=== PATIENT | male | born 1960 | race Caucasian/White ===

== ENCOUNTER 2018-03-29 17:52 | Inpatient (IN) | payer MEDICAID, SELFPAY ==
[2018-03-29 17:53] VITALS: BP 150/100; PULSE 108; RESP 16; TEMP 36.6; O2SAT 95; BMI 28.0
[2018-03-29 19:08] VITALS: BP 125/83; PULSE 73; RESP 14; O2SAT 96
[2018-03-29 19:14] LABS: Absolute Lymphocyte Count 2.02 X10^3/ul (0.83-4.51); Absolute Neutrophil Count 1.6 X10^3/uL (2.0-7.7); Basophil# 0.04 X10^3/uL; Basophil% 0.9 % (0-1); Eosinophil# 0.16 X10^3/uL; Eosinophils% 3.6 % (0-5); Hematocrit 43.7 % (40-54); Hemoglobin 15.1 g/dl (13.0-16.5); Lymphocyte # 2.02 X10^3/ul (4.0); Lymphocyte % 45.9 % (19-41); Mean Corp Hgb Conc 34.6 g/gl (32-36); Mean Corpuscular Hgb 32.8 pg (27.0-32.0); Mean Corpuscular Volume 94.8 fL (80-94); Mean Platelet Vol. 9.1 fl (6.2-12.0); Monocyte# 0.62 X10^3/uL; Monocyte% 14.1 % (0-10); Neutrophil # 1.56 X10^3/uL (2.7-7.7); Neutrophil % 35.5 % (47-70); Platelet Count 154 K/mm3 (150-450); RBC Distribution Width CV 11.8 % (11.6-14.6); RBC Distribution Width SD 40.9 fl (35.1-43.9); Red Blood Count 4.61 M/mm3 (4.6-6.2); White Blood Count 4.4 K/mm3 (4.4-11.0)
[2018-03-29 19:16] LABS: POSITIVE COUNT NO; POSITIVE DIFFERENTIAL NO; POSITIVE MORPHOLOGY NO
[2018-03-29 19:20] LABS: Anion Gap 7 (5-15); BUN 5 mg/dL (7-18); BUN/Creat Ratio 6.5 RATIO (10-20); Calcium,Total 8.5 mg/dL (8.5-10.1); Chloride 99 mmol/L (98-107); Creatinine, Serum 0.77 mg/dL (0.70-1.30); EST Glomerular Filtration Rate 111 mL/min (>60); Est Glom Filt Rate - Afr Amer 134 mL/min (>60); Estimated Creatinine Clearance 126.03 ml/min; Glucose 96 mg/dL (74-106); Potassium 3.9 mmol/L (3.5-5.1); Sodium Level 138 mmol/L (136-145)
--- NOTE | 2018-03-29 19:40 | ED.RN ---
lab called with critical results. etoh level 384. dr. mathias made aware no new orders at this time
[2018-03-29] MEDS: Ziprasidone IM 20 MG/ML VIAL 10 MG IM (21:21)
--- NOTE | 2018-03-29 23:12 | ED.DCSUM_ITS ---
- ER Visit Summary Date of Service: 03/29/18 Chief Complaint: Alcohol overdose History of Present Illness: The patient is a 57 M with no primary care physician. He reports that he drinks daily. He states he has had 3 tall boys today. He is worried that he has overdosed on alcohol. On the triage reports that the patient presented asking for detox. When I asked the patient about this she reports I probably should. Review of systems: General: No fever, chills, cold sweats. Cardiovascular: No chest pain, palpitations. Respiratory: No cough, shortness of breath, dyspnea on exertion. Gastrointestinal: No abdominal pain, nausea, vomiting, diarrhea, melena, or hematochezia. Genitourinary: No dysuria, frequency, hematuria. Skin: No rash. Neuro: No headache, numbness, weakness. Physical Examination: Vitals: Stable. Afebrile. General: Well-nourished and well-developed. Head: Normocephalic atraumatic. Neck: Supple, no lymphadenopathy. No JVD. Nontender. Cardiovascular: Regular rate and rhythm. No murmurs. Respiratory: No respiratory distress. Clear to auscultation bilaterally. Abdominal: Soft, nontender, nondistended, normal bowel sounds. No guarding, rebound, or peritoneal signs. Back: Nontender. Extremities: Nontender, no edema. Skin: Normal color, no rash. Neurologic: Alert and oriented ?3. Cranial nerves II through XII are intact. Normal strength and sensation. Psych: Normal affect. Test Results: CBC is remarkable for segment neutrophils of 36, lymphocytes of 46 , and monocytes of 14. Chem-7 is more for BUN of 5. Alcohol level is 384. Emergency Department Course and Treatment: Patient is resting comfortably. I spoke with him about him being intoxicated and not in a eligible for [facility] because of that. He asked that he could walk home. Discussed that that is not a possibility as he is intoxicated. The nurse called and spoke with his . She reports patient has been talking about going to detox and has withdrawal symptoms in the morning before his initial drink. She would like the patient to stay overnight and be assessed by [facility]. Treatment Plan: I discussed this plan with the patient. He also would like to stay in the emergency department. He was given a dose of Geodon IM to help him sleep. He will be reassessed in the morning. Disposition: Pending Impression: 1. Alcohol intoxication. This note was generated with [employer] dictation software. It may contain incorrect words, spelling, and punctuation that were not noted in review of the chart prior to signing ED Disposition - Plan for ED Patient: Chief Complaint: ETOH Intox Referrals: Care Physician,No Primary [Primary Care Provider] -
[2018-03-30] VITALS (12 sets, daily range): BP systolic 112–166; BP diastolic 75–105; PULSE 68–122; RESP 16–20; TEMP 36.2–37.2; O2SAT 94–98; BMI 27.8
--- NOTE | 2018-03-30 06:55 | ED.RN ---
CONSULT PLACED FOR SOCIAL WORK AND [facility] FOR REHAB PLACEMENT
--- NOTE | 2018-03-30 06:56 | ED.RN ---
CALLED PATIENTS TO UPDATE ON PATIENTS ADMISSION STATUS. DUE TO PATIENTS INSURANCE HE [facility] HE WILL HAVE TO FOLLOW UP WITH ANOTHER REHAB PROGRAM CONSULTS LEFT IN AN ATTEMPT TO FIND ANOTHER REHAB CENTER
--- NOTE | 2018-03-30 08:51 | NURSING ---
DR LAYO MALHOTRA
--- NOTE | 2018-03-30 08:54 | NURSING ---
DR VASQUES IN ER
--- NOTE | 2018-03-30 09:26 | NURSING ---
215 ALCOHOL WITHDRAWAL TERELETSKY
[2018-03-30] MEDS: Lisinopril 20 MG Tablet PO (10:08)
[2018-03-30] MEDS: cloNIDine HCl 0.1 MG Tablet PO ×4 (10:08→21:37)
[2018-03-30] MEDS: chlordiazePOXIDE 25 MG Capsule PO ×3 (10:08→21:37)
[2018-03-30] MEDS: Ondansetron ODT 4 MG Tablet PO (13:53)
[2018-03-30] MEDS: Methocarbamol 750 MG Tablet PO (13:55)
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
[2018-03-30] MEDS: Ibuprofen 600 MG Tablet PO (20:03)
[2018-03-31] VITALS (13 sets, daily range): BP systolic 106–132; BP diastolic 68–100; PULSE 62–90; RESP 16–18; TEMP 36.6–36.8; O2SAT 96–100
[2018-03-31] MEDS: cloNIDine HCl 0.1 MG Tablet PO ×5 (02:05→22:33)
[2018-03-31] MEDS: chlordiazePOXIDE 25 MG Capsule PO ×3 (04:16→19:53)
[2018-03-31] MEDS: Ibuprofen 600 MG Tablet PO ×2 (06:25→17:42)
[2018-03-31] MEDS: Methocarbamol 750 MG Tablet PO ×2 (06:26→16:32)
--- NOTE | 2018-03-31 09:05 | PCM.PROGNOTE ---
Patient Problems: Active and Suspected Problems Alcohol withdrawal (Acute) Subjective: Patient was seen and examined today, he states he feels less nervous and jittery. - Physical Exam General: Alert, Oriented x3, Cooperative, No apparent distress, Well developed, Well nourished HEENT: Atraumatic, PERRLA, EOMI, Normocephalic Oral: Moist Mucosa Neck: Supple, No JVD, No Nuchal Rigidity, Trachea Midline, Thyroid Normal Size and Texture Lungs: Clear to auscultation, Normal air movement, No rhonchi, No wheeze, No rales Cardiovascular: Regular rate, Regular Rhythm, Normal S1, Normal S2, No murmurs, No Ectopic Activity Abdomen: Bowel Sounds Present, Soft, Non Tender, Non-Distended, No hernias noted Extremities: No clubbing, No cyanosis, No edema, Capillary Refill Less than 3 Seconds Skin: No rashes, No breakdown Musculoskeletal: No Tenderness to Palpation of Joints or Extremities Neurological: Cranial nerves II-XII grossly intact, Neuro grossly intact, Sensory exam intact to light touch and pain, Coordination normal Psych/Mental Status: Normal Affect, Appropriate, Alert and oriented to time, place, person, mood and affect Vital Signs Temp Pulse Resp BP Pulse Ox 97.8 F 80 16 124/89 H 100 03/31/18 04:14 03/31/18 08:22 03/31/18 04:14 03/31/18 05:59 03/31/18 04:08 Oxygen Delivery Method Room Air Weight: 95.6 kg Body Mass Index (BMI) 27.8 Intake and Output for Last 24 Hours 03/29/18 03/30/18 03/31/18 23:59 23:59 23:59 Intake Total 1050 / 1050 1080 / 1080 Balance 1050 / 1050 1080 / 1080 Medical Necessity - Tobacco Use Smoking Status: Never smoker Tobacco Use: Non-smoker Assessment/Plan Active and Suspected Problems Alcohol withdrawal (Acute) #1 acute alcohol withdrawal-continue present medications #2 alcoholism Code Visit Inpatient E&M: 11493 Subs Hosp L2
[2018-03-31] MEDS: Lisinopril 20 MG Tablet PO (09:47)
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
[2018-03-31] MEDS: Thiamine Hydrochloride 100 MG Tablet PO ×2 (17:56)
[2018-04-01] VITALS (8 sets, daily range): BP systolic 121–157; BP diastolic 82–97; PULSE 66–89; RESP 18; TEMP 36.3–37.1; O2SAT 94–100
[2018-04-01] MEDS: Ibuprofen 600 MG Tablet PO ×3 (02:10→22:35)
[2018-04-01] MEDS: cloNIDine HCl 0.1 MG Tablet PO ×6 (02:11→22:30)
[2018-04-01] MEDS: Methocarbamol 750 MG Tablet PO ×2 (02:11→10:15)
[2018-04-01] MEDS: chlordiazePOXIDE 25 MG Capsule PO ×2 (04:44→11:35)
[2018-04-01] MEDS: Lisinopril 20 MG Tablet PO (10:12)
--- NOTE | 2018-04-01 16:48 | PCM.PROGNOTE ---
Patient Problems: Active and Suspected Problems Alcohol withdrawal (Acute) Subjective: Patient seen and examined today, he is doing well overall and has no specific complaints. - Physical Exam General: Alert, Oriented x3, Cooperative, No apparent distress, Well developed, Well nourished HEENT: Atraumatic, PERRLA, EOMI, Normocephalic Oral: Moist Mucosa Neck: Supple, No JVD, No Nuchal Rigidity, Trachea Midline, Thyroid Normal Size and Texture Lungs: Clear to auscultation, Normal air movement, No rhonchi, No wheeze, No rales Cardiovascular: Regular rate, Regular Rhythm, Normal S1, Normal S2, No murmurs, No Ectopic Activity, PMI Normal, No rub noted, No Gallop Abdomen: Bowel Sounds Present, Soft, Non Tender, Non-Distended, No hernias noted Extremities: No clubbing, No cyanosis, No edema, Capillary Refill Less than 3 Seconds Skin: No rashes, No breakdown Neurological: Cranial nerves II-XII grossly intact, Neuro grossly intact, Sensory exam intact to light touch and pain, Coordination normal Psych/Mental Status: Normal Affect, Appropriate, Alert and oriented to time, place, person, mood and affect Vital Signs Temp Pulse Resp BP Pulse Ox 98.7 F 89 18 157/92 H 95 04/01/18 13:50 04/01/18 13:50 04/01/18 13:50 04/01/18 13:50 04/01/18 13:50 Oxygen Delivery Method Room Air Weight: 95.6 kg Body Mass Index (BMI) 27.8 Intake and Output for Last 24 Hours 03/30/18 03/31/18 04/01/18 23:59 23:59 23:59 Intake Total 1050 / 1050 1080 / 1080 1300 / 1300 Balance 1050 / 1050 1080 / 1080 1300 / 1300 Medical Necessity - Tobacco Use Smoking Status: Never smoker Tobacco Use: Non-smoker Assessment/Plan Active and Suspected Problems Alcohol withdrawal (Acute) #1 acute alcohol withdrawal-continue present medications, no changes in medical care at this time #2 alcoholism Code Visit Inpatient E&M: 16636 Subs Hosp L2
[2018-04-02] VITALS (8 sets, daily range): BP systolic 119–136; BP diastolic 79–101; PULSE 62–65; RESP 14–18; TEMP 36.3–36.5; O2SAT 96–100
[2018-04-02] MEDS: chlordiazePOXIDE 25 MG Capsule PO (00:16)
[2018-04-02] MEDS: Methocarbamol 750 MG Tablet PO ×2 (00:16→08:37)
[2018-04-02] MEDS: cloNIDine HCl 0.1 MG Tablet PO ×3 (02:18→08:21)
--- NOTE | 2018-04-02 08:06 | PCM.DC ---
- Discharge Diagnoses Current Active Problems: Current Active and Chronic Problems Alcohol abuse (Chronic) Alcohol withdrawal (Acute) Hypertension (Chronic) You will use the following diet at home:: No restrictions Your food should be the consistency of: Regular Your liquids should be the consistency of: Regular/Thin Discharge Activity: Return to Normal Activity Weight Bearing Status: Full weight bearing Allergies/Adverse Reactions: Allergies No Known Allergies Allergy (Verified 02/23/17 09:26) Medications to take at Discharge Lisinopril 20 mg PO DAILY #30 tab 04/02/18 The following prescriptions were given: Lisinopril 20 mg PO DAILY #30 tab Primary Care Physician: Care Physician,No Primary [Primary Care Provider] - Please follow up with your Primary Care Physician in: in 2 weeks
[2018-04-02] MEDS: Thiamine Hydrochloride 100 MG Tablet PO (08:18)
[2018-04-02] MEDS: Lisinopril 20 MG Tablet PO (08:22)
--- NOTE | 2018-04-02 16:57 | PCM.DC.SUM ---
Discharge Date and Diagnosis Date of Admission: 03/30/18 Date of Discharge: 04/02/18 - Primary Discharge Diagnosis #1 acute alcohol withdrawal #2 alcoholism #3 hypertension - Secondary Discharge Diagnosis Chronic Problems Alcohol abuse (Chronic) Hypertension (Chronic) Hospital Course and Treatment Operations: None Procedures: None Summary of Care Provided: The patient is a 57 year old M who was admitted into the medical stabilization program at [facility] for alcohol withdrawal. Patient initially presented to the emergency room the day before but was intoxicated and was kept in the emergency room until he had evidence of alcohol withdrawal. Patient was admitted into the medical stabilization program at [facility] on , orders were entered using the medical stabilization order set. Patient was started on his former blood pressure medication which she had not been taking and quite a while, he had no major problems while he was hospitalized. On 04/02/18, patient was seen and examined felt in stable condition for discharge home Discharge Activity: Return to Normal Activity Weight Bearing Status: Full weight bearing Home Medications: Medications to take at Discharge Lisinopril 20 mg PO DAILY #30 tab 04/02/18 Following Prescrptions Were Given to Patient: Lisinopril 20 mg PO DAILY #30 tab Primary Care Physician: Care Physician,No Primary [Primary Care Provider] - Please follow up with your Primary Care Physician in: in 2 weeks Disposition: Home Minutes spent on discharge:: 32 Patient Condition:: Stable Medical Necessity - Tobacco Use Smoking Status: Never smoker Tobacco Use: Non-smoker Meaningful Use Info Meaningful Use Diagnoses (Choose all that apply): None applicable Code Visit Inpatient E&M: 52569 Disch Hosp
--- NOTE | 2018-04-02 17:00 | DS.PCM_ITS ---
Discharge Date and Diagnosis Date of Admission: 03/30/18 Date of Discharge: 04/02/18 - Primary Discharge Diagnosis #1 acute alcohol withdrawal #2 alcoholism #3 hypertension - Secondary Discharge Diagnosis Chronic Problems Alcohol abuse (Chronic) Hypertension (Chronic) Hospital Course and Treatment Operations: None Procedures: None Summary of Care Provided: The patient is a 57 year old M who was admitted into the medical stabilization program at [facility] for alcohol withdrawal. Patient initially presented to the emergency room the day before but was intoxicated and was kept in the emergency room until he had evidence of alcohol withdrawal. Patient was admitted into the medical stabilization program at [facility] on , orders were entered using the medical stabilization order set. Patient was started on his former blood pressure medication which she had not been taking and quite a while, he had no major problems while he was hospitalized. On 04/02/18, patient was seen and examined felt in stable condition for discharge home Discharge Activity: Return to Normal Activity Weight Bearing Status: Full weight bearing Home Medications: Medications to take at Discharge Lisinopril 20 mg PO DAILY #30 tab 04/02/18 Following Prescrptions Were Given to Patient: Lisinopril 20 mg PO DAILY #30 tab Primary Care Physician: Care Physician,No Primary [Primary Care Provider] - Please follow up with your Primary Care Physician in: in 2 weeks Disposition: Home Minutes spent on discharge:: 32 Patient Condition:: Stable Medical Necessity - Tobacco Use Smoking Status: Never smoker Tobacco Use: Non-smoker Meaningful Use Info Meaningful Use Diagnoses (Choose all that apply): None applicable Code Visit Inpatient E&M: 90940 Disch Hosp
== END 2018-04-02 09:05 | disposition home or self-care (01) | DRG 435 ==
LOC: ED 22:28 → MS2 03-30 09:28 → MS3 04-01 14:11
PROVIDERS: Admitting Provider Internal Medicine; Emergency Provider Emergency Medicine; Visit Provider Internal Medicine
DX: F10.239 Alcohol dependence with withdrawal, unspecified (principal); F10.229 Alcohol dependence with intoxication, unspecified; Y90.8 Blood alcohol level of 240 mg/100 ml or more; I10 Essential (primary) hypertension
CPT/HCPCS: 80048; 80320; 85025; 97802; 99285; J7040; A4216; G0480; J3486; J3490

== ENCOUNTER 2018-04-23 16:31 | Emergency (ER) | payer MEDICAID, SELFPAY ==
--- NOTE | 2018-04-23 16:31 | DT_ITS ---
This patient was seen during an EMR downtime April 18, 2018 - April 25, 2018. This patient may have a combination of paper and electronic documentation or all paper documentation. All documentation is viewable within the e-chart portion of [employer] for each patient visit.
[2018-04-26 06:39] LABS: Bacteria 0 SEEN /hpf (None Seen); Mucous, Urine 0 SEEN /hpf (<or=2+); Red Blood Cells-Urine 0 SEEN /hpf (0-5); White Blood Cells 0 SEEN /hpf (0-5)
[2018-04-26 07:01] LABS: Color, Urine Yellow (Yellow); Glucose, Dipstick NEGATIVE (Normal); Ketone-Dipstick Negative (Negative); Leukocyte Esterase-Dipstick Negative /ul (Negative); Nitrite-Dipstick Negative (Negative); Occult Blood-Urine Negative /ul (Negative); Protein-Dipstick Negative (Negative); Squamous Epithelial Cells - UA 0-5 SEEN /hpf (0-5); Urine Bilirubin Dipstick Negative (Negative); Urine Clarity Sl Cldy (Clear); Urine Urobilinogen Normal (Normal)
[2018-04-26 18:25] LABS: Amphetamine Urine VISTA NEGATIVE (<1000 ng/mL); Barbiturate Urine VISTA NEGATIVE (< 200 ng/mL)
[2018-04-26 18:26] LABS: Benzodiazepine Urine VISTA POSITIVE (< 200 ng/mL); Cocaine Urine VISTA NEGATIVE (< 300 ng/mL); Ecstacy Urine VISTA NEGATIVE (< 500 ng/mL); Methadone Urine VISTA NEGATIVE (< 300 ng/mL); PCP Urine VISTA NEGATIVE (< 25 ng/mL); THC Urine VISTA NEGATIVE (< 50 ng/mL)
[2018-04-26 20:37] LABS: BUN 8 mg/dL (7-18); Glucose 90 mg/dL (74-106)
[2018-04-26 20:38] LABS: BUN/Creat Ratio 10.5 RATIO (10-20); Calcium,Total 8.6 mg/dL (8.5-10.1); Creatinine, Serum 0.76 mg/dL (0.70-1.30); EST Glomerular Filtration Rate 113 mL/min (>60); Est Glom Filt Rate - Afr Amer 137 mL/min (>60); Sodium Level 142 mmol/L (136-145)
[2018-04-26 20:39] LABS: Anion Gap 9 (5-15); Chloride 102 mmol/L (98-107); Potassium 4.1 mmol/L (3.5-5.1)
[2018-04-26 20:48] LABS: White Blood Count 3.9 K/mm3 (4.4-11.0)
[2018-04-26 20:49] LABS: Absolute Neutrophil Count 1.5 X10^3/uL (2.0-7.7); Basophil% 1.6 % (0-1); Eosinophils% 3.9 % (0-5); Hematocrit 43.2 % (40-54); Hemoglobin 14.4 g/dl (13.0-16.5); Lymphocyte % 45.2 % (19-41); Mean Corp Hgb Conc 33.3 g/gl (32-36); Mean Corpuscular Hgb 32.4 pg (27.0-32.0); Mean Corpuscular Volume 97.1 fL (80-94); Mean Platelet Vol. 8.7 fl (6.2-12.0); Monocyte% 11.9 % (0-10); Neutrophil # 1.45 X10^3/uL (2.7-7.7); Neutrophil % 37.4 % (47-70); POSITIVE COUNT NO; POSITIVE DIFFERENTIAL NO; POSITIVE MORPHOLOGY NO; Platelet Count 147 K/mm3 (150-450); RBC Distribution Width CV 12.3 % (11.6-14.6); RBC Distribution Width SD 43.6 fl (35.1-43.9); Red Blood Count 4.45 M/mm3 (4.6-6.2)
[2018-04-26 20:50] LABS: Absolute Lymphocyte Count 1.75 X10^3/ul (0.83-4.51); Basophil# 0.06 X10^3/uL; Eosinophil# 0.15 X10^3/uL; Lymphocyte # 1.75 X10^3/ul (4.0); Monocyte# 0.46 X10^3/uL
== END 2018-04-24 14:05 | disposition home or self-care (01) ==
LOC: ED 04-24 14:45
PROVIDERS: Emergency Provider Emergency Medicine
DX: F10.129 Alcohol abuse with intoxication, unspecified (principal); Y90.8 Blood alcohol level of 240 mg/100 ml or more
CPT/HCPCS: 36415; 80048; 80307; 80320; 81001; 85025; 99282; G0480; J3486

== ENCOUNTER 2018-11-07 17:31 | Emergency (ER) | payer MEDICAID, SELFPAY ==
[2018-11-07 17:32] VITALS: BP 168/101; PULSE 112; RESP 16; TEMP 36.7; O2SAT 96; BMI 29.7
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
[2018-11-07] MEDS: guaiFENesin Dm 10 ML UDC PO (18:21)
[2018-11-07 18:28] LABS: Anion Gap 11 (5-15); BUN 5 mg/dL (7-18); BUN/Creat Ratio 6.4 RATIO (10-20); Calcium,Total 8.7 mg/dL (8.5-10.1); Chloride 98 mmol/L (98-107); Creatinine, Serum 0.78 mg/dL (0.70-1.30); EST Glomerular Filtration Rate 108 mL/min (>60); Est Glom Filt Rate - Afr Amer 131 mL/min (>60); Estimated Creatinine Clearance 119.51 ml/min; Glucose 94 mg/dL (74-106); Potassium 3.7 mmol/L (3.5-5.1); Sodium Level 140 mmol/L (136-145)
[2018-11-07 18:30] LABS: Absolute Lymphocyte Count 2.37 X10^3/ul (0.83-4.51); Absolute Neutrophil Count 2.5 X10^3/uL (2.0-7.7); Basophil# 0.04 X10^3/uL; Basophil% 0.8 % (0-1); Eosinophil# 0.09 X10^3/uL; Eosinophils% 1.7 % (0-5); Hematocrit 41.2 % (40-54); Hemoglobin 14.2 g/dl (13.0-16.5); Lymphocyte # 2.37 X10^3/ul (4.0); Lymphocyte % 45.2 % (19-41); Mean Corp Hgb Conc 34.5 g/gl (32-36); Mean Corpuscular Hgb 32.6 pg (27.0-32.0); Mean Corpuscular Volume 94.5 fL (80-94); Mean Platelet Vol. 8.9 fl (6.2-12.0); Monocyte# 0.28 X10^3/uL; Monocyte% 5.3 % (0-10); Neutrophil # 2.46 X10^3/uL (2.7-7.7); Platelet Count 156 K/mm3 (150-450); RBC Distribution Width CV 12.1 % (11.6-14.6); RBC Distribution Width SD 41.2 fl (35.1-43.9); Red Blood Count 4.36 M/mm3 (4.6-6.2); White Blood Count 5.2 K/mm3 (4.4-11.0)
[2018-11-07 18:33] LABS: POSITIVE COUNT NO; POSITIVE DIFFERENTIAL NO; POSITIVE MORPHOLOGY NO
[2018-11-07 21:22] VITALS: BP 109/76; PULSE 94; RESP 16; O2SAT 96
[2018-11-07 21:30] LABS: Bacteria 0 SEEN /hpf (None Seen); Mucous, Urine 0 SEEN /hpf (<or=2+); Red Blood Cells-Urine 0 SEEN /hpf (0-5)
[2018-11-07 21:37] LABS: Color, Urine Yellow (Yellow); Glucose, Dipstick Normal (Normal); Ketone-Dipstick Negative (Negative); Leukocyte Esterase-Dipstick Negative /ul (Negative); Nitrite-Dipstick Negative (Negative); Occult Blood-Urine Negative /ul (Negative); Protein-Dipstick Negative (Negative); Urine Bilirubin Dipstick Negative (Negative); Urine Clarity Clear (Clear); Urine Urobilinogen Normal (Normal)
[2018-11-07 21:48] LABS: Squamous Epithelial Cells - UA 0-5 SEEN /hpf (0-5); White Blood Cells 0-5 SEEN /hpf (0-5)
[2018-11-07 22:39] VITALS: RESP 16
[2018-11-08] VITALS (8 sets, daily range): BP systolic 104–148; BP diastolic 82–105; PULSE 88–104; RESP 16–20; O2SAT 94–98
--- NOTE | 2018-11-08 05:48 | ED.RN ---
BREAKFAST TRAY ORDERED
== END 2018-11-08 08:06 | disposition home or self-care (01) ==
PROVIDERS: Emergency Provider Emergency Medicine
DX: F10.129 Alcohol abuse with intoxication, unspecified (principal); S09.90XA Unspecified injury of head, initial encounter; Y04.2XXA Assault by strike against or bumped into by another person, initial encounter; Y93.9 Activity, unspecified; Y92.9 Unspecified place or not applicable; Y99.9 Unspecified external cause status; J06.9 Acute upper respiratory infection, unspecified; I10 Essential (primary) hypertension; Z79.899 Other long term (current) drug therapy
CPT/HCPCS: 70450; 71046; 80048; 80320; 81001; 85025; 99284; G0480

== ENCOUNTER 2018-12-27 14:56 | Emergency (ER) | payer MEDICAID, SELFPAY ==
[2018-12-27 14:57] VITALS: BP 152/119; PULSE 121; RESP 16; TEMP 36.7; O2SAT 98; BMI 29.0
[2018-12-27 15:19] VITALS: PULSE 120; RESP 17; O2SAT 97
--- NOTE | 2018-12-27 15:24 | ED.VISSUMM ---
- ER Visit Summary Date of Service: 12/27/18 Chief Complaint: Fall History of Present Illness: The patient is a 58 M who states he fell on ice 3 days ago when he went out to get his mail. He had difficulty getting up because of the ice. He complains of pain to his back just beneath his shoulder blades when trying to push himself up. He states he was outside for approximately an hour before he was able to get back inside He states his family has been wanting him to come to get checked out. He denies headache or loss of consciousness. Patient does admit to drinking alcohol. He states he had 2 tall boys at 8 AM this morning. Physical Examination: Blood pressure is 152/119, temperature 98.1, heart rate 121, respiratory rate 16, pulse ox 98% on room air. She is sitting upright in bed no acute distress. He is alert and talkative. Head neck examination reveals an old appearing ecchymosis across his nasal bridge. There is no focal tenderness to palpation. He has no C-spine tenderness. Heart is regular rate and rhythm. Lungs sounds are clear. There is no anterior rib tenderness. He does have reproducible tenderness to the posterior ribs just inferior to the scapula. Tenderness is mild to palpation. There is no crepitus. Abdomen is soft nontender. Neuro exam reveals good strength and sensation. Test Results: [] Emergency Department Course and Treatment: She was offered to order chest x-ray to evaluate his ribs, but patient is declining x-rays or any imaging at this time. He is requesting just Tylenol or ibuprofen and let him go home. Patient does remain tachycardic here. He denies that he is going into alcohol withdrawal. He does not wish for anything further to be done at this time. He will be given a dose of Tylenol and discharged home with a ride. Treatment Plan: [] Disposition: Discharge Impression: Reported fall with back strain Addendum: Prior to the patient being discharged nursing staff advised me that he was planning on walking home and in fact did not have a ride. I confronted him with this. I advised him that clinically he is intoxicated and cannot sign out without a ride here to drive him home. He agreed to let me draw his alcohol level which returned at 408. Patient was advised to find a ride home. He was in agreement. When nurse went to start an IV line and another patient's room, patient eloped from the emergency department. This note was generated with [employer] dictation software. It may contain incorrect words, spelling, and punctuation that were not noted in review of the chart prior to signing ED Disposition - Plan for ED Patient: Disposition: Against Medical Advice Instructions: ED Mechanical Fall, ED Neck Back Pain General Referrals: Moriah Fernandez MD [STAFF PHYSICIAN] - As Needed
--- NOTE | 2018-12-27 15:27 | ED.DEP ---
ED Disposition - Plan for ED Patient: Disposition: Home or Assisted Living Instructions: ED Mechanical Fall, ED Neck Back Pain General Referrals: Moriah Fernandez MD [STAFF PHYSICIAN] - As Needed
[2018-12-27] MEDS: Acetaminophen 500 MG Tablet 1000 MG PO (15:33)
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
--- NOTE | 2018-12-27 17:01 | CHAPLAIN ---
Type of Pastoral Visit ___ Initial Visit ___ Follow-up Visit ___ On-call Visit ___ General Patient Visit ___ Spiritual Assessment ___ Family Conference ___ Bereavement ___ Rapid Response ___ Code Blue _x__ Other (describe below) Pastoral Care Referral From _x__ Patient ___ Family _x__ Nurse ___ Physician ___ Heel Lift Gouger ___ Design Lead ___ Other (describe below) Sacrament/Intervention _x__ Active listening ___ Anointing ___ Confucianism ___ Bereavement ___ Communion ___ Freida exploration ___ _x__ Life review _x__ Prayer ___ Reconciliation ___ Sacrament of Sick _x__ Supportive presence ___ Wedding ___ Other (describe below) Pastoral Comments patient wanted to leave AMA; sat with pt in room and listened to his story; offered a prayer; gave time and attention; pt remained in room
--- NOTE | 2018-12-27 17:30 | ED.RN ---
AND THIS NURSE WENT IN TO TALK WITH PT ABOUT ALCOHOL LEVEL AND NEED FOR RIDE AND RESPONSIBLE LIBERTARIAN. PT AWARE NOT TO LEAVE AND NEED TO GET A RIDE. VERBALIZES UNDERSTANDING.
--- NOTE | 2018-12-27 17:47 | ED.RN ---
ROOM EMPTY, NO WITTNESS TO PT DEPARTURE. LEFT AGAINST MEDICAL ADVICE. CHECKED UNIT AND OUTSIDE SURROUNDING AREA. PT DIDNT HAVE VEHICLE HAD VERBALIZED PRIOR HIS INTENT WAS TO WALK.
== END 2018-12-27 17:49 | disposition left against medical advice (07) ==
PROVIDERS: Emergency Provider Emergency Medicine
DX: S29.012A Strain of muscle and tendon of back wall of thorax, initial encounter (principal); W00.0XXA Fall on same level due to ice and snow, initial encounter; Y93.9 Activity, unspecified; Y92.9 Unspecified place or not applicable; Y99.9 Unspecified external cause status; R00.0 Tachycardia, unspecified; F10.229 Alcohol dependence with intoxication, unspecified; Y90.8 Blood alcohol level of 240 mg/100 ml or more
CPT/HCPCS: 80320; 99284; G0480

== ENCOUNTER 2019-01-17 19:59 | Emergency (ER) | payer MEDICAID, SELFPAY ==
[2019-01-17 20:00] VITALS: BP 155/120; PULSE 98; RESP 16; TEMP 36.8; O2SAT 96; BMI 29.8
--- NOTE | 2019-01-17 20:16 | ED.VISSUMM ---
- ER Visit Summary Date of Service: 01/17/19 Chief Complaint: [] Found publicly intoxicated in by paramedics patient with no complaints History of Present Illness: The patient is a 58 M [] she has no complaints indicates he was drinking he apparently somehow was picked up by the paramedics and brought to the hospital, indicates he has no complaints of any kind he has no head neck chest or abdominal pain he knows his name the fact he is [facility] and the month of January,, he has a home Physical Examination: []vs are within normal range General, no distress resting comfortably HEENT is generally unremarkable The neck is supple no adenopathy Cardiovascular, regular rate and rhythm Lungs, clear bilateral Abdomen, soft nontender Extremities, no clubbing cyanosis or edema Neurologic, awake alert answering questions appropriately moving all 4 extremities She has no complaints indicates he has he does not know why he was brought to the hospital from the information the primary escape to the staff he was found publicly intoxicated at this time we provide him coffee we have observed in the emergency department he will be discharged home to follow-up with his outpatient providers I recommended he consider going to alcohol detox he did not seem interested Test Results: [] Emergency Department Course and Treatment: [] Treatment Plan: [] Disposition: [] Home stable Impression: [] Alcohol abuse by history This note was generated with [employer] dictation software. It may contain incorrect words, spelling, and punctuation that were not noted in review of the chart prior to signing ED Disposition - Plan for ED Patient: Referrals: Care Physician,No Primary [Primary Care Provider] -
--- NOTE | 2019-01-17 20:18 | ED.DEP ---
ED Disposition - Plan for ED Patient: Instructions: ED Overdose Alcohol, ED Alcohol Abuse Referrals: Care Physician,No Primary [Primary Care Provider] -
--- NOTE | 2019-01-17 20:30 | ED.RN ---
PT A+OX3. DENIES ALCOHOL USE. PT HAS BEEN CLEARED FOR D/C FROM DR. NIELSEN.
[2019-01-17 20:52] VITALS: PULSE 91; RESP 18; O2SAT 100
--- NOTE | 2019-01-17 20:53 | ED.RN ---
PT DISCHARGED, VERBALIZES UNDERSTANDING OF DISCHARGE INSTRUCTIONS. PT AMBULATES TO [facility] [employer] [facility]. OFFICE DOZIER IS TAKING PATIENT HOME.
--- NOTE | 2019-01-17 20:55 | ED.RN ---
PD ESCORT PT HOME. PT NEPHEW TO TAKE OF PT AT HOME. PT AMBULATORY OUT OF DEPT WITH PD.
== END 2019-01-17 20:55 | disposition home or self-care (01) ==
LOC: ED 20:31
PROVIDERS: Emergency Provider Emergency Medicine
DX: F10.10 Alcohol abuse, uncomplicated (principal)
CPT/HCPCS: 99284

== ENCOUNTER 2019-02-27 12:47 | Inpatient (IN) | payer MEDICAID, SELFPAY ==
[2019-02-27] VITALS (11 sets, daily range): BP systolic 94–136; BP diastolic 68–96; PULSE 89–140; RESP 9–18; TEMP 36.7–37.1; O2SAT 95–98; BMI 29.5; BMI 29.6; BMI 29.3
--- NOTE | 2019-02-27 13:22 | EKG12_ITS ---
Test Reason : Blood Pressure : / mmHG Vent. Rate : 148 BPM Atrial Rate : 148 BPM P-R Int : 118 ms QRS Dur : 108 ms QT Int : 258 ms P-R-T Axes : 088 025 034 degrees QTc Int : 405 ms Atrial flutter Abnormal ECG Confirmed by ELLIOT IBRAHIM, ALONZO ([id number]), scientific publications editor EMANUEL DOZIER ([id number]) on 03/01/2019 9:27:40 AM Referred By: Kristyn Schmidt Confirmed By:ALONZO ZARATE MD
[2019-02-27] MEDS: dilTIAZem 25 MG/5 ML Vial 20 MG IV BOLUS (13:36)
[2019-02-27] MEDS: 0.9% Normal Saline 1,000 ML 1000 ML IV (13:36)
--- NOTE | 2019-02-27 13:45 | RAD_ITS ---
STUDY: X-RAY CHEST REASON FOR EXAM: Male, 58 years old. Shortness of breath/dyspnea. TECHNIQUE: Single AP portable view of the chest. COMPARISON: Comparison is made with prior study dated November 07, 2018. FINDINGS: EKG electrodes are seen. The lungs are clear and expanded. There is no demonstrated pleural abnormality. Normal size heart. Normal mediastinum and kimberly. Normal visualized pulmonary arteries. Normal visualized aortic arch and descending thoracic aorta. Normal visualized thoracic spine. Normal visualized ribs, clavicles, and shoulders. There is no demonstrated abnormality of the visualized soft tissue structures of the upper abdomen. RAD/Chest 1 View (Portable) IMPRESSION: Normal x-ray examination of the chest. Electronically Signed: Néstor Elizabeth, at 14:40 EDT , Service support ,
[2019-02-27 14:01] LABS: Absolute Neutrophil Count 3.1 X10^3/uL (2.0-7.7); Basophil# 0.03 X10^3/uL; Basophil% 0.6 % (0-1); Eosinophil# 0.06 X10^3/uL; Eosinophils% 1.2 % (0-5); Hematocrit 41.9 % (40-54); Hemoglobin 14.2 g/dl (13.0-16.5); Lymphocyte % 27.5 % (19-41); Mean Corp Hgb Conc 33.9 g/gl (32-36); Mean Corpuscular Hgb 32.8 pg (27.0-32.0); Mean Corpuscular Volume 96.8 fL (80-94); Mean Platelet Vol. 9.3 fl (6.2-12.0); Monocyte# 0.45 X10^3/uL; Monocyte% 8.8 % (0-10); Neutrophil # 3.14 X10^3/uL (2.7-7.7); Neutrophil % 61.7 % (47-70); Platelet Count 124 K/mm3 (150-450); RBC Distribution Width CV 12.9 % (11.6-14.6); RBC Distribution Width SD 45.7 fl (35.1-43.9); Red Blood Count 4.33 M/mm3 (4.6-6.2); White Blood Count 5.1 K/mm3 (4.4-11.0)
[2019-02-27 14:03] LABS: POSITIVE COUNT NO; POSITIVE DIFFERENTIAL NO; POSITIVE MORPHOLOGY NO
[2019-02-27 14:21] LABS: ALB/GLOB Ratio 0.9 RATIO (0.9-2.4); AST(SGOT) 51 U/L (15-37); Alanine Aminotransfer ALT/SGPT 35 U/L (16-61); Albumin, Serum 3.5 g/dL (3.2-5.0); Alkaline Phosphatase 53 U/L (45-117); Anion Gap 7 (5-15); BUN 6 mg/dL (7-18); BUN/Creat Ratio 8.4 RATIO (10-20); Bilirubin, Direct 0.09 mg/dL (0.00-0.30); Calcium,Total 8.5 mg/dL (8.5-10.1); Chloride 103 mmol/L (98-107); Creatinine, Serum 0.72 mg/dL (0.70-1.30); EST Glomerular Filtration Rate 120 mL/min (>60); Est Glom Filt Rate - Afr Amer 145 mL/min (>60); Estimated Creatinine Clearance 129.47 ml/min; Globulin 3.9 g/dL (2.2-4.2); Glucose 98 mg/dL (74-106); Potassium 3.7 mmol/L (3.5-5.1); Protein, Total 7.4 g/dL (6.4-8.2); Sodium Level 139 mmol/L (136-145); Thyroid Stim Hormone (TSH) 0.32 uIU/mL (0.358-3.74)
--- NOTE | 2019-02-27 14:32 | EKG12_ITS ---
Test Reason : Blood Pressure : / mmHG Vent. Rate : 106 BPM Atrial Rate : 357 BPM P-R Int : 000 ms QRS Dur : 092 ms QT Int : 348 ms P-R-T Axes : 000 027 039 degrees QTc Int : 462 ms Atrial fibrillation with rapid ventricular response Abnormal ECG Confirmed by ELLIOT IBRAHIM, ALONZO ([id number]), medical transcription editor EMANUEL DOZIER ([id number]) on 03/01/2019 9:28:54 AM Referred By: Kristyn Schmidt Confirmed By:ALONZO ZARATE MD
[2019-02-27 14:36] LABS: Amphetamine Urine VISTA NEGATIVE (<1000 ng/mL); Barbiturate Urine VISTA NEGATIVE (< 200 ng/mL); Benzodiazepine Urine VISTA NEGATIVE (< 200 ng/mL); Cocaine Urine VISTA NEGATIVE (< 300 ng/mL); Ecstacy Urine VISTA NEGATIVE (< 500 ng/mL); Methadone Urine VISTA NEGATIVE (< 300 ng/mL); PCP Urine VISTA NEGATIVE (< 25 ng/mL); THC Urine VISTA NEGATIVE (< 50 ng/mL); Vista UDS pH Range 6
[2019-02-27] MEDS: dilTIAZem 25 MG/5 ML Vial IV BOLUS (15:08)
--- NOTE | 2019-02-27 15:24 | ED.VISSUMM ---
- ER Visit Summary Date of Service: 02/27/19 Chief Complaint: Needs detox History of Present Illness: The patient is a 58 M with no primary care physician. He reports that he goes to [facility] and is seeing 1 of their facilities. They have been wanting him to go to detox as he has been drinking again. He states that he has been putting it off for the past couple of days, but decided come in today. He reports his last drink was approximate 90 minutes ago and has had one half tall boys today. Patient denies any fever, chills, chest pain, shortness of breath. He denies any other complaints. Physical Examination: Vitals: 90.1, 125/90, 137, 18, 97% room air which is not hypoxic. General: Well-nourished and well-developed. Head: Normocephalic atraumatic. Neck: Supple, no lymphadenopathy. No JVD. Nontender. Cardiovascular: Tachycardic irregular rhythm. No murmur. Respiratory: No respiratory distress. Clear to auscultation bilaterally. Abdominal: Soft, nontender, nondistended, normal bowel sounds. No guarding, rebound, or peritoneal signs. Back: Nontender. Extremities: Nontender, no edema. Skin: Normal color, no rash. Neurologic: Alert and oriented ?3. Cranial nerves II through XII are intact. Normal strength and sensation. Psych: Normal affect. Intoxicated. Test Results: Initial EKG is atrial flutter at [address] changes. He was given a dose of Cardizem IV. Repeat EKG is A. fib at 106. Troponin is negative. TSH is 0.32. Alcohol is 368. LFTs show AST of 51. Chem-7 shows a BUN is 6. CBC shows platelet 124. Tox screen is negative. Emergency Department Course and Treatment: Patient does not recognize any palpitations. Is unclear how long he has been in atrial fibrillation. He was given a dose of Cardizem IV and his heart rate has decreased into the 90s. He is resting comfortably. Treatment Plan: The patient was discussed with rissa hartman and with Dr. Schmidt. He will be admitted to the hospital for further evaluation and treatment. Disposition: Admitted in improved condition. Impression: 1. Atrial fibrillation with RVR. 2. Alcohol intoxication. 3. Critical care time 30 minutes. This note was generated with Dragon dictation software. It may contain incorrect words, spelling, and punctuation that were not noted in review of the chart prior to signing ED Disposition - Plan for ED Patient: Referrals: Care Physician,No Primary [Primary Care Provider] -
--- NOTE | 2019-02-27 15:43 | PCM.HP.STD ---
Problem List (1) Atrial fibrillation with RVR Status: Acute (2) Alcohol withdrawal Status: Acute Qualifiers: Complication of substance-induced condition: uncomplicated Qualified Code(s): F10.230 - Alcohol dependence with withdrawal, uncomplicated (3) Hypertension Status: Chronic Qualifiers: Hypertension type: essential hypertension Qualified Code(s): I10 - Essential (primary) hypertension History of Present Illness Date of Admission: 02/27/19 Chief Complaint: Alcohol withdrawal The patient is a 58 year old M with past medical history of chronic alcohol use disorder, hypertension, resident with in [facility] [address] program who comes in at the request of the housing program for detoxification from alcohol. Patient admits to drinking about 6 packs of beer every day. He comes in because he is told to get detox and requests medical stabilization from the [facility] program. He admits to history of alcohol related seizure with intubation 6 years ago in [facility]. Patient was found to be in A. fib with RVR with heart rate in the 140s while in the emergency department. Patient was asymptomatic. Vitals in the ED showed blood pressure 125/90, temperature 98.1 F, heart rate was 137, respiratory rate of 18, SPO2 was 97% on room air. His admitting CBCD showed WBC count of 5.1, hemoglobin was 14.2, platelet count was 124, previous platelet count in October 2018 was 156. His CMP was unremarkable for elevated AST of 51. ALT was 35, ALP was 53. Troponins was negative. TSH was 0.32. Urine drug screen was negative. Alcohol level was 368. Admitting chest x-ray was unremarkable EKGs shows atrial flutter/atrial fibrillation with RVR Past Medical History Past Medical History (Chronic Problems): Chronic Problems Alcohol abuse (Chronic) Hypertension (Chronic) Allergies No Known Allergies Allergy (Verified 02/27/19 13:37) Home Medications: Ambulatory Orders Medication Instructions Recorded Lisinopril 20 mg PO DAILY 01/17/19 Gabapentin [Neurontin] 300 mg PO TID PRN PRN 02/27/19 Surgical History: - - Right elbow surgery Psychiatric History: No pertinent psych hx Lives: Homeless - lives in [address] Smoking Status: Never smoker Tobacco Use: Non-smoker Alcohol: Heavy Drugs: None - *Family History Maternal History Items: Cancer, Hypertension Paternal History Items: Hypertension, Unknown Sibling History Items: Cancer Review of Systems Constitutional: Denies: Anorexia, Chills, Fever, Weakness, Weight Change Eyes: Denies: Blurred vision, Cataracts, Conjunctivae Inflammation, Double vision, Pain, Redness, Vision Change HEENT: Denies: Difficulty Hearing, Difficulty Swallowing, Head Aches, Hearing Changes, Sinus Congestion, Sinus Drainage, Visual Changes Cardiovascular: Denies: Chest Pain, Claudication, Chest Tightness, Heaviness, Light Headedness, Orthopnea, Palpitations, Paroxysmal Noc. Dyspnea Respiratory: Denies: Cough, Hemoptysis, Shortness of breath at rest, Shortness of breath upon exertion, Sputum production Gastrointestinal: Denies: Abdominal Pain, Hematemesis, Hematochezia, Nausea, Vomiting Genitourinary: Denies: Dysuria, Frequency, Incontinence Musculoskeletal: Denies: Joint Pain, Joint Tenderness Skin: Denies: Dryness, Jaundice, Pruritis, Rash, Wounds Neurological: Reports: Tremor. Denies: Focal weakness, Numbness, Tingling Psychiatric: Denies: Anxiety, Depression, Homicidal Ideations, Suicidal Ideations Hematologic/ Lymphatic: Denies: Easy Bruising, Easy Bleeding VTE Information - Inpt Only VTE Present on Admission: No VTE Pharm Prophylaxis ordered?: Yes Patient Problems: Active and Suspected Problems Atrial fibrillation with RVR (Acute) - Physical Exam General: Alert, Oriented x3, Cooperative, No apparent distress HEENT: Atraumatic, PERRLA, EOMI, Normocephalic Oral: Moist Mucosa Neck: Supple, No JVD, Negative Carotid Bruits Lungs: Clear to auscultation, Normal air movement Cardiovascular: Regular rate, Regular Rhythm, Normal S1, Normal S2, No murmurs Abdomen: Bowel Sounds Present, Soft, Non Tender Extremities: No edema, Capillary Refill Less than 3 Seconds Skin: No rashes, No breakdown Musculoskeletal: No Tenderness to Palpation of Joints or Extremities Neurological: Cranial nerves II-XII grossly intact Psych/Mental Status: Normal Affect, Appropriate Vital Signs Temp Pulse Resp BP Pulse Ox 98.1 F 89 14 94/68 97 02/27/19 12:49 02/27/19 15:03 02/27/19 15:03 02/27/19 15:03 02/27/19 15:03 Oxygen Delivery Method Room Air Weight: 101.605 kg Body Mass Index (BMI) 29.5 Laboratory Tests Past 24 Hrs 04/02/27/19 02/27/19 13:40 13:40 13:40 WBC 5.1 RBC 4.33 L Hgb 14.2 Hct 41.9 MCV 96.8 H MCH 32.8 H MCHC 33.9 RDW 12.9 RDW Differential 45.7 H Plt Count 124 L MPV 9.3 Immature Gran % (Auto) 0.200 Neut % (Auto) 61.7 Lymph % (Auto) 27.5 Sutton % (Auto) 8.8 Eos % (Auto) 1.2 Baso % (Auto) 0.6 Absolute Neuts (auto) 3.1 Absolute Lymphs (auto) 1.40 Total Counted Not Reportable Sodium 139 Potassium 3.7 Chloride 103 Carbon Dioxide 29.0 Anion Gap 7 BUN 6 L Creatinine 0.72 Estim Creat Clear Calc 129.47 Est GFR (MDRD) Af Amer 145 Est GFR (MDRD) Non-Af 120 BUN/Creatinine Ratio 8.4 L Glucose 98 Calcium 8.5 Total Bilirubin 0.30 Direct Bilirubin 0.09 AST 51 H ALT 35 Alkaline Phosphatase 53 Troponin I < 0.015 Total Protein 7.4 Albumin 3.5 Globulin 3.9 Albumin/Globulin Ratio 0.9 TSH 0.32 L Urine Opiates Screen Urine Methadone Screen Ur Barbiturates Screen Ur Phencyclidine Scrn Ur Amphetamines Screen U Methamphetamin-MDMA U Benzodiazepines Scrn Urine Cocaine Screen U Cannabinoids Screen Ur Drug Screen Comment Ethyl Alcohol 368.0 H* 02/27/19 14:19 WBC RBC Hgb Hct MCV MCH MCHC RDW RDW Differential Plt Count MPV Immature Gran % (Auto) Neut % (Auto) Lymph % (Auto) Sutton % (Auto) Eos % (Auto) Baso % (Auto) Absolute Neuts (auto) Absolute Lymphs (auto) Total Counted Sodium Potassium Chloride Carbon Dioxide Anion Gap BUN Creatinine Estim Creat Clear Calc Est GFR (MDRD) Af Amer Est GFR (MDRD) Non-Af BUN/Creatinine Ratio Glucose Calcium Total Bilirubin Direct Bilirubin AST ALT Alkaline Phosphatase Troponin I Total Protein Albumin Globulin Albumin/Globulin Ratio TSH Urine Opiates Screen NEGATIVE Urine Methadone Screen NEGATIVE Ur Barbiturates Screen NEGATIVE Ur Phencyclidine Scrn NEGATIVE Ur Amphetamines Screen NEGATIVE U Methamphetamin-MDMA NEGATIVE U Benzodiazepines Scrn NEGATIVE Urine Cocaine Screen NEGATIVE U Cannabinoids Screen NEGATIVE Ur Drug Screen Comment Ethyl Alcohol Assessment/Plan All Active Problems Alcohol withdrawal (Acute) Atrial fibrillation with RVR (Acute) 58 year old male with past medical history of chronic alcohol use disorder, hypertension, resident in [facility] housing program who comes in at the request of the housing program for detoxification from alcohol. Patient admits to drinking about 6 packs of beer every day. He comes in because he is told to get detox and requests medical stabilization from the [facility] program. He admits to history of alcohol related seizure with intubation 6 years ago in [facility]. 1. A. fib with RVR, CHADS-VASC score of 1, asymptomatic, unclear of how long patient has had A. fib, stable vitals Status post Cardizem bolus in the ED x1 Plan: Admit to PCU, aspirin 81 mg p.o. daily, continue metoprolol 12.5 mg p.o. twice daily, 2D echo, monitor on telemetry Consider cardiology consult if patient continues to be in A. fib 2. Alcohol withdrawal, history of alcohol withdrawal seizure and intubation, admitting alcohol level is 368 Continue on alcohol withdrawal protocol 3. Probable hyperthyroidism, admitting TSH is 0.32, will check FT4, FT3 4. Hypertension, on lisinopril, continue same, continue to monitor vitals 5. DVT prophylaxis with early ambulation Code Visit Inpatient E&M: 51967 Init Hosp L3
--- NOTE | 2019-02-27 16:12 | ECHOCS_ITS ---
Reason For Study: Afib/Flutter Procedure This was a 2D Doppler, Color Flow transthoracic echocardiogram. The study was technically difficult. Contrast injection was performed. Exam performed portable in patient room. Left Ventricle Based upon the 2D echocardiographic and contrast enhanced images obtained there appears to be grossly normal left ventricular size, wall motion, and systolic function. The estimated ejection fraction is 60 %. Transmitral doppler flow suggestive of impaired relaxation of left ventricle. Right Ventricle Normal RV size. Normal systolic function. Atria The left atrium is mildly enlarged. Normal right atrium. No doppler evidence for ASD. Mitral Valve There is mild mitral annular calcification. Extension of the mitral annular calcification onto the base of the posterior mitral valve leaflet. Trivial mitral valve insufficiency. Tricuspid Valve Normal tricuspid valve. Trivial tricuspid valve insufficiency. Unable to estimate RV systolic pressure/pulmonary artery pressure due to technically difficult study. Aortic Valve Trisinus/trileaflet aortic valve. Mild diffuse aortic valve thickening. Mild focal aortic valve calcification. Aortic sclerosis, no stenosis. Pulmonic Valve The pulmonic valve is not well visualized. Great Vessels The aortic root is not well visualized. Pericardium/Pleural No pericardial effusion. Medication Diluted definity 3ml given slow IV push to enhance endocardial definition. MMode/2D Measurements & Calculations LVIDd: 4.1 cm IVSd: 1.3 cm LVOT diam: 2.1 cm LVIDs: 3.2 cm LVPWd: 1.2 cm FS: 23.8 % LVOT area: 3.5 cm2 LA dimension: 4.2 cm LAV(MOD-sp4): 73.4 ml LA A4 area: 23.2 cm2 Time Measurements MV dec time: 0.22 sec Doppler Measurements & Calculations MV E max carlito: 50.0 cm/sec Lat Peak E' Carlito: 10.5 cm/sec Med Peak E' Carlito: 6.3 cm/sec MV A max carlito: 80.2 cm/sec E/E' lat: 4.8 E/E' med: 7.9 MV E/A: 0.62 MV V2 max: 86.0 cm/sec MV P1/2t max carlito: 55.2 cm/sec Ao V2 max: 105.9 cm/sec MV max P.0 mmHg MV P1/2t: 87.5 msec Ao max P.5 mmHg MV V2 mean: 44.6 cm/sec MV dec slope: 184.9 cm/sec2 CAMILLE(V,D): 3.2 cm2 MV mean P.96 mmHg MV V2 VTI: 16.9 cm MVA(P1/2t): 2.5 cm2 LV V1 max: 95.6 cm/sec PA V2 max: 82.8 cm/sec LV V1 max P.7 mmHg Interpretation Summary The study was technically difficult. Contrast injection was performed. Based upon the 2D echocardiographic and contrast enhanced images obtained there appears to be grossly normal left ventricular size, wall motion, and systolic function. The estimated ejection fraction is 60 %. The left atrium is mildly enlarged. There is mild mitral annular calcification. Extension of the mitral annular calcification onto the base of the posterior mitral valve leaflet. Trivial mitral valve insufficiency. Trivial tricuspid valve insufficiency. Aortic sclerosis, no stenosis. Unable to estimate RV systolic pressure/pulmonary artery pressure due to technically difficult study. Transmitral doppler flow suggestive of impaired relaxation of left ventricle Ordering Physician: Kristyn Schmidt Referring Physician: Kristyn Schmidt Performed By: Fidencio Sanchez RCS
[2019-02-27] MEDS: 0.9% Normal Saline 1,000 ML 100 ML IV (17:12)
[2019-02-27] MEDS: LORazepam 1 MG Tablet PO ×2 (17:16→21:57)
[2019-02-27 17:31] LABS: Free T3 3.1 pg/mL (2.18-3.98); T4 Free Direct 0.75 ng/dL (0.76-1.46)
[2019-02-27] MEDS: Methocarbamol 750 MG Tablet PO (18:05)
[2019-02-27] MEDS: traZODone 50 MG Tablet PO (21:57)
[2019-02-27] MEDS: Metoprolol Tartrate 25 MG Tablet 12.5 MG PO (21:57)
[2019-02-28] VITALS (18 sets, daily range): BP systolic 136–157; BP diastolic 87–112; PULSE 86–110; RESP 10–18; TEMP 36.6–36.9; O2SAT 92–97
[2019-02-28] MEDS: Acetaminophen 325 MG Tablet 650 MG PO ×2 (00:29→21:28)
[2019-02-28] MEDS: LORazepam 1 MG Tablet PO ×4 (02:39→13:52)
[2019-02-28] MEDS: oxyCODONE 5 MG Tablet PO (03:46)
[2019-02-28 06:59] LABS: International Normalized Ratio 1.1; Prothrombin Time (Protime)PT. 13.5 SECONDS (11.7-14.9)
[2019-02-28 07:10] LABS: Anion Gap 5 (5-15); BUN 9 mg/dL (7-18); BUN/Creat Ratio 11.7 RATIO (10-20); Calcium,Total 9.1 mg/dL (8.5-10.1); Chloride 103 mmol/L (98-107); Creatinine, Serum 0.77 mg/dL (0.70-1.30); EST Glomerular Filtration Rate 111 mL/min (>60); Est Glom Filt Rate - Afr Amer 134 mL/min (>60); Estimated Creatinine Clearance 121.06 ml/min; Glucose 106 mg/dL (74-106); Potassium 3.4 mmol/L (3.5-5.1); Sodium Level 139 mmol/L (136-145)
[2019-02-28] MEDS: Ondansetron 4 MG/2 ML Vial IV (08:01)
[2019-02-28] MEDS: Multivitamins,Therapeutic Tablet 1 TABLET PO (08:06)
[2019-02-28] MEDS: Folic Acid 1 MG Tablet PO (08:07)
[2019-02-28] MEDS: 0.9% NaCl Peripheral Flush Adult/Peds IV (08:07)
[2019-02-28] MEDS: Thiamine Hydrochloride 100 MG Tablet PO (08:07)
[2019-02-28] MEDS: Metoprolol Tartrate 25 MG Tablet 12.5 MG PO ×2 (10:02→21:07)
[2019-02-28] MEDS: Lisinopril 20 MG Tablet PO (10:02)
--- NOTE | 2019-02-28 12:06 | CASEMGMT ---
JESSE ATWOOD assessment: Face to Face with patient for initial transition planning/care coordination assessment. JESSE ATWOOD introduced self and role at [facility], pt voices understanding and consents to assessment at this time. Pt is lying in bed in no distress at this time but pt is very shakey at this time. Pt is A/Ox4 at this time and answers all questions appropriately at this time. Care providers, pharmacy, and demographics verified at this time. PCP: Nazario Bragg, [facility] but pt states does not want to f/u with [facility] any longer. Pt provided with local PCP list at this time. Specialists: Pt states currently has no specialists. Preferred Pharmacy: [facility] Insurance: [facility] Prescription Benefit: [facility] Living Will/HPOA: Pt states does not have LW/HPOA and declines info at this time. LNOK: Lulu Landin, sister; Velma Castaneda, friend Living Arrangements: Pt states lives with friend in apartment with a flight of stairs into apt and states no concerns at home at this time. Pt states is independent with ADL's. 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 Pt aware that if he picks a [facility] PCP then the [facility] van would be able to transport pt to appt's, voices understanding. DME/HHC: Pt states does not currently have DME and declines the need for any at this time. Pt states that he has been in [facility] for 7 days in the past and states that was also in [facility] for 6 weeks in the past. Pt denies hx HHC or SNF. Pt states that he drinks at least 3 tall boys daily and came to [facility] for ETOH detox and would like to be part of the [facility] at this time. Call to Sharon at [facility] and she states that she will come speak with pt regarding possible inpt detox when discharged from [facility]. Pt states that he is currently unemployed. Pt states that he does not smoke. Pt states no further concerns/needs at this time. CM to follow for any further discharge planning/needs. Advised pt to ask for CM if any further questions/concerns/needs arise, voices understanding. Plan: Inpt detox facility
--- NOTE | 2019-02-28 14:31 | PCM.PN.HOSP ---
Patient Problems: Active and Suspected Problems Alcohol withdrawal (Acute) Atrial fibrillation with RVR (Acute) Subjective: complains of neuropathy in hands and feet. Vitals/I&O's: Vital Signs Temp Pulse Resp BP Pulse Ox 36.8 C 100 16 136/87 H 92 02/28/19 13:38 02/28/19 13:38 02/28/19 13:38 02/28/19 13:38 02/28/19 13:38 Oxygen Delivery Method Room Air Weight: 101 kg Body Mass Index (BMI) 29.3 Intake and Output for Last 24 Hours 02/26/19 02/27/19 02/28/19 23:59 23:59 23:59 Intake Total 855 / 855 1601 / 1601 Output Total 875 / 875 Balance 855 / 855 726 / 726 General: Alert, Cooperative, - - tremulous. afebrile. HEENT: Atraumatic, Normocephalic Oral: Moist Mucosa, No Gingival or Mucosal Lesions/ Ulcerations Neck: No Nodes, Thyroid Normal Size and Texture Lungs: Clear to auscultation, Normal air movement, No rhonchi, No wheeze Cardiovascular: Regular rate, Regular Rhythm, Normal S1, Normal S2, No murmurs Abdomen: Bowel Sounds Present, Soft, Non Tender, Non-Distended, No Hepato-splenomegaly Extremities: No edema, No Calf Tenderness Skin: No rashes, No breakdown Psych/Mental Status: Normal Affect, Appropriate Laboratory Results 02/27/19 13:40: Ethyl Alcohol 368.0 H* 02/27/19 14:19: Urine Opiates Screen NEGATIVE, Urine Methadone Screen NEGATIVE, Ur Barbiturates Screen NEGATIVE, Ur Phencyclidine Scrn NEGATIVE, Ur Amphetamines Screen NEGATIVE, U Methamphetamin-MDMA NEGATIVE, U Benzodiazepines Scrn NEGATIVE, Urine Cocaine Screen NEGATIVE, U Cannabinoids Screen NEGATIVE 02/27/19 16:40: Troponin I < 0.015 02/27/19 16:40: Free T4 0.75 L, Free T3 pg/dL 3.1 02/27/19 20:15: Troponin I < 0.015 02/28/19 06:42: PT 13.5, INR 1.1 02/28/19 06:42: Sodium 139, Potassium 3.4 L, Chloride 103, Carbon Dioxide 31.0, Anion Gap 5, BUN 9, Creatinine 0.77, Estim Creat Clear Calc 121.06, Est GFR (MDRD) Af Amer 134, Est GFR (MDRD) Non-Af 111, BUN/Creatinine Ratio 11.7, Glucose 106, Calcium 9.1 Current Medications Acetaminophen (Tylenol) 650 mg PO Q6H PRN PRN PRN Reason: Mild Pain (scale 0-3)/T>100.7 Last Admin: 02/28/19 00:29 Dose: 650 mg Dicyclomine HCl (Bentyl) 20 mg PO Q6H PRN PRN PRN Reason: abdominal discomfort F[facility] (F[facility]) [facility] Stop: 03/02/19 08:01 Last Admin: 02/28/19 08:07 Dose: 1 mg Lisinopril (Zestril) 20 mg PO DAILY [facility] Last Admin: 02/28/19 10:02 Dose: 20 mg Lorazepam (Ativan) 1 mg PO Q6H [facility]; Taper Stop: 03/02/19 21:59 Last Admin: 02/28/19 13:52 Dose: 1 mg Magnesium Hydroxide (Milk Of Magnesia) 30 ml PO DAILY PRN PRN Reason: Constipation Methocarbamol (Methocarbamol) 750 mg PO Q6H PRN PRN PRN Reason: Muscle Aches Last Admin: 02/27/19 18:05 Dose: 750 mg Metoprolol Tartrate (Lopressor (Beta Fred)) 12.5 mg PO BID [facility] Last Admin: 02/28/19 10:02 Dose: 12.5 mg Multivitamins (Multivitamin) [facility] Last Admin: 02/28/19 08:06 Dose: 1 tablet Ondansetron HCl (Zofran) 4 mg IV Q8H PRN PRN PRN Reason: NAUSEA Last Admin: 02/28/19 08:01 Dose: 4 mg Psyllium Hydrophilic Mucilloid (Metamucil) 1 packet PO DAILY PRN PRN PRN Reason: CONSTIPATION Sodium Chloride () 5 - 15 ml IV UD PRN PRN Reason: SALINE FLUSH Last Admin: 02/28/19 08:07 Dose: 10 ml Thiamine HCl (Vitamin B1) [facility] Stop: 03/02/19 08:01 Last Admin: 02/28/19 08:07 Dose: 100 mg Trazodone HCl (Desyrel) 50 mg PO QHS [facility] Last Admin: 02/27/19 21:57 Dose: 50 mg Medical Necessity - Tobacco Use Smoking Status: Never smoker Tobacco Use: Non-smoker Assessment/Plan All Active Problems Alcohol withdrawal (Acute) Atrial fibrillation with RVR (Acute) 1. afib with RVR improved, appears MAT/WP at this time continue metoprolol start ASA, CHADS-VASc 1 EF 60% 2. Acute alcohol withdrawal ongoing, but stable continue ativan taper, thiamine and folate [facility] to assist with treatment upon discharge 3. VTE proph: early ambulation Code Visit Inpatient E&M: 01086 Subs Hosp L2
--- NOTE | 2019-02-28 14:38 | PN_ITS ---
Patient Problems: Active and Suspected Problems Alcohol withdrawal (Acute) Atrial fibrillation with RVR (Acute) Subjective: complains of neuropathy in hands and feet. Vitals/I&O's: Vital Signs Temp Pulse Resp BP Pulse Ox 36.8 C 100 16 136/87 H 92 02/28/19 13:38 02/28/19 13:38 02/28/19 13:38 02/28/19 13:38 02/28/19 13:38 Oxygen Delivery Method Room Air Weight: 101 kg Body Mass Index (BMI) 29.3 Intake and Output for Last 24 Hours 02/26/19 02/27/19 02/28/19 23:59 23:59 23:59 Intake Total 855 / 855 1601 / 1601 Output Total 875 / 875 Balance 855 / 855 726 / 726 General: Alert, Cooperative, - - tremulous. afebrile. HEENT: Atraumatic, Normocephalic Oral: Moist Mucosa, No Gingival or Mucosal Lesions/ Ulcerations Neck: No Nodes, Thyroid Normal Size and Texture Lungs: Clear to auscultation, Normal air movement, No rhonchi, No wheeze Cardiovascular: Regular rate, Regular Rhythm, Normal S1, Normal S2, No murmurs Abdomen: Bowel Sounds Present, Soft, Non Tender, Non-Distended, No Hepato- splenomegaly Extremities: No edema, No Calf Tenderness Skin: No rashes, No breakdown Psych/Mental Status: Normal Affect, Appropriate Laboratory Results 02/27/19 13:40: Ethyl Alcohol 368.0 H* 02/27/19 14:19: Urine Opiates Screen NEGATIVE, Urine Methadone Screen NEGATIVE, Ur Barbiturates Screen NEGATIVE, Ur Phencyclidine Scrn NEGATIVE, Ur Amphetamines Screen NEGATIVE, U Methamphetamin-MDMA NEGATIVE, U Benzodiazepines Scrn NEGATIVE, Urine Cocaine Screen NEGATIVE, U Cannabinoids Screen NEGATIVE 02/27/19 16:40: Troponin I < 0.015 02/27/19 16:40: Free T4 0.75 L, Free T3 pg/dL 3.1 02/27/19 20:15: Troponin I < 0.015 02/28/19 06:42: PT 13.5, INR 1.1 02/28/19 06:42: Sodium 139, Potassium 3.4 L, Chloride 103, Carbon Dioxide 31.0, Anion Gap 5, BUN 9, Creatinine 0.77, Estim Creat Clear Calc 121.06, Est GFR (MDRD) Af Amer 134, Est GFR (MDRD) Non-Af 111, BUN/Creatinine Ratio 11.7, Glucose 106, Calcium 9.1 Current Medications Acetaminophen (Tylenol) 650 mg PO Q6H PRN PRN PRN Reason: Mild Pain (scale 0-3)/T>100.7 Last Admin: 02/28/19 00:29 Dose: 650 mg Dicyclomine HCl (Bentyl) 20 mg PO Q6H PRN PRN PRN Reason: abdominal discomfort F[facility] ([facility]) [facility] Stop: 03/02/19 08:01 Last Admin: 02/28/19 08:07 Dose: 1 mg Lisinopril (Zestril) 20 mg PO DAILY [facility] Last Admin: 02/28/19 10:02 Dose: 20 mg Lorazepam (Ativan) 1 mg PO Q6H [facility]; Taper Stop: 03/02/19 21:59 Last Admin: 02/28/19 13:52 Dose: 1 mg Magnesium Hydroxide (Milk Of Magnesia) 30 ml PO DAILY PRN PRN Reason: Constipation Methocarbamol (Methocarbamol) 750 mg PO Q6H PRN PRN PRN Reason: Muscle Aches Last Admin: 02/27/19 18:05 Dose: 750 mg Metoprolol Tartrate (Lopressor (Beta Fred)) 12.5 mg PO BID [facility] Last Admin: 02/28/19 10:02 Dose: 12.5 mg Multivitamins (Multivitamin) [facility] Last Admin: 02/28/19 08:06 Dose: 1 tablet Ondansetron HCl (Zofran) 4 mg IV Q8H PRN PRN PRN Reason: NAUSEA Last Admin: 02/28/19 08:01 Dose: 4 mg Psyllium Hydrophilic Mucilloid (Metamucil) 1 packet PO DAILY PRN PRN PRN Reason: CONSTIPATION Sodium Chloride () 5 - 15 ml IV UD PRN PRN Reason: SALINE FLUSH Last Admin: 02/28/19 08:07 Dose: 10 ml Thiamine HCl (Vitamin B1) [facility] Stop: 03/02/19 08:01 Last Admin: 02/28/19 08:07 Dose: 100 mg Trazodone HCl (Desyrel) 50 mg PO QHS [facility] Last Admin: 02/27/19 21:57 Dose: 50 mg Medical Necessity - Tobacco Use Smoking Status: Never smoker Tobacco Use: Non-smoker Assessment/Plan All Active Problems Alcohol withdrawal (Acute) Atrial fibrillation with RVR (Acute) 1. afib with RVR * improved, appears MAT/WP at this time * continue metoprolol * start ASA, CHADS-VASc 1 * EF 60% 2. Acute alcohol withdrawal * ongoing, but stable * continue ativan taper, thiamine and folate * [facility] to assist with treatment upon discharge 3. VTE proph: early ambulation Code Visit Inpatient E&M: 69714 Subs Hosp L2
--- NOTE | 2019-02-28 15:41 | CASEMGMT ---
Social Work Note Assisted pt in completing a release of information for [facility] to communicate with [facility]. Pt also reports that he was talking with his mental health case manager, Helena Eastman, approximately 30 minutes ago. Pt has been established with [facility] since 2016. Myrna Snow, TRISTAN, ANDREZ
[2019-02-28] MEDS: Aspirin 81 MG TAB.CHEW PO (15:43)
[2019-02-28] MEDS: traZODone 50 MG Tablet PO (21:05)
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
[2019-03-01] VITALS (21 sets, daily range): BP systolic 121–165; BP diastolic 53–108; PULSE 53–120; RESP 10–18; TEMP 36.2–36.8; O2SAT 94–100
--- NOTE | 2019-03-01 00:02 | NURSING ---
Pt Ativan was administered at 21:05. Upon entry to room at 0000, the pill was remaining in the cup. Pharmacy contacted. Said to have pt take the pill now and skip the 02:00 dose. Resume at 08:00.
[2019-03-01] MEDS: LORazepam 1 MG Tablet PO ×4 (00:06→22:04)
--- NOTE | 2019-03-01 08:19 | NEWVISION ---
Hakeem Mendoza left voicemail for Helena Eastman at [facility] to determine if patient is eligible for services with agency. Hakeem Mendoza was told that she does not come into the office until 11am.
[2019-03-01] MEDS: Methocarbamol 750 MG Tablet PO (09:37)
[2019-03-01] MEDS: Folic Acid 1 MG Tablet PO (09:38)
[2019-03-01] MEDS: Lisinopril 20 MG Tablet PO (09:39)
[2019-03-01] MEDS: Metoprolol Tartrate 25 MG Tablet 12.5 MG PO ×2 (09:39→22:04)
[2019-03-01] MEDS: Aspirin 81 MG TAB.CHEW PO (09:39)
[2019-03-01] MEDS: Multivitamins,Therapeutic Tablet 1 TABLET PO (09:39)
[2019-03-01] MEDS: Thiamine Hydrochloride 100 MG Tablet PO (09:40)
--- NOTE | 2019-03-01 10:00 | CASEMGMT ---
SW spoke with patient regarding the release of information. He signed it the previous day, it was not witnessed. SW spoke with patient today and he remembers signing it and is still in agreement. SW then signed as witness. ZORAN spoke with Sharon from [facility] and she was already aware patient signed a release. She left a voice mail for his Country Manager at [facility] to inquire if they had anything lined up for patient for treatment. She was waiting on a return call. She will let ZORAN know and talk with patient. Livier MAGUIRE MSW
--- NOTE | 2019-03-01 12:31 | PCM.PN.HOSP ---
Patient Problems: Active and Suspected Problems Alcohol withdrawal (Acute) Atrial fibrillation with RVR (Acute) Subjective: feeling better, though, still tremulous. Vitals/I&O's: Vital Signs Temp Pulse Resp BP Pulse Ox 36.2 C L 114 H 16 133/92 H 95 03/01/19 10:00 03/01/19 10:00 03/01/19 10:00 03/01/19 10:00 03/01/19 10:00 Oxygen Delivery Method Room Air Weight: 101 kg Body Mass Index (BMI) 29.3 Intake and Output for Last 24 Hours 02/27/19 02/28/19 03/01/19 23:59 23:59 23:59 Intake Total 855 / 855 2488 / 2488 250 / 250 Output Total 875 / 875 Balance 855 / 855 1613 / 1613 250 / 250 General: Alert, No apparent distress HEENT: Atraumatic, Normocephalic Oral: Moist Mucosa, No Gingival or Mucosal Lesions/ Ulcerations Neck: No Nodes, Thyroid Normal Size and Texture Lungs: Clear to auscultation, Normal air movement, No rhonchi, No wheeze Cardiovascular: Regular rate, Regular Rhythm, Normal S1, Normal S2, - - NSR on telemetry Abdomen: Bowel Sounds Present, Soft, Non Tender, Non-Distended Extremities: No edema, No Calf Tenderness Skin: No rashes, No breakdown Psych/Mental Status: Normal Affect, Appropriate, - - less tremulous today. Current Medications Acetaminophen (Tylenol) 650 mg PO Q6H PRN PRN PRN Reason: Mild Pain (scale 0-3)/T>100.7 Last Admin: 02/28/19 21:28 Dose: 650 mg Aspirin (Aspirin, Baby) 81 mg PO DAILY@0800 [facility] Last Admin: 03/01/19 09:39 Dose: 81 mg Dicyclomine HCl (Bentyl) 20 mg PO Q6H PRN PRN PRN Reason: abdominal discomfort Folic [facility] (Folic Acid) [facility] Stop: 03/02/19 08:01 Last Admin: 03/01/19 09:38 Dose: 1 mg Lisinopril (Zestril) 20 mg PO DAILY [facility] Last Admin: 03/01/19 09:39 Dose: 20 mg Lorazepam (Ativan) 1 mg PO Q6H [facility]; Taper Stop: 03/02/19 21:59 Last Admin: 03/01/19 09:39 Dose: 1 mg Magnesium Hydroxide (Milk Of Magnesia) 30 ml PO DAILY PRN PRN Reason: Constipation Methocarbamol (Methocarbamol) 750 mg PO Q6H PRN PRN PRN Reason: Muscle Aches Last Admin: 03/01/19 09:37 Dose: 750 mg Metoprolol Tartrate (Lopressor (Beta Fred)) 12.5 mg PO BID [facility] Last Admin: 03/01/19 09:39 Dose: 12.5 mg Multivitamins (Multivitamin) [facility] tablet [facility] Last Admin: 03/01/19 09:39 Dose: 1 tablet Ondansetron HCl (Zofran) 4 mg IV Q8H PRN PRN PRN Reason: NAUSEA Last Admin: 02/28/19 08:01 Dose: 4 mg Psyllium Hydrophilic Mucilloid (Metamucil) 1 packet PO DAILY PRN PRN PRN Reason: CONSTIPATION Sodium Chloride () 5 - 15 ml IV UD PRN PRN Reason: SALINE FLUSH Last Admin: 02/28/19 08:07 Dose: 10 ml Thiamine HCl (Vitamin B1) [facility] Stop: 03/02/19 08:01 Last Admin: 03/01/19 09:40 Dose: 100 mg Trazodone HCl (Desyrel) 50 mg PO QHS [facility] Last Admin: 02/28/19 21:05 Dose: 50 mg Medical Necessity - Tobacco Use Smoking Status: Never smoker Tobacco Use: Non-smoker Assessment/Plan All Active Problems Alcohol withdrawal (Acute) Atrial fibrillation with RVR (Acute) 1. afib with RVR improved, now NSR continue metoprolol start ASA, CHADS-VASc 1 EF 60% likely precipitated by withdrawal and/or alcohol 2. Acute alcohol withdrawal ongoing, but stable continue ativan taper, thiamine and folate [facility] to assist with treatment upon discharge 3. VTE proph: early ambulation Code Visit Inpatient E&M: 68519 Subs Hosp L2
[2019-03-01] MEDS: Acetaminophen 325 MG Tablet 650 MG PO ×2 (14:17→22:04)
--- NOTE | 2019-03-01 16:14 | NEWVISION ---
[facility] Also left a message for another staff member Christina to try and assist to determine what services that they are or will provide for Cy. Hakeem Thuuz will call again in the morning to attempt to coordinate care.
--- NOTE | 2019-03-01 21:00 | NURSING ---
This RN called report to med surg 3 and gave report on patient.
[2019-03-01] MEDS: traZODone 50 MG Tablet PO (22:04)
[2019-03-02] VITALS (38 sets, daily range): BP systolic 94–170; BP diastolic 59–122; PULSE 57–117; RESP 14–23; TEMP 36.3–37.1; O2SAT 90–100
[2019-03-02] MEDS: 0.9% NaCl Peripheral Flush Adult/Peds IV ×6 (00:23→11:14)
[2019-03-02] MEDS: LORazepam 2 MG/ML Syringe 1 MG IV ×4 (00:23→03:38)
--- NOTE | 2019-03-02 01:13 | NURSING ---
Patient moved to room 325 for nearness to nurses desk for safety. Frequent setting off bed exit. Now hallucinating, marked tremors and unsteady on feet.
[2019-03-02] MEDS: cloNIDine HCl 0.1 MG Tablet PO ×2 (01:23→10:06)
--- NOTE | 2019-03-02 03:55 | PCM.PN.BLA ---
Progress Note Patient admitted with A. fib RVR and undergoing alcohol withdrawal. Because patient continued to be agitated PRN Ativan was initially ordered 1 mg every 4 hours but changed to 1 mg every 1 hour. Clonidine 0.1 mg every 2 hours was ordered. However patient continued to be agitated to the point that the nurses were finding it difficult to take care of patient at the Medical Surgical Floor. Patient will be transferred to the intensive care unit and started on Precedex drip. We will discontinue as scheduled and as needed Ativan at this time. We will add clonidine patch. Will apply oxygen at this time.
--- NOTE | 2019-03-02 04:00 | NURSING ---
Following IV Ativan admin the patient remained extremely agitated, staff had to remain at bedside to prevent patient from jumping out of bed, at one point patient attempted to crawl on the floor. Frequently setting off bed exit. Yelling at his dad in the room. The patient was alert that he was in hospital but referred to the room as the nurse's house and kept asking where my (male CHILD CARE SPECIALIST) was. He also kept asking to get lunch, when asked the current time the patient stated 11am lunch time. 3 staff members remained at bedside attempting to keep patient in bed. At this time MD was contacted that IV Ativan was not effective. Decision by MD to tx patient to ICU and begin Precedex. The patient on the way to the ICU was yelling to girls and kids in the hallway to get out of his way. C/o of severe burning sensations to legs. The patient had a difficult time remaining in bed and was very agitated, 3 staff members transferred the patient for safety. Reaching out of bed, trying to grab lopes/doorways during transfer. The patient was tx to ICU safely, verbal report to JESSE Herrera.
--- NOTE | 2019-03-02 04:24 | NURSING ---
Attempted to notify both family contacts. All 3 cellphone numbers were either disconnected or had been changed to a different person-Roselyn who is not listed as relation patient.
[2019-03-02 06:43] LABS: Anion Gap 7 (5-15); BUN 18 mg/dL (7-18); BUN/Creat Ratio 25.1 RATIO (10-20); Calcium,Total 9.6 mg/dL (8.5-10.1); Chloride 103 mmol/L (98-107); Creatinine, Serum 0.72 mg/dL (0.70-1.30); EST Glomerular Filtration Rate 120 mL/min (>60); Est Glom Filt Rate - Afr Amer 145 mL/min (>60); Estimated Creatinine Clearance 129.47 ml/min; Glucose 122 mg/dL (74-106); Magnesium 1.8 mg/dL (1.6-2.6); Phosphorus 5.1 mg/dL (2.5-4.9); Potassium 3.6 mmol/L (3.5-5.1); Sodium Level 138 mmol/L (136-145)
[2019-03-02] MEDS: chlordiazePOXIDE 25 MG Capsule 50 MG PO ×3 (08:04→21:22)
--- NOTE | 2019-03-02 08:13 | NURSING ---
0735 pt sitting upright in bed, able to swallow pills in applesauce. became suddenly very agitated, turning around in the bed w/cords wrapped around his neck, speech very slurred. when this RN tried to encourage pt to lie back in the bed and attempted to untangle cords, pt became violent, striking out at staff. 0745 Staff assist called. Multiple staff to room, pt repositioned in bed, restraints applied, meds increased. pt calmer but still yelling obscenities. Dr. Mg present in pt room. 0800 pt now more cooperative, still mumbling obscenities and saying please please. voided in urinal w/assist by this RN. 0815 occ attempts to pull at restraints, mumbling softly to himself. more restful.
[2019-03-02] MEDS: Dexmedetomidine 1,000 mcg in 0.9% NS 240 mL 32.24 MCG CONT INF ×2 (08:23→17:39)
--- NOTE | 2019-03-02 08:24 | NURSING ---
pt w/significant snoring/desat while sleeping. Attempted to place nc, pt immediately awake, shaking head, attempting to grab this RNs arm. SpO2 to 100%. pt remains on RA
--- NOTE | 2019-03-02 09:14 | CASEMGMT ---
ZORAN spoke with Sharon from [employer]. SW let her know patient was moved to ICU last night. She has not yet heard back from patient's Improvement Intern at [employer]. She will continue to try and talk with her. She will also talk with patient. ZORAN let ICU SW know via voice mail. Livier HUDSON
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
[2019-03-02] MEDS: Lisinopril 20 MG Tablet PO (10:05)
--- NOTE | 2019-03-02 10:33 | NURSING ---
1015 pt rouses briefly, able to drink w/out concern. took po meds w/no diff. urinal offered. pt refused. bed linen and pt gown soaked. when [facility] staff x3 attempted to change linen pt became increasingly agitated. sitting up in bed, trying to put feet over the rails. efforts to calm pt unsuccessful and he began to yell and push back against staff. DR. Rudy hua. 1016 Dr Grant present in pt room. Code Jerrica called. 1020 Ativan 2mg IV push given. 1030 pt safely restrained on clean bed w/attends in place. Orders recd
--- NOTE | 2019-03-02 10:58 | PCM.CON.CC ---
Problem List (1) Alcohol abuse Status: Chronic (2) Alcohol withdrawal Status: Acute Qualifiers: Complication of substance-induced condition: uncomplicated Qualified Code(s): F10.230 - Alcohol dependence with withdrawal, uncomplicated (3) Hypertension Status: Chronic Qualifiers: Hypertension type: essential hypertension Qualified Code(s): I10 - Essential (primary) hypertension (4) Atrial fibrillation with RVR Status: Acute Reason for Consult Date of Consultation: 03/02/19 Reason for Consultation: Alcohol withdrawal optimization History of Present Illness: The patient is a 58 year old M, with no past medical history reported, who presented to [facility] on 02/27/2019 secondary to concerns for detoxification from alcohol. Patient states that he was drinking just before arrival. Patient had no subjective complaints otherwise. Patient was noted to be 97% on room air. Patient had not reported any palpitations at that time, but was noted to be in a flutter with RVR at a heart rate of 148 bpm. Patient had been given some Cardizem. Patient's laboratory workup did show an alcohol level of 368. The patient was admitted to the floor for evaluation and treatment. Overnight, patient became very combative and thus far has had to code bart called on him. Patient was admitted to the intensive care unit and initiated on Precedex therapy. Patient has been given Librium and is currently on Precedex at 1.2, but still became aggressive requiring extra doses of as needed Ativan. Patient is not able to provide any further information. Patient's medical history is reportedly unremarkable. Patient does deny any pain, but is unable to provide a review of systems. It is unclear if patient is ever had formal DTs in the past. Past Medical History Past Medical History (Chronic Problems): Chronic Problems Alcohol abuse (Chronic) Hypertension (Chronic) Allergies No Known Allergies Allergy (Verified 02/27/19 13:37) Home Medications: Ambulatory Orders Medication Instructions Recorded Lisinopril 20 mg PO DAILY 01/17/19 Gabapentin [Neurontin] 300 mg PO TID PRN PRN 02/27/19 Surgical History: - - Right elbow surgery Psychiatric History: No pertinent psych hx Lives: Homeless - lives in [address] Smoking Status: Never smoker Tobacco Use: Non-smoker Alcohol: Heavy Drugs: None - *Family History Maternal History Items: Cancer, Hypertension Paternal History Items: Hypertension, Unknown Sibling History Items: Cancer Review of Systems Unable to obtain accurate/complete ROS d/t: Mental status Patient Problems: Active and Suspected Problems Alcohol withdrawal (Acute) Atrial fibrillation with RVR (Acute) Objective: Echocardiogram shows an EF of 60% with diastolic dysfunction and no significant valvular abnormalities. Patient does have a mildly elevated left atrium. - Physical Exam General: Confused, Disoriented HEENT: Atraumatic, PERRLA, EOMI, Normocephalic, - - Scleral injection without icterus Oral: Moist Mucosa, No Gingival or Mucosal Lesions/ Ulcerations, - - Fair dentition Neck: Supple, No JVD, Negative Hepatojugular Reflux, No Nodes, Trachea Midline Lungs: Clear to auscultation, Normal air movement, No rhonchi, No wheeze, No rales, Diminished Cardiovascular: Regular rate, Regular Rhythm, Normal S1, Normal S2, No murmurs, No rub noted, No Gallop Abdomen: Bowel Sounds Present, Soft, Non Tender, Non-Distended Extremities: No clubbing, No cyanosis, No edema Skin: No rashes, No breakdown Musculoskeletal: No Tenderness to Palpation of Joints or Extremities Lymphatic: No Cervical, Supraclavicular, or Inguinal Adenopathy Neurological: Cranial nerves II-XII grossly intact, Neuro grossly intact, Motor Exam 5/5 strength throughout, - - Very uncooperative with exam, but no focal neurologic deficits noted. No asterixis is appreciated. Psych/Mental Status: Agitated, Anxious, Impulsive, Restless Vital Signs Temp Pulse Resp BP Pulse Ox 36.3 C L 63 19 H 147/110 H 94 03/02/19 08:00 03/02/19 09:15 03/02/19 09:15 03/02/19 09:15 03/02/19 09:44 Oxygen Flow Rate (L/min) 3 Oxygen Delivery Method Nasal Cannula Weight: 99.2 kg Body Mass Index (BMI) 29.3 Intake and Output for Last 24 Hours 02/28/19 03/01/19 03/02/19 23:59 23:59 23:59 Intake Total 2488 / 2488 2089 / 2090 350.4 / 350.4 Output Total 875 / 875 200 / 200 200 / 200 Balance 1613 / 1613 1890 / 1890 150.4 / 150.4 Laboratory Tests Past 24 Hrs 03/02/19 06:15 Sodium 138 Potassium 3.6 Chloride 103 Carbon Dioxide 28.0 Anion Gap 7 BUN 18 Creatinine 0.72 Estim Creat Clear Calc 129.47 Est GFR (MDRD) Af Amer 145 Est GFR (MDRD) Non-Af 120 BUN/Creatinine Ratio 25.1 H Glucose 122 H Calcium 9.6 Phosphorus 5.1 H Magnesium 1.8 Clinical Impression(s) from Imaging Studies Chest X-Ray 02/27/19 13:45 IMPRESSION: Normal x-ray examination of the chest. Electronically Signed: Néstor Elizabeth, at 14:40 EDT , Service support , Assessment/Plan Active and Suspected Problems Alcohol withdrawal (Acute) Atrial fibrillation with RVR (Acute) RECOMMENDATIONS: 1. Continue Precedex for baseline agitation 2. Add CIWA protocol for breakthrough 3. Continue Librium at current dosing 4. Potential need for addition of phenobarbital possible intubation IMPRESSIONS: 1. Acute alcohol withdrawal Patient presented with a significantly elevated alcohol level, but reportedly was still able to converse with staff despite an alcohol level of 368. This indicates significant tolerance. Patient has had to code bart called on him so far despite aggressive therapy for withdrawal. Patient is currently on Precedex. Librium was added this morning, but patient is requiring additional doses of Ativan. Cannot exclude the need for phenobarbital. Patient may require intubation with propofol if condition does not stabilize. We will continue to monitor for refeeding syndrome with electrolyte investigation. Patient is currently protecting his airway, but this will need to be followed closely. 2. Lack of background information/history of alcohol abuse Complicates care, management, recovery and prognosis. TIME: 33 minutes of critical care time spent addressing patient's alcohol withdrawal, agitation, review of all data and collaboration with care team. (9 AM to 11 AM) Code Visit 9xxxx: [id number] Critical care first hour
--- NOTE | 2019-03-02 11:02 | CON.PCM_ITS ---
Problem List (1) Alcohol abuse Status: Chronic (2) Alcohol withdrawal Status: Acute Qualifiers: Complication of substance-induced condition: uncomplicated Qualified Code(s): F10.230 - Alcohol dependence with withdrawal, uncomplicated (3) Hypertension Status: Chronic Qualifiers: Hypertension type: essential hypertension Qualified Code(s): I10 - Essential (primary) hypertension (4) Atrial fibrillation with RVR Status: Acute Reason for Consult Date of Consultation: 03/02/19 Reason for Consultation: Alcohol withdrawal optimization History of Present Illness: The patient is a 58 year old M, with no past medical history reported, who presented to [facility] on 02/27/2019 secondary to concerns for detoxification from alcohol. Patient states that he was drinking just before arrival. Patient had no subjective complaints otherwise. Patient was noted to be 97% on room air. Patient had not reported any palpitations at that time, but was noted to be in a flutter with RVR at a heart rate of 148 bpm. Patient had been given some Cardizem. Patient's laboratory workup did show an alcohol level of 368. The patient was admitted to the floor for evaluation and treatment. Overnight, patient became very combative and thus far has had to code bart called on him. Patient was admitted to the intensive care unit and initiated on Precedex therapy. Patient has been given Librium and is currently on Precedex at 1.2, but still became aggressive requiring extra doses of as needed Ativan. Patient is not able to provide any further information. Patient's medical h istory is reportedly unremarkable. Patient does deny any pain, but is unable to provide a review of systems. It is unclear if patient is ever had formal DTs in the past. Past Medical History Past Medical History (Chronic Problems): Chronic Problems Alcohol abuse (Chronic) Hypertension (Chronic) Allergies No Known Allergies Allergy (Verified 02/27/19 13:37) Home Medications: Ambulatory Orders Medication Instructions Recorded Lisinopril 20 mg PO DAILY 01/17/19 Gabapentin [Neurontin] 300 mg PO TID PRN PRN 02/27/19 Surgical History: - - Right elbow surgery Psychiatric History: No pertinent psych hx Lives: Homeless - lives in [address] Smoking Status: Never smoker Tobacco Use: Non-smoker Alcohol: Heavy Drugs: None - *Family History Maternal History Items: Cancer, Hypertension Paternal History Items: Hypertension, Unknown Sibling History Items: Cancer Review of Systems Unable to obtain accurate/complete ROS d/t: Mental status Patient Problems: Active and Suspected Problems Alcohol withdrawal (Acute) Atrial fibrillation with RVR (Acute) Objective: Echocardiogram shows an EF of 60% with diastolic dysfunction and no significant valvular abnormalities. Patient does have a mildly elevated left atrium. - Physical Exam General: Confused, Disoriented HEENT: Atraumatic, PERRLA, EOMI, Normocephalic, - - Scleral injection without icterus Oral: Moist Mucosa, No Gingival or Mucosal Lesions/ Ulcerations, - - Fair dentition Neck: Supple, No JVD, Negative Hepatojugular Reflux, No Nodes, Trachea Midline Lungs: Clear to auscultation, Normal air movement, No rhonchi, No wheeze, No rales, Diminished Cardiovascular: Regular rate, Regular Rhythm, Normal S1, Normal S2, No murmurs, No rub noted, No Gallop Abdomen: Bowel Sounds Present, Soft, Non Tender, Non-Distended Extremities: No clubbing, No cyanosis, No edema Skin: No rashes, No breakdown Musculoskeletal: No Tenderness to Palpation of Joints or Extremities Lymphatic: No Cervical, Supraclavicular, or Inguinal Adenopathy Neurological: Cranial nerves II-XII grossly intact, Neuro grossly intact, Motor Exam 5/5 strength throughout, - - Very uncooperative with exam, but no focal neurologic deficits noted. No asterixis is appreciated. Psych/Mental Status: Agitated, Anxious, Impulsive, Restless Vital Signs Temp Pulse Resp BP Pulse Ox 36.3 C L 63 19 H 147/110 H 94 03/02/19 08:00 03/02/19 09:15 03/02/19 09:15 03/02/19 09:15 03/02/19 09:44 Oxygen Flow Rate (L/min) 3 Oxygen Delivery Method Nasal Cannula Weight: 99.2 kg Body Mass Index (BMI) 29.3 Intake and Output for Last 24 Hours 02/28/19 03/01/19 03/02/19 23:59 23:59 23:59 Intake Total 2488 / 2488 2089 / 2090 350.4 / 350.4 Output Total 875 / 875 200 / 200 200 / 200 Balance 1613 / 1613 1890 / 1890 150.4 / 150.4 Laboratory Tests Past 24 Hrs 03/02/19 06:15 Sodium 138 Potassium 3.6 Chloride 103 Carbon Dioxide 28.0 Anion Gap 7 BUN 18 Creatinine 0.72 Estim Creat Clear Calc 129.47 Est GFR (MDRD) Af Amer 145 Est GFR (MDRD) Non-Af 120 BUN/Creatinine Ratio 25.1 H Glucose 122 H Calcium 9.6 Phosphorus 5.1 H Magnesium 1.8 Clinical Impression(s) from Imaging Studies Chest X-Ray 02/27/19 13:45 IMPRESSION: Normal x-ray examination of the chest. Electronically Signed: Néstor Barriosmaria m, at 14:40 EDT , Service support , Assessment/Plan Active and Suspected Problems Alcohol withdrawal (Acute) Atrial fibrillation with RVR (Acute) RECOMMENDATIONS: 1. Continue Precedex for baseline agitation 2. Add CIWA protocol for breakthrough 3. Continue Librium at current dosing 4. Potential need for addition of phenobarbital possible intubation IMPRESSIONS: 1. Acute alcohol withdrawal Patient presented with a significantly elevated alcohol level, but reportedly was still able to converse with staff despite an alcohol level of 3 68. This indicates significant tolerance. Patient has had to code bart called on him so far despite aggressive therapy for withdrawal. Patient is currently on Precedex. Librium was added this morning, but patient is requiring additional doses of Ativan. Cannot exclude the need for phenobarbital. Patient may require intubation with propofol if condition does not stabilize. We will continue to monitor for refeeding syndrome with electrolyte investigation. Patient is currently protecting his airway, but this will need to be followed closely. 2. Lack of background information/history of alcohol abuse Complicates care, management, recovery and prognosis. TIME: 33 minutes of critical care time spent addressing patient's alcohol withdrawal, agitation, review of all data and collaboration with care team. (9 AM to 11 AM) Code Visit 9xxxx: [id number] Critical care first hour
--- NOTE | 2019-03-02 11:10 | NEWVISION ---
Patient was unavailable to see [facility]. Hakeem Mendoza contacted [facility] and obtained phone number for family as alteration worker Sherlyn did not have working number for his sister. [facility] gave number to Sherlyn MEEHAN. Lulu, sister [phone]. I spoke with Helena at [facility] and she transferred me to Radha Fisher in order to see if patient needs assessment for pathway. Message relayed to Sherlyn MEEHAN.
[2019-03-02] MEDS: hydrALAZINE 20 MG/ML Vial IV (11:14)
--- NOTE | 2019-03-02 11:38 | NURSING ---
able to contact pts sister Lulu Landin. Condition report given, questions answered.
--- NOTE | 2019-03-02 13:01 | PCM.PN.HOSP ---
Patient Problems: Active and Suspected Problems Alcohol withdrawal (Acute) Atrial fibrillation with RVR (Acute) Subjective: M acutely confused and agitated last night. Is not required restraints as well as Precedex and Librium. Patient had code bart call earlier today for agitation as well. Vitals/I&O's: Vital Signs Temp Pulse Resp BP Pulse Ox 36.4 C L 64 17 94/59 L 94 03/02/19 12:00 03/02/19 12:00 03/02/19 12:00 03/02/19 12:00 03/02/19 12:00 Oxygen Flow Rate (L/min) 3 Oxygen Delivery Method Room Air Weight: 99.2 kg Body Mass Index (BMI) 29.3 Intake and Output for Last 24 Hours 02/28/19 03/01/19 03/02/19 23:59 23:59 23:59 Intake Total 2488 / 2488 2089 / 0 617.4 / 617.4 Output Total 875 / 875 200 / 200 1300 / 1300 Balance 1613 / 1613 1890 / 1890 -682.6 / -682.6 General: Confused, Disoriented, Non-Cooperative HEENT: Atraumatic, Normocephalic Oral: Moist Mucosa, No Gingival or Mucosal Lesions/ Ulcerations Neck: No Nodes, Thyroid Normal Size and Texture Lungs: Clear to auscultation, Normal air movement, No rhonchi, No wheeze Cardiovascular: Regular rate, Regular Rhythm, Normal S1, Normal S2, No murmurs Abdomen: Bowel Sounds Present, Soft, Non Tender, Non-Distended, No Hepato-splenomegaly Extremities: No edema, No Calf Tenderness Skin: No rashes, No breakdown Psych/Mental Status: Agitated, Delusions Laboratory Results 03/02/19 06:15: Sodium 138, Potassium 3.6, Chloride 103, Carbon Dioxide 28.0, Anion Gap 7, BUN 18, Creatinine 0.72, Estim Creat Clear Calc 129.47, Est GFR (MDRD) Af Amer 145, Est GFR (MDRD) Non-Af 120, BUN/Creatinine Ratio 25.1 H, Glucose 122 H, Calcium 9.6, Phosphorus 5.1 H, Magnesium 1.8 Current Medications Acetaminophen (Tylenol) 650 mg PO Q6H PRN PRN PRN Reason: Mild Pain (scale 0-3)/T>100.7 Last Admin: 03/01/19 22:04 Dose: 650 mg Aspirin (Aspirin, Baby) 81 mg PO DAILY@0800 [facility] Last Admin: 03/01/19 09:39 Dose: 81 mg Chlordiazepoxide (Librium) 50 mg PO Q8 [facility] Last Admin: 03/02/19 08:04 Dose: 50 mg Clonidine (Catapres) 0.1 mg PO Q2H PRN PRN PRN Reason: ANXIETY Last Admin: 03/02/19 10:06 Dose: 0.1 mg Dicyclomine HCl (Bentyl) 20 mg PO Q6H PRN PRN PRN Reason: abdominal discomfort Hydralazine HCl (Apresoline Iv) 20 mg IV Q4H PRN PRN PRN Reason: BLOOD PRESSURE ELEVATION Last Admin: 03/02/19 11:14 Dose: 20 mg Sodium Chloride () 250 mls @ 15 mls/hr IV .[id number] PRN PRN Reason: SALINE FLUSH Dexmedetomidine HCl 1,000 mcg/ (Sodium Chloride) 250 mls @ 32.24 mls/hr CONT INF .Q7H46M [facility] Last Admin: 03/02/19 08:23 Dose: 32.24 mls/hr Lisinopril (Zestril) 20 mg PO DAILY [facility] Last Admin: 03/02/19 10:05 Dose: 20 mg Lorazepam (Ativan) 2 mg IV Q2H PRN PRN PRN Reason: CIWA >8 but <15 Lorazepam (Ativan) 2 mg IV Q1H PRN PRN PRN Reason: CIWA Score >/= to 15, DBP >110 Magnesium Hydroxide (Milk Of Magnesia) 30 ml PO DAILY PRN PRN Reason: Constipation Methocarbamol (Methocarbamol) 750 mg PO Q6H PRN PRN PRN Reason: Muscle Aches Last Admin: 03/01/19 09:37 Dose: 750 mg Metoprolol Tartrate (Lopressor (Beta Fred)) 12.5 mg PO BID [facility] Last Admin: 03/01/19 22:04 Dose: 12.5 mg [facility] Last Admin: 03/01/19 09:39 Dose: 1 tablet Ondansetron HCl (Zofran) 4 mg IV Q8H PRN PRN PRN Reason: NAUSEA Last Admin: 02/28/19 08:01 Dose: 4 mg Psyllium Hydrophilic Mucilloid (Metamucil) 1 packet PO DAILY PRN PRN PRN Reason: CONSTIPATION Sodium Chloride () 5 - 15 ml IV UD PRN PRN Reason: SALINE FLUSH Last Admin: 03/02/19 11:14 Dose: 10 ml Trazodone HCl (Desyrel) 50 mg PO QHS [facility] Last Admin: 03/01/19 22:04 Dose: 50 mg Medical Necessity - Tobacco Use Smoking Status: Never smoker Tobacco Use: Non-smoker Assessment/Plan All Active Problems Alcohol withdrawal (Acute) Atrial fibrillation with RVR (Acute) 1. Delirium tremens Despite looking fairly well on the , patient has decompensated overnight requiring increased sedation and change of his therapy from Lorazepam to Librium. Unclear when the patient's last drink was but his level was 368 when he was admitted on the . Patient to go to outpatient program upon discharge to be facilitated by [facility] 2.Afib with RVR improved, now NSR continue metoprolol start ASA, CHADS-VASc 1 EF 60% likely precipitated by withdrawal and/or alcohol 3. VTE proph: early ambulation Code Visit Inpatient E&M: 13447 Subs Hosp L2
--- NOTE | 2019-03-02 13:04 | PN_ITS ---
Patient Problems: Active and Suspected Problems Alcohol withdrawal (Acute) Atrial fibrillation with RVR (Acute) Subjective: M acutely confused and agitated last night. Is not required restraints as well as Precedex and Librium. Patient had code bart call earlier today for agitation as well. Vitals/I&O's: Vital Signs Temp Pulse Resp BP Pulse Ox 36.4 C L 64 17 94/59 L 94 03/02/19 12:00 03/02/19 12:00 03/02/19 12:00 03/02/19 12:00 03/02/19 12:00 Oxygen Flow Rate (L/min) 3 Oxygen Delivery Method Room Air Weight: 99.2 kg Body Mass Index (BMI) 29.3 Intake and Output for Last 24 Hours 02/28/19 03/01/19 03/02/19 23:59 23:59 23:59 Intake Total 2488 / 2488 2089 / 0 617.4 / 617.4 Output Total 875 / 875 200 / 200 1300 / 1300 Balance 1613 / 1613 1890 / 1890 -682.6 / -682.6 General: Confused, Disoriented, Non-Cooperative HEENT: Atraumatic, Normocephalic Oral: Moist Mucosa, No Gingival or Mucosal Lesions/ Ulcerations Neck: No Nodes, Thyroid Normal Size and Texture Lungs: Clear to auscultation, Normal air movement, No rhonchi, No wheeze Cardiovascular: Regular rate, Regular Rhythm, Normal S1, Normal S2, No murmurs Abdomen: Bowel Sounds Present, Soft, Non Tender, Non-Distended, No Hepato- splenomegaly Extremities: No edema, No Calf Tenderness Skin: No rashes, No breakdown Psych/Mental Status: Agitated, Delusions Laboratory Results 03/02/19 06:15: Sodium 138, Potassium 3.6, Chloride 103, Carbon Dioxide 28.0, Anion Gap 7, BUN 18, Creatinine 0.72, Estim Creat Clear Calc 129.47, Est GFR (MDRD) Af Amer 145, Est GFR (MDRD) Non-Af 120, BUN/Creatinine Ratio 25.1 H, Glucose 122 H, Calcium 9.6, Phosphorus 5.1 H, Magnesium 1.8 Current Medications Acetaminophen (Tylenol) 650 mg PO Q6H PRN PRN PRN Reason: Mild Pain (scale 0-3)/T>100.7 Last Admin: 03/01/19 22:04 Dose: 650 mg Aspirin (Aspirin, Baby) 81 mg PO DAILY@0800 [facility] Last Admin: 03/01/19 09:39 Dose: 81 mg Chlordiazepoxide (Librium) 50 mg PO Q8 [facility] Last Admin: 03/02/19 08:04 Dose: 50 mg Clonidine (Catapres) 0.1 mg PO Q2H PRN PRN PRN Reason: ANXIETY Last Admin: 03/02/19 10:06 Dose: 0.1 mg Dicyclomine HCl (Bentyl) 20 mg PO Q6H PRN PRN PRN Reason: abdominal discomfort Hydralazine HCl (Apresoline Iv) 20 mg IV Q4H PRN PRN PRN Reason: BLOOD PRESSURE ELEVATION Last Admin: 03/02/19 11:14 Dose: 20 mg Sodium Chloride () 250 mls @ 15 mls/hr IV .[id number] PRN PRN Reason: SALINE FLUSH Dexmedetomidine HCl 1,000 mcg/ (Sodium Chloride) 250 mls @ 32.24 mls/hr CONT INF .Q7H46M [facility] Last Admin: 03/02/19 08:23 Dose: 32.24 mls/hr Lisinopril (Zestril) 20 mg PO DAILY [facility] Last Admin: 03/02/19 10:05 Dose: 20 mg Lorazepam (Ativan) 2 mg IV Q2H PRN PRN PRN Reason: CIWA >8 but <15 Lorazepam (Ativan) 2 mg IV Q1H PRN PRN PRN Reason: CIWA Score >/= to 15, DBP >110 Magnesium Hydroxide (Milk Of Magnesia) 30 ml PO DAILY PRN PRN Reason: Constipation Methocarbamol (Methocarbamol) 750 mg PO Q6H PRN PRN PRN Reason: Muscle Aches Last Admin: 03/01/19 09:37 Dose: 750 mg Metoprolol Tartrate (Lopressor (Beta Fred)) 12.5 mg PO BID [facility] Last Admin: 03/01/19 22:04 Dose: 12.5 mg [facility]) [facility] Last Admin: 03/01/19 09:39 Dose: 1 tablet Ondansetron HCl (Zofran) 4 mg IV Q8H PRN PRN PRN Reason: NAUSEA Last Admin: 02/28/19 08:01 Dose: 4 mg Psyllium Hydrophilic Mucilloid (Metamucil) 1 packet PO DAILY PRN PRN PRN Reason: CONSTIPATION Sodium Chloride () 5 - 15 ml IV UD PRN PRN Reason: SALINE FLUSH Last Admin: 03/02/19 11:14 Dose: 10 ml Trazodone HCl (Desyrel) 50 mg PO QHS [facility] Last Admin: 03/01/19 22:04 Dose: 50 mg Medical Necessity - Tobacco Use Smoking Status: Never smoker Tobacco Use: Non-smoker Assessment/Plan All Active Problems Alcohol withdrawal (Acute) Atrial fibrillation with RVR (Acute) 1. Delirium tremens * Despite looking fairly well on the , patient has decompensated overnight requiring increased sedation and change of his therapy from Lorazepam to Librium. * Unclear when the patient's last drink was but his level was 368 when he was admitted on the . * Patient to go to outpatient program upon discharge to be facilitated by [facility] 2.Afib with RVR * improved, now NSR * continue metoprolol * start ASA, CHADS-VASc 1 * EF 60% * likely precipitated by withdrawal and/or alcohol 3. VTE proph: early ambulation Code Visit Inpatient E&M: 50497 Subs Hosp L2
--- NOTE | 2019-03-02 14:52 | CHAPLAIN ---
Type of Pastoral Visit ___ Initial Visit ___ Follow-up Visit ___ On-call Visit ___ General Patient Visit ___ Spiritual Assessment ___ Family Conference ___ Bereavement ___ Rapid Response ___ Code Blue _x__ Other (describe below) Pastoral Care Referral From ___ Patient ___ Family ___ Nurse ___ Physician ___ Psychiatric Aide Instructor ___ Lunchroom Worker _x__ Other (describe below) Sacrament/Intervention ___ Active listening ___ Anointing ___ Congregation ___ Bereavement ___ Communion ___ Freida exploration ___ ___ Life review ___ Prayer ___ Reconciliation ___ Sacrament of Sick ___ Supportive presence ___ Wedding _x__ Other (describe below) Pastoral Comments received referral for patient and went to make visit; pt was asleep and RN advised this bottom loader to let pt sleep as he had previously been unruly which led to a Code Jerrica
[2019-03-02] MEDS: LORazepam 2 MG/ML Syringe IV (19:51)
[2019-03-02] MEDS: traZODone 50 MG Tablet PO (21:21)
[2019-03-02] MEDS: Metoprolol Tartrate 25 MG Tablet 12.5 MG PO (21:21)
[2019-03-03] VITALS (15 sets, daily range): BP systolic 77–151; BP diastolic 48–112; PULSE 55–110; RESP 13–30; TEMP 36.6–37.7; O2SAT 95–99
[2019-03-03] MEDS: hydrALAZINE 20 MG/ML Vial IV (00:14)
[2019-03-03] MEDS: 0.9% NaCl IVPB Med Flush (250 mL) 15 ML IV (00:14)
[2019-03-03] MEDS: Dexmedetomidine 1,000 mcg in 0.9% NS 240 mL 32.24 MCG CONT INF (00:57)
[2019-03-03] MEDS: 0.9% Normal Saline 1,000 ML 999 ML IV ×2 (04:13→05:30)
[2019-03-03] MEDS: 0.9% NaCl Peripheral Flush Adult/Peds IV ×2 (04:26→14:08)
[2019-03-03] MEDS: chlordiazePOXIDE 25 MG Capsule 50 MG PO ×3 (05:58→21:12)
[2019-03-03] MEDS: LORazepam 2 MG/ML Syringe IV ×5 (06:49→19:36)
--- NOTE | 2019-03-03 07:20 | PCM.PN.INT ---
Subjective: Patient did okay overnight. Patient has been able to be weaned off of the Precedex drip. Patient is reporting significant nervousness, but overall is much more directable compared to previous. Patient has received 2 doses of Ativan overnight secondary to the CIWA protocol. Blood pressures were marginal overnight, so antihypertensives have been discontinued. General: Alert, Cooperative, - - Tremor noted. Appropriately directable. HEENT: Atraumatic, PERRLA, EOMI, Normocephalic, - - Some scleral injection without icterus Oral: Moist Mucosa, No Gingival or Mucosal Lesions/ Ulcerations Neck: Supple, No JVD, No Nodes, Trachea Midline Lungs: No rhonchi, No wheeze, No rales, Diminished, - - Her Cardiovascular: Regular rate, Regular Rhythm, Normal S1, Normal S2, No murmurs, No rub noted, No Gallop Abdomen: Bowel Sounds Present, Soft, Non Tender, Non-Distended Extremities: No clubbing, No cyanosis, No edema, Capillary Refill Less than 3 Seconds Skin: No breakdown, Excoriated - At wrists Musculoskeletal: No Tenderness to Palpation of Joints or Extremities Lymphatic: No Cervical, Supraclavicular, or Inguinal Adenopathy Neurological: Cranial nerves II-XII grossly intact, Neuro grossly intact, Motor Exam 5/5 strength throughout Psych/Mental Status: Anxious, Impulsive, Restless Vital Signs Temp Pulse Resp BP Pulse Ox 36.6 C 74 13 108/79 97 03/03/19 04:00 03/03/19 07:00 03/03/19 07:00 03/03/19 07:00 03/03/19 07:00 Oxygen Flow Rate (L/min) 3 Oxygen Delivery Method Room Air Weight: 98.2 kg Body Mass Index (BMI) 29.3 Intake and Output for Last 24 Hours 03/01/19 03/02/19 03/03/19 23:59 23:59 23:59 Intake Total 2090 / 2090 960.4 / 960.4 3468 / 3468 Output Total 200 / 200 1300 / 1300 800 / 800 Balance 1890 / 1890 -339.6 / -339.6 2668 / 2668 Labs (Last 48 Hours) 03/02/19 06:15 Sodium 138 Potassium 3.6 Chloride 103 Carbon Dioxide 28.0 Anion Gap 7 BUN 18 Creatinine 0.72 Estim Creat Clear Calc 129.47 Est GFR (MDRD) Af Amer 145 Est GFR (MDRD) Non-Af 120 BUN/Creatinine Ratio 25.1 H Glucose 122 H Calcium 9.6 Phosphorus 5.1 H Magnesium 1.8 Medical Necessity - Tobacco Use Smoking Status: Never smoker Tobacco Use: Non-smoker Assessment/Plan All Active Problems Alcohol withdrawal (Acute) Atrial fibrillation with RVR (Acute) RECOMMENDATIONS: 1. Possibly taper Librium in the next 24-48 hours 2. Continue CIWA protocol for breakthrough 3. Hold all blood pressure medications 4. Possible transfer out of the intensive care unit later today IMPRESSIONS: 1. Acute alcohol withdrawal Patient appears to be responding to Librium dosing well. Patient has required some CIWA coverage, but this would be expected given patient's history. This is not been excessive. Patient's lower blood pressure is likely secondary to medication response as patient was agitated initially leading to elevated blood pressures. Blood pressure medications have been discontinued. Likely okay to leave the intensive care unit from my perspective. 2. Lack of background information/history of alcohol abuse Complicates care, management, recovery and prognosis. Code Visit Inpatient E&M: 87356 Subs Hosp L3
[2019-03-03] MEDS: Multivitamins,Therapeutic Tablet 1 TABLET PO (08:18)
[2019-03-03] MEDS: Aspirin 81 MG TAB.CHEW PO (08:18)
[2019-03-03] MEDS: Methocarbamol 750 MG Tablet PO ×2 (08:19→17:35)
--- NOTE | 2019-03-03 09:15 | PCM.PN.HOSP ---
Patient Problems: Active and Suspected Problems Delirium tremens (Acute) Alcohol withdrawal (Acute) Atrial fibrillation with RVR (Acute) Subjective: Better overnight. Patient only recalls people laughing at him. Think someone may have sat on his chest. Does not recall cursing at people, nor thrashing around nor being confrontational. Vitals/I&O's: Vital Signs Temp Pulse Resp BP Pulse Ox 36.6 C 74 13 108/79 97 03/03/19 04:00 03/03/19 07:00 03/03/19 07:00 03/03/19 07:00 03/03/19 07:18 Oxygen Flow Rate (L/min) 3 Oxygen Delivery Method Room Air Weight: 98.2 kg Body Mass Index (BMI) 29.3 Intake and Output for Last 24 Hours 03/01/19 03/02/19 03/03/19 23:59 23:59 23:59 Intake Total 2090 / 2090 960.4 / 960.4 3468 / 3468 Output Total 200 / 200 1300 / 1300 800 / 800 Balance 1890 / 1890 -339.6 / -339.6 2668 / 2668 General: Alert, No apparent distress, - - more alert, but still slightly confused. HEENT: Atraumatic, Normocephalic Oral: Moist Mucosa, No Gingival or Mucosal Lesions/ Ulcerations Neck: No Nodes, Thyroid Normal Size and Texture Lungs: Clear to auscultation, Normal air movement, No rhonchi, No wheeze Cardiovascular: Regular rate, Regular Rhythm, Normal S1, Normal S2, No murmurs Abdomen: Bowel Sounds Present, Soft, Non Tender, Non-Distended, No Hepato-splenomegaly, Passing Flatus Extremities: No edema, No Calf Tenderness Skin: No rashes, No breakdown Musculoskeletal: No Muscle Wasting, - - TTP in hands Psych/Mental Status: Normal Affect, Anxious Current Medications Acetaminophen (Tylenol) 650 mg PO Q6H PRN PRN PRN Reason: Mild Pain (scale 0-3)/T>100.7 Last Admin: 03/01/19 22:04 Dose: 650 mg Aspirin (Aspirin, Baby) 81 mg PO DAILY@0800 [facility] Last Admin: 03/03/19 08:18 Dose: 81 mg Chlordiazepoxide (Librium) 50 mg PO Q8 [facility] Stop: 03/03/19 22:01 Last Admin: 03/03/19 05:58 Dose: 50 mg Chlordiazepoxide (Librium) 0 mg PO UD [facility]; Taper Stop: 03/07/19 07:59 Dicyclomine HCl (Bentyl) 20 mg PO Q6H PRN PRN PRN Reason: abdominal discomfort Sodium Chloride () 250 mls @ 15 mls/hr IV .[id number] PRN PRN Reason: SALINE FLUSH Last Admin: 03/03/19 00:14 Dose: 15 mls/hr Lisinopril (Zestril) 20 mg PO DAILY [facility] Last Admin: 03/02/19 10:05 Dose: 20 mg Lorazepam (Ativan) 2 mg IV Q2H PRN PRN PRN Reason: CIWA >8 but <15 Last Admin: 03/03/19 06:49 Dose: 2 mg Lorazepam (Ativan) 2 mg IV Q1H PRN PRN PRN Reason: CIWA Score >/= to 15, DBP >110 Last Admin: 03/02/19 19:51 Dose: 2 mg Lorazepam (Ativan) 2 mg PO Q2H PRN PRN PRN Reason: CIWA score >8 but <15 Lorazepam (Ativan) 2 mg PO Q1H PRN PRN PRN Reason: CIWA>15 or diastolic BP>110 Magnesium Hydroxide (Milk Of Magnesia) 30 ml PO DAILY PRN PRN Reason: Constipation Methocarbamol (Methocarbamol) 750 mg PO Q6H PRN PRN PRN Reason: Muscle Aches Last Admin: 03/03/19 08:19 Dose: 750 mg [facility] Last Admin: 03/03/19 08:18 Dose: 1 tablet Ondansetron HCl (Zofran) 4 mg IV Q8H PRN PRN PRN Reason: NAUSEA Last Admin: 02/28/19 08:01 Dose: 4 mg Psyllium Hydrophilic Mucilloid (Metamucil) 1 packet PO DAILY PRN PRN PRN Reason: CONSTIPATION Sodium Chloride () 5 - 15 ml IV UD PRN PRN Reason: SALINE FLUSH Last Admin: 03/03/19 04:26 Dose: 10 ml Trazodone HCl (Desyrel) 50 mg PO QHS [facility] Last Admin: 03/02/19 21:21 Dose: 50 mg Medical Necessity - Tobacco Use Smoking Status: Never smoker Tobacco Use: Non-smoker Assessment/Plan All Active Problems Delirium tremens (Acute) Alcohol withdrawal (Acute) Atrial fibrillation with RVR (Acute) 1. Delirium tremens Resolved today Despite looking fairly well on the , patient has decompensated overnight requiring increased sedation and change of his therapy from Lorazepam to Librium. Unclear when the patient's last drink was but his level was 368 when he was admitted on the . Patient to go to outpatient program upon discharge to be facilitated by [facility] continue Librium taper 2.Afib with RVR improved, now NSR continue metoprolol start ASA, CHADS-VASc 1 EF 60% likely precipitated by withdrawal and/or alcohol 3. VTE proph: will add LMWH 4. Dispostion: transfer out of ICU to PCU (may have prolonged QTc). No discharge for likely another 48h. Greater than 35 minutes of which greater than 50% of the time was discussing with patient about his condition when he was experiencing delirium tremens and for the reason why he does not recall much is because he was going through delirium tremens. Reassurance was provided that he was not controlled the situation and that he is overall better. Continue to encourage to maintain sobriety so the never expresses anything like this in the future and expressed explicitly to never have a drink of alcohol ever again. Code Visit Inpatient E&M: 76014 Subs Hosp L3
--- NOTE | 2019-03-03 09:21 | PN_ITS ---
Patient Problems: Active and Suspected Problems Delirium tremens (Acute) Alcohol withdrawal (Acute) Atrial fibrillation with RVR (Acute) Subjective: Better overnight. Patient only recalls people laughing at him. Think someone may have sat on his chest. Does not recall cursing at people, nor thrashing around nor being confrontational. Vitals/I&O's: Vital Signs Temp Pulse Resp BP Pulse Ox 36.6 C 74 13 108/79 97 03/03/19 04:00 03/03/19 07:00 03/03/19 07:00 03/03/19 07:00 03/03/19 07:18 Oxygen Flow Rate (L/min) 3 Oxygen Delivery Method Room Air Weight: 98.2 kg Body Mass Index (BMI) 29.3 Intake and Output for Last 24 Hours 03/01/19 03/02/19 03/03/19 23:59 23:59 23:59 Intake Total 2090 / 2090 960.4 / 960.4 3468 / 3468 Output Total 200 / 200 1300 / 1300 800 / 800 Balance 1890 / 1890 -339.6 / -339.6 2668 / 2668 General: Alert, No apparent distress, - - more alert, but still slightly confused. HEENT: Atraumatic, Normocephalic Oral: Moist Mucosa, No Gingival or Mucosal Lesions/ Ulcerations Neck: No Nodes, Thyroid Normal Size and Texture Lungs: Clear to auscultation, Normal air movement, No rhonchi, No wheeze Cardiovascular: Regular rate, Regular Rhythm, Normal S1, Normal S2, No murmurs Abdomen: Bowel Sounds Present, Soft, Non Tender, Non-Distended, No Hepato-sp lenomegaly, Passing Flatus Extremities: No edema, No Calf Tenderness Skin: No rashes, No breakdown Musculoskeletal: No Muscle Wasting, - - TTP in hands Psych/Mental Status: Normal Affect, Anxious Current Medications Acetaminophen (Tylenol) 650 mg PO Q6H PRN PRN PRN Reason: Mild Pain (scale 0-3)/T>100.7 Last Admin: 03/01/19 22:04 Dose: 650 mg Aspirin (Aspirin, Baby) 81 mg PO DAILY@0800 [facility] Last Admin: 03/03/19 08:18 Dose: 81 mg Chlordiazepoxide (Librium) 50 mg PO Q8 [facility] Stop: 03/03/19 22:01 Last Admin: 03/03/19 05:58 Dose: 50 mg Chlordiazepoxide (Librium) 0 mg PO UD [facility]; Taper Stop: 03/07/19 07:59 Dicyclomine HCl (Bentyl) 20 mg PO Q6H PRN PRN PRN Reason: abdominal discomfort Sodium Chloride () 250 mls @ 15 mls/hr IV .[id number] PRN PRN Reason: SALINE FLUSH Last Admin: 03/03/19 00:14 Dose: 15 mls/hr Lisinopril (Zestril) 20 mg PO DAILY [facility] Last Admin: 03/02/19 10:05 Dose: 20 mg Lorazepam (Ativan) 2 mg IV Q2H PRN PRN PRN Reason: CIWA >8 but <15 Last Admin: 03/03/19 06:49 Dose: 2 mg Lorazepam (Ativan) 2 mg IV Q1H PRN PRN PRN Reason: CIWA Score >/= to 15, DBP >110 Last Admin: 03/02/19 19:51 Dose: 2 mg Lorazepam (Ativan) 2 mg PO Q2H PRN PRN PRN Reason: CIWA score >8 but <15 Lorazepam (Ativan) 2 mg PO Q1H PRN PRN PRN Reason: CIWA>15 or diastolic BP>110 Magnesium Hydroxide (Milk Of Magnesia) 30 ml PO DAILY PRN PRN Reason: Constipation Methocarbamol (Methocarbamol) 750 mg PO Q6H PRN PRN PRN Reason: Muscle Aches Last Admin: 03/03/19 08:19 Dose: 750 mg [facility] Last Admin: 03/03/19 08:18 Dose: 1 tablet Ondansetron HCl (Zofran) 4 mg IV Q8H PRN PRN PRN Reason: NAUSEA Last Admin: 02/28/19 08:01 Dose: 4 mg Psyllium Hydrophilic Mucilloid (Metamucil) 1 packet PO DAILY PRN PRN PRN Reason: CONSTIPATION Sodium Chloride () 5 - 15 ml IV UD PRN PRN Reason: SALINE FLUSH Last Admin: 03/03/19 04:26 Dose: 10 ml Trazodone HCl (Desyrel) 50 mg PO QHS [facility] Last Admin: 03/02/19 21:21 Dose: 50 mg Medical Necessity - Tobacco Use Smoking Status: Never smoker Tobacco Use: Non-smoker Assessment/Plan All Active Problems Delirium tremens (Acute) Alcohol withdrawal (Acute) Atrial fibrillation with RVR (Acute) 1. Delirium tremens * Resolved today * Despite looking fairly well on the , patient has decompensated overnight requiring increased sedation and change of his therapy from Lorazepam to Librium. * Unclear when the patient's last drink was but his level was 368 when he was admitted on the . * Patient to go to outpatient program upon discharge to be facilitated by [facility] * continue Librium taper 2.Afib with RVR * improved, now NSR * continue metoprolol * start ASA, CHADS-VASc 1 * EF 60% * likely precipitated by withdrawal and/or alcohol 3. VTE proph: will add LMWH 4. Dispostion: transfer out of ICU to PCU (may have prolonged QTc). No discharge for likely another 48h. Greater than 35 minutes of which greater than 50% of the time was discussing with patient about his condition when he was experiencing delirium tremens and for the reason why he does not recall much is because he was going through delirium tremens. Reassurance was provided that he was not controlled the situation and that he is overall better. Continue to encourage to maintain sobriety so the never expresses anything like this in the future and expressed explicitly to never have a drink of alcohol ever again. Code Visit Inpatient E&M: 59184 Subs Hosp L3
[2019-03-03] MEDS: Lisinopril 20 MG Tablet PO (09:40)
[2019-03-03] MEDS: 0.9% Normal Saline 1,000 ML 150 ML IV (09:53)
--- NOTE | 2019-03-03 14:19 | CHAPLAIN ---
Type of Pastoral Visit _x__ Initial Visit ___ Follow-up Visit ___ On-call Visit ___ General Patient Visit ___ Spiritual Assessment ___ Family Conference ___ Bereavement ___ Rapid Response ___ Code Blue ___ Other (describe below) Pastoral Care Referral From _x__ Patient ___ Family ___ Nurse ___ Physician ___ Political Research Scientist ___ Railway Head Tender ___ Other (describe below) Sacrament/Intervention _x__ Active listening ___ Anointing ___ Rastafari ___ Bereavement ___ Communion ___ Freida exploration ___ _x__ Life review _x__ Prayer ___ Reconciliation ___ Sacrament of Sick _x__ Supportive presence ___ Wedding ___ Other (describe below) Pastoral Comments patient is visibly shaking and starts to describe to this online content editor about his experience, loss of memory, not aware of his whereabouts, fear, anxiety over living arrangements, court order, separation from , and early life story; pt is talkative and appears to be calmer with someone who will sit with him; pt receives his lunch and this online content editor assists pt in opening items and moving them so he can eat them more easily; pt appears hungry and eats first sandwich quickly and then quits eating; pt is open to prayer and welcomes future visits; mental health social worker follow up would be desirable for this patient although he states that he has a caseworker protective services assigned to him; pt speaks of not having a home to go to when he is discharged; spouse is possibly in custodial at this time
[2019-03-03] MEDS: LORazepam 2 MG/ML Syringe 1 MG IV (14:40)
[2019-03-03] MEDS: Haloperidol Lactate 5 MG/ML Vial IV ×2 (15:30→19:36)
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
[2019-03-03] MEDS: LORazepam 1 MG Tablet 2 MG PO (17:35)
[2019-03-03] MEDS: traZODone 50 MG Tablet PO (21:12)
[2019-03-04] VITALS (7 sets, daily range): BP systolic 117–133; BP diastolic 82–99; PULSE 93–112; RESP 17–20; TEMP 36.4–37.4; O2SAT 95–98
[2019-03-04 05:20] LABS: Anion Gap 5 (5-15); BUN 16 mg/dL (7-18); BUN/Creat Ratio 22.9 RATIO (10-20); Calcium,Total 8.9 mg/dL (8.5-10.1); Chloride 108 mmol/L (98-107); EST Glomerular Filtration Rate 124 mL/min (>60); Est Glom Filt Rate - Afr Amer 150 mL/min (>60); Estimated Creatinine Clearance 133.17 ml/min; Glucose 100 mg/dL (74-106); Magnesium 1.8 mg/dL (1.6-2.6); Potassium 3.8 mmol/L (3.5-5.1); Sodium Level 141 mmol/L (136-145)
[2019-03-04] MEDS: chlordiazePOXIDE 25 MG Capsule 50 MG PO ×2 (05:35→11:01)
--- NOTE | 2019-03-04 07:33 | PCM.PN.INT ---
Subjective: Patient much more appropriate this morning. Patient continues to be paranoid at times, but tremor is much improved compared to previous. Nursing reports 1 dose of Haldol and 1 dose of Ativan as needed overnight. Patient was initiated on Librium taper this morning. Patient feels subjectively improved compared to previous. General: Alert, Oriented x3, Cooperative, No apparent distress, - - No conversational dyspnea. HEENT: Atraumatic, PERRLA, EOMI, Normocephalic, - - Symmetric expansion. No dullness to percussion. Oral: Moist Mucosa, No Gingival or Mucosal Lesions/ Ulcerations Neck: Supple, No JVD, No Nodes, Trachea Midline Lungs: Clear to auscultation, Normal air movement, No rhonchi, No wheeze, No rales Cardiovascular: Regular rate, Regular Rhythm, Normal S1, Normal S2, No murmurs, No rub noted, No Gallop Abdomen: Bowel Sounds Present, Soft, Non Tender, Non-Distended Extremities: No clubbing, No cyanosis, No edema Skin: - - No significant change compared to previous Musculoskeletal: No Tenderness to Palpation of Joints or Extremities Lymphatic: No Cervical, Supraclavicular, or Inguinal Adenopathy Neurological: Cranial nerves II-XII grossly intact, Neuro grossly intact, Motor Exam 5/5 strength throughout, - - Tremor much improved compared to previous. Psych/Mental Status: Normal Affect, Appropriate Vital Signs Temp Pulse Resp BP Pulse Ox 37.4 C H 98 17 117/82 H 95 03/04/19 02:00 03/04/19 04:00 03/04/19 02:00 03/04/19 02:00 03/04/19 02:00 Oxygen Flow Rate (L/min) 3 Oxygen Delivery Method Room Air Weight: 99 kg Body Mass Index (BMI) 29.3 Intake and Output for Last 24 Hours 03/02/19 03/03/19 03/04/19 23:59 23:59 23:59 Intake Total 960.4 / 960.4 9326 / 9326 1800 / 1800 Output Total 1300 / 1300 4900 / 4900 1400 / 1400 Balance -339.6 / -339.6 4426 / 4426 400 / 400 Labs (Last 48 Hours) 03/04/19 04:55 Sodium 141 Potassium 3.8 Chloride 108 H Carbon Dioxide 28.0 Anion Gap 5 BUN 16 Creatinine 0.70 Estim Creat Clear Calc 133.17 Est GFR (MDRD) Af Amer 150 Est GFR (MDRD) Non-Af 124 BUN/Creatinine Ratio 22.9 H Glucose 100 Calcium 8.9 Magnesium 1.8 Medical Necessity - Tobacco Use Smoking Status: Never smoker Tobacco Use: Non-smoker Assessment/Plan All Active Problems Delirium tremens (Acute) Alcohol withdrawal (Acute) Atrial fibrillation with RVR (Acute) RECOMMENDATIONS: 1. Taper Librium 2. Continue CIWA protocol for breakthrough 3. Hold all blood pressure medications 4. Possible transfer out of the intensive care unit later today 5. Continue Haldol as needed IMPRESSIONS: 1. Acute alcohol withdrawal Patient became very paranoid yesterday leading to need for significant increased doses of medications. Patient appears to have stabilized after addition of Haldol indicating possible underlying mental health etiology. Ativan requirements improved overnight. Remains off Precedex therapy. Possibly able to go to the floor today to continue with withdrawal protocol. 2. Lack of background information/history of alcohol abuse Complicates care, management, recovery and prognosis. Code Visit Inpatient E&M: 40616 Subs Hosp L2
[2019-03-04] MEDS: Aspirin 81 MG TAB.CHEW PO (07:47)
[2019-03-04] MEDS: Multivitamins,Therapeutic Tablet 1 TABLET PO (07:47)
[2019-03-04] MEDS: Lisinopril 20 MG Tablet PO (07:48)
[2019-03-04] MEDS: LORazepam 2 MG/ML Syringe IV ×3 (08:09→15:13)
[2019-03-04] MEDS: Haloperidol Lactate 5 MG/ML Vial IV ×2 (08:26→12:35)
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
[2019-03-04] MEDS: Enoxaparin 40 MG/0.4 ML Syringe SC (15:37)
--- NOTE | 2019-03-04 16:07 | NURSING ---
pt A&ox3, insisitng on leaving. made multiple threats throughout day to leave AMA. Education given to patient on why he has not been medically cleared to leave. Tried to redirect pt by walking in room, walking in hallway, sitting up in recliner, snacks, emotionally support, ect. Dr. Mg notified. Pt still insisting on leaving. IV discontinued. GALE Medina walked patient to front enterance. automatic machines supervisor and security notified.
== END 2019-03-04 16:00 | disposition left against medical advice (07) | DRG 770 ==
LOC: ED 13:37 → PCU 15:46 → MS3 03-01 21:44 → ICU 03-02 11:14
PROVIDERS: Internal Medicine Critical Care Medicine; Admitting Provider Internal Medicine; Emergency Provider Emergency Medicine; Referring Provider Internal Medicine
DX: F10.231 Alcohol dependence with withdrawal delirium (principal); F10.229 Alcohol dependence with intoxication, unspecified; Y90.8 Blood alcohol level of 240 mg/100 ml or more; I48.91 Unspecified atrial fibrillation; I10 Essential (primary) hypertension; Z78.1 Physical restraint status
CPT/HCPCS: 36415; 71045; 80048; 80053; 80076; 80307; 80320; 83735; 84100; 84439; 84443; 84481; 84484; 85025; 85610; 93005; 93306; 97162; 97165; 99284; J7030; J7050; Q9957; A4216; C8929; G0480; J2405

== ENCOUNTER 2019-03-04 22:36 | Inpatient (IN) | payer MEDICAID, SELFPAY ==
[2019-02-27 16:04] VITALS: BMI 29.3
[2019-03-04 22:37] VITALS: BP 90/49; PULSE 117; RESP 20; TEMP 36.6; O2SAT 97; BMI 29.0
--- NOTE | 2019-03-04 22:59 | EKG12_ITS ---
Test Reason : SUBSTANCE ABUSE Blood Pressure : / mmHG Vent. Rate : 112 BPM Atrial Rate : 112 BPM P-R Int : 182 ms QRS Dur : 088 ms QT Int : 326 ms P-R-T Axes : 031 028 033 degrees QTc Int : 444 ms Sinus tachycardia Possible Left atrial enlargement Borderline ECG Confirmed by ELLIOT IBRAHIM, ALONZO ([id number]), editorial specialist BRITTNEY GUZMÁN ([id number]) on 03/08/2019 1:16:50 PM Referred By: LOWELL Confirmed By:ALONZO ZARATE MD
[2019-03-04] MEDS: LORazepam 2 MG/ML Syringe IV (23:17)
[2019-03-04 23:21] LABS: Absolute Lymphocyte Count 1.04 X10^3/ul (0.83-4.51); Absolute Neutrophil Count 3.4 X10^3/uL (2.0-7.7); Basophil# 0.04 X10^3/uL; Basophil% 0.7 % (0-1); Eosinophil# 0.13 X10^3/uL; Eosinophils% 2.1 % (0-5); Hematocrit 38.7 % (40-54); Hemoglobin 13.2 g/dl (13.0-16.5); Lymphocyte # 1.04 X10^3/ul (4.0); Mean Corp Hgb Conc 34.1 g/gl (32-36); Mean Corpuscular Hgb 33.5 pg (27.0-32.0); Mean Corpuscular Volume 98.2 fL (80-94); Mean Platelet Vol. 9.5 fl (6.2-12.0); Monocyte# 1.48 X10^3/uL; Monocyte% 24.1 % (0-10); Neutrophil # 3.43 X10^3/uL (2.7-7.7); Neutrophil % 55.9 % (47-70); POSITIVE COUNT NO; POSITIVE DIFFERENTIAL NO; POSITIVE MORPHOLOGY NO; Platelet Count 167 K/mm3 (150-450); RBC Distribution Width CV 12.8 % (11.6-14.6); RBC Distribution Width SD 46.4 fl (35.1-43.9); Red Blood Count 3.94 M/mm3 (4.6-6.2); White Blood Count 6.1 K/mm3 (4.4-11.0)
[2019-03-04 23:37] LABS: ALB/GLOB Ratio 0.9 RATIO (0.9-2.4); AST(SGOT) 33 U/L (15-37); Alanine Aminotransfer ALT/SGPT 40 U/L (16-61); Albumin, Serum 3.7 g/dL (3.2-5.0); Alkaline Phosphatase 46 U/L (45-117); Anion Gap 9 (5-15); BUN 15 mg/dL (7-18); BUN/Creat Ratio 16.5 RATIO (10-20); Chloride 105 mmol/L (98-107); Creatinine, Serum 0.91 mg/dL (0.70-1.30); EST Glomerular Filtration Rate 92 mL/min (>60); Est Glom Filt Rate - Afr Amer 111 mL/min (>60); Estimated Creatinine Clearance 102.44 ml/min; Globulin 4.1 g/dL (2.2-4.2); Glucose 98 mg/dL (74-106); Potassium 3.7 mmol/L (3.5-5.1); Protein, Total 7.8 g/dL (6.4-8.2); Sodium Level 138 mmol/L (136-145)
[2019-03-04 23:39] LABS: Amphetamine Urine VISTA NEGATIVE (<1000 ng/mL); Barbiturate Urine VISTA NEGATIVE (< 200 ng/mL); Benzodiazepine Urine VISTA POSITIVE (< 200 ng/mL); Cocaine Urine VISTA NEGATIVE (< 300 ng/mL); Ecstacy Urine VISTA NEGATIVE (< 500 ng/mL); Methadone Urine VISTA NEGATIVE (< 300 ng/mL); PCP Urine VISTA NEGATIVE (< 25 ng/mL); THC Urine VISTA NEGATIVE (< 50 ng/mL); Vista UDS pH Range 6
[2019-03-05] VITALS (12 sets, daily range): BP systolic 113–162; BP diastolic 72–98; PULSE 65–101; RESP 12–20; TEMP 36.5–37; O2SAT 95–99; BMI 28.8; BMI 28.9
--- NOTE | 2019-03-05 00:07 | ED.VISSUMM ---
- ER Visit Summary Date of Service: 03/05/19 Chief Complaint: Alcohol withdrawal History of Present Illness: The patient is a 58 M who presents with alcohol withdrawal. He was admitted for alcohol withdrawal and atrial fibrillation with rapid ventricular response 5 days ago. He was transferred to the ICU. He was on Precedex. He was able to be taken off of Precedex and was on Librium and also receiving as needed Haldol and Ativan. He left AGAINST MEDICAL ADVICE this morning. He states he had to check on his apartment. He returns for rehospitalization. He complains of some myalgias in his legs. He did have half of a beer before coming in today. Physical Examination: Heart rate 117 initial blood pressure 90/49 Patient is anxious and tremulous Moist mucous membranes Heart regular tachycardia Lungs are clear Abdomen soft Alert Test Results: EKG shows sinus rhythm at a rate of 112. CBC CMP unremarkable. Alcohol 62. Drug screen positive for benzodiazepines. Emergency Department Course and Treatment: He was given IV Ativan. CIWA is 17. Patient to be discussed with the hospitalist and admitted for alcohol withdrawal. Treatment Plan: [] Disposition: Admit Impression: Alcohol withdrawal This note was generated with [employer] dictation software. It may contain incorrect words, spelling, and punctuation that were not noted in review of the chart prior to signing ED Disposition - Plan for ED Patient: Referrals: Care Physician,No Primary [Primary Care Provider] -
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
[2019-03-05] MEDS: 0.9% Normal Saline 1,000 ML 500 ML IV (01:47)
[2019-03-05] MEDS: chlordiazePOXIDE 25 MG Capsule PO ×4 (01:56→18:50)
[2019-03-05] MEDS: Folic Acid 1 MG Tablet PO (08:22)
[2019-03-05] MEDS: Aspirin 81 MG TAB.CHEW PO (08:22)
[2019-03-05] MEDS: Multivitamins,Therapeutic Tablet 1 TABLET PO (08:22)
[2019-03-05] MEDS: Thiamine Hydrochloride 100 MG Tablet PO (08:22)
[2019-03-05] MEDS: Enoxaparin 40 MG/0.4 ML Syringe SC (08:23)
--- NOTE | 2019-03-05 17:28 | NURSING ---
report called to Yuli MOLINA on MS3
[2019-03-05] MEDS: LORazepam 1 MG Tablet PO (18:26)
--- NOTE | 2019-03-05 18:30 | CCHN_ITS ---
Hospitalist Note Patient was seen and examined briefly today, had originally wanted to leave AMA but then changed his mind. I moved the patient up to [facility] will continue protocol for alcohol withdrawal.
[2019-03-06] VITALS (7 sets, daily range): BP systolic 128–140; BP diastolic 84–99; PULSE 92–107; RESP 16–18; TEMP 36.4–37.2; O2SAT 95–97
[2019-03-06] MEDS: chlordiazePOXIDE 25 MG Capsule PO ×3 (02:12→18:00)
[2019-03-06] MEDS: LORazepam 1 MG Tablet PO ×5 (02:12→22:13)
[2019-03-06] MEDS: Multivitamins,Therapeutic Tablet 1 TABLET PO (07:50)
[2019-03-06] MEDS: Thiamine Hydrochloride 100 MG Tablet PO (07:50)
[2019-03-06] MEDS: Folic Acid 1 MG Tablet PO (07:50)
[2019-03-06] MEDS: Aspirin 81 MG TAB.CHEW PO (07:50)
[2019-03-06] MEDS: Enoxaparin 40 MG/0.4 ML Syringe SC (08:02)
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
--- NOTE | 2019-03-06 11:47 | PN_ITS ---
Subjective: Patient is a 58-year-old gentleman with history of alcohol dependence presented with withdrawal symptoms admitted to regular nursing floor for further management Objective: GENERAL: cooperative; tremulous at rest HEENT: Atraumatic; moist oral mucosa EYES; Anicteric, Normal Conjunctiva NECK; supple, normal thyroid, no distended JVD. RESPIRATORY: Diminished to auscultation bilaterally, CARDIOVASCULAR: Regular S1 S2, no audible murmurs GI: soft, non-tender, normoactive bowel sounds, : No Renal angle tenderness; EXTREMITIES: No edema, no clubbing, no cyanosis. NEURO: Awake; no lateralizing signs. SKIN: No Rash PSYCH; Normal affect Vitals/I&O's: Vital Signs Temp Pulse Resp BP Pulse Ox 98.9 F 103 H 18 138/99 H 97 03/06/19 02:10 03/06/19 07:46 03/06/19 02:10 03/06/19 02:10 03/06/19 02:10 Oxygen Delivery Method Room Air Weight: 99.2 kg Body Mass Index (BMI) 28.8 Intake and Output for Last 24 Hours 03/04/19 03/05/19 03/06/19 23:59 23:59 23:59 Intake Total 2480 / 2480 480 / 480 Output Total 700 / 700 Balance 1780 / 1780 480 / 480 Current Medications Aspirin (Aspirin, Baby) 81 mg PO DAILY@0800 [facility] Last Admin: 03/06/19 07:50 Dose: 81 mg Bisacodyl (Dulcolax) 5 mg PO DAILY PRN PRN PRN Reason: Constipation Chlordiazepoxide (Librium) 50 mg PO Q8H [facility]; Taper Stop: 03/08/19 02:59 Last Admin: 03/06/19 02:12 Dose: 50 mg Enoxaparin Sodium (Lovenox) 40 mg SC DAILY@1000 [facility] Last Admin: 03/06/19 08:02 Dose: 40 mg Folic Acid (Folic Acid) 1 mg PO DAILYCM [facility] Stop: 03/07/19 08:01 Last Admin: 03/06/19 07:50 Dose: 1 mg Thiamine HCl 200 mg/ Sodium (Chloride) 52 mls @ 200 mls/hr IV DAILY [facility] Last Admin: 03/05/19 01:50 Dose: 200 mls/hr Lorazepam (Ativan) 1 mg PO Q4H PRN PRN PRN Reason: ANXIETY Last Admin: 03/06/19 07:59 Dose: 1 mg Magnesium Hydroxide (Milk Of Magnesia) 30 ml PO DAILY PRN PRN Reason: Constipation [facility] Last Admin: 03/06/19 07:50 Dose: 1 tablet Ondansetron HCl (Zofran) 4 mg IV Q8H PRN PRN PRN Reason: NAUSEA Sodium Chloride () 5 - 15 ml IV UD PRN PRN Reason: SALINE FLUSH Thiamine HCl (Vitamin B1) [facility] Stop: 03/07/19 08:01 Last Admin: 03/06/19 07:50 Dose: 100 mg Medical Necessity - Tobacco Use Smoking Status: Never smoker Assessment/Plan All Active Problems Delirium tremens (Acute) Alcohol withdrawal (Acute) Atrial fibrillation with RVR (Resolved) Patient is a 58-year-old gentleman with history of alcohol dependence presented with withdrawal symptoms admitted to regular nursing floor for further manage ment 1. Acute alcohol withdrawal patient has been admitted to regular nursing floor currently being managed with a medical stabilization protocol using Librium taper and Ativan as needed 2. Paroxysmal A. fib patient placed on aspirin avoided the use of systemic anticoagulation due to significant risk for falls in view of patient's ongoing alcohol use 3. Hypertension-blood pressure controlled, home medications continued with dose adjustment as needed 4. Peripheral neuropathy patient is on Neurontin did continue 5. DVT prophylaxis SC lower Active Medications Aspirin (Aspirin, Baby) 81 mg PO DAILY@0800 [facility] Last Admin: 03/06/19 07:50 Dose: 81 mg Bisacodyl (Dulcolax) 5 mg PO DAILY PRN PRN PRN Reason: Constipation Chlordiazepoxide (Librium) 50 mg PO Q8H [facility]; Taper Stop: 03/08/19 02:59 Last Admin: 03/06/19 02:12 Dose: 50 mg Enoxaparin Sodium (Lovenox) 40 mg SC DAILY@1000 [facility] Last Admin: 03/06/19 08:02 Dose: 40 mg Folic Acid [facility]Folic Acid) [facility] Stop: 03/07/19 08:01 Last Admin: 03/06/19 07:50 Dose: 1 mg Thiamine HCl 200 mg/ Sodium (Chloride) 52 mls @ 200 mls/hr IV DAILY [facility] Last Admin: 03/05/19 01:50 Dose: 200 mls/hr Lorazepam (Ativan) 1 mg PO Q4H PRN PRN PRN Reason: ANXIETY Last Admin: 03/06/19 07:59 Dose: 1 mg Magnesium Hydroxide (Milk Of Magnesia) 30 ml PO DAILY PRN PRN Reason: Constipation Mult[facility]it[facility] ([facility]ivitamin) [facility] Last Admin: 03/06/19 07:50 Dose: 1 tablet Ondansetron HCl (Zofran) 4 mg IV Q8H PRN PRN PRN Reason: NAUSEA Sodium Chloride () 5 - 15 ml IV UD PRN PRN Reason: SALINE FLUSH Thiamine HCl (Vitamin B1) [facility] Stop: 03/07/19 08:01 Last Admin: 03/06/19 07:50 Dose: 100 mg Code Visit Inpatient E&M: 07344 Subs Hosp L3
--- NOTE | 2019-03-06 14:50 | NEWVISION ---
I went to see the patient as requested per consult. Patient was sleeping. I will check on patient later today to complete consult.
[2019-03-07] VITALS (7 sets, daily range): BP systolic 127–147; BP diastolic 67–84; PULSE 86–102; RESP 16; TEMP 35.9–36.8; O2SAT 93–96
[2019-03-07] MEDS: chlordiazePOXIDE 25 MG Capsule PO (02:27)
[2019-03-07] MEDS: LORazepam 1 MG Tablet PO (02:28)
[2019-03-07] MEDS: Aspirin 81 MG TAB.CHEW PO (08:14)
[2019-03-07] MEDS: Folic Acid 1 MG Tablet PO (08:14)
[2019-03-07] MEDS: Multivitamins,Therapeutic Tablet 1 TABLET PO (08:14)
[2019-03-07] MEDS: Enoxaparin 40 MG/0.4 ML Syringe SC (08:15)
[2019-03-07] MEDS: Thiamine Hydrochloride 100 MG Tablet PO (08:15)
--- NOTE | 2019-03-07 09:15 | CASEMGMT ---
Addendum entered by Loulou Chino 03/07/19 11:48: SW met with pt, informed him that this worker has been unsuccessful in reaching [facility] at [facility] and informed pt that he needs to decide where he would like to go at discharge, either [facility] and [facility] to get assistance. Pt states that he would like to go to [facility]. SW explained that taxi can be arranged and voucher can be used for him to go to [facility]. Pt states understanding. Original Note: Social Work Note SW received message from [facility] requesting call back [phone]. SW attempted to call [place] but number states is unable to be dialed. Physician is discharging pt today. Per pt, he doesn't have anywhere to go. SW explained that physician had told him yesterday (this worker was present in the room) that he was going to be discharged today. SW again talked about [facility] and that this worker was trying to get in contact with his Helena at [facility] in regards to housing but that this worker hasn't been able to talk to her. SW explained that unfortunately pt can't stay at [facility] just because he doesn't have housing. SW encouraged pt to follow up with [facility] once he gets discharged from [facility] and continue to work with Helena in regards to housing. Again pt denied wanting any counseling/alcohol use treatment or resources. [facility] direct number and requested to be transferred to [facility]. SW left message for [facility] to call this worker today as pt is being discharged today. SW waiting for call back from [facility]. Plan: Pt is able to discharge today. Pt can continue to work with Housing Helena at [facility]. Loulou Chino INTEGRATED PROGRAM TEACHER, TIME BROKER
--- NOTE | 2019-03-07 10:20 | DCINST_ITS ---
You will use the following diet at home:: No restrictions Discharge Activity: May not drive while taking narcotic pain medications. Allergies/Adverse Reactions: Allergies No Known Allergies Allergy (Verified 03/04/19 22:41) Medications to take at Discharge Lisinopril 20 mg PO DAILY 01/17/19 Gabapentin [Neurontin] 300 mg PO TID PRN PRN 02/27/19 Primary Care Physician: Care Physician,No Primary [Primary Care Provider] - Please follow up with your Primary Care Physician in: in 1-2 weeks Test Results: Test results from this visit will be discussed in further detail at your follow- up appointment, if applicable. Proposed Discharge Date: 03/07/19
--- NOTE | 2019-03-07 10:23 | PCM.DC.SUM ---
Discharge Date and Diagnosis Date of Admission: 03/05/19 Date of Discharge: 03/07/19 - Primary Discharge Diagnosis Acute alcohol intoxication - Secondary Discharge Diagnosis Chronic Problems Alcohol abuse (Chronic) Hypertension (Chronic) Hospital Course and Treatment Consultations 03/05/19 00:53 Consult: Hakeem Mendoza Routine Consulting Provider: Consulted Physician Type:: Other * Specify below * Reason for consult:: alcohol withdrawal Summary of Care Provided: Patient is a 58-year-old gentleman with history of alcohol dependence presented with withdrawal symptoms admitted to regular nursing floor for further management 1. Acute alcohol withdrawal patient has been admitted to regular nursing floor currently being managed with a medical stabilization protocol using Librium taper and Ativan as needed 2. Paroxysmal A. fib patient placed on aspirin avoided the use of systemic anticoagulation due to significant risk for falls in view of patient's ongoing alcohol use 3. Hypertension-blood pressure controlled, home medications continued with dose adjustment as needed 4. Peripheral neuropathy patient is on Neurontin did continue Objective: GENERAL: cooperative HEENT: Atraumatic; moist oral mucosa EYES; Anicteric, Normal Conjunctiva SKIN: No Rash PSYCH; Normal affect - Physical Exam Vital Signs Temp Pulse Resp BP Pulse Ox 97.5 F L 86 16 147/84 H 95 03/07/19 06:39 03/07/19 06:39 03/07/19 06:39 03/07/19 06:39 03/07/19 06:39 Oxygen Delivery Method Room Air Weight: 99.2 kg Body Mass Index (BMI) 28.8 Intake and Output for Last 24 Hours 03/05/19 03/06/19 03/07/19 23:59 23:59 23:59 Intake Total 2480 / 2480 480 / 480 780 / 780 Output Total 700 / 700 Balance 1780 / 1780 480 / 480 780 / 780 Discharge Diet: No Restrictions Discharge Activity: May not drive while taking narcotic pain medications. Home Medications: Medications to take at Discharge Lisinopril 20 mg PO DAILY 01/17/19 Gabapentin [Neurontin] 300 mg PO TID PRN PRN 02/27/19 Primary Care Physician: Care Physician,No Primary [Primary Care Provider] - Please follow up with your Primary Care Physician in: in 1-2 weeks Disposition: Home Minutes spent on discharge:: 35 Patient Condition:: Stable Medical Necessity - Tobacco Use Smoking Status: Never smoker Meaningful Use Info Meaningful Use Diagnoses (Choose all that apply): None applicable Code Visit Inpatient E&M: 13116 Disch Hosp
--- NOTE | 2019-03-07 11:45 | NEWVISION ---
Patient will not be considered under [facility] due to patient's unwillingness to participate in continued treatment in an inpatient or outpatient setting. I made several phone call's to Christina Malik, and Chanell at [facility] in order to help facilitate in his housing support through their agency. Housing support to call SW directly to facilitate instructions. At this point, we have not been able to reach assistance successfully.
--- NOTE | 2019-03-07 13:33 | CASEMGMT ---
Social Work: TC from Chanell at [facility]. Chanell states that patient can come there at D/C and she and Helena with assist with temporary housing until a permanent solution for housing can be arranged. Spoke with Enrrique Spence, MS3 manager medical writing who states that [facility] transportation can transport patient to [facility] now. TC to Chanell at [facility]. Chanell aware that patient should be arriving there shortly. PLAN: Patient to be discharged today to meet with Helena rn case manager at [facility] for housing options. JOSE C Mariee
== END 2019-03-07 12:57 | disposition home or self-care (01) | DRG 775 ==
LOC: ED 23:02 → PCU 03-05 00:39 → MS3 03-05 17:44
PROVIDERS: Admitting Provider Hospitalist; Emergency Provider Emergency Medicine; Visit Provider Internal Medicine
DX: F10.239 Alcohol dependence with withdrawal, unspecified (principal); I48.91 Unspecified atrial fibrillation; I10 Essential (primary) hypertension; G62.9 Polyneuropathy, unspecified; Y90.3 Blood alcohol level of 60-79 mg/100 ml; F10.129 Alcohol abuse with intoxication, unspecified
CPT/HCPCS: 80053; 80307; 80320; 85025; 93005; 97161; 97165; 99282; 99284; J7030; A4216; G0480; J3490

== ENCOUNTER 2019-03-08 21:35 | Emergency (ER) | payer MEDICAID, SELFPAY ==
[2019-03-05 01:00] VITALS: BMI 28.8
[2019-03-08 21:40] VITALS: BP 120/89; PULSE 104; RESP 20; TEMP 36.4; O2SAT 96; BMI 29.0
--- NOTE | 2019-03-08 22:19 | CT_ITS ---
STUDY: CT BRAIN WITHOUT CONTRAST REASON FOR EXAM: Male, 58 years old. Multiple falls. Alcohol abuse. RADIATION DOSAGE (If Supplied By Facility): CTDIvol = ( 44.99 ) mGy, DLP = ( 829.85 ) mGycm TECHNIQUE: Transaxial CT imaging of the brain was performed without administration of intravenous contrast material. Individualized dose optimization techniques were used for this CT. COMPARISON: 11/07/2018 FINDINGS: Normal soft tissue structures. Normal calvarium. There is mild cerebral atrophy with widening of the extra-axial spaces and ventricular dilatation. Normal white matter tracts of the cerebral hemispheres. Normal basal ganglia and thalami. Normal brainstem. There is mild cerebellar atrophy. There is no intracranial hemorrhage. There are no findings of an acute ischemic infarction. Normal visualized paranasal sinuses. CT/Brain/Head without Contrast IMPRESSION: No change or acute abnormality. Mild atrophy. Electronically Signed: Yong Rose MD at 23:07 EDT , Service support ,
[2019-03-08 22:29] VITALS: BP 113/86; PULSE 99; RESP 14; O2SAT 93
[2019-03-08] MEDS: 0.9% Normal Saline 1,000 ML 1000 ML IV (22:35)
[2019-03-08] MEDS: Ketorolac 30 MG/ML Syringe IV (22:35)
[2019-03-08 22:40] LABS: Absolute Lymphocyte Count 1.35 X10^3/ul (0.83-4.51); Absolute Neutrophil Count 3.9 X10^3/uL (2.0-7.7); Basophil# 0.06 X10^3/uL; Basophil% 0.8 % (0-1); Eosinophil# 0.22 X10^3/uL; Eosinophils% 3.1 % (0-5); Hematocrit 37.8 % (40-54); Lymphocyte # 1.35 X10^3/ul (4.0); Mean Corp Hgb Conc 34.4 g/gl (32-36); Mean Corpuscular Hgb 33.1 pg (27.0-32.0); Mean Corpuscular Volume 96.2 fL (80-94); Mean Platelet Vol. 8.6 fl (6.2-12.0); Monocyte# 1.53 X10^3/uL; Monocyte% 21.5 % (0-10); Neutrophil # 3.94 X10^3/uL (2.7-7.7); Neutrophil % 55.5 % (47-70); Platelet Count 294 K/mm3 (150-450); RBC Distribution Width CV 12.3 % (11.6-14.6); RBC Distribution Width SD 43.7 fl (35.1-43.9); Red Blood Count 3.93 M/mm3 (4.6-6.2); White Blood Count 7.1 K/mm3 (4.4-11.0)
[2019-03-08 22:43] LABS: Differential Indicated SCAN CRITERIA MET; POSITIVE COUNT NO; POSITIVE DIFFERENTIAL YES; POSITIVE MORPHOLOGY NO
[2019-03-08 22:58] LABS: Differential Comment SCANNED
[2019-03-08 22:59] LABS: AST(SGOT) 35 U/L (15-37); Alanine Aminotransfer ALT/SGPT 54 U/L (16-61); Albumin, Serum 3.7 g/dL (3.2-5.0); Alkaline Phosphatase 48 U/L (45-117); Anion Gap 8 (5-15); BUN 13 mg/dL (7-18); Calcium,Total 8.9 mg/dL (8.5-10.1); Chloride 98 mmol/L (98-107); Creatinine, Serum 0.77 mg/dL (0.70-1.30); EST Glomerular Filtration Rate 111 mL/min (>60); Est Glom Filt Rate - Afr Amer 135 mL/min (>60); Estimated Creatinine Clearance 121.06 ml/min; Globulin 3.8 g/dL (2.2-4.2); Glucose 81 mg/dL (74-106); Potassium 3.8 mmol/L (3.5-5.1); Protein, Total 7.5 g/dL (6.4-8.2); Sodium Level 133 mmol/L (136-145)
[2019-03-08 23:08] LABS: CPK Total, Creatine Kinase 178 U/L (39-308)
--- NOTE | 2019-03-08 23:16 | ED.DCSUM_ITS ---
- ER Visit Summary Date of Service: 03/08/19 Chief Complaint: Bilateral thigh pain History of Present Illness: The patient is a [address] Fernandez. He reports he has bilateral thigh pain that began 3 days ago. States that he is having a difficult time standing from a seated position due to the pain. Reports that he had to crawl around last night. Patient does report that he fell last night and had a blood to his left maxilla. He denies any loss of consciousness. No neck, back, shoulder, or wrist pain. He denies any hip pain. Review of systems: General: No fever, chills, cold sweats. Cardiovascular: No chest pain, palpitations. Respiratory: No cough, shortness of breath, dyspnea on exertion. Gastrointestinal: No abdominal pain, nausea, vomiting, diarrhea, melena, or hematochezia. Genitourinary: No dysuria, frequency, hematuria. Skin: No rash. Neuro: No headache, numbness, weakness. Physical Examination: Vitals: Stable. Afebrile. General: Well-nourished and well-developed. Head: Normocephalic atraumatic. Neck: Supple, no lymphadenopathy. No JVD. Nontender. Cardiovascular: Regular rate and rhythm. No murmurs. Respiratory: No respiratory distress. Clear to auscultation bilaterally. Abdominal: Soft, nontender, nondistended, normal bowel sounds. No guarding, rebound, or peritoneal signs. Back: Nontender. Extremities: Mild tenderness palpation to the anterior thighs bilaterally. He has full range of motion without any difficulty. He has normal strength. He has 2+ dorsalis pedis pulses. no edema. Skin: Normal color, no rash. Neurologic: Alert and oriented ?3. Cranial nerves II through XII are intact. Normal strength and sensation. Psych: Normal affect. Test Results: CBC shows a hematocrit of 37.8 monocytes 22. Chem-7 shows a sodium 133. LFTs are normal. CPKs normal. Blood alcohol level is 47. CT brain shows no acute disease. Emergency Department Course and Treatment: The process of reviewing patient's labs I found that he had actually been admitted from February 27 - March 07 (yesterday) for A. fib RVR and alcohol withdrawal. Patient reports that he did not receive his gabapentin while he was here. He was given a dose of this p.o. He is also given a dose of Toradol IV. Treatment Plan: Patient reports that his gabapentin was thrown away while he was in the hospital. He is given a prescription for 10 days and the gabapentin instructed follow-up Dr. Fernandez as soon as possible. Disposition: To home in improved and stable condition. Impression: 1. Bilateral thigh pain, uncertain cause. This note was generated with AppLovin dictation software. It may contain incorrect words, spelling, and punctuation that were not noted in review of the chart prior to signing ED Disposition - Plan for ED Patient: Disposition: Home or Assisted Living Instructions: ED Muscle Aching Prescriptions: Gabapentin [Neurontin] 300 mg PO TID #30 capsule Referrals: Moriah Fernandez MD [STAFF PHYSICIAN] - 1-2 Days if not improving
--- NOTE | 2019-03-08 23:27 | ED.RN ---
PATIENT'S O2 HAS BEEN DECREASING WHEN HE WAS DROWSY AND SLEEPY. HE HAS A HX OF SLEEP APNEA PER PATIENT.
[2019-03-08] MEDS: Gabapentin 300 MG Capsule PO (23:34)
[2019-03-08 23:35] VITALS: BP 119/85; PULSE 87; RESP 13; O2SAT 94
== END 2019-03-08 23:35 | disposition home or self-care (01) ==
PROVIDERS: Emergency Provider Emergency Medicine
DX: M79.651 Pain in right thigh (principal); M79.652 Pain in left thigh; I10 Essential (primary) hypertension; I48.91 Unspecified atrial fibrillation
CPT/HCPCS: 70450; 80053; 80320; 82550; 85025; 96361; 96374; 99285; A4216; G0480

== ENCOUNTER 2019-03-10 17:06 | Emergency (ER) | payer MEDICAID, SELFPAY ==
[2019-03-10 17:08] VITALS: BP 127/88; PULSE 100; RESP 18; TEMP 36.8; O2SAT 97; BMI 29.7
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
--- NOTE | 2019-03-10 19:49 | ED.RN ---
informed pt that [facility] does intake until 1999 but he needs to be sober. will also do intake at 9 am in the morning.
== END 2019-03-10 19:51 | disposition home or self-care (01) ==
PROVIDERS: Emergency Provider Emergency Medicine
DX: S30.0XXA Contusion of lower back and pelvis, initial encounter (principal); W18.30XA Fall on same level, unspecified, initial encounter; Y93.01 Activity, walking, marching and hiking; Y92.410 Unspecified street and highway as the place of occurrence of the external cause; Y99.9 Unspecified external cause status; F10.10 Alcohol abuse, uncomplicated; Y90.9 Presence of alcohol in blood, level not specified; I10 Essential (primary) hypertension; I48.91 Unspecified atrial fibrillation
CPT/HCPCS: 99284

== ENCOUNTER 2019-03-16 23:04 | Emergency (ER) | payer MEDICAID, SELFPAY ==
[2019-03-16 23:06] VITALS: BP 118/77; PULSE 113; RESP 16; TEMP 36.1; O2SAT 95; BMI 30.7
[2019-03-17 00:20] LABS: Absolute Lymphocyte Count 2.06 X10^3/ul (0.83-4.51); Absolute Neutrophil Count 2.9 X10^3/uL (2.0-7.7); Basophil# 0.07 X10^3/uL; Basophil% 1.2 % (0-1); Eosinophil# 0.45 X10^3/uL; Eosinophils% 7.5 % (0-5); Hemoglobin 12.4 g/dl (13.0-16.5); Lymphocyte # 2.06 X10^3/ul (4.0); Lymphocyte % 34.2 % (19-41); Mean Corp Hgb Conc 33.5 g/gl (32-36); Mean Corpuscular Hgb 32.2 pg (27.0-32.0); Mean Corpuscular Volume 96.1 fL (80-94); Mean Platelet Vol. 8.8 fl (6.2-12.0); Monocyte# 0.56 X10^3/uL; Monocyte% 9.3 % (0-10); Neutrophil # 2.86 X10^3/uL (2.7-7.7); Neutrophil % 47.5 % (47-70); Platelet Count 349 K/mm3 (150-450); RBC Distribution Width CV 11.8 % (11.6-14.6); RBC Distribution Width SD 40.4 fl (35.1-43.9); Red Blood Count 3.85 M/mm3 (4.6-6.2)
[2019-03-17 00:26] LABS: POSITIVE COUNT NO; POSITIVE DIFFERENTIAL NO; POSITIVE MORPHOLOGY NO
[2019-03-17 00:31] LABS: Amphetamine Urine VISTA NEGATIVE (<1000 ng/mL); Barbiturate Urine VISTA NEGATIVE (< 200 ng/mL); Benzodiazepine Urine VISTA POSITIVE (< 200 ng/mL); Cocaine Urine VISTA NEGATIVE (< 300 ng/mL); Ecstacy Urine VISTA NEGATIVE (< 500 ng/mL); Methadone Urine VISTA NEGATIVE (< 300 ng/mL); PCP Urine VISTA NEGATIVE (< 25 ng/mL); THC Urine VISTA NEGATIVE (< 50 ng/mL); Vista UDS pH Range 6
[2019-03-17 00:34] LABS: AST(SGOT) 23 U/L (15-37); Alanine Aminotransfer ALT/SGPT 25 U/L (16-61); Albumin, Serum 3.5 g/dL (3.2-5.0); Alkaline Phosphatase 46 U/L (45-117); Anion Gap 7 (5-15); BUN 8 mg/dL (7-18); BUN/Creat Ratio 10.6 RATIO (10-20); Bilirubin, Direct 0.05 mg/dL (0.00-0.30); Calcium,Total 8.3 mg/dL (8.5-10.1); Chloride 101 mmol/L (98-107); Creatinine, Serum 0.75 mg/dL (0.70-1.30); EST Glomerular Filtration Rate 114 mL/min (>60); Est Glom Filt Rate - Afr Amer 138 mL/min (>60); Estimated Creatinine Clearance 124.29 ml/min; Globulin 3.6 g/dL (2.2-4.2); Glucose 101 mg/dL (74-106); Lipase 168 U/L (73-393); Potassium 3.9 mmol/L (3.5-5.1); Protein, Total 7.1 g/dL (6.4-8.2); Sodium Level 136 mmol/L (136-145)
[2019-03-17 01:20] VITALS: BP 120/83; PULSE 80; RESP 15; O2SAT 95
[2019-03-17 01:54] VITALS: BP 104/78; PULSE 99; RESP 19; O2SAT 95
[2019-03-17 04:08] VITALS: BP 93/66; PULSE 98; RESP 16; O2SAT 92
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
== END 2019-03-17 07:31 | disposition home or self-care (01) ==
PROVIDERS: Emergency Provider Emergency Medicine
DX: F10.20 Alcohol dependence, uncomplicated (principal); Y90.8 Blood alcohol level of 240 mg/100 ml or more; I48.91 Unspecified atrial fibrillation; F32.9 Major depressive disorder, single episode, unspecified; Z79.899 Other long term (current) drug therapy
CPT/HCPCS: 80048; 80076; 80307; 80320; 83690; 85025; 99283; A4216; G0480

== ENCOUNTER 2019-03-21 18:48 | Emergency (ER) | payer MEDICAID, SELFPAY ==
[2019-03-21 18:48] VITALS: BP 140/109; PULSE 61; RESP 18; TEMP 37.1; O2SAT 94; BMI 30.4
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
--- NOTE | 2019-03-21 19:12 | ED.DEP ---
ED Disposition - Plan for ED Patient: Disposition: Home or Assisted Living Instructions: ED Alcohol Intoxication Referrals: Care Physician,No Primary [Primary Care Provider] - As Needed Additional Instructions: Strongly consider following up for alcohol detox at least counseling.
--- NOTE | 2019-03-21 19:22 | ED.RN ---
Discharge instructions given, all questions answered no further concerns. PT ambulated to [facility] with a steady and independent gait. Estevan and pop given. PT escorted to [facility] and shown where phone is to call .
== END 2019-03-21 19:24 | disposition home or self-care (01) ==
LOC: ED 19:15
PROVIDERS: Emergency Provider Emergency Medicine
DX: F10.20 Alcohol dependence, uncomplicated (principal)
CPT/HCPCS: 99284

== ENCOUNTER 2019-04-07 06:02 | Inpatient (IN) | payer MEDICAID, SELFPAY ==
[2019-04-07] VITALS (21 sets, daily range): BP systolic 97–123; BP diastolic 60–86; PULSE 77–145; RESP 16–20; TEMP 36.3–37.1; O2SAT 94–99; BMI 33.5; BMI 31.0
--- NOTE | 2019-04-07 06:07 | ED.RN ---
CALLED FOR EKG PER RN REQUEST, PULLED OLD EKGS FOR
--- NOTE | 2019-04-07 06:21 | CT_ITS ---
STUDY: CTA CHEST REASON FOR EXAM: Male, 58 years old. Chest pain RADIATION DOSAGE (If Supplied By Facility): CTDIvol = ( 16.13 ) mGy, DLP = ( 564.42 ) mGycm TECHNIQUE: The examination was performed with the intravenous administration of 100 IV Isovue 370. Post-processing of the angiographic images was performed, with multiplanar reformation and 3D reconstruction. Individualized dose optimization techniques were used for this CT. COMPARISON: None. FINDINGS: Normal enhancement of the main pulmonary artery and right and left pulmonary arteries. Normal enhancement of the bilateral peripheral pulmonary arteries. There is no demonstrated pulmonary embolism. Normal thoracic aorta and visualized great vessels. There is no demonstrated aortic dissection. Normal heart and pericardium. Normal mediastinum. Normal hilar regions. Normal visualized trachea and bronchi. The lungs are well expanded. Normal pulmonary parenchyma. Normal pleura. Normal chest wall structures. Normal osseous structures. Normal visualized upper abdomen. CT/CTA Chest W/WO Contrast IMPRESSION: Normal CTA chest examination, without a demonstrated pulmonary embolism or arterial dissection. Electronically Signed: Jordan Ospina MD at 7:30 EDT , Service support ,
--- NOTE | 2019-04-07 06:22 | RAD_ITS ---
STUDY: X-RAY CHEST REASON FOR EXAM: Male, 58 years old. Dyspnea TECHNIQUE: Frontal view COMPARISON: 02/27/2019 FINDINGS: The lungs are clear and expanded. There is no demonstrated pleural abnormality. Normal size heart. Normal mediastinum and kimberly. Normal visualized pulmonary arteries. Normal visualized aortic arch and descending thoracic aorta. Normal visualized thoracic spine. Normal visualized ribs, clavicles, and shoulders. There is no demonstrated abnormality of the visualized soft tissue structures of the upper abdomen. RAD/Chest 1 View (Portable) IMPRESSION: Normal x-ray examination of the chest. Electronically Signed: Jordan Ospina MD at 7:06 EDT , Service support ,
--- NOTE | 2019-04-07 06:22 | EKG12_ITS ---
Test Reason : CHEST PAIN Blood Pressure : / mmHG Vent. Rate : 144 BPM Atrial Rate : 288 BPM P-R Int : 000 ms QRS Dur : 084 ms QT Int : 310 ms P-R-T Axes : 269 053 010 degrees QTc Int : 479 ms Atrial flutter with 2:1 A-V conduction Marked ST abnormality, possible inferior subendocardial injury Abnormal ECG Confirmed by YARELY GREEN ([id number]), editor farm journal BRITTNEY GUZMÁN ([id number]) on 04/13/2019 8:45:08 AM Referred By: BONNIE Confirmed By:YARELY GREEN
--- NOTE | 2019-04-07 06:25 | ED.DCSUM_ITS ---
- ER Visit Summary Date of Service: 04/07/19 Chief Complaint: Lightheaded and chest pain History of Present Illness: The patient is a 58 M who presents with chest pain and lightheadedness. This was sudden onset when he woke this morning. He describes his pain is burning and in the center of the chest. His pain is worse with inspiration. He also complains of feeling short of breath and lightheaded/dizzy. He complains of some pain in the back of his neck. No history of prior similar symptoms. He was recently admitted for alcohol withdrawal and atrial fibrillation with RVR. He had signed out AGAINST MEDICAL ADVICE and was then readmitted. No prior history of DVT or pulmonary embolism. He did relapse to begin drinking again. He drinks every night. His last drink was about 7 or 7:30 PM last night which is normal for him. Normally he would not have any withdrawal symptoms in the morning if this was the time of his last drink. He is not anticoagulated. Physical Examination: Initial heart rate recorded is 115 however on monitor patient's heart rate is about 145. Respiratory rate 20 afebrile normal blood pressure initial pulse ox 95% on room air Moist mucous membranes Heart is regular tachycardia Lungs are clear but he is tachypneic Abdomen soft nontender Extremities nontender no edema Patient diaphoretic Symmetric palpable radial pulses Calves are nontender without edema Test Results: EKG shows a regular narrow complex tachycardia at a rate of 144, likely atrial flutter with 2-1 conduction. Portable chest x-ray on my review shows no acute abnormality. CBC unremarkable. Troponin negative. INR 1.0. Creatinine is 1.49 which is about doubled from recent labs. CTA of the chest is pending at the time of this dictation. Emergency Department Course and Treatment: Patient was given aspirin. He was also given IV Ativan for alcohol withdrawal. He was given 20 mg of IV Cardizem IV push. His heart rate did slow to about 120 and was irregular consistent with atrial fibrillation but he did not convert. He then returned again to atrial flutter with 2-1 conduction. I have ordered an IV Cardizem infusion. Patient will be given subcutaneous Lovenox. At the time of this dictation CTA of the chest is pending due to concern for pulmonary embolism given his pleuritic chest pain and recent hospitalizations. Patient signed out to the oncoming physician to follow-up on CTA of the chest and have also discussed the patient with the hospitalist for admission. Treatment Plan: [] Disposition: Admit Impression: Chest pain Atrial flutter with 2-1 conduction Alcohol withdrawal Acute kidney injury This note was generated with [employer] dictation software. It may contain incorrect words, spelling, and punctuation that were not noted in review of the chart prior to signing ED Disposition - Plan for ED Patient: Referrals: Care Physician,No Primary [Primary Care Provider] -
[2019-04-07] MEDS: dilTIAZem 25 MG/5 ML Vial 20 MG IV BOLUS ×2 (06:28→07:43)
[2019-04-07] MEDS: Aspirin 81 MG TAB.CHEW 324 MG PO (06:29)
[2019-04-07 06:30] LABS: Absolute Lymphocyte Count 1.86 X10^3/ul (0.83-4.51); Absolute Neutrophil Count 4.9 X10^3/uL (2.0-7.7); Basophil# 0.04 X10^3/uL; Basophil% 0.5 % (0-1); Eosinophil# 0.17 X10^3/uL; Eosinophils% 2.1 % (0-5); Hematocrit 43.2 % (40-54); Hemoglobin 15.2 g/dl (13.0-16.5); Lymphocyte # 1.86 X10^3/ul (4.0); Lymphocyte % 23.1 % (19-41); Mean Corp Hgb Conc 35.2 g/gl (32-36); Mean Corpuscular Hgb 32.5 pg (27.0-32.0); Mean Corpuscular Volume 92.3 fL (80-94); Mean Platelet Vol. 9.1 fl (6.2-12.0); Monocyte# 1.03 X10^3/uL; Monocyte% 12.8 % (0-10); Neutrophil # 4.93 X10^3/uL (2.7-7.7); Neutrophil % 61.3 % (47-70); POSITIVE COUNT NO; POSITIVE DIFFERENTIAL NO; POSITIVE MORPHOLOGY NO; Platelet Count 271 K/mm3 (150-450); RBC Distribution Width CV 11.5 % (11.6-14.6); RBC Distribution Width SD 38.6 fl (35.1-43.9); Red Blood Count 4.68 M/mm3 (4.6-6.2); White Blood Count 8.1 K/mm3 (4.4-11.0)
[2019-04-07 06:34] LABS: Prothrombin Time (Protime)PT. 12.8 SECONDS (11.7-14.9)
[2019-04-07] MEDS: 0.9% Normal Saline 1,000 ML 999 ML IV ×2 (06:38→07:44)
[2019-04-07] MEDS: LORazepam 2 MG/ML Syringe IV ×2 (06:42→08:41)
[2019-04-07 06:45] LABS: Anion Gap 9 (5-15); BUN 11 mg/dL (7-18); BUN/Creat Ratio 7.4 RATIO (10-20); Calcium,Total 8.7 mg/dL (8.5-10.1); Chloride 101 mmol/L (98-107); Creatinine, Serum 1.49 mg/dL (0.70-1.30); EST Glomerular Filtration Rate 52 mL/min (>60); Est Glom Filt Rate - Afr Amer 63 mL/min (>60); Estimated Creatinine Clearance 58.96 ml/min; Glucose 106 mg/dL (74-106); Potassium 3.7 mmol/L (3.5-5.1); Sodium Level 134 mmol/L (136-145)
[2019-04-07] MEDS: Enoxaparin 100 MG/ML Syringe SC (07:08)
--- NOTE | 2019-04-07 08:00 | HP.PCM_ITS ---
Problem List (1) Alcohol withdrawal Status: Acute Qualifiers: (2) Back contusion Status: Chronic (3) Fall Status: Chronic (4) Alcohol abuse Status: Chronic (5) Atrial fibrillation with RVR Status: Acute (6) Hypertension Status: Chronic Qualifiers: History of Present Illness Date of Admission: 04/07/19 Chief Complaint: Chest pain and lightheadedness The patient is a 58 year old M past medical history significant for paroxysmal atrial fibrillation, chronic alcohol dependence who presented with chest pain and lightheadedness. Patient in addition also did complain of palpitations. Patient had previously been admitted for acute alcohol withdrawal just over a month ago. He however relapsed and admitted to continuous use of alcohol following his discharge. His last alcohol was a day prior to coming in. In the emergency department patient was found to be tachycardic EKG did confirm A. fib with RVR patient was started on Cardizem and admitted to stepdown unit for subsequent management. Past Medical History Past Medical History (Chronic Problems): Chronic Problems Fall (Chronic) Back contusion (Chronic) Alcohol abuse (Chronic) Hypertension (Chronic) Allergies No Known Allergies Allergy (Verified 04/07/19 06:08) Home Medications: Ambulatory Orders Medication Instructions Recorded Gabapentin 300 mg PO TID 03/16/19 Lisinopril 20 mg PO DAILY 03/16/19 Ropinirole HCl 4 mg PO QHS 03/16/19 Surgical History: - - Right elbow surgery Smoking Status: Never smoker - *Family History Maternal History Items: Cancer, Hypertension, Stroke Paternal History Items: Hypertension, Stroke Sibling History Items: Cancer Review of Systems Constitutional: Reports: Anorexia, Fatigue HEENT: Denies: Head Aches, Sinus Congestion, Sinus Drainage Cardiovascular: Reports: Chest Pain, Light Headedness, Palpitations Respiratory: Denies: Cough, Shortness of breath at rest, Shortness of breath upon exertion, Sputum production Gastrointestinal: Denies: Abdominal Pain, Hematemesis, Hematochezia, Nausea, Melena, Vomiting Genitourinary: Denies: Dysuria, Frequency, Hematuria, Urgency Musculoskeletal: Denies: Joint Pain, Joint Tenderness Skin: Denies: Rash Neurological: Denies: Focal weakness, Numbness, Tingling Psychiatric: Denies: Homicidal Ideations, Suicidal Ideations Hematologic/ Lymphatic: Denies: Easy Bruising, Easy Bleeding VTE Information - Inpt Only VTE Present on Admission: No VTE Mechan Device Prophylaxis: Knee High PANKAJ Hose VTE Pharm Prophylaxis ordered?: Yes Objective: GENERAL: Patient appears tremulous at rest HEENT: Atraumatic; moist oral mucosa EYES; Anicteric, Normal Conjunctiva NECK; supple, normal thyroid, no distended JVD. RESPIRATORY: Diminished to auscultation bilaterally, CARDIOVASCULAR: Regularly irregular, tachycardic GI: soft, non-tender, normoactive bowel sounds, : No Renal angle tenderness; EXTREMITIES: No edema, no clubbing, NEURO: Awake; no lateralizing signs. SKIN: No Rash PSYCH; appears anxious - Physical Exam Vital Signs Temp Pulse Resp BP Pulse Ox 97.4 F L 143 H 19 H 105/77 95 04/07/19 06:03 04/07/19 07:49 04/07/19 07:49 04/07/19 07:49 04/07/19 07:49 Oxygen Flow Rate (L/min) 2 Oxygen Delivery Method Room Air Weight: 108.9 kg Body Mass Index (BMI) 33.5 Laboratory Tests Past 24 Hrs 04/07/19 04/07/19 04/07/19 06:20 06:20 06:20 WBC 8.1 RBC 4.68 Hgb 15.2 Hct 43.2 MCV 92.3 MCH 32.5 H MCHC 35.2 RDW 11.5 L RDW Differential 38.6 Plt Count 271 MPV 9.1 Immature Gran % (Auto) 0.200 Neut % (Auto) 61.3 Lymph % (Auto) 23.1 [place] % (Auto) 12.8 H Eos % (Auto) 2.1 Baso % (Auto) 0.5 Absolute Neuts (auto) 4.9 Absolute Lymphs (auto) 1.86 Total Counted Not Reportable PT 12.8 INR 1.0 Sodium 134 L Potassium 3.7 Chloride 101 Carbon Dioxide 24.0 Anion Gap 9 BUN 11 Creatinine 1.49 H Estim Creat Clear Calc 58.96 Est GFR (MDRD) Af Amer 63 Est GFR (MDRD) Non-Af 52 L BUN/Creatinine Ratio 7.4 L Glucose 106 Calcium 8.7 Troponin I < 0.015 Assessment/Plan All Active Problems Delirium tremens (Resolved) Alcohol withdrawal (Acute) Atrial fibrillation with RVR (Acute) Patient is a 58-year-old gentleman with history of alcohol dependence, and paroxysmal atrial fibrillation presented with chest discomfort lightheadedness. Patient was found to have A. fib with RVR on admission admitted to stepdown unit for subsequent management 1. Paroxysmal atrial fibrillation presented with A. fib with RVR. Admitted to monitored bed. Patient was started on Cardizem drip titrated to keep heart rate less than 100. Patient was also covered with therapeutic Lovenox. Of note patient has not been placed on long-term systemic anticoagulation due to his significant risk for falls as well as his continuos use of alcohol 3. Acute alcohol withdrawal patient medical stabilization initiated using the Librium taper and Ativan as needed 3. Hypertension-blood pressure controlled, home medications continued with dose adjustment as needed 4. Peripheral neuropathy patient is on Neurontin did continue 5. Obesity with BMI of 31 weight loss advised 6. DVT prophylaxis SC lovenox Code Visit Inpatient E&M: 53760 Init Hosp L3
[2019-04-07] MEDS: chlordiazePOXIDE 25 MG Capsule 50 MG PO ×3 (10:13→21:36)
[2019-04-07] MEDS: Multivitamins,Therapeutic Tablet 1 TABLET PO (10:13)
[2019-04-07] MEDS: Folic Acid 1 MG Tablet PO (10:13)
[2019-04-07] MEDS: Enoxaparin 120 MG/0.8 ML Syringe 110 MG SC ×2 (10:13→21:36)
[2019-04-07] MEDS: Thiamine Hydrochloride 100 MG Tablet PO (10:13)
[2019-04-07] MEDS: Gabapentin 300 MG Capsule PO ×2 (10:14→16:03)
[2019-04-07 11:10] LABS: Thyroid Stim Hormone (TSH) 0.72 uIU/mL (0.358-3.74)
--- NOTE | 2019-04-07 11:40 | CASEMGMT ---
ZORAN met with patient due to his alcohol abuse. He said he has cut back on his drinking. He said he used to buy a 30 pack and now he just drinks a couple of tall boys. However, patient said he would like some resources. ZORAN gave him a list of local resources in the area for mental health and substance abuse. ZORAN also gave him a list of local AA meetings. He said he is still working with Hel[facility] at [facility] to obtain housing. He thanked ZORAN for the resources. Livier MAGUIRE MSW
[2019-04-07] MEDS: dilTIAZem 30 MG Tablet 60 MG PO ×2 (16:41→21:36)
[2019-04-08] VITALS (12 sets, daily range): BP systolic 118–150; BP diastolic 73–99; PULSE 71–104; RESP 16–18; TEMP 36.6–37.1; O2SAT 95–99
[2019-04-08] MEDS: chlordiazePOXIDE 25 MG Capsule 50 MG PO (03:32)
[2019-04-08 05:57] LABS: International Normalized Ratio 1.1; Prothrombin Time (Protime)PT. 13.6 SECONDS (11.7-14.9)
[2019-04-08 06:35] LABS: Anion Gap 5 (5-15); BUN 8 mg/dL (7-18); BUN/Creat Ratio 9.9 RATIO (10-20); Calcium,Total 8.9 mg/dL (8.5-10.1); Chloride 106 mmol/L (98-107); Creatinine, Serum 0.81 mg/dL (0.70-1.30); EST Glomerular Filtration Rate 104 mL/min (>60); Est Glom Filt Rate - Afr Amer 126 mL/min (>60); Estimated Creatinine Clearance 115.08 ml/min; Glucose 106 mg/dL (74-106); Magnesium 1.4 mg/dL (1.6-2.6); Potassium 4.4 mmol/L (3.5-5.1); Sodium Level 140 mmol/L (136-145)
[2019-04-08 06:40] LABS: Phosphorus 3.5 mg/dL (2.5-4.9)
[2019-04-08] MEDS: dilTIAZem 30 MG Tablet 60 MG PO (06:44)
[2019-04-08] MEDS: Multivitamins,Therapeutic Tablet 1 TABLET PO (08:57)
[2019-04-08] MEDS: Enoxaparin 120 MG/0.8 ML Syringe 110 MG SC (08:57)
[2019-04-08] MEDS: Thiamine Hydrochloride 100 MG Tablet PO (08:57)
[2019-04-08] MEDS: Folic Acid 1 MG Tablet PO (08:57)
[2019-04-08] MEDS: Gabapentin 300 MG Capsule PO ×3 (08:57→19:03)
[2019-04-08] MEDS: Lisinopril 20 MG Tablet PO (08:58)
--- NOTE | 2019-04-08 11:27 | PCM.PN.HOSP ---
Subjective: He is much better today compared to yesterday when he came in. He still has a little bit of a hand twitch as he calls it probably from nervousness. Denies any chest pain or shortness of breath. Vitals/I&O's: Vital Signs Temp Pulse Resp BP Pulse Ox 97.8 F 90 16 132/73 H 97 04/08/19 08:45 04/08/19 08:45 04/08/19 08:45 04/08/19 08:45 04/08/19 08:45 Oxygen Flow Rate (L/min) 2 Oxygen Delivery Method Room Air Weight: 235 lb 3.732 oz Body Mass Index (BMI) 31.0 Intake and Output for Last 24 Hours 04/06/19 04/07/19 04/08/19 23:59 23:59 23:59 Intake Total 1315 / 1315 2195 / 2195 Output Total 1600 / 1600 575 / 575 Balance -285 / -285 1620 / 1620 General: Alert, Oriented x3, Cooperative, No apparent distress HEENT: Atraumatic, EOMI, Normocephalic Oral: Moist Mucosa Neck: Supple, No JVD Lungs: Clear to auscultation, Normal air movement, No rhonchi, No wheeze, No rales Cardiovascular: Regular rate, Regular Rhythm, Normal S1, Normal S2, No murmurs Abdomen: Soft, Non Tender, Non-Distended, No Hepato-splenomegaly Extremities: No edema, Capillary Refill Less than 3 Seconds Skin: No rashes, No breakdown Neurological: Neuro grossly intact, Sensory exam intact to light touch and pain Psych/Mental Status: Normal Affect, Appropriate Laboratory Results 04/07/19 12:35: Troponin I < 0.015 04/08/19 05:45: Sodium 140, Potassium 4.4, Chloride 106, Carbon Dioxide 29.0, Anion Gap 5, BUN 8, Creatinine 0.81, Estim Creat Clear Calc 115.08, Est GFR (MDRD) Af Amer 126, Est GFR (MDRD) Non-Af 104, BUN/Creatinine Ratio 9.9 L, Glucose 106, Calcium 8.9, Magnesium 1.4 L 04/08/19 05:45: PT 13.6, INR 1.1 04/08/19 05:45: Phosphorus 3.5 Current Medications Acetaminophen (Tylenol) 650 mg PO Q6H PRN PRN PRN Reason: Mild Pain (scale 0-3)/T>100.7 Al Hydroxide/Mg Hydroxide (Mylanta Ii) 30 ml PO Q6H PRN PRN PRN Reason: Gastric Burning Aspirin (Aspirin, Baby) 81 mg PO DAILY@0800 [facility] Dicyclomine HCl (Bentyl) 20 mg PO Q6H PRN PRN PRN Reason: abdominal discomfort Diltiazem HCl (Cardizem Cd) 180 mg PO DAILY [facility]) [facility] Stop: 04/09/19 08:01 Last Admin: 04/08/19 08:57 Dose: 1 mg Gabapentin (Neurontin) 300 mg PO TIDCM [facility] Last Admin: 04/08/19 08:57 Dose: 300 mg Hydroxyzine Pamoate (Vistaril Pamoate Capsule) 50 mg PO Q6H PRN PRN PRN Reason: Mild Anxiety (score 1/3) Potassium Chloride/Dextrose/Sod Cl (Kcl 20meq In D5.45ns 1000ml) 1,000 mls @ 100 mls/hr IV .Q10H [facility] Last Admin: 04/08/19 03:35 Dose: 100 mls/hr Lisinopril (Zestril) 20 mg PO DAILY [facility] Last Admin: 04/08/19 08:58 Dose: 20 mg Lorazepam (Ativan) 1 mg IV Q4H PRN PRN PRN Reason: Severe Anxiety Lorazepam (Ativan) 2 mg IV X1 PRN PRN Reason: Seizure Magnesium Hydroxide (Milk Of Magnesia) 30 ml PO DAILY PRN PRN PRN Reason: Constipation Melatonin (Melatonin) 3 mg PO QHS PRN PRN PRN Reason: INSOMNIA Methocarbamol (Methocarbamol) 750 mg PO Q6H PRN PRN PRN Reason: Muscle Aches Multivitamins ([facility]itamin) [facility] Last Admin: 04/08/19 08:57 Dose: 1 tablet Nicotine (Nicoderm Cq (Pbkc)) 21 mg TRANSDERM. DAILY [facility] Last Admin: 04/08/19 08:58 Dose: Not Given Nitroglycerin (Nitrostat) 0.4 mg SUBLINGUAL Q5M PRN PRN Reason: CARDIAC/CHEST PAIN Ondansetron HCl (Zofran) 4 mg IV Q8H PRN PRN PRN Reason: Nausea Oxycodone HCl (Oxyir) 5 mg PO Q4H PRN PRN PRN Reason: Moderate Pain (pain scale 4-5) Ropinirole HCl (Requip) 4 mg PO [facility] Last Admin: 04/07/19 21:35 Dose: 4 mg Sodium Chloride () 5 - 15 ml IV UD PRN PRN Reason: SALINE FLUSH Thiamine HCl (Vitamin B1) [facility] Stop: 04/09/19 08:01 Last Admin: 04/08/19 08:57 Dose: 100 mg Medical Necessity - Tobacco Use Smoking Status: Never smoker Assessment/Plan All Active Problems Delirium tremens (Resolved) Alcohol withdrawal (Acute) Atrial fibrillation with RVR (Acute) 1. Paroxysmal A. fib with RVR/HTN -He was started on Cardizem drip and converted to sinus very quickly, and was transitioned to 60 mg p.o. 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 Acute alcohol withdrawal -I discussed with the patient whether or not he plans on quitting alcohol but he says that he does not plan on quitting at all -DC the Librium and Ativan and provide him with 3 beers for lunch and dinner, he says he drinks 6 beers a day 3. Peripheral neuropathy -Stable -Continue with Neurontin 4. Obesity -BMI of 31 -Discussed lifestyle changes DVT: SCDs Code Visit Inpatient E&M: 30750 Subs Hosp L2
--- NOTE | 2019-04-08 11:34 | PN_ITS ---
Subjective: He is much better today compared to yesterday when he came in. He still has a little bit of a hand twitch as he calls it probably from nervousness. Denies any chest pain or shortness of breath. Vitals/I&O's: Vital Signs Temp Pulse Resp BP Pulse Ox 97.8 F 90 16 132/73 H 97 04/08/19 08:45 04/08/19 08:45 04/08/19 08:45 04/08/19 08:45 04/08/19 08:45 Oxygen Flow Rate (L/min) 2 Oxygen Delivery Method Room Air Weight: 235 lb 3.732 oz Body Mass Index (BMI) 31.0 Intake and Output for Last 24 Hours 04/06/19 04/07/19 04/08/19 23:59 23:59 23:59 Intake Total 1315 / 1315 2195 / 2195 Output Total 1600 / 1600 575 / 575 Balance -285 / -285 1620 / 1620 General: Alert, Oriented x3, Cooperative, No apparent distress HEENT: Atraumatic, EOMI, Normocephalic Oral: Moist Mucosa Neck: Supple, No JVD Lungs: Clear to auscultation, Normal air movement, No rhonchi, No wheeze, No rales Cardiovascular: Regular rate, Regular Rhythm, Normal S1, Normal S2, No murmurs Abdomen: Soft, Non Tender, Non-Distended, No Hepato-splenomegaly Extremities: No edema, Capillary Refill Less than 3 Seconds Skin: No rashes, No breakdown Neurological: Neuro grossly intact, Sensory exam intact to light touch and pain Psych/Mental Status: Normal Affect, Appropriate Laboratory Results 04/07/19 12:35: Troponin I < 0.015 04/08/19 05:45: Sodium 140, Potassium 4.4, Chloride 106, Carbon Dioxide 29.0, Anion Gap 5, BUN 8, Creatinine 0.81, Estim Creat Clear Calc 115.08, Est GFR (MDRD) Af Amer 126, Est GFR (MDRD) Non-Af 104, BUN/Creatinine Ratio 9.9 L, Glucose 106, Calcium 8.9, Magnesium 1.4 L 04/08/19 05:45: PT 13.6, INR 1.1 04/08/19 05:45: Phosphorus 3.5 Current Medications Acetaminophen (Tylenol) 650 mg PO Q6H PRN PRN PRN Reason: Mild Pain (scale 0-3)/T>100.7 Al Hydroxide/Mg Hydroxide (Mylanta Ii) 30 ml PO Q6H PRN PRN PRN Reason: Gastric Burning Aspirin (Aspirin, Baby) 81 mg PO DAILY@0800 [facility] Dicyclomine HCl (Bentyl) 20 mg PO Q6H PRN PRN PRN Reason: abdominal discomfort Diltiazem HCl (Cardizem Cd) 180 mg PO DAILY [facility]) [facility] Stop: 04/09/19 08:01 Last Admin: 04/08/19 08:57 Dose: 1 mg Gabapentin (Neurontin) 300 mg PO TIDCM [facility] Last Admin: 04/08/19 08:57 Dose: 300 mg Hydroxyzine Pamoate (Vistaril Pamoate Capsule) 50 mg PO Q6H PRN PRN PRN Reason: Mild Anxiety (score 1/3) Potassium Chloride/Dextrose/Sod Cl (Kcl 20meq In D5.45ns 1000ml) 1,000 mls @ 100 mls/hr IV .Q10H [facility] Last Admin: 04/08/19 03:35 Dose: 100 mls/hr Lisinopril (Zestril) 20 mg PO DAILY [facility] Last Admin: 04/08/19 08:58 Dose: 20 mg Lorazepam (Ativan) 1 mg IV Q4H PRN PRN PRN Reason: Severe Anxiety Lorazepam (Ativan) 2 mg IV X1 PRN PRN Reason: Seizure Magnesium Hydroxide (Milk Of Magnesia) 30 ml PO DAILY PRN PRN PRN Reason: Constipation Melatonin (Melatonin) 3 mg PO QHS PRN PRN PRN Reason: INSOMNIA Methocarbamol (Methocarbamol) 750 mg PO Q6H PRN PRN PRN Reason: Muscle Aches Multivit[facility] ([facility]amin) [facility] Last Admin: 04/08/19 08:57 Dose: 1 tablet Nicotine (Nicoderm Cq (Pbkc)) 21 mg TRANSDERM. DAILY [facility] Last Admin: 04/08/19 08:58 Dose: Not Given Nitroglycerin (Nitrostat) 0.4 mg SUBLINGUAL Q5M PRN PRN Reason: CARDIAC/CHEST PAIN Ondansetron HCl (Zofran) 4 mg IV Q8H PRN PRN PRN Reason: Nausea Oxycodone HCl (Oxyir) 5 mg PO Q4H PRN PRN PRN Reason: Moderate Pain (pain scale 4-5) Ropinirole HCl (Requip) 4 mg PO [facility] Last Admin: 04/07/19 21:35 Dose: 4 mg Sodium Chloride () 5 - 15 ml IV UD PRN PRN Reason: SALINE FLUSH Thiamine HCl ([facility]itamin B1) [facility] Stop: 04/09/19 08:01 Last Admin: 04/08/19 08:57 Dose: 100 mg Medical Necessity - Tobacco Use Smoking Status: Never smoker Assessment/Plan All Active Problems Delirium tremens (Resolved) Alcohol withdrawal (Acute) Atrial fibrillation with RVR (Acute) 1. Paroxysmal A. fib with RVR/HTN -He was started on Cardizem drip and converted to sinus very quickly, and was transitioned to 60 mg p.o. 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 Acute alcohol withdrawal -I discussed with the patient whether or not he plans on quitting alcohol but he says that he does not plan on quitting at all -DC the Librium and Ativan and provide him with 3 beers for lunch and dinner, he says he drinks 6 beers a day 3. Peripheral neuropathy -Stable -Continue with Neurontin 4. Obesity -BMI of 31 -Discussed lifestyle changes DVT: SCDs Code Visit Inpatient E&M: 40984 Subs Hosp L2
[2019-04-08] MEDS: dilTIAZem CD 180 MG Capsule PO (14:04)
--- NOTE | 2019-04-08 16:37 | CM.UR ---
RN CM Assessment Met face to face with patient for initial transition planning/care coordination assessment. Introduced myself and my role. Verb understanding and agreement for assessment. Presentation: lightheaded and chest pain PCP: Dr. Fernandez. Specialists: none Preferred Pharmacy: [facility] Insurance: [facility] Prescription Benefit: yes. no problems paying for meds. LNOK: Lulu Landin, sister Home: Homeless. Currently working with [employer] to secure an apartment. He anticipates having one before end of week. ADLs: Independent. Transportation: Mostly walks everywhere--why he wants an apartment in town. DME: None. Denies any needs. SNF/HHC: None Passport/waiver statistical clerk: None. as chinyere at [facility]. Advance Directives: none; declines. DC PLAN: to [facility] or to new apartment. 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 States he ended up in a coma for 6 weeks and his family was told he was not going to survive. States they took over the house that he inherited from his grandparents. States they moved in. His mom picked him up from hospital and dropped him off in [place]--did not take him back to his house. He's never gotten it back. Then states when he was here back a month or so ago for 5 days--that is when he lost his last apartment. States he was in for like 5 days and when he went home upon discharge--there was a pad lock on his apartment door. States they thought he abandoned his apartment. States they cleared out all of his stuff and he ended up with nothing. He is currently working on and has been trying to get disability for several years now. Said that he ran out of gabapentin because he was only given a 10 day supply but then later said he got a 21 day supply a couple days ago. Talked about how back the neuropathy gets when not taking the gabapentin. Instructed him on importance of not missing any doses of the gabapentin. Verb understanding. David Benton RN, [facility].
--- NOTE | 2019-04-08 17:53 | NURSING ---
Patient given 3 cans of beer with dinner.
[2019-04-08] MEDS: Magnesium Sulfate 4gm/100mL 4 GM/100 ML IV.SOLN. IV (19:33)
--- NOTE | 2019-04-08 20:58 | NURSING ---
PATIENT VERY ANXIOUS GIVEN THREE BEERS DIDN'T GET BEERS WITH LUNCH TODAY. DID HELP WITH ANXIETY
[2019-04-08] MEDS: MELATONIN 3 MG TABLET PO (21:01)
[2019-04-09 02:46] VITALS: PULSE 90
[2019-04-09 03:00] VITALS: BP 117/84; PULSE 99; RESP 16; TEMP 36.6; O2SAT 96
[2019-04-09 06:43] LABS: Anion Gap 5 (5-15); BUN 10 mg/dL (7-18); BUN/Creat Ratio 12.5 RATIO (10-20); Calcium,Total 9.4 mg/dL (8.5-10.1); Chloride 103 mmol/L (98-107); EST Glomerular Filtration Rate 106 mL/min (>60); Est Glom Filt Rate - Afr Amer 129 mL/min (>60); Estimated Creatinine Clearance 116.52 ml/min; Glucose 106 mg/dL (74-106); Magnesium 1.6 mg/dL (1.6-2.6); Potassium 4.4 mmol/L (3.5-5.1); Sodium Level 139 mmol/L (136-145)
[2019-04-09 07:07] VITALS: PULSE 77
[2019-04-09 07:55] VITALS: BP 125/83; PULSE 87; RESP 16; TEMP 36.4; O2SAT 95
[2019-04-09] MEDS: Folic Acid 1 MG Tablet PO (08:07)
[2019-04-09] MEDS: Aspirin 81 MG TAB.CHEW PO (08:07)
[2019-04-09] MEDS: Multivitamins,Therapeutic Tablet 1 TABLET PO (08:08)
[2019-04-09] MEDS: Thiamine Hydrochloride 100 MG Tablet PO (08:08)
[2019-04-09] MEDS: Gabapentin 300 MG Capsule PO ×2 (08:08→12:15)
[2019-04-09] MEDS: Lisinopril 20 MG Tablet PO (08:09)
[2019-04-09] MEDS: dilTIAZem CD 180 MG Capsule PO (08:09)
[2019-04-09 11:00] VITALS: PULSE 88
[2019-04-09 11:07] VITALS: BP 125/83; PULSE 87; RESP 16; TEMP 36.4; O2SAT 95
--- NOTE | 2019-04-09 11:07 | DCINST_ITS ---
You will use the following diet at home:: Cardiac Your food should be the consistency of: Regular Your liquids should be the consistency of: Regular/Thin Discharge Activity: Return to Normal Activity, No Restrictions Call your doctor if you observe: Fever of 101 or Higher, Shortness of breath, Dizziness, Fainting spells, Swelling in the ankles, Chest pain, Increased palpitations (irregular heartbeat) Allergies/Adverse Reactions: Allergies No Known Allergies Allergy (Verified 04/07/19 06:08) Medications to take at Discharge Gabapentin 300 mg PO TID 03/16/19 Lisinopril 20 mg PO DAILY 03/16/19 Ropinirole HCl 4 mg PO QHS 03/16/19 Aspirin [Aspirin, Baby] 81 mg PO DAILY@0800 #30 tab.chew 04/09/19 Diltiazem CD [Cardizem CD] 180 mg PO DAILY #30 capsule 04/09/19 The following prescriptions were given: Aspirin [Aspirin, Baby] 81 mg PO DAILY@0800 #30 tab.chew Diltiazem CD [Cardizem CD] 180 mg PO DAILY #30 capsule Primary Care Physician: Care Physician,No Primary [Primary Care Provider] - Please follow up with your Primary Care Physician in: 3-5 days Test Results: Test results from this visit will be discussed in further detail at your follow- up appointment, if applicable. Please Follow Up With: Romulo Burt MD When: 2 weeks
--- NOTE | 2019-04-09 11:08 | PCM.DC.SUM ---
Discharge Date and Diagnosis Date of Admission: 04/07/19 Date of Discharge: 04/09/19 - Secondary Discharge Diagnosis Chronic Problems Fall (Chronic) Back contusion (Chronic) Alcohol abuse (Chronic) Hypertension (Chronic) Hospital Course and Treatment Imaging Results: CTA Chest: IMPRESSION: Normal CTA chest examination, without a demonstrated pulmonary embolism or arterial dissection. Consults: None Operations: None Procedures: None Summary of Care Provided: Per HPI: The patient is a 58 year old M past medical history significant for paroxysmal atrial fibrillation, chronic alcohol dependence who presented with chest pain and lightheadedness. Patient in addition also did complain of palpitations. Patient had previously been admitted for acute alcohol withdrawal just over a month ago. He however relapsed and admitted to continuous use of alcohol following his discharge. His last alcohol was a day prior to coming in. In the emergency department patient was found to be tachycardic EKG did confirm A. fib with RVR patient was started on Cardizem and admitted to stepdown unit for subsequent management. Hospital Course: 1. Paroxysmal A. fib with RVR/[id number]-gnst-old male with a past medical history significant for excisional A. fib and alcohol dependence presented with chest pain and lightheadedness. He was also complaining of palpitations at the time and was found to be in A. fib with RVR. He was not on any medications for rate control at that time and was started on a Cardizem drip. He converted very quickly and was started on short acting Cardizem. He did tolerate 60 mg p.o. 3 times daily and was therefore transition to 180 mg daily. Of note it had been discussed with him about anticoagulation and there is some discussion about him not being a good candidate secondary to fall risks and his alcohol use. He had an echo in February that did not show any heart failure and had a mildly enlarged left atrium and combined with his HTN he was only a chads vascular score of 1 and was therefore started on aspirin. I do asked that he follow-up with cardiology as an outpatient. This was discussed with the patient and he understood and agreed to the plan. 2. Acute alcohol withdrawal-he was initially started on a Librium taper as well as Ativan, however he stated to me that he had no intentions of quitting drinking, and that drinking is what allows him to get through his day and therefore I discussed with him that since he was not coming to continue with abstinence, I would provide him with beer during his stay here. 3. His other medical diagnoses were evaluated and his home medications were continued where appropriate Objective: General: Alert, Oriented x3, Cooperative, No apparent distress HEENT: Atraumatic, EOMI, Normocephalic Oral: Moist Mucosa Neck: Supple, No JVD Lungs: Clear to auscultation, Normal air movement, No rhonchi, No wheeze, No rales Cardiovascular: Regular rate, Regular Rhythm, Normal S1, Normal S2, No murmurs Abdomen: Soft, Non Tender, Non-Distended, No Hepato-splenomegaly Extremities: No edema, Capillary Refill Less than 3 Seconds Skin: No rashes, No breakdown Neurological: Neuro grossly intact, Sensory exam intact to light touch and pain Psych/Mental Status: Normal Affect, Appropriate - Physical Exam Vital Signs Temp Pulse Resp BP Pulse Ox 97.5 F L 87 16 125/83 H 95 04/09/19 07:55 04/09/19 07:55 04/09/19 07:55 04/09/19 07:55 04/09/19 07:55 Oxygen Flow Rate (L/min) 2 Oxygen Delivery Method Room Air Weight: 235 lb 3.732 oz Body Mass Index (BMI) 31.0 Intake and Output for Last 24 Hours 04/07/19 04/08/19 04/09/19 23:59 23:59 23:59 Intake Total 1315 / 1315 6828 / 6828 Output Total 1600 / 1600 3375 / 3375 Balance -285 / -285 3453 / 3453 Laboratory Tests Past 24 Hrs 04/09/19 05:35 Sodium 139 Potassium 4.4 Chloride 103 Carbon Dioxide 31.0 Anion Gap 5 BUN 10 Creatinine 0.80 Estim Creat Clear Calc 116.52 Est GFR (MDRD) Af Amer 129 Est GFR (MDRD) Non-Af 106 BUN/Creatinine Ratio 12.5 Glucose 106 Calcium 9.4 Magnesium 1.6 Discharge Activity: Return to Normal Activity, No Restrictions Call your doctor if you observe: Fever of 101 or Higher, Shortness of breath, Dizziness, Fainting spells, Swelling in the ankles, Chest pain, Increased palpitations (irregular heartbeat) Home Medications: Medications to take at Discharge Gabapentin 300 mg PO TID 03/16/19 Lisinopril 20 mg PO DAILY 03/16/19 Ropinirole HCl 4 mg PO QHS 03/16/19 Aspirin [Aspirin, Baby] 81 mg PO DAILY@0800 #30 tab.chew 04/09/19 Diltiazem CD [Cardizem CD] 180 mg PO DAILY #30 capsule 04/09/19 Following Prescrptions Were Given to Patient: Aspirin [Aspirin, Baby] 81 mg PO DAILY@0800 #30 tab.chew Diltiazem CD [Cardizem CD] 180 mg PO DAILY #30 capsule Primary Care Physician: Care Physician,No Primary [Primary Care Provider] - Please follow up with your Primary Care Physician in: 3-5 days Please Follow Up With: Romulo Burt MD When: 2 weeks Disposition: Home Minutes spent on discharge:: 35 Patient Condition:: Stable Medical Necessity - Tobacco Use Smoking Status: Never smoker Meaningful Use Info Meaningful Use Diagnoses (Choose all that apply): None applicable Code Visit Inpatient E&M: 30675 Disch Hosp
--- NOTE | 2019-04-09 11:45 | NURSING ---
Patient given 3 beers with lunch.
--- NOTE | 2019-04-09 12:30 | NURSING ---
Patient upset. States that called and stated that there was a medical emergency in the family and he would need to be ready to leave at 1230 with his ride. Patient refused IV Magnesium. Dr. Moeller aware. Patient informed that RN was waiting for hospitalist to call back with further orders. Patient states that he was sorry, but needed to leave due to the emergency. Patient did not want to wait to hear back from hospitalist. Discharge teaching completed and patient given information about finding a PCP. Patient voiced understanding of same.
--- NOTE | 2019-04-12 13:33 | CASEMGMT ---
RN CM DC PHONE CALL DC DATE: 04/09/19 DC Disposition: Home LACE/STRATA: 07/18 Attempted call to #given in chart. Has been changed or disconnected. Oc RODRIGUEZN RN ACM
== END 2019-04-09 12:34 | disposition home or self-care (01) | DRG 201 ==
LOC: ED 06:44 → PCU 08:40
PROVIDERS: Admitting Provider Internal Medicine; Emergency Provider Emergency Medicine; Visit Provider Family Medicine
DX: I48.0 Paroxysmal atrial fibrillation (principal); I48.92 Unspecified atrial flutter; F10.239 Alcohol dependence with withdrawal, unspecified; N17.9 Acute kidney failure, unspecified; I11.9 Hypertensive heart disease without heart failure; G62.9 Polyneuropathy, unspecified; E66.9 Obesity, unspecified; Z68.33 Body mass index [BMI] 33.0-33.9, adult; Z79.82 Long term (current) use of aspirin; Z79.899 Other long term (current) drug therapy; Z91.81 History of falling
CPT/HCPCS: 36415; 71045; 71275; 80048; 83735; 84100; 84443; 84484; 85025; 85610; 93005; 99285; J7030; Q9967

== ENCOUNTER 2019-04-09 19:20 | Emergency (ER) | payer MEDICAID, SELFPAY ==
[2019-04-07 09:15] VITALS: BMI 31.0
[2019-04-09 19:21] VITALS: BP 127/91; PULSE 68; RESP 18; TEMP 36.3; O2SAT 94; BMI 31.7
--- NOTE | 2019-04-09 19:40 | EKG12_ITS ---
Test Reason : GEN ILL Blood Pressure : / mmHG Vent. Rate : 099 BPM Atrial Rate : 099 BPM P-R Int : 212 ms QRS Dur : 096 ms QT Int : 362 ms P-R-T Axes : 035 028 028 degrees QTc Int : 464 ms Sinus rhythm with 1st degree A-V block with Premature atrial complexes Otherwise normal ECG Confirmed by ELLIOT IBRAHIM, ALONZO ([id number]), staff editor BRITTNEY GUZMÁN ([id number]) on 04/12/2019 9:15:12 AM Referred By: PRINCE Confirmed By:ALONZO ZARATE MD
[2019-04-09 19:43] VITALS: BP 147/80; PULSE 101; RESP 17; O2SAT 93
--- NOTE | 2019-04-09 19:49 | RAD_ITS ---
STUDY: X-RAY CHEST REASON FOR EXAM: Male, 58 years old. Chest pain. TECHNIQUE: Single AP portable view of the chest. COMPARISON: April 07, 2019. FINDINGS: Mild cardiomegaly. Pulmonary vascularity unremarkable. Aorta unremarkable. No focal patchy airspace opacities. No pleural effusions. Minimal atelectasis. Upper abdomen unremarkable. Osseous structures intact. No pneumothorax. RAD/Chest 1 View (Portable) IMPRESSION: No acute cardiopulmonary findings Electronically Signed: Damion Flannery DO at 20:02 EDT Tel , Service support ,
[2019-04-09 20:03] LABS: Absolute Lymphocyte Count 2.35 X10^3/ul (0.83-4.51); Absolute Neutrophil Count 3.9 X10^3/uL (2.0-7.7); Basophil# 0.04 X10^3/uL; Basophil% 0.5 % (0-1); Eosinophil# 0.52 X10^3/uL; Eosinophils% 6.8 % (0-5); Hematocrit 39.5 % (40-54); Hemoglobin 13.4 g/dl (13.0-16.5); Lymphocyte # 2.35 X10^3/ul (4.0); Lymphocyte % 30.6 % (19-41); Mean Corp Hgb Conc 33.9 g/gl (32-36); Mean Corpuscular Hgb 32.7 pg (27.0-32.0); Mean Corpuscular Volume 96.3 fL (80-94); Monocyte# 0.84 X10^3/uL; Neutrophil # 3.89 X10^3/uL (2.7-7.7); Neutrophil % 50.7 % (47-70); Platelet Count 276 K/mm3 (150-450); RBC Distribution Width SD 42.3 fl (35.1-43.9); White Blood Count 7.7 K/mm3 (4.4-11.0)
[2019-04-09 20:04] LABS: POSITIVE COUNT NO; POSITIVE DIFFERENTIAL NO; POSITIVE MORPHOLOGY NO
[2019-04-09 20:25] LABS: Anion Gap 7 (5-15); BUN 13 mg/dL (7-18); Calcium,Total 9.4 mg/dL (8.5-10.1); Chloride 98 mmol/L (98-107); Creatinine, Serum 0.76 mg/dL (0.70-1.30); EST Glomerular Filtration Rate 112 mL/min (>60); Est Glom Filt Rate - Afr Amer 135 mL/min (>60); Estimated Creatinine Clearance 122.65 ml/min; Glucose 104 mg/dL (74-106); Potassium 4.5 mmol/L (3.5-5.1); Sodium Level 133 mmol/L (136-145)
[2019-04-09 20:31] VITALS: BP 104/74; PULSE 93; RESP 21
--- NOTE | 2019-04-09 21:14 | ED.VISSUMM ---
- ER Visit Summary Date of Service: 04/09/19 Chief Complaint: Trouble inhaling History of Present Illness: The patient is a 58 M with trouble inhaling. He says the symptoms have been going on for 2 days. He was recently admitted to the hospital for this. He left earlier today because he had to help his daughter. He says he left prior to discharge. I spoke with the hospitalist who was taking care of him. He says that the patient was going to be discharged, but that he had to leave prior to the official discharge. Patient has a history of alcohol abuse but does not have any interest in detox or rehab. He denies any other respiratory symptoms like cough. Denies any chest pain. Denies any fevers. Denies hallucinations or DTs. Denies GI or symptoms. Denies any suicidal or homicidal thoughts. Physical Examination: Afebrile and vital signs are unremarkable. Well-nourished and well-developed. No acute distress. Sitting comfortably. Heart regular rate and rhythm. Lungs clear in all [place]. Abdomen soft. Extremities nontender with no edema. Skin normal in color. He is completely alert and oriented. Cranial nerves grossly intact. Normal strength sensation. Test Results: EKG showed sinus rhythm at a rate of 99 with PACs. Chest x-ray showed nothing acute. CBC, BMP, troponin unremarkable. Emergency Department Course and Treatment: I reviewed the patient's admission. He had a CTA. He had blood work. He had been prescribed Cardizem for his history of A. fib with RVR. He does take aspirin as well but no other blood thinners as he is a fall risk. He does have a history of alcohol abuse, but again he is not interested in rehab or detox. He does not seem to be in DTs. I suspect this is anxiety, but I did consider cardiac and respiratory causes. I rechecked his EKG, chest x-ray, labs as above. Findings were all reassuring. Patient will be discharged as previously planned by the hospitalist. Continue his prescribed medications and follow-up with primary care. Treatment Plan: As above Disposition: Discharge Impression: 1. Dyspnea 2. Alcohol abuse This note was generated with [employer] software. It may contain incorrect words, spelling, and punctuation that were not noted in review of the chart prior to signing ED Disposition - Plan for ED Patient: Referrals: Care Physician,No Primary [Primary Care Provider] -
--- NOTE | 2019-04-09 21:18 | ED.DCSUM_ITS ---
- ER Visit Summary Date of Service: 04/09/19 Chief Complaint: Trouble inhaling History of Present Illness: The patient is a 58 M with trouble inhaling. He says the symptoms have been going on for 2 days. He was recently admitted to the hospital for this. He left earlier today because he had to help his d antwon. He says he left prior to discharge. I spoke with the hospitalist who was taking care of him. He says that the patient was going to be discharged, but that he had to leave prior to the official discharge. Patient has a history of alcohol abuse but does not have any interest in detox or rehab. He denies any other respiratory symptoms like cough. Denies any chest pain. Denies any fevers. Denies hallucinations or DTs. Denies GI or symptoms. Denies any suicidal or homicidal thoughts. Physical Examination: Afebrile and vital signs are unremarkable. Well-nourished and well-developed. No acute distress. Sitting comfortably. Heart regular rate and rhythm. Lungs clear in all [place]. Abdomen soft. Extremities nontender with no edema. Skin normal in color. He is completely alert and oriented. Cranial nerves grossly intact. Normal strength sensation. Test Results: EKG showed sinus rhythm at a rate of 99 with PACs. Chest x-ray showed nothing acute. CBC, BMP, troponin unremarkable. Emergency Department Course and Treatment: I reviewed the patient's admission. He had a CTA. He had blood work. He had been prescribed Cardizem for his history of A. fib with RVR. He does take aspirin as well but no other blood thinners as he is a fall risk. He does have a history of alcohol abuse, but again he is not interested in rehab or detox. He does not seem to be in DTs. I suspect this is anxiety, but I did consider cardiac and respiratory causes. I rechecked his EKG, chest x-ray, labs as above. Findings were all reassuring. Patient will be discharged as previously planned by the hospitalist. Continue his prescribed medications and follow-up with primary care. Treatment Plan: As above Disposition: Discharge Impression: 1. Dyspnea 2. Alcohol abuse This note was generated with [employer] software. It may contain incorrect words, spelling, and punctuation that were not noted in review of the chart prior to signing ED Disposition - Plan for ED Patient: Referrals: Care Physician,No Primary [Primary Care Provider] -
--- NOTE | 2019-04-09 21:18 | ED.DEP ---
ED Disposition - Plan for ED Patient: Instructions: ED Alcohol Abuse Additional Instructions: Follow-up as instructed previously
[2019-04-09 21:42] VITALS: BP 91/64; PULSE 94; RESP 20
== END 2019-04-09 21:44 | disposition home or self-care (01) ==
PROVIDERS: Emergency Provider Emergency Medicine
DX: R06.00 Dyspnea, unspecified (principal); F10.10 Alcohol abuse, uncomplicated; I48.91 Unspecified atrial fibrillation; I10 Essential (primary) hypertension; Z79.82 Long term (current) use of aspirin; Z79.899 Other long term (current) drug therapy
CPT/HCPCS: 36415; 71045; 80048; 84484; 85025; 93005; 99285; A4216

== ENCOUNTER → 2019-05-15 13:17 | Outpatient (REF) | payer MEDICAID, SELFPAY ==
[2019-05-11 11:29] VITALS: BMI 30.9
== END ==
LOC: CVS 13:17
PROVIDERS: Family Provider Internal Medicine; PCP Internal Medicine; Referring Provider Internal Medicine Cardiovascular Disease; Visit Provider Internal Medicine Cardiovascular Disease
DX: I48.0 Paroxysmal atrial fibrillation (principal); R55 Syncope and collapse
CPT/HCPCS: 93270

== ENCOUNTER → 2019-06-07 06:37 | Outpatient (CLI) | payer MEDICAID, SELFPAY ==
[2019-05-11 11:29] VITALS: BMI 30.9
--- NOTE | 2019-06-07 17:08 | STRESSREP ---
Stress Test Report Pharmacologic myocardial perfusion stress test. 59-year-old man with a history of atrial flutter. Resting EKG demonstrates atrial flutter with a rate of 146 bpm resting blood pressures 130/72 mmHg. 0.4 mg of regadenoson was infused per usual protocol followed by rapid intravenous saline flush injection continuous EKG monitoring was performed. The patient maintained atrial flutter throughout the recording. At rest there were no ST or T wave changes noted suggest ischemia. Resting blood pressure 130/72 final blood pressure was 124/74. Myocardial perfusion protocol per 14.3 mCi of technetium 99m sestamibi was injected at rest. 0.4 mg of regadenoson was infused per usual protocol peak infusion 44.0 mCi of technetium 99m sestamibi was injected stress images were obtained stress and rest images were reconstructed and compared in the short axis vertical long horizontal long axis. Gated images were also obtained for next Perfusion SPECT analysis: Review of the stress images demonstrate normal uptake of tracer noted in all rest myocardium the resting images similar demonstrate normal uptake of tracer noted in all areas of myocardium. No obvious reversibility is no suggest ischemia Pennex Gated SPECT analysis: The gated ejection fraction is noted to be 61%. Conclusion: Persistent atrial flutter. No obvious ischemia noted. Preserved ejection fraction.
== END ==
PROVIDERS: Family Provider Internal Medicine; PCP Internal Medicine; Referring Provider Internal Medicine Cardiovascular Disease; Visit Provider Internal Medicine Cardiovascular Disease
DX: R07.9 Chest pain, unspecified (principal)
CPT/HCPCS: 78452; 93017; A9500; A4216; J2785

== ENCOUNTER 2019-06-23 15:34 | Emergency (ER) | payer MEDICAID, SELFPAY ==
[2019-06-13 09:44] VITALS: BMI 30.4
[2019-06-23 15:35] VITALS: BP 109/61; PULSE 93; RESP 16; TEMP 36.6; O2SAT 97; BMI 32.0
--- NOTE | 2019-06-23 16:11 | ED.DCSUM_ITS ---
- ER Visit Summary Date of Service: 06/23/19 Chief Complaint: Cough History of Present Illness: The patient is a 59 M who presents with a cough for the past 2 months. Patient states it feels like there are feathers in the back of his throat. Patient recently had blood pressure medicine increased for his atrial fibrillation. Patient states that he has been feeling more fatigued recently. Patient denies any sputum production. Patient does admit to some shortness of breath that has been getting progressively worse. Patient denies any chest pain. Patient admits to some mild nausea and vomiting episodes when he wakes up some mornings. Patient denies any fevers or chills. Physical Examination: Vital signs are stable. Patient is afebrile. Patient is in no acute distress. Oral mucosa is pink and moist. Neck is supple. Trachea is midline. There is no JVD noted. Heart was irregularly irregular. Lungs are clear and equal bilaterally. Abdomen is soft and nontender. Cranial nerves II through XII are intact. There are no focal motor or sensory deficits noted. Test Results: CBC and basic metabolic profile were normal. Rapid strep was obtained and was negative. PA and lateral chest x-ray was obtained and was negative. Emergency Department Course and Treatment: Patient was advised of his results. Patient feels better on reevaluation. Patient was given a prescription for Prilosec for the possibility of this being caused by GERD since he does wake up and have some nausea and vomiting. Patient is also on lisinopril and this could be causing his cough as well. Patient was instructed to follow-up with his primary care physician in 5 to 7 days. Patient understood and was agreeable with the plan. All questions were answered. Disposition: Discharge home Impression: Cough This note was generated with [employer] dictation software. It may contain incorrect words, spelling, and punctuation that were not noted in review of the chart prior to signing ED Disposition - Plan for ED Patient: Disposition: Home or Assisted Living Diagnosis: Cough Instructions: COUGH, Chronic, Uncertain Cause, (Adult), GERD (Adult) Prescriptions: Omeprazole [Prilosec] 20 mg PO DAILY #30 cap Prescription Printed Referrals: Moriah Fernandez MD [Primary Care Provider] - 5-7 Days
--- NOTE | 2019-06-23 16:55 | RAD_ITS ---
STUDY: X-RAY CHEST REASON FOR EXAM: Male, 59 years old. Cough TECHNIQUE: PA and lateral views of the chest. COMPARISON: 04/09/2019 FINDINGS: The lungs are clear and expanded. There is no demonstrated pleural abnormality. Normal size heart. Normal mediastinum and kimberly. Normal visualized pulmonary arteries. Normal visualized aortic arch and descending thoracic aorta. Normal visualized thoracic spine. Normal visualized ribs, clavicles, and shoulders. There is no demonstrated abnormality of the visualized soft tissue structures of the upper abdomen. RAD/Chest PA and Lateral IMPRESSION: Normal x-ray examination of the chest. Electronically Signed: Du Hall DO at 17:25 EDT Tel , Service support ,
[2019-06-23 17:07] LABS: Absolute Lymphocyte Count 1.85 X10^3/uL (0.83-4.51); Absolute Neutrophil Count 2.5 X10^3/uL (2.0-7.7); Basophil# 0.04 X10^3/uL; Basophil% 0.8 % (0-1); Eosinophil# 0.15 X10^3/uL; Hematocrit 34.8 % (40-54); Lymphocyte # 1.85 X10^3/ul (4.0); Lymphocyte % 36.5 % (19-41); Mean Corp Hgb Conc 34.5 g/dL (32-36); Mean Corpuscular Hgb 32.5 pg (27.0-32.0); Mean Corpuscular Volume 94.3 fL (80-94); Mean Platelet Vol. 8.7 fl (6.2-12.0); Monocyte# 0.52 X10^3/uL; Monocyte% 10.3 % (0-10); NRBC Flagged by Analyzer 0 % (0-5); Neutrophil % 49.2 % (47-70); Platelet Count 179 K/mm3 (150-450); RBC Distribution Width CV 12.7 % (11.6-14.6); RBC Distribution Width SD 43.9 fl (35.1-43.9); Red Blood Count 3.69 M/mm3 (4.6-6.2); White Blood Count 5.1 K/mm3 (4.4-11.0)
[2019-06-23 17:18] LABS: Anion Gap 8 (5-15); BUN 12 mg/dL (7-18); BUN/Creat Ratio 11.9 RATIO (10-20); Calcium,Total 8.4 mg/dL (8.5-10.1); Chloride 100 mmol/L (98-107); Creatinine, Serum 1.01 mg/dL (0.70-1.30); EST Glomerular Filtration Rate 81 mL/min (>60); Est Glom Filt Rate - Afr Amer 98 mL/min (>60); Estimated Creatinine Clearance 91.19 ml/min; Glucose 96 mg/dL (74-106); Potassium 4.3 mmol/L (3.5-5.1); Sodium Level 133 mmol/L (136-145)
[2019-06-23 19:20] VITALS: BP 110/88; PULSE 94; RESP 18; TEMP 36.4; O2SAT 96
== END 2019-06-23 19:22 | disposition home or self-care (01) ==
PROVIDERS: Emergency Provider Emergency Medicine; Family Provider Internal Medicine; PCP Internal Medicine
DX: R05 Cough (principal); I48.91 Unspecified atrial fibrillation; I10 Essential (primary) hypertension; R11.2 Nausea with vomiting, unspecified; R06.02 Shortness of breath; R51 Headache; M54.9 Dorsalgia, unspecified; Z79.899 Other long term (current) drug therapy; Z79.82 Long term (current) use of aspirin
CPT/HCPCS: 71046; 80048; 85025; 87880; 99282; A4216

== ENCOUNTER 2019-06-30 18:10 | Inpatient (IN) | payer MEDICAID, SELFPAY ==
[2019-06-30] VITALS (15 sets, daily range): BP systolic 83–135; BP diastolic 56–88; PULSE 121–154; RESP 14–28; TEMP 36.8; O2SAT 89–99; BMI 31.6; BMI 30.9
--- NOTE | 2019-06-30 18:40 | RAD_ITS ---
STUDY: X-RAY CHEST REASON FOR EXAM: Male, 59 years old. Dizziness and cough TECHNIQUE: AP portable COMPARISON: June 23, 2019 FINDINGS: The lungs are clear and expanded. There is no demonstrated pleural abnormality. Normal size heart. Normal mediastinum and kimberly. Normal visualized pulmonary arteries. Normal visualized aortic arch and descending thoracic aorta. Dorsal spine demonstrates spondylosis. Normal visualized ribs, clavicles, and shoulders. There is no demonstrated abnormality of the visualized soft tissue structures of the upper abdomen. No significant change since prior exam RAD/Chest 1 View (Portable) IMPRESSION: No acute cardiopulmonary pathology Electronically Signed: Ming Arciniega MD at 20:30 EDT , Service support ,
--- NOTE | 2019-06-30 18:40 | EKG12_ITS ---
Test Reason : TACHY Blood Pressure : / mmHG Vent. Rate : 161 BPM Atrial Rate : 170 BPM P-R Int : 000 ms QRS Dur : 096 ms QT Int : 298 ms P-R-T Axes : 000 050 058 degrees QTc Int : 487 ms Atrial fibrillation with rapid ventricular response Abnormal ECG Confirmed by RACHELLE IBRAHIM, RACHEL ([id number]), assignment desk editor BRITTNEY GUZMÁN ([id number]) on 07/06/2019 1:09:11 PM Referred By: SYDNIE Confirmed By:RACHEL BUSH MD
[2019-06-30] MEDS: dilTIAZem 25 MG/5 ML Vial IV BOLUS (18:41)
[2019-06-30 19:37] LABS: Absolute Lymphocyte Count 1.97 X10^3/uL (0.83-4.51); Absolute Neutrophil Count 2.4 X10^3/uL (2.0-7.7); Basophil# 0.06 X10^3/uL; Basophil% 1.1 % (0-1); Eosinophil# 0.13 X10^3/uL; Eosinophils% 2.5 % (0-5); Hematocrit 38.3 % (40-54); Hemoglobin 13.2 g/dL (13.0-16.5); Lymphocyte # 1.97 X10^3/ul (4.0); Lymphocyte % 37.4 % (19-41); Mean Corp Hgb Conc 34.5 g/dL (32-36); Mean Corpuscular Hgb 32.3 pg (27.0-32.0); Mean Corpuscular Volume 93.6 fL (80-94); Mean Platelet Vol. 9.2 fl (6.2-12.0); Monocyte# 0.66 X10^3/uL; Monocyte% 12.5 % (0-10); NRBC Flagged by Analyzer 0 % (0-5); Neutrophil # 2.43 X10^3/uL (2.7-7.7); Neutrophil % 46.1 % (47-70); Platelet Count 166 K/mm3 (150-450); RBC Distribution Width CV 12.3 % (11.6-14.6); RBC Distribution Width SD 42.8 fl (35.1-43.9); Red Blood Count 4.09 M/mm3 (4.6-6.2); White Blood Count 5.3 K/mm3 (4.4-11.0)
[2019-06-30 19:55] LABS: ALB/GLOB Ratio 0.9 RATIO (0.9-2.4); AST(SGOT) 31 U/L (15-37); Alanine Aminotransfer ALT/SGPT 23 U/L (16-61); Albumin, Serum 3.9 g/dL (3.2-5.0); Alkaline Phosphatase 46 U/L (45-117); Anion Gap 7 (5-15); BUN 13 mg/dL (7-18); BUN/Creat Ratio 13.3 RATIO (10-20); Calcium,Total 8.6 mg/dL (8.5-10.1); Chloride 97 mmol/L (98-107); Creatinine, Serum 0.98 mg/dL (0.70-1.30); EST Glomerular Filtration Rate 84 mL/min (>60); Est Glom Filt Rate - Afr Amer 101 mL/min (>60); Estimated Creatinine Clearance 93.99 ml/min; Globulin 4.2 g/dL (2.2-4.2); Glucose 98 mg/dL (74-106); Protein, Total 8.1 g/dL (6.4-8.2); Sodium Level 131 mmol/L (136-145)
--- NOTE | 2019-06-30 20:04 | NURSING ---
lab called with critical alcohol of 416.
[2019-06-30] MEDS: LORazepam 1 MG Tablet PO (20:56)
--- NOTE | 2019-06-30 21:15 | ED.VISSUMM ---
- ER Visit Summary Date of Service: 06/30/19 Chief Complaint: Dizziness History of Present Illness: The patient is a 59 M who presents with dizziness that began today. Patient states this came on all of a sudden tonight. Patient states his dizziness is worse with standing. Patient states he feels off balance. Patient states that when he stands up he sees yellow and then he feels like he is going to fall over. Patient denies any loss of consciousness. Patient denies any chest pain or palpitations. Patient denies any shortness of breath. Patient admits to a slight cough. Patient states this has been chronic. Physical Examination: Vital signs are stable except for tachycardia. Patient is afebrile. Patient is in no acute distress. Oral mucosa is pink and moist. Neck is supple. Trachea is midline. No JVD or lymphadenopathy noted. Pupils are equal, round, and reactive to light. Extraocular muscles are intact. Heart was irregularly irregular. Heart was tachycardic. Lungs are clear and equal bilaterally. Abdomen is soft. Bowel sounds are normal. Cranial nerves II through XII are intact. There are no focal motor or sensory deficits noted. Test Results: EKG showed atrial fibrillation with a rate of 161. There are no acute ST or T wave changes. Portable chest x-ray does not show any acute cardiopulmonary process. CBC and comprehensive metabolic profile were essentially within normal limits. Sodium was slightly low at 131. Troponin was normal at less than 0.015. EtOH was elevated at 416. Emergency Department Course and Treatment: Patient was given Cardizem bolus initially of 25 mg. Patient still was in atrial fibrillation with rapid ventricular response. Patient was started on a Cardizem drip. Patient still has a heart rate of 130s to 140s. Patient was feeling anxious. Patient was given a dose of Ativan here. Patient was given IV fluids as well. Since the patient is still in atrial fibrillation with rapid ventricular response despite Cardizem drip, case will be discussed with the hospitalist. Case was discussed with Dr. Noel. She will admit the patient to the hospital. Patient and family understood and were agreeable with the plan. All questions were answered. Disposition: Admit to hospital Impression: 1. Atrial fibrillation with rapid ventricular response This note was generated with [employer] dictation software. It may contain incorrect words, spelling, and punctuation that were not noted in review of the chart prior to signing ED Disposition - Plan for ED Patient: Disposition: Acute Care Hospital [facility] Diagnosis: Atrial fibrillation with rapid ventricular response Referrals: Moriah Fernandez MD [Primary Care Provider] -
--- NOTE | 2019-06-30 21:27 | HP.PCM_ITS ---
History of Present Illness Date of Admission: 06/30/19 Chief Complaint: shortness of breath, nausea The patient is a 59 year old M with past medical history as listed. He was admitted through the ED on 06/30/2019 with a complaint of dizziness and lightheadedness as well as nausea which started on the evening of admission. Dizziness was worsened with standing and he also felt off balance. He said he had an aura of elevation and felt like he was going to fall over. He had not had any syncopal episode and had no history of seizures. Patient does have a history of A. fib and states he has been compliant with his Cardizem pills. He had not been put on anticoagulation on account of concerns of GI bleed on account of his heavy drinking. Patient also states he has a chronic cough which is nonproductive. Patient is a heavy drinker and states he drank about 2 tall boys a few hours prior to admission. In the ED, vitals were significant for tachycardia. Chemistry shows sodium of 131 was otherwise normal. CBC was unremarkable. EKG showed A. fib with RVR and initial troponin was negative. Chest x-ray showed no acute cardiopulmonary pathology. He has been admitted to be managed for A. fib with RVR. [] Past Medical History Past Medical History (Chronic Problems): Chronic Problems (Last Updated 06/13/19 @ 11:40 by RYAN Sweeney) Legally blind in left eye, as defined in [place] (Chronic) Premature atrial contraction (Chronic) Essential hypertension (Chronic) Paroxysmal atrial fibrillation (Chronic) Fall (Chronic) Back contusion (Chronic) Alcohol abuse (Chronic) Medical History: Medical History (Last Updated 06/13/19 @ 11:40 by RYAN Sweeney) Legally blind in left eye, as defined in [place] (Chronic) H54.8 Premature atrial contraction (Chronic) I49.1 Essential hypertension (Chronic) I10 Paroxysmal atrial fibrillation (Chronic) I48.0 Fall (Chronic) W19.XXXA Back contusion (Chronic) S20.229A Delirium tremens (Resolved) F10.231 Alcohol abuse (Chronic) F10.10 Alcohol withdrawal (Acute) F10.239 Atrial fibrillation with RVR I48.91 Depression F32.9 Neuropathy G62.9 TIA (transient ischemic attack) G45.9 Allergies No Known Allergies Allergy (Verified 06/30/19 18:18) Home Medications: Ambulatory Orders Medication Instructions Recorded Lisinopril 20 mg PO DAILY 03/16/19 Aspirin [Aspirin, Baby] 81 mg PO DAILY@0800 #30 tab.chew 04/09/19 gabapentin 600 mg tablet 600 mg PO TID PRN tab 05/11/19 diltiazem CD 360 mg 360 mg PO DAILY #30 cap 06/13/19 capsule,extended release 24 hr Omeprazole [Prilosec] 20 mg PO DAILY #30 cap 06/23/19 Paroxetine HCl 20 mg PO DAILY 06/23/19 Surgical History: Surgical History (Last Reviewed 05/11/19 @ 11:40 by Fay Dale) History of elbow surgery Z98.890 History of tonsillectomy Z90.89 Surgical History: - - Right elbow surgery Psychiatric History: No pertinent psych hx Smoking Status: Never smoker Alcohol: Heavy Drugs: None - *Family History Maternal Family History: Family History (Last Reviewed 05/11/19 @ 11:40 by Fay Dale) Mother Cancer Diabetes Brother Cancer Grandfather Heart disease Grandfather History of stroke Grandmother CVA (cerebral vascular accident) History Items: Cancer, Hypertension, Stroke Paternal Family History: Family History (Last Reviewed 05/11/19 @ 11:40 by Fay Dale) Mother Cancer Diabetes Brother Cancer Grandfather Heart disease Grandfather History of stroke Grandmother CVA (cerebral vascular accident) History Items: Hypertension, Stroke Sibling Family History: Family History (Last Reviewed 05/11/19 @ 11:40 by Fay Dale) Mother Cancer Diabetes Brother Cancer Grandfather Heart disease Grandfather History of stroke Grandmother CVA (cerebral vascular accident) History Items: Cancer Review of Systems Constitutional: Reports: Malaise, Weakness, Fatigue. Denies: Chills, Fever, Weight Change Eyes: Reports: Vision Change - has a yellow aura. Denies: Blurred vision HEENT: Denies: Head Aches, Sinus Congestion, Sinus Drainage Cardiovascular: Reports: Light Headedness. Denies: Chest Pain, Chest Pressure, Chest Tightness, Edema, Palpitations, Paroxysmal Noc. Dyspnea, Syncope Respiratory: Reports: Cough. Denies: Shortness of Breath, Shortness of breath at rest, Shortness of breath upon exertion, Sputum production, Wheezing Gastrointestinal: Denies: Abdominal Pain, Nausea, Vomiting Genitourinary: Denies: Dysuria Musculoskeletal: Denies: Joint Pain, Joint Tenderness Skin: Denies: Rash, Wounds Neurological: Denies: Numbness, Tingling, Focal weakness Psychiatric: Reports: Anxiety. Denies: Depression Hematologic/ Lymphatic: Denies: Easy Bruising, Easy Bleeding VTE Information - Inpt Only VTE Present on Admission: No VTE Pharm Prophylaxis ordered?: Yes Patient Problems: Active and Suspected Problems (Last Updated 06/13/19 @ 11:40 by RYAN Sweeney) Atrial fibrillation with rapid ventricular response (Acute) - Physical Exam General: Alert, Oriented x3, Cooperative, - - anxious HEENT: Atraumatic, PERRLA, EOMI, Normocephalic Oral: Dry Mucosa Neck: Supple, No JVD, Negative Carotid Bruits Lungs: Clear to auscultation, Normal air movement, No rhonchi, No wheeze Cardiovascular: Normal S1, Normal S2, No murmurs, Irregular Rate, Tachycardic Abdomen: Bowel Sounds Present, Soft, Non Tender, Non-Distended, No Hepato-splenomegaly Extremities: No clubbing, No cyanosis, No edema, Capillary Refill Less than 3 Seconds Skin: No rashes, No breakdown Musculoskeletal: No Tenderness to Palpation of Joints or Extremities Lymphatic: No Cervical, Supraclavicular, or Inguinal Adenopathy Neurological: Cranial nerves II-XII grossly intact, Neuro grossly intact, Motor Exam 5/5 strength throughout Psych/Mental Status: Agitated, Anxious, Alert and oriented to time, place, person, mood and affect Vital Signs Temp Pulse Resp BP Pulse Ox 98.3 F 145 H 28 H 119/80 93 06/30/19 18:12 06/30/19 21:00 06/30/19 21:00 06/30/19 21:00 06/30/19 21:00 Oxygen Delivery Method Nasal Cannula Weight: 240 lb 4.862 oz Body Mass Index (BMI) 31.6 Laboratory Tests Past 24 Hrs 06/30/19 06/30/19 06/30/19 18:18 18:18 18:18 WBC 5.3 RBC 4.09 L Hgb 13.2 Hct 38.3 L MCV 93.6 MCH 32.3 H MCHC 34.5 RDW Std Deviation 42.8 RDW Coeff of Kaylen 12.3 Plt Count 166 MPV 9.2 Immature Gran % (Auto) 0.400 Neut % (Auto) 46.1 L Lymph % (Auto) 37.4 [place] % (Auto) 12.5 H Eos % (Auto) 2.5 Baso % (Auto) 1.1 H Absolute Neuts (auto) 2.4 Absolute Lymphs (auto) 1.97 Nucleated RBC % 0 Sodium 131 L Potassium 4.0 Chloride 97 L Carbon Dioxide 27.0 Anion Gap 7 BUN 13 Creatinine 0.98 Estim Creat Clear Calc 93.99 Est GFR (MDRD) Af Amer 101 Est GFR (MDRD) Non-Af 84 BUN/Creatinine Ratio 13.3 Glucose 98 Calcium 8.6 Total Bilirubin 0.60 AST 31 ALT 23 Alkaline Phosphatase 46 Troponin I < 0.015 Total Protein 8.1 Albumin 3.9 Globulin 4.2 Albumin/Globulin Ratio 0.9 Ethyl Alcohol 416.0 H* Diagnostic Data Chest X-Ray 06/30/19 18:40 IMPRESSION: No acute cardiopulmonary pathology Electronically Signed: Ming Arciniega MD at 20:30 EDT , Service support , Assessment/Plan All Active Problems (Last Updated 06/13/19 @ 11:40 by RYAN Sweeney) Atrial fibrillation with rapid ventricular response (Acute) Delirium tremens (Resolved) Alcohol withdrawal (Acute) 59 y/o male admitted with a complaint of lightheadedness and dizziness 1. Afib with RVR * admit to pCU with telemetry * AFib with RVR likely precipitated by heavy alcohol abuse; patient claims compliance with his cardizem at home * EKG shwoed Afib with RVR with HR up in 150s on admission; initial troponin negative * HR didnt improve with cardizem bolus; now on IV cardizem drip. Will continue cardizem drip; titrate for HR </=110 * give one dose of therapeutic lovenox * echo from 03/03: EF of 60% with mildly enlarged LA. normal LV size, wall motion and systolic function * CHADVASC score- 2 (age and hypertension) * 2. Alcohol dependence * alcohol level was 419 on admission; says he drank 2 tallboys before admission * has been through detox in the past and says he has had to be admitted to ICU for alcohol withdrawal and even intubated. However, he has had difficulty quitting. * will start alcohol withdrawal protocol with librium. Even though patient is not interested in quitting, his alcohol withdrawal is likely contributing to the difficulty controlling his heart rate. Librium should help calm him down and ameliorate the effects of the alcohol on his HR * monitor CIWA score * 3. Hypomagnesemia: Mg is 1.5. will replace and monitor 4. Hyponatremia: Na is 131. This is likely due to chronic alcohol abuse. Will monitor 5. Hypertension: on lisinopril. 6. Anxiety: says his anxiety is worse nowadays o/a of an unstable living situation. Now lives with friends. DVT prophylaxis: therapeutic lovenox o/.a of afib Code status: full code * Patient and counseled extensively about different types of CODE STATUS including full code, DNR CCA and DNR CCA. Patient elects to be full code. Total [id number] time 16 minutes. Code Visit Inpatient E&M: 41004 Init Hosp L3 Procedures: 23457 Advncd Care Plan 30 Min
[2019-06-30 22:40] LABS: Magnesium 1.5 mg/dL (1.6-2.6)
--- NOTE | 2019-06-30 22:45 | NURSING ---
This RN is taking over care of this patient at this time. Cardizem gtt running at previous rate of15mg/hr. No changes made at this time.
[2019-06-30] MEDS: Gabapentin 600 MG Tablet PO (23:48)
[2019-06-30] MEDS: Enoxaparin 100 MG/ML Syringe SC (23:48)
[2019-06-30] MEDS: chlordiazePOXIDE 25 MG Capsule PO (23:51)
[2019-06-30] MEDS: 0.9% NaCl Peripheral Flush Adult/Peds IV (23:58)
[2019-07-01] VITALS (45 sets, daily range): BP systolic 74–135; BP diastolic 45–105; PULSE 103–157; RESP 15–27; TEMP 36.4–36.8; O2SAT 20–100
[2019-07-01] MEDS: 0.9% Normal Saline 1,000 ML 999 ML IV (02:00)
[2019-07-01] MEDS: Magnesium Sulfate 4gm/100mL 4 GM/100 ML IV.SOLN. IV (02:00)
[2019-07-01 02:46] LABS: Amphetamine Urine VISTA NEGATIVE (<1000 ng/mL); Barbiturate Urine VISTA NEGATIVE (< 200 ng/mL); Benzodiazepine Urine VISTA NEGATIVE (< 200 ng/mL); Cocaine Urine VISTA NEGATIVE (< 300 ng/mL); Ecstacy Urine VISTA NEGATIVE (< 500 ng/mL); Methadone Urine VISTA NEGATIVE (< 300 ng/mL); PCP Urine VISTA NEGATIVE (< 25 ng/mL); THC Urine VISTA NEGATIVE (< 50 ng/mL); Vista UDS pH Range 6
[2019-07-01 03:19] LABS: Absolute Lymphocyte Count 1.25 X10^3/uL (0.83-4.51); Absolute Neutrophil Count 2.4 X10^3/uL (2.0-7.7); Basophil# 0.03 X10^3/uL; Basophil% 0.7 % (0-1); Eosinophil# 0.17 X10^3/uL; Eosinophils% 3.8 % (0-5); Hematocrit 34.9 % (40-54); Hemoglobin 12.1 g/dL (13.0-16.5); Lymphocyte # 1.25 X10^3/ul (4.0); Lymphocyte % 28.1 % (19-41); Mean Corp Hgb Conc 34.7 g/dL (32-36); Mean Corpuscular Hgb 32.5 pg (27.0-32.0); Mean Corpuscular Volume 93.8 fL (80-94); Mean Platelet Vol. 8.6 fl (6.2-12.0); Monocyte# 0.58 X10^3/uL; NRBC Flagged by Analyzer 0 % (0-5); Platelet Count 133 K/mm3 (150-450); RBC Distribution Width CV 12.4 % (11.6-14.6); Red Blood Count 3.72 M/mm3 (4.6-6.2); White Blood Count 4.5 K/mm3 (4.4-11.0)
[2019-07-01] MEDS: dilTIAZem 25 MG/5 ML Vial IV BOLUS (03:40)
[2019-07-01] MEDS: 0.9% NaCl Peripheral Flush Adult/Peds IV ×2 (03:47→04:41)
[2019-07-01 03:59] LABS: Anion Gap 9 (5-15); BUN 9 mg/dL (7-18); BUN/Creat Ratio 11.8 RATIO (10-20); Calcium,Total 7.6 mg/dL (8.5-10.1); Chloride 105 mmol/L (98-107); Creatinine, Serum 0.76 mg/dL (0.70-1.30); EST Glomerular Filtration Rate 112 mL/min (>60); Est Glom Filt Rate - Afr Amer 136 mL/min (>60); Estimated Creatinine Clearance 121.19 ml/min; Glucose 91 mg/dL (74-106); Potassium 3.8 mmol/L (3.5-5.1); Sodium Level 139 mmol/L (136-145)
[2019-07-01 04:13] LABS: Thyroid Stim Hormone (TSH) 0.46 uIU/mL (0.358-3.74)
[2019-07-01] MEDS: Digoxin 250 MCG/ML Ampul IV ×2 (04:37→16:44)
[2019-07-01] MEDS: Gabapentin 600 MG Tablet PO ×3 (05:03→22:05)
[2019-07-01] MEDS: chlordiazePOXIDE 25 MG Capsule PO ×3 (05:03→16:45)
--- NOTE | 2019-07-01 08:37 | CON.PCM_ITS ---
Problem List (1) Atrial fibrillation with rapid ventricular response Status: Acute Reason for Consult Date of Consultation: 07/01/19 Reason for Consultation: Atrial fibrillation with rapid ventricular response History of Present Illness: The patient is a 59 year old M who presented with complaints of dizziness and lightheadedness. In the emergency room, he was found to be in atrial fibrillation with rapid ventricular response and was started on amiodarone drip and subsequently was given Cardizem and digoxin. Despite that, the atrial fibrillation persists with ventricular response rate in the 130s to 150s. He does have a history of atrial fibrillation and flutter and has been followed with both her cardiology group. It was noted that the patient had a lot of issues with noncompliance and continuing ongoing excessive alcohol intake. He is on no anticoagulation, due to risk of falls and GI bleeding. Based on the records, the patient was considered for an outpatient cardioversion. Prior cardiac work-up included pretty unremarkable stress test; echocardiogram showed normal left ventricular ejection fraction in 60s% , trivial valvular heart disease, impaired diastolic function of left ventricle, mildly enlarged left atrium. Review of systems is otherwise unremarkable, except for stated in the H&P. He states compliance with the current treatment plan but admits to ongoing alcohol intake. Pertinent laboratory data include mild hypomagnesemia, potassium was within normal limits. ECG demonstrated atrial fibrillation with rapid ventricular response. Past Medical History Allergies/Adverse Reactions: Allergies No Known Allergies Allergy (Verified 06/30/19 18:18) Home Medications: Ambulatory Orders Medication Instructions Recorded Lisinopril 20 mg PO DAILY 03/16/19 Aspirin [Aspirin, Baby] 81 mg PO DAILY@0800 #30 tab.chew 04/09/19 gabapentin 600 mg tablet 600 mg PO TID PRN tab 05/11/19 diltiazem CD 360 mg 360 mg PO DAILY #30 cap 06/13/19 capsule,extended release 24 hr Omeprazole [Prilosec] 20 mg PO DAILY #30 cap 06/23/19 Paroxetine HCl 20 mg PO DAILY 06/23/19 Past Medical History (Chronic Problems): Chronic Problems (Last Updated 06/13/19 @ 11:40 by RYAN Sweeney) Legally blind in left eye, as defined in [place] (Chronic) Premature atrial contraction (Chronic) Essential hypertension (Chronic) Paroxysmal atrial fibrillation (Chronic) Fall (Chronic) Back contusion (Chronic) Alcohol abuse (Chronic) Surgical History: - - Right elbow surgery Psychiatric History: No pertinent psych hx - *Family History Maternal Family History: Family History (Last Reviewed 05/11/19 @ 11:40 by Fay Dale) Mother Cancer Diabetes Brother Cancer Grandfather Heart disease Grandfather History of stroke Grandmother CVA (cerebral vascular accident) History Items: Cancer, Hypertension, Stroke Paternal Family History: Family History (Last Reviewed 05/11/19 @ 11:40 by Fay Dale) Mother Cancer Diabetes Brother Cancer Grandfather Heart disease Grandfather History of stroke Grandmother CVA (cerebral vascular accident) History Items: Hypertension, Stroke Sibling Family History: Family History (Last Reviewed 05/11/19 @ 11:40 by Fay Dale) Mother Cancer Diabetes Brother Cancer Grandfather Heart disease Grandfather History of stroke Grandmother CVA (cerebral vascular accident) History Items: Cancer Smoking Status: Never smoker Alcohol: Heavy Drugs: None Review of Systems - Review of Systems General: Denies: Fever, Night Sweats, Fatigue Cardiovascular: Denies: Chest Discomfort, Shortness of Breath, Orthopnea, PND, Peripheral Edema, Palpitations, Lightheadedness, Dizziness, Near Syncope, Syncope Respiratory: Reports: Cough Gastrointestinal: Denies: Indigestion, Heart Burn, Hematemesis, Hematochezia, Melena Genitourinary: Denies: Dysuria, Hematuria Skin: Denies: Rash Neurological: Reports: Dizziness Objective: Vital Signs Temp Pulse Resp BP Pulse Ox 97.6 F L 157 H 20 H 92/66 92 07/01/19 03:30 07/01/19 07:00 07/01/19 07:00 07/01/19 07:00 07/01/19 07:00 Oxygen Flow Rate (L/min) 2 Oxygen Delivery Method Nasal Cannula Weight: 107.3 kg Body Mass Index (BMI) 30.9 Intake and Output for Last 24 Hours 06/29/19 06/30/19 07/01/19 23:59 23:59 23:59 Intake Total 382 / 382 1561.7 / 1561.7 Output Total 1550 / 1550 Balance 382 / 382 11.7 / 11.7 General: Awake, Alert, Oriented x 3, Obese HEENT: PERRL, EOMI, Sclera Non Icteric Neck: Supple, Good ROM, No Lymph Node Enlargement Lungs: Clear to auscultation Cardiovascular: Irregular Rhythm, No Murmurs, No Rubs, No Gallops Vascular: No Carotid Bruits, Normal Femoral Pulses, Normal Radial Pulses, Normal Dorsalis Pedal Pulse, Normal Posterior Tibial Pulses Abdomen: Bowel Sounds Present, Soft, Non Tender, No HSM, No Organomegaly Extremities: No Cyanosis, No Clubbing, No edema Neurological: No Focal Motor or Sensory Deficit 06/30/19 18:18: WBC 5.3, RBC 4.09 L, Hgb 13.2, Hct 38.3 L, MCV 93.6, MCH 32.3 H, MCHC 34.5, Plt Count 166, MPV 9.2, Immature Gran % (Auto) 0.400, Neut % (Auto) 46.1 L, Lymph % (Auto) 37.4, [place] % (Auto) 12.5 H, Eos % (Auto) 2.5, Baso % (Auto) 1.1 H, Absolute Neuts (auto) 2.4, Nucleated RBC % 0 06/30/19 18:18: Sodium 131 L, Potassium 4.0, Chloride 97 L, Carbon Dioxide 27.0, Anion Gap 7, BUN 13, Creatinine 0.98, Est GFR (MDRD) Af Amer 101, Est GFR (MDRD) Non-Af 84, BUN/Creatinine Ratio 13.3, Glucose 98, Calcium 8.6, Total Bilirubin 0.60, Troponin I < 0.015 06/30/19 18:18: Magnesium 1.5 L 06/30/19 23:45: Troponin I < 0.015 07/01/19 03:02: WBC 4.5, RBC 3.72 L, Hgb 12.1 L, Hct 34.9 L, MCV 93.8, MCH 32.5 H, MCHC 34.7, Plt Count 133 L, MPV 8.6, Immature Gran % (Auto) 0.400, Neut % (Auto) 54.0, Lymph % (Auto) 28.1, [place] % (Auto) 13.0 H, Eos % (Auto) 3.8, Baso % (Auto) 0.7, Absolute Neuts (auto) 2.4, Nucleated RBC % 0 07/01/19 03:02: Sodium 139, Potassium 3.8, Chloride 105, Carbon Dioxide 25.0, Anion Gap 9, BUN 9, Creatinine 0.76, Est GFR (MDRD) Af Amer 136, Est GFR (MDRD) Non-Af 112, BUN/Creatinine Ratio 11.8, Glucose 91, Calcium 7.6 L 07/01/19 03:02: Troponin I < 0.015 Rhythm: EKG: Atrial fibrillation with rapid ventricular response ECHO: Reviewed Stress Test: Reviewed Cardiac Cath: PCI: CT Surgery: Holter monitor: EPS: PPM: CXR: Chest CT Scan: Assessment/Plan 1. Apparently, chronic atrial fibrillation. The patient presents with atrial fibrillation with rapid ventricular response, symptomatic. Amiodarone was started, but without significant effect. May initiate digoxin loading and maintenance: Will give another 0.5 mg, and 0.25 mg in approximately 6 hours, followed by digoxin 0.25 every day. Resume home dose of Cardizem CD. The patient will likely require 2 rate controlling agents, diltiazem and digoxin. Compliance with the current treatment plan was stressed, the patient verbalized understanding. He does not seem to be willing to quit drinking. Not a candidate for anticoagulation Code Visit Inpatient E&M: 03444 Init Hosp L3
--- NOTE | 2019-07-01 09:11 | PN_ITS ---
Patient Problems: Active and Suspected Problems (Last Updated 06/13/19 @ 11:40 by RYAN Sweeney) Atrial fibrillation with rapid ventricular response (Acute) Subjective: Patient is a 59-year-old gentleman with history of chronic alcohol dependence who presented with lightheadedness and dizziness. Patient was found to be in A. fib with RVR started on Cardizem drip and later amiodarone drip and admitted to the intensive care unit for subsequent management 07/01/2019 patient seen still remains tachycardic with heart rates ranging from 140s to 150 also appears significantly tremulous Objective: GENERAL: Tremulous HEENT: Atraumatic; EYES; Anicteric, Normal Conjunctiva NECK; supple, normal thyroid, RESPIRATORY: Diminished to auscultation CARDIOVASCULAR: Irregularly irregular, tachycardic GI: soft, non-tender, normoactive bowel sounds, : No Renal angle tenderness; EXTREMITIES: No edema, no clubbing, MUSCULOSKELETAL: No Joint Tenderness; NEURO: Awake; no lateralizing signs. SKIN: No Rash PSYCH;flat affect Vitals/I&O's: Vital Signs Temp Pulse Resp BP Pulse Ox 97.6 F L 157 H 20 H 92/66 92 07/01/19 03:30 07/01/19 07:00 07/01/19 07:00 07/01/19 07:00 07/01/19 07:00 Oxygen Flow Rate (L/min) 2 Oxygen Delivery Method Nasal Cannula Weight: 107.3 kg Body Mass Index (BMI) 30.9 Intake and Output for Last 24 Hours 06/29/19 06/30/19 07/01/19 23:59 23:59 23:59 Intake Total 382 / 382 1561.7 / 1561.7 Output Total 1550 / 1550 Balance 382 / 382 11.7 / 11.7 Laboratory Results 06/30/19 18:18: WBC 5.3, RBC 4.09 L, Hgb 13.2, Hct 38.3 L, MCV 93.6, MCH 32.3 H, MCHC 34.5, RDW Std Deviation 42.8, RDW Coeff of Kaylen 12.3, Plt Count 166, MPV 9.2, Immature Gran % (Auto) 0.400, Neut % (Auto) 46.1 L, Lymph % (Auto) 37.4, [place] % (Auto) 12.5 H, Eos % (Auto) 2.5, Baso % (Auto) 1.1 H, Absolute Neuts (auto) 2.4, Absolute Lymphs (auto) 1.97, Nucleated RBC % 0 06/30/19 18:18: Sodium 131 L, Potassium 4.0, Chloride 97 L, Carbon Dioxide 27.0, Anion Gap 7, BUN 13, Creatinine 0.98, Estim Creat Clear Calc 93.99, Est GFR (MDRD) Af Amer 101, Est GFR (MDRD) Non-Af 84, BUN/Creatinine Ratio 13.3, Glucose 98, Calcium 8.6, Total Bilirubin 0.60, AST 31, ALT 23, Alkaline Phosphatase 46, Troponin I < 0.015, Total Protein 8.1, Albumin 3.9, Globulin 4.2, Albumin/Globulin Ratio 0.9 06/30/19 18:18: Ethyl Alcohol 416.0 H* 06/30/19 18:18: Magnesium 1.5 L 06/30/19 23:45: Troponin I < 0.015 07/01/19 01:37: Urine Opiates Screen NEGATIVE, Urine Methadone Screen NEGATIVE, Ur Barbiturates Screen NEGATIVE, Ur Phencyclidine Scrn NEGATIVE, Ur Amphetamines Screen NEGATIVE, U Methamphetamin-MDMA NEGATIVE, U Benzodiazepines Scrn NEGATIVE, Urine Cocaine Screen NEGATIVE, U Cannabinoids Screen NEGATIVE, Ur Drug Screen Comment 07/01/19 03:02: WBC 4.5, RBC 3.72 L, Hgb 12.1 L, Hct 34.9 L, MCV 93.8, MCH 32.5 H, MCHC 34.7, RDW Std Deviation 43.0, RDW Coeff of Kaylen 12.4, Plt Count 133 L, MPV 8.6, Immature Gran % (Auto) 0.400, Neut % (Auto) 54.0, Lymph % (Auto) 28.1, [place] % (Auto) 13.0 H, Eos % (Auto) 3.8, Baso % (Auto) 0.7, Absolute Neuts (auto) 2.4, Absolute Lymphs (auto) 1.25, Nucleated RBC % 0 07/01/19 03:02: Sodium 139, Potassium 3.8, Chloride 105, Carbon Dioxide 25.0, Anion Gap 9, BUN 9, Creatinine 0.76, Estim Creat Clear Calc 121.19, Est GFR (MDRD) Af Amer 136, Est GFR (MDRD) Non-Af 112, BUN/Creatinine Ratio 11.8, Glucose 91, Calcium 7.6 L 07/01/19 03:02: Troponin I < 0.015 07/01/19 03:02: TSH 0.46 Current Medications Chlordiazepoxide (Librium) 50 mg PO Q6H [facility]; Taper Stop: 07/04/19 01:19 Last Admin: 07/01/19 05:03 Dose: 50 mg Documented by: Dextrose (D50w Syringe) 0 gm IV X1 PRN; Protocol PRN Reason: Hypoglycemia Digoxin (Lanoxin) 500 mcg IV X1 ONE Stop: 07/01/19 09:06 Digoxin (Lanoxin) 250 mcg IV DAILY [facility] Diltiazem HCl (Cardizem Cd) 360 mg PO DAILY [facility] Enoxaparin Sodium (Lovenox) 100 mg SC Q12 [facility] Last Admin: 06/30/19 23:48 Dose: 100 mg Documented by: Folic Acid (Folic Acid) 1 mg PO DAILY@0800 [facility] Stop: 07/03/19 08:01 Gabapentin (Neurontin) 600 mg PO TID [facility] Last Admin: 07/01/19 05:03 Dose: 600 mg Documented by: Glucagon () 1 mg IM .X1 PRN PRN Reason: Hypoglycemia Sodium Chloride () 250 mls @ 15 mls/hr IV .[id number] PRN PRN Reason: SALINE FLUSH Diltiazem HCl 125 mg/ Dextrose 125 mls @ 5 mls/hr CONT INF .Q25H [facility] Lisinopril (Zestril) 20 mg PO DAILY [facility] Lorazepam (Ativan) 1 mg PO Q6H PRN PRN PRN Reason: AGITATION Lorazepam (Ativan) 2 mg PO Q2H PRN PRN; Protocol PRN Reason: CIWA score > 8 but <15 Lorazepam (Ativan) 2 mg PO UD PRN; Protocol PRN Reason: CIWA score >/=15. Lorazepam (Ativan) 2 mg IV Q2H PRN PRN; Protocol PRN Reason: CIWA score > 8 but <15 Lorazepam (Ativan) 2 mg IV UD PRN; Protocol PRN Reason: CIWA score >/=15. Multivit[facility] ([facility]itamin) [facility] Multivitamins/Minerals (Multivitamin With Minerals) 1 tablet PO DAILYCM [facility] Ondansetron HCl (Zofran) 4 mg IV Q8H PRN PRN PRN Reason: NAUSEA/VOMITING Pantoprazole Sodium (Protonix) 20 mg PO DAILY [facility] Paroxetine HCl (Paxil) 20 mg PO DAILY [facility] Sodium Chloride () 10 - 40 ml IV UD PRN PRN Reason: SALINE FLUSH Last Admin: 07/01/19 04:41 Dose: 20 ml Documented by: Thiamine HCl (Vitamin B1) 100 mg PO BIDCM [facility] Stop: 07/03/19 17:01 Medical Necessity - Tobacco Use Smoking Status: Never smoker Assessment/Plan All Active Problems (Last Updated 06/13/19 @ 11:40 by RYAN Sweeney) Atrial fibrillation with rapid ventricular response (Acute) Delirium tremens (Resolved) Alcohol withdrawal (Acute) Patient is a 59-year-old gentleman with history of chronic alcohol dependence who presented with lightheadedness and dizziness. Patient was found to be in A. fib with RVR started on Cardizem drip and later amiodarone drip and admitted to the intensive care unit for subsequent management 1. Paroxysmal A. fib with RVR admitted to intensive care unit currently on Cardizem drip in addition to amiodarone patient was placed on therapeutic Lovenox consult placed to cardiology 2. Acute alcohol withdrawal patient currently being managed with alcohol withdrawal CIWA protocol 3. Hypomagnesemia corrected per protocol 4. Hypertension-blood pressure controlled, home medications continued with dose adjustment as needed 5. Hyponatremia secondary to patient's alcohol use on fluids with monitoring of electrolyte 6. DVT prophylaxis SC Lovenox Code Visit Inpatient E&M: 59227 Subs Hosp L3
--- NOTE | 2019-07-01 09:27 | CASEMGMT ---
RN CM Assessment Presentation: Afib, RVR. ETOH abuse History Intro role of CM and purpose of RN CM assessment to patient. Pt is anxioux, tremoring, but able to participate. Demographics, PCP and Pharmacy verified. Pt states he is independent, but occasionally has difficulty walking. RN CM inquired as to reason, but pt did not elaborate. Interview abbreviated as pt is not feeling well. Pt states he plans to return home on discharge. PCP: Dr. Fernandez Preferred [facility]acy: [facility] Prescription Benefit: yes LNOK: Tracy Sprague Living Arrangements: Lives with independently. Denies any care needs, denies DME use. Transportation: drives DME: nonoe HHC: none SW Consult: ETOH abuse Patient DC goals: Home on discharge DC PLAN: anticipate Home on discharge. Will continue to follow, SW evaluation pending. Oc BRITO RN ACM
[2019-07-01] MEDS: Thiamine Hydrochloride 100 MG Tablet PO ×2 (09:39→16:45)
[2019-07-01] MEDS: Multivitamins,Therapeutic Tablet 1 TABLET PO (09:39)
[2019-07-01] MEDS: Folic Acid 1 MG Tablet PO (09:39)
[2019-07-01] MEDS: Lisinopril 20 MG Tablet PO (09:40)
[2019-07-01] MEDS: Digoxin 250 MCG/ML Ampul 500 MCG IV (09:40)
[2019-07-01] MEDS: Paroxetine 20 MG Tablet PO (09:40)
[2019-07-01] MEDS: Pantoprazole Sodium 20 MG Tablet PO (09:40)
[2019-07-01] MEDS: Enoxaparin 100 MG/ML Syringe SC ×2 (09:40→22:05)
[2019-07-01] MEDS: LORazepam 1 MG Tablet PO (09:41)
[2019-07-01] MEDS: dilTIAZem CD 180 MG Capsule 360 MG PO (10:45)
[2019-07-01] MEDS: LORazepam 1 MG Tablet 2 MG PO ×4 (11:47→19:53)
--- NOTE | 2019-07-01 17:00 | CASEMGMT ---
SOCIAL WORK DISCUSSED CASE WITH PATIENT'S NURSE. RECOMMEND FOLLOW UP FOR HX OF SUBSTANCE ABUSE-ALCOHOL ON WEDNESDAY. ALVARO MAYS, ENVIRONMENTAL ENGINEERING PROFESSOR, SENIOR SVP.
[2019-07-02] VITALS (23 sets, daily range): BP systolic 100–152; BP diastolic 49–101; PULSE 85–121; RESP 16–21; TEMP 36.4–36.9; O2SAT 91–99
[2019-07-02] MEDS: chlordiazePOXIDE 25 MG Capsule PO ×3 (02:21→17:32)
[2019-07-02] MEDS: Gabapentin 600 MG Tablet PO ×3 (06:25→21:06)
--- NOTE | 2019-07-02 07:23 | PCM.PN.HOSP ---
Patient Problems: Active and Suspected Problems (Last Updated 06/13/19 @ 11:40 by RYAN Sweeney) Atrial fibrillation with rapid ventricular response (Acute) Subjective: Patient is a 59-year-old gentleman with history of chronic alcohol dependence who presented with lightheadedness and dizziness. Patient was found to be in A. fib with RVR started on Cardizem drip and later amiodarone drip and admitted to the intensive care unit for subsequent management Patient was started on amiodarone drip however heart rate did not improve. Case was discussed with cardiology amiodarone was discontinued patient started on dig. Converted to sinus rhythm on the morning of 07/02/2019. Plan is for patient to be transferred from ICU to PCU. Patient still remains tremulous but less anxious compared to the previous day Objective: GENERAL: Tremulous HEENT: Atraumatic; EYES; Anicteric, Normal Conjunctiva NECK; supple, normal thyroid, RESPIRATORY: Diminished to auscultation CARDIOVASCULAR: Regular S1-S2, rate controlled GI: soft, non-tender, normoactive bowel sounds, : No Renal angle tenderness; EXTREMITIES: No edema, no clubbing, MUSCULOSKELETAL: No Joint Tenderness; NEURO: Awake; no lateralizing signs. SKIN: No Rash PSYCH;flat affect Vitals/I&O's: Vital Signs Temp Pulse Resp BP Pulse Ox 98.2 F 96 21 H 122/85 H 99 07/02/19 00:00 07/02/19 06:00 07/02/19 06:00 07/02/19 06:00 07/02/19 06:00 Oxygen Flow Rate (L/min) 2 Oxygen Delivery Method Room Air Weight: 106.5 kg Body Mass Index (BMI) 30.9 Intake and Output for Last 24 Hours 06/30/19 07/01/19 07/02/19 23:59 23:59 23:59 Intake Total 382 / 382 2352.7 / 3182.7 830 / 830 Output Total 3800 / 4600 800 / 800 Balance 382 / 382 -1447.3 / -1417.3 Current Medications Chlordiazepoxide (Librium) 50 mg PO Q8H SMITHA; Taper Stop: 07/04/19 01:19 Last Admin: 07/02/19 02:21 Dose: 50 mg Documented by: Dextrose (D50w Syringe) 0 gm IV X1 PRN; Protocol PRN Reason: Hypoglycemia Digoxin (Lanoxin) 250 mcg IV DAILY [facility] Last Admin: 07/01/19 16:44 Dose: 250 mcg Documented by: Diltiazem HCl (Cardizem Cd) 360 mg PO DAILY [facility] Last Admin: 07/01/19 10:45 Dose: 360 mg Documented by: Enoxaparin Sodium (Lovenox) 100 mg SC Q12 [facility] Last Admin: 07/01/19 22:05 Dose: 100 mg Documented by: Folic Acid (Folic Acid) 1 mg PO DAILY@0800 [facility] Stop: 07/03/19 08:01 Last Admin: 07/01/19 09:39 Dose: 1 mg Documented by: Gabapentin (Neurontin) 600 mg PO TID [facility] Last Admin: 07/02/19 06:25 Dose: 600 mg Documented by: Glucagon () 1 mg IM .X1 PRN PRN Reason: Hypoglycemia Sodium Chloride () 250 mls @ 15 mls/hr IV .[id number] PRN PRN Reason: SALINE FLUSH Diltiazem HCl 125 mg/ Dextrose 125 mls @ 5 mls/hr CONT INF .Q25H [facility] Last Admin: 07/02/19 03:12 Dose: 5 mls/hr Documented by: Lisinopril (Zestril) 20 mg PO DAILY [facility] Last Admin: 07/01/19 09:40 Dose: 20 mg Documented by: Lorazepam (Ativan) 1 mg PO Q6H PRN PRN PRN Reason: AGITATION Last Admin: 07/01/19 09:41 Dose: 1 mg Documented by: Lorazepam (Ativan) 2 mg PO Q2H PRN PRN; Protocol PRN Reason: CIWA score > 8 but <15 Last Admin: 07/01/19 19:53 Dose: 2 mg Documented by: Lorazepam (Ativan) 2 mg PO UD PRN; Protocol PRN Reason: CIWA score >/=15. Lorazepam (Ativan) 2 mg IV Q2H PRN PRN; Protocol PRN Reason: CIWA score > 8 but <15 Lorazepam (Ativan) 2 mg IV UD PRN; Protocol PRN Reason: CIWA score >/=15. [facility]it[facility]amin) [facility] Last Admin: 07/01/19 09:39 Dose: 1 tablet Documented by: Multivitamins/Minerals (Multivitamin With Minerals) [facility] Last Admin: 07/01/19 09:39 Dose: Not Given Documented by: Ondansetron HCl (Zofran) 4 mg IV Q8H PRN PRN PRN Reason: NAUSEA/VOMITING Pantoprazole Sodium (Protonix) 20 mg PO DAILY [facility] Last Admin: 07/01/19 09:40 Dose: 20 mg Documented by: Paroxetine HCl (Paxil) 20 mg PO DAILY [facility] Last Admin: 07/01/19 09:40 Dose: 20 mg Documented by: Sodium Chloride () 10 - 40 ml IV UD PRN PRN Reason: SALINE FLUSH Last Admin: 07/01/19 04:41 Dose: 20 ml Documented by: Thiamine HCl (Vitamin B1) [facility] Stop: 07/03/19 17:01 Last Admin: 07/01/19 16:45 Dose: 100 mg Documented by: Medical Necessity - Tobacco Use Smoking Status: Never smoker Assessment/Plan All Active Problems (Last Updated 06/13/19 @ 11:40 by RYAN Sweeney) Atrial fibrillation with rapid ventricular response (Acute) Delirium tremens (Resolved) Alcohol withdrawal (Acute) Patient is a 59-year-old gentleman with history of chronic alcohol dependence who presented with lightheadedness and dizziness. Patient was found to be in A. fib with RVR started on Cardizem drip and later amiodarone drip and admitted to the intensive care unit for subsequent management 1. Paroxysmal A. fib with RVR admitted to intensive care unit currently on Cardizem drip in addition to amiodarone patient was placed on therapeutic Lovenox consult placed to cardiology at amiodarone was discontinued on 07/01/2019 patient started on Cardizem. Converted back to sinus rhythm on the morning of 07/02/2019. 2. Acute alcohol withdrawal patient currently being managed with alcohol withdrawal CIWA protocol patient was counseled on cessation. 3. Hypomagnesemia corrected per protocol 4. Hypertension-blood pressure controlled, home medications continued with dose adjustment as needed 5. Hyponatremia secondary to patient's alcohol use on fluids with monitoring of electrolyte the patient sodium back to within normal limits 6. Anxiety disorder 7. DVT prophylaxis SC Lovenox Clinical Impression(s) from Imaging Studies Chest X-Ray 06/30/19 18:40 IMPRESSION: No acute cardiopulmonary pathology Electronically Signed: Ming Arciniega MD at 20:30 EDT , Service support , Code Visit Inpatient E&M: 49562 Subs Hosp L2
[2019-07-02] MEDS: Multivitamins,Ther W-Minerals Tablet 1 TABLET PO (08:28)
[2019-07-02] MEDS: Folic Acid 1 MG Tablet PO (08:28)
[2019-07-02] MEDS: Thiamine Hydrochloride 100 MG Tablet PO ×2 (08:29→17:41)
[2019-07-02] MEDS: Multivitamins,Therapeutic Tablet 1 TABLET PO (08:29)
[2019-07-02] MEDS: dilTIAZem CD 180 MG Capsule 360 MG PO (08:29)
[2019-07-02] MEDS: Digoxin 250 MCG/ML Ampul IV (08:30)
[2019-07-02] MEDS: Enoxaparin 100 MG/ML Syringe SC (08:30)
[2019-07-02] MEDS: Paroxetine 20 MG Tablet PO (08:31)
[2019-07-02] MEDS: Lisinopril 20 MG Tablet PO (08:31)
[2019-07-02] MEDS: Pantoprazole Sodium 20 MG Tablet PO (08:33)
--- NOTE | 2019-07-02 11:05 | PCM.PN.CARD ---
Subjectve: Reports some tremors, denies palpitations. Conversion to normal sinus rhythm last night. Now, in sinus tachycardia Objective: Vital Signs Temp Pulse Resp BP Pulse Ox 98.2 F 110 H 16 128/89 H 96 07/02/19 00:00 07/02/19 08:30 07/02/19 08:00 07/02/19 08:00 07/02/19 08:00 Oxygen Flow Rate (L/min) 2 Oxygen Delivery Method Room Air Weight: 106.5 kg Body Mass Index (BMI) 30.9 Intake and Output for Last 24 Hours 06/30/19 07/01/19 07/02/19 23:59 23:59 23:59 Intake Total 382 / 382 2352.7 / 3182.7 830 / 830 Output Total 3800 / 4600 800 / 800 Balance 382 / 382 -1447.3 / -1417.3 General: Awake, Alert, Oriented x 3 HEENT: PERRL, EOMI, Sclera Non Icteric Neck: Supple, Good ROM, No Lymph Node Enlargement Lungs: Clear to auscultation Cardiovascular: Regular Rhythm, Normal S1, Normal S2, No Murmurs, No Rubs, No Gallops Vascular: No Carotid Bruits, Normal Femoral Pulses, Normal Radial Pulses, Normal Dorsalis Pedal Pulse, Normal Posterior Tibial Pulses Abdomen: Bowel Sounds Present, Soft, Non Tender, No HSM, No Organomegaly Extremities: No Cyanosis, No Clubbing, No edema Neurological: No Focal Motor or Sensory Deficit Medical Necessity - Tobacco Use Smoking Status: Never smoker Assessment/Plan 1. Paroxysmal atrial fibrillation. The patient is in normal sinus rhythm/sinus tachycardia. Continue current dose of Cardizem CD. We will stop digoxin. We will sign off. Outpatient follow-up with cardiology. Code Visit Inpatient E&M: 78307 Subs Hosp L2
--- NOTE | 2019-07-02 21:07 | NURSING ---
PATIENT TRANSFERRED TO PCU AT 07/02
[2019-07-03] VITALS (8 sets, daily range): BP systolic 123–150; BP diastolic 81–97; PULSE 71–98; RESP 16–18; TEMP 36.4–36.7; O2SAT 93–95
[2019-07-03] MEDS: chlordiazePOXIDE 25 MG Capsule PO ×2 (01:28→12:27)
[2019-07-03] MEDS: Gabapentin 600 MG Tablet PO ×3 (05:33→21:53)
[2019-07-03] MEDS: Folic Acid 1 MG Tablet PO (08:22)
[2019-07-03] MEDS: Thiamine Hydrochloride 100 MG Tablet PO ×2 (08:22→16:48)
[2019-07-03] MEDS: dilTIAZem CD 180 MG Capsule 360 MG PO (08:23)
[2019-07-03] MEDS: Paroxetine 20 MG Tablet PO (08:23)
[2019-07-03] MEDS: Lisinopril 20 MG Tablet PO (08:23)
[2019-07-03] MEDS: Multivitamins,Ther W-Minerals Tablet 1 TABLET PO ×3 (08:23→08:24)
[2019-07-03] MEDS: Multivitamins,Therapeutic Tablet 1 TABLET PO (08:24)
[2019-07-03] MEDS: Aspirin 81 MG TAB.CHEW PO (08:25)
--- NOTE | 2019-07-03 09:50 | PN_ITS ---
Patient Problems: Active and Suspected Problems (Last Updated 06/13/19 @ 11:40 by RYAN Sweeney) Atrial fibrillation with rapid ventricular response (Acute) Subjective: The patient is a 59-year-old male with a past medical hypertension, PAF and alcohol dependence who presented to the ED at [facility] on 06/30/2019 complaining of dizziness/lightheadedness associated with nausea. EKG in the emergency department showed atrial fibrillation with rapid ventricular response. Troponin was within normal limits. Chest x-ray showed no acute cardiopulmonary pathology. Sodium was low at 131 and CBC was unremarkable. Alcohol level at admission was 419. He related that he usually requires admission to the ICU for alcohol withdrawal and has been intubated. He has been through detox. Heart rate was not significantly improved after a Cardizem bolus and he was started on a continuous Cardizem infusion. A Librium taper was ordered for acute alcohol withdrawal. Cardiology was consulted to participate in management. Echocardiogram in February 2019 showed an ejection fraction of 60% with impaired diastolic function and a mildly enlarged left atrium. A stress test in the past was negative. He was started on amiodarone with no significant improvement. He was loaded with digoxin and home dose of Cardizem CD was continued. He was transferred to PCU from the ICU on 07/02/19. He had converted to NSR on 07/02/19. Digoxin was discontinued. Afebrile since admission Vital signs are stable He is 94 to 95% saturated on room air. The heart rate is within normal limits. All lab was personally reviewed. Platelets are mildly decreased at 133,000 and his hemoglobin is 12.1, down from 13.2 to admission with hydration. Hyponatremia resolved with hydration and the sodium was 139 on 07/01/2019. Magnesium was low at 1.5 and he was given supplementation. Serial cardiac enzymes were negative. TSH was 0.46. Magnesium is low at 1.4 today. Free T4 0.88. Phosphorus is normal at 3.3. He is still very tremulous. He has been to AA and also to inpt detox. Has also had psychiatric admissions. Admits to being depressed. counselling does not help. Does not like AA because they do not understand his body. His has been incarcerated in the past and she is now following up at [facility] for alcoholism. He thinks that he is going to be able to stop drinking by himself.....states he has been cutting down But, alcohol level at admission was 411.....more than 2 tall boys. - Physical Exam General: Alert, Oriented x3, Cooperative, - - he is very tremulous, no hallucinations HEENT: Atraumatic, PERRLA, EOMI, Normocephalic Oral: Dry Mucosa Neck: No JVD Lungs: Clear to auscultation, No rhonchi, No wheeze, No rales Cardiovascular: Regular Rhythm, Normal S1, Normal S2, No murmurs, No rub noted, No Gallop, Tachycardic Abdomen: Bowel Sounds Present, Soft, Non Tender, Non-Distended Extremities: No clubbing, No cyanosis, No edema Skin: No rashes Neurological: Cranial nerves II-XII grossly intact, Neuro grossly intact Psych/Mental Status: Normal Affect, Appropriate Vital Signs Temp Pulse Resp BP Pulse Ox 98.1 F 98 18 123/97 H 94 07/03/19 08:17 07/03/19 08:17 07/03/19 08:17 07/03/19 08:17 07/03/19 08:17 Oxygen Flow Rate (L/min) 2 Oxygen Delivery Method Room Air Weight: 234 lb 5.622 oz Body Mass Index (BMI) 30.9 Intake and Output for Last 24 Hours 07/01/19 07/02/19 07/03/19 23:59 23:59 23:59 Intake Total 2352.7 / 3182.7 2230 / 2230 440 / 440 Output Total 3800 / 4600 2200 / 2200 Balance -1447.3 / -1417.3 440 / 440 Medical Necessity - Tobacco Use Smoking Status: Never smoker Assessment/Plan All Active Problems (Last Updated 06/13/19 @ 11:40 by RYAN Sweeney) Atrial fibrillation with rapid ventricular response (Acute) Delirium tremens (Resolved) Alcohol withdrawal (Acute) Impressions 1. AF with RVR....has converted to NSR/ST with no ectopy in the past 24 H. 2. Acute alcohol withdrawal 3. Alcohol dependence-currently on a Librium taper. Librium taper will conclude on 07/04/2019 in the early a.m. He is also getting 3 beers a day with meals. 4. Hypomagnesemia 5. Hypertension 6. Depression-on Paxil 7. pain in the legs on gabapentin I have little hope that he will be able to quit drinking on his own but, he is adamant that counselling and AA do not work for him. probable DC in the AM. Supplement magnesium Check urine electrolytes and urine creatinine...... to determine appropriate treatment for hyponatremia. Continue diltiazem Continue lisinopril Continue to urge him to consider [facility] at discharge
[2019-07-03 10:35] LABS: Hematocrit 39.5 % (40-54); Hemoglobin 13.9 g/dL (13.0-16.5); Mean Corp Hgb Conc 35.2 g/dL (32-36); Mean Corpuscular Hgb 32.9 pg (27.0-32.0); Mean Corpuscular Volume 93.6 fL (80-94); Mean Platelet Vol. 9.3 fl (6.2-12.0); Platelet Count 145 K/mm3 (150-450); RBC Distribution Width CV 11.9 % (11.6-14.6); RBC Distribution Width SD 41.5 fl (35.1-43.9); Red Blood Count 4.22 M/mm3 (4.6-6.2)
[2019-07-03 10:51] LABS: Anion Gap 5 (5-15); BUN 11 mg/dL (7-18); BUN/Creat Ratio 12.4 RATIO (10-20); Calcium,Total 9.5 mg/dL (8.5-10.1); Chloride 98 mmol/L (98-107); Creatinine, Serum 0.89 mg/dL (0.70-1.30); EST Glomerular Filtration Rate 94 mL/min (>60); Est Glom Filt Rate - Afr Amer 113 mL/min (>60); Estimated Creatinine Clearance 103.49 ml/min; Glucose 96 mg/dL (74-106); Magnesium 1.4 mg/dL (1.6-2.6); Phosphorus 3.3 mg/dL (2.5-4.9); Sodium Level 131 mmol/L (136-145); T4 Free Direct 0.88 ng/dL (0.76-1.46)
[2019-07-03] MEDS: Magnesium Sulfate 4gm/100mL 4 GM/100 ML IV.SOLN. IV (12:26)
--- NOTE | 2019-07-03 12:27 | CASEMGMT ---
SW met with patient, introduced self and role at [facility]. SW spoke with patient about his ETOH consumption and if he would like resources to help him quit drinking. He was hesitant, but did agree to taking information. SW gave patient a packet with community resources. Livier MAGUIRE MSW
[2019-07-03 15:29] LABS: Urine Chloride 103 mmol/L (Not Establ.); Urine Sodium 91 mmol/L (Not Establ.)
[2019-07-04 02:06] VITALS: BP 137/94; PULSE 93; RESP 16; TEMP 36.4; O2SAT 96
[2019-07-04] MEDS: Gabapentin 600 MG Tablet PO ×2 (05:50→12:46)
[2019-07-04 07:37] VITALS: BP 115/68; PULSE 67; RESP 16; TEMP 36.4; O2SAT 99
[2019-07-04] MEDS: Lisinopril 20 MG Tablet PO (07:41)
[2019-07-04] MEDS: Magnesium Oxide 400 MG Tablet PO (07:41)
[2019-07-04] MEDS: dilTIAZem CD 180 MG Capsule 360 MG PO (07:41)
[2019-07-04] MEDS: Aspirin 81 MG TAB.CHEW PO (07:41)
[2019-07-04] MEDS: Multivitamins,Ther W-Minerals Tablet 1 TABLET PO (07:42)
[2019-07-04] MEDS: Paroxetine 20 MG Tablet PO (07:43)
[2019-07-04] MEDS: Pantoprazole Sodium 20 MG Tablet PO (07:44)
[2019-07-04 09:41] VITALS: PULSE 70
[2019-07-04 15:24] VITALS: BP 115/83; PULSE 72; PULSE 80; RESP 16; TEMP 36.9; O2SAT 94
--- NOTE | 2019-07-04 16:09 | PCM.DC ---
- Discharge Diagnoses Current Active Problems: Current Active and Chronic Problems (Last Updated 06/13/19 @ 11:40 by RYAN Sweeney) Atrial fibrillation with rapid ventricular response (Acute) Acute alcohol withdrawal Hypomagnesemia You will use the following diet at home:: Cardiac Your food should be the consistency of: Regular Your liquids should be the consistency of: Regular/Thin Discharge Activity: Return to Normal Activity Call your doctor if you observe: Fever of 101 or Higher, Shortness of breath, Dizziness, Fainting spells, Swelling in the ankles, Chest pain Instructions: Disulfiram Oral tablet Additional Instructions: I am giving you a prescription for antabuse. You should take this medication every morning. If you drink while on antabuse you will get very sick...this medication is designed to keep you from drinking. It will not work if you don't take the pill because you want to drink. Take it every day. I am giving you a handout on what will happen if you drink while you are taking the Antabuse. Pending Tests on Discharge: none Allergies/Adverse Reactions: Allergies No Known Allergies Allergy (Verified 06/30/19 18:18) Medications to take at Discharge Lisinopril 20 mg PO DAILY 03/16/19 Aspirin [Aspirin, Baby] 81 mg PO DAILY@0800 #30 tab.chew 04/09/19 gabapentin 600 mg tablet 600 mg PO TID PRN tab 05/11/19 diltiazem CD 360 mg capsule,extended release 24 hr 360 mg PO DAILY #30 cap 06/13/19 Omeprazole [Prilosec] 20 mg PO DAILY #30 cap 06/23/19 Paroxetine HCl 20 mg PO DAILY 06/23/19 Disulfiram [Antabuse] 250 mg PO DAILY #40 tab 07/04/19 Magnesium Oxide [Mag-Ox 400] 400 mg PO DAILYCM #30 tab 07/04/19 The following prescriptions were given: Disulfiram [Antabuse] 250 mg PO DAILY #40 tab Transmission Status: Pending to [facility] Magnesium Oxide [Mag-Ox 400] 400 mg PO DAILYCM #30 tab Transmission Status: Pending to [facility] Primary Care Physician: Moriah Fernandez MD [Primary Care Provider] - Please follow up with your Primary Care Physician in: 1 week Test Results: Test results from this visit will be discussed in further detail at your follow-up appointment, if applicable. Proposed Discharge Date: 07/04/19
--- NOTE | 2019-07-04 16:23 | DS.PCM_ITS ---
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 Toussaint [facility] Operations: None Procedures: None Summary of Care Provided: The patient is a 59-year-old male with a past medical history of hypertension, PAF and alcohol dependence who presented to the ED at [facility] on 06/30/2019 complaining of dizziness/lightheadedness associated with nausea. EKG in the emergency department showed atrial fibrillation with rapid ventricular response. Troponin was within normal limits. Chest x-ray showed no acute cardiopulmonary pathology. Sodium was low at 131 and CBC was unremarkable. Alcohol level at admission was 419. He related that he usually requires admission to the ICU for alcohol withdrawal and had been intubated in the past. He stated that he had been cutting back on alcohol consumption for the previous few months. Heart rate was not significantly improved after a Cardizem bolus in the ED and he was started on a continuous Cardizem infusion and admitted to ICU. A Librium taper was ordered for acute alcohol withdrawal. Cardiology was consulted to participate in management. Echocardiogram in February 2019 showed an ejection fraction of 60% with impaired diastolic function and a mildly enlarged left atrium. A stress test in the past was negative. IV cardizem was not controlling the HR and he was started on amiodarone with no significant improvement. He was loaded with digoxin on the advice of Dr. Toussaint and the home dose of Cardizem CD was continued. He converted to NSR on 07/02/19 and was transferred to PCU from the ICU on 07/02/19. Digoxin was discontinued. He has been through detox in the past and has had admissions to a psychiatric facility for hallucinations. He did not find counselling or AA helpful and declined to consider an inpt program or OP program at discharge. He felt that he had a lot of will power and could quit drinking on his own. His significant other is also an alcoholic and she is going to [facility] for help to stop drinking. He was agreeable to trying Antabuse and was given a prescription at the time of discharge. At the time of DC he was in NSR with tana PVC's. Mag was low and he received a IV supplement and started on Mag Ox 400 mg daily. BP was well controlled and tremors were minimal. He was instructed to follow-up with Dr. Cali in 1 week. PHYSICAL EXAM: GENERAL: alert, oriented X 3, Cooperative, NAD, minimal tremors of the hands ORAL: moist mucosa, no mucosal lesions NECK: No JVD, supple, trachea midline LUNGS: CTA, symmetric chest expansion HEART: RRR, Normal S1 and S2, no rub, no gallop ABDOMEN: soft, NT, ND, BS present, no guarding with palpation EXTREMITIES: no edema, no cyanosis, no calf tenderness SKIN: No rashes, no breakdown NEUROLOGIC: no focal neurologic deficits PSYCH: appropriate, normal affect, pleasant This note was generated with [employer] dictation software. It may contain incorrect words, spelling, and punctuation that were not noted in checking the note before signing. Patient Problems: Active and Suspected Problems (Last Updated 07/04/19 @ 16:18 by Merle Victor DO) Hypomagnesemia (Acute) - Physical Exam Vital Signs Temp Pulse Resp BP Pulse Ox 98.4 F 80 16 115/83 H 94 07/04/19 15:24 07/04/19 15:24 07/04/19 15:24 07/04/19 15:24 07/04/19 15:24 Oxygen Flow Rate (L/min) 2 Oxygen Delivery Method Room Air Weight: 235 lb 3.732 oz Body Mass Index (BMI) 30.9 Intake and Output for Last 24 Hours 07/02/19 07/03/19 07/04/19 23:59 23:59 23:59 Intake Total 2230 / 2230 2540 / 2540 300 / 300 Output Total 2200 / 2200 650 / 650 Balance 2540 / 2540 -350 / -350 Discharge Activity: Return to Normal Activity Call your doctor if you observe: Fever of 101 or Higher, Shortness of breath, Dizziness, Fainting spells, Swelling in the ankles, Chest pain Home Medications: Medications to take at Discharge Lisinopril 20 mg PO DAILY 03/16/19 Aspirin [Aspirin, Baby] 81 mg PO DAILY@0800 #30 tab.chew 04/09/19 gabapentin 600 mg tablet 600 mg PO TID PRN tab 05/11/19 diltiazem CD 360 mg capsule,extended release 24 hr 360 mg PO DAILY #30 cap 06/13/19 Omeprazole [Prilosec] 20 mg PO DAILY #30 cap 06/23/19 Paroxetine HCl 20 mg PO DAILY 06/23/19 Disulfiram [Antabuse] 250 mg PO DAILY #40 tab 07/04/19 Magnesium Oxide [Mag-Ox 400] 400 mg PO DAILYCM #30 tab 07/04/19 Following Prescrptions Were Given to Patient: Disulfiram [Antabuse] 250 mg PO DAILY #40 tab Transmission Status: Received by [facility] #30 Magnesium Oxide [Mag-Ox 400] 400 mg PO DAILYCM #30 tab Transmission Status: Received by [facility]30 Primary Care Physician: Moriah Fernandez MD [Primary Care Provider] - Please follow up with your Primary Care Physician in: 1 week Patient Instructions: Disulfiram Oral tablet Disposition: Home Minutes spent on discharge:: 30 Patient Condition:: Stable Medical Necessity - Tobacco Use Smoking Status: Never smoker Tobacco Use: Non-smoker Meaningful Use Info Meaningful Use Diagnoses (Choose all that apply): None applicable Code Visit Inpatient E&M: 50873 Disch Hosp
--- NOTE | 2019-07-05 13:47 | CASEMGMT ---
JESSE CM DC PHONE CALL DC DATE: 07.04.19 DC Disposition: Home Diagnosis on Discharge: Hypomagnesiemia LACE/STRATA: 09/18 No answer to call, no message machine slate picker. Oc RODRIGUEZN RN ACM
== END 2019-07-04 17:25 | disposition home or self-care (01) | DRG 201 ==
LOC: ED 21:26 → ICU 07-01 03:14 → PCU 07-03 06:35 → ICU 07-03 13:59 → PCU 07-03 13:59
PROVIDERS: Admitting Provider Student in an Organized Health Care Education/Training Program; Emergency Provider Emergency Medicine; Family Provider Internal Medicine; PCP Internal Medicine; Visit Provider Internal Medicine
DX: I48.2 Chronic atrial fibrillation (principal); F10.239 Alcohol dependence with withdrawal, unspecified; E83.42 Hypomagnesemia; Y90.8 Blood alcohol level of 240 mg/100 ml or more; E87.1 Hypo-osmolality and hyponatremia; I10 Essential (primary) hypertension; F41.9 Anxiety disorder, unspecified; H54.8 Legal blindness, as defined in USA
CPT/HCPCS: 36415; 71045; 80048; 80053; 80307; 80320; 82436; 82570; 83735; 84100; 84133; 84300; 84439; 84443; 84484; 85025; 85027; 93005; 97162; 97165; 97530; 97802; 99285; J7030; J7040; A4216; G0480

== ENCOUNTER 2019-07-06 20:43 | Inpatient (IN) | payer MEDICAID, SELFPAY ==
[2019-07-05 14:35] VITALS: BMI 31.8
[2019-07-06] VITALS (8 sets, daily range): BP systolic 79–115; BP diastolic 47–80; PULSE 127–133; RESP 15–19; TEMP 36.4–36.6; O2SAT 94–97; BMI 33.3; BMI 32.1; BMI 32.2
--- NOTE | 2019-07-06 20:57 | CT_ITS ---
STUDY: CT BRAIN WITHOUT CONTRAST REASON FOR EXAM: Male, 59 years old. Unsteady gait. Alcohol intoxication. RADIATION DOSAGE (If Supplied By Facility): CTDIvol = ( 44.99 ) mGy, DLP = ( 880.47 ) mGycm TECHNIQUE: Transaxial CT imaging of the brain was performed without administration of intravenous contrast material. Individualized dose optimization techniques were used for this CT. COMPARISON: 03/08/2019 FINDINGS: Normal soft tissue structures. Normal calvarium. There is mild cerebral atrophy with widening of the extra-axial spaces and ventricular dilatation. Normal white matter tracts of the cerebral hemispheres. Normal basal ganglia and thalami. Normal brainstem. There is mild cerebellar atrophy. There is no intracranial hemorrhage. There are no findings of an acute ischemic infarction. Normal visualized paranasal sinuses. Small foci of air in the bilateral cavernous sinuses are most likely related to air in an IV site. CT/Brain/Head without Contrast IMPRESSION: No change and no acute abnormality. Atrophy, greater than typically seen for age but not uncommon in patient's with alcohol abuse. Electronically Signed: Yong Rose MD at 21:31 EDT , Service support ,
--- NOTE | 2019-07-06 20:57 | EKG12_ITS ---
Test Reason : AM Blood Pressure : / mmHG Vent. Rate : 116 BPM Atrial Rate : 256 BPM P-R Int : 000 ms QRS Dur : 124 ms QT Int : 352 ms P-R-T Axes : 000 040 045 degrees QTc Int : 489 ms Atrial flutter with variable A-V block Non-specific intra-ventricular conduction delay Abnormal ECG Confirmed by ELLIOT IBRAHIM, ALONZO ([id number]), assignment desk editor BRITTNEY GUZMÁN ([id number]) on 07/12/2019 12:57:18 PM Referred By: Artis Garvey Confirmed By:ALONZO ZARATE MD
[2019-07-06] MEDS: 0.9% Normal Saline 1,000 ML 150 ML IV (21:10)
[2019-07-06] MEDS: Ondansetron 4 MG/2 ML Vial IV (21:10)
--- NOTE | 2019-07-06 21:15 | ED.RN ---
dr marcial notified of + orthos
[2019-07-06 21:19] LABS: Absolute Lymphocyte Count 2.05 X10^3/uL (0.83-4.51); Absolute Neutrophil Count 3.5 X10^3/uL (2.0-7.7); Basophil# 0.07 X10^3/uL; Eosinophil# 0.36 X10^3/uL; Eosinophils% 4.9 % (0-5); Hematocrit 36.9 % (40-54); Hemoglobin 12.8 g/dL (13.0-16.5); Lymphocyte # 2.05 X10^3/ul (4.0); Mean Corp Hgb Conc 34.7 g/dL (32-36); Mean Corpuscular Hgb 33.2 pg (27.0-32.0); Mean Corpuscular Volume 95.8 fL (80-94); Mean Platelet Vol. 9.1 fl (6.2-12.0); Monocyte# 1.24 X10^3/uL; Monocyte% 16.9 % (0-10); NRBC Flagged by Analyzer 0 % (0-5); Neutrophil # 3.54 X10^3/uL (2.7-7.7); Neutrophil % 48.4 % (47-70); Platelet Count 176 K/mm3 (150-450); RBC Distribution Width CV 12.5 % (11.6-14.6); RBC Distribution Width SD 43.8 fl (35.1-43.9); Red Blood Count 3.85 M/mm3 (4.6-6.2); White Blood Count 7.3 K/mm3 (4.4-11.0)
[2019-07-06 21:39] LABS: Anion Gap 6 (5-15); BUN 14 mg/dL (7-18); BUN/Creat Ratio 17.7 RATIO (10-20); Calcium,Total 9.2 mg/dL (8.5-10.1); Chloride 97 mmol/L (98-107); Creatinine, Serum 0.79 mg/dL (0.70-1.30); EST Glomerular Filtration Rate 107 mL/min (>60); Est Glom Filt Rate - Afr Amer 130 mL/min (>60); Estimated Creatinine Clearance 116.59 ml/min; Glucose 88 mg/dL (74-106); Potassium 4.4 mmol/L (3.5-5.1); Sodium Level 132 mmol/L (136-145)
[2019-07-06] MEDS: 0.9% Normal Saline 1,000 ML 999 ML IV (21:50)
--- NOTE | 2019-07-06 22:00 | ED.RN ---
pulse ox drop to 85% . good wave form. 02 at 2lnc applied by kylah
--- NOTE | 2019-07-06 22:11 | ED.RN ---
HOSPITALIST PAGED FOR DR FOX
[2019-07-06 22:12] LABS: Digoxin Level 0.71 ng/mL (0.80-2.00)
--- NOTE | 2019-07-06 22:13 | PCM.HP.STD ---
Problem List (1) Alcohol intoxication Status: Acute (2) Atrial flutter Status: Acute (3) Atrial flutter with rapid ventricular response Status: Acute History of Present Illness Date of Admission: 07/06/19 Chief Complaint: incoordination The patient is a 59 year old M with a significant history of alcohol dependence and withdrawal; essential hypertension; legally blind in left eye; paroxysmal A. fib/a flutter; TIA who presented to emergency department because of incoordination. Reportedly he felt wobbly on his feet and he could not stand to maintain his balance. He reports light headedness and confusion. He denies any palpitations. At the emergency department patient was found to be in a flutter with a rate of 127. Initially his blood pressure with standing was in the 70s but with IV fluid bolus his systolic blood pressure increase into the mid 90s. Emergency department discussed the case with Dr. Burt, cardiology will follow patient. Reportedly he drinks 2 tall boys of 8% alcohol daily on the day of presentation he drank one half bottles. The last that he drank was about 4 hours prior to presentation. Past Medical History Past Medical History (Chronic Problems): Chronic Problems (Last Updated 07/04/19 @ 16:18 by Merle Victor DO) Legally blind in left eye, as defined in [place] (Chronic) Premature atrial contraction (Chronic) Essential hypertension (Chronic) Paroxysmal atrial fibrillation (Chronic) Alcohol abuse (Chronic) Medical History: Medical History (Last Reviewed 07/06/19 @ 23:03 by Artis Garvey MD) Legally blind in left eye, as defined in [place] (Chronic) H54.8 Premature atrial contraction (Chronic) I49.1 Essential hypertension (Chronic) I10 Paroxysmal atrial fibrillation (Chronic) I48.0 Alcohol abuse (Chronic) F10.10 Alcohol withdrawal (Acute) F10.239 Atrial fibrillation with RVR I48.91 Depression F32.9 Neuropathy G62.9 Delirium tremens (Resolved) F10.231 TIA (transient ischemic attack) G45.9 Allergies No Known Allergies Allergy (Verified 07/06/19 20:49) Home Medications: Ambulatory Orders Medication Instructions Recorded Lisinopril 20 mg PO DAILY 03/16/19 Aspirin [Aspirin, Baby] 81 mg PO DAILY@0800 #30 tab.chew 05/26/19 gabapentin 600 mg tablet 600 mg PO TID PRN tab 05/11/19 Omeprazole [Prilosec] 20 mg PO DAILY #30 cap 06/23/19 Magnesium Oxide [Mag-Ox 400] 400 mg PO DAILYCM #30 tab 07/04/19 disulfiram 250 mg tablet 250 mg PO DAILY #40 tab 07/04/19 digoxin 250 mcg tablet 250 mcg PO DAILY #30 tab 07/05/19 diltiazem CD 360 mg 360 mg PO DAILY #30 cap 07/05/19 capsule,extended release 24 hr Surgical History: Surgical History (Last Reviewed 07/06/19 @ 23:03 by Artis Garvey MD) History of elbow surgery Z98.890 History of tonsillectomy Z90.89 Surgical History: - - Right elbow surgery Psychiatric History: No pertinent psych hx Lives: With Family Smoking Status: Never smoker Alcohol: Heavy - *Family History Maternal Family History: Family History (Last Reviewed 07/06/19 @ 23:03 by Artis Garvey MD) Mother Cancer Diabetes Brother Cancer Grandfather Heart disease Grandfather History of stroke Grandmother CVA (cerebral vascular accident) History Items: Cancer, Hypertension, Stroke Paternal Family History: Family History (Last Reviewed 07/06/19 @ 23:03 by Artis Garvey MD) Mother Cancer Diabetes Brother Cancer Grandfather Heart disease Grandfather History of stroke Grandmother CVA (cerebral vascular accident) History Items: Hypertension, Stroke Sibling Family History: Family History (Last Reviewed 07/06/19 @ 23:03 by Artis Garvey MD) Mother Cancer Diabetes Brother Cancer Grandfather Heart disease Grandfather History of stroke Grandmother CVA (cerebral vascular accident) History Items: Cancer Review of Systems Constitutional: Denies: Chills, Fever, Weight Change HEENT: Denies: Head Aches, Sinus Congestion, Sinus Drainage Cardiovascular: Denies: Chest Pain, Palpitations Respiratory: Denies: Cough, Shortness of breath at rest, Sputum production Gastrointestinal: Denies: Abdominal Pain, Nausea, Vomiting Genitourinary: Denies: Dysuria Musculoskeletal: Denies: Joint Pain, Joint Tenderness Skin: Denies: Rash, Wounds Neurological: Reports: Confusion, Incoordination. Denies: Focal weakness, Numbness, Tingling Psychiatric: Denies: Anxiety, Depression, Homicidal Ideations, Suicidal Ideations Hematologic/ Lymphatic: Denies: Easy Bruising, Easy Bleeding VTE Information - Inpt Only VTE Present on Admission: No VTE Mechan Device Prophylaxis: None VTE Pharm Prophylaxis ordered?: Yes Patient Problems: Active and Suspected Problems (Last Updated 07/04/19 @ 16:18 by Merle Victor DO) Alcohol intoxication (Acute) Atrial flutter (Acute) Atrial flutter with rapid ventricular response (Acute) - Physical Exam General: Alert, Oriented x3, Cooperative HEENT: Atraumatic, PERRLA, EOMI, Normocephalic Neck: Supple, No JVD, Negative Carotid Bruits Lungs: Clear to auscultation, Normal air movement Cardiovascular: Regular rate, No murmurs, Tachycardic Abdomen: Bowel Sounds Present, Soft, Non Tender Extremities: No edema, Capillary Refill Less than 3 Seconds Skin: No rashes, No breakdown Musculoskeletal: No Tenderness to Palpation of Joints or Extremities Neurological: Cranial nerves II-XII grossly intact - Legal blindness of the left eye Psych/Mental Status: Normal Affect, Appropriate Vital Signs Temp Pulse Resp BP Pulse Ox 98 F 129 H 15 106/79 97 07/06/19 20:43 07/06/19 21:43 07/06/19 21:43 07/06/19 21:43 07/06/19 21:43 Oxygen Delivery Method Room Air Weight: 114.487 kg Body Mass Index (BMI) 33.3 Laboratory Tests Past 24 Hrs 07/06/19 07/06/19 07/06/19 20:55 20:55 20:55 WBC 7.3 RBC 3.85 L Hgb 12.8 L Hct 36.9 L MCV 95.8 H MCH 33.2 H MCHC 34.7 RDW Std Deviation 43.8 RDW Coeff of Kaylen 12.5 Plt Count 176 MPV 9.1 Immature Gran % (Auto) 0.800 Neut % (Auto) 48.4 Lymph % (Auto) 28.0 Stearns % (Auto) 16.9 H Eos % (Auto) 4.9 Baso % (Auto) 1.0 Absolute Neuts (auto) 3.5 Absolute Lymphs (auto) 2.05 Nucleated RBC % 0 Sodium 132 L Potassium 4.4 Chloride 97 L Carbon Dioxide 29.0 Anion Gap 6 BUN 14 Creatinine 0.79 Estim Creat Clear Calc 116.59 Est GFR (MDRD) Af Amer 130 Est GFR (MDRD) Non-Af 107 BUN/Creatinine Ratio 17.7 Glucose 88 Calcium 9.2 Troponin I < 0.015 Digoxin Ethyl Alcohol 190.0 07/06/19 20:55 WBC RBC Hgb Hct MCV MCH MCHC RDW Std Deviation RDW Coeff of Kaylen Plt Count MPV Immature Gran % (Auto) Neut % (Auto) Lymph % (Auto) Stearns % (Auto) Eos % (Auto) Baso % (Auto) Absolute Neuts (auto) Absolute Lymphs (auto) Nucleated RBC % Sodium Potassium Chloride Carbon Dioxide Anion Gap BUN Creatinine Estim Creat Clear Calc Est GFR (MDRD) Af Amer Est GFR (MDRD) Non-Af BUN/Creatinine Ratio Glucose Calcium Troponin I Digoxin 0.71 L Ethyl Alcohol Assessment/Plan All Active Problems (Last Updated 07/04/19 @ 16:18 by Merle Victor DO) Alcohol intoxication (Acute) Atrial flutter (Acute) Atrial flutter with rapid ventricular response (Acute) Hypomagnesemia (Acute) Atrial fibrillation with rapid ventricular response (Acute) Alcohol withdrawal (Acute) Delirium tremens (Resolved) The patient is a 59 year old M with a significant history of alcohol dependence and withdrawal; essential hypertension; legally blind in left eye; paroxysmal A. fib/a flutter; TIA who presented to emergency department because of incoordination; light headedness and confusion and found to be in a flutter with rapid ventricular response. A flutter with rapid ventricular response Patient follows up with Dr. Burt outpatient. His last cardiology visit was on 07/05/2019 with Fay Nielsen. Reportedly patient is on aspirin and not anticoagulation because of history of falls. Aspirin continued. Emergency department doctor discussed the case with Dr. Burt. Reportedly Dr. Burt wants digoxin held for now and home Cardizem to be continued. Also patient received IV fluid bolus at the emergency department. IV fluids to be continued. Telemetry at PCU We will place consult for cardiology. Alcohol dependence and intoxication. Counseled We will start patient on Librium in a few hours. DVT prophylaxis SCD ordered Code Visit Inpatient E&M: 92063 Init Hosp L3
--- NOTE | 2019-07-06 22:28 | ED.RN ---
pt does not know his medication. Pt said my gives it to me. is not present
--- NOTE | 2019-07-06 22:32 | ED.RN ---
DR ZARATE PAGED FOR DR FOX
--- NOTE | 2019-07-06 22:43 | ED.DCSUM_ITS ---
- ER Visit Summary Date of Service: 07/06/19 Chief Complaint: [Dizziness and trouble with balance] History of Present Illness: The patient is a 59 M [to the emergency department complaint of feeling off balance for the last 2 to 3 days. Patient states that worse when he stands and tries to walk. He has fallen but not injured himself. He denies any head injury. Patient is a known alcoholic and states that he did drink 2 tall boys today throughout the day. Patient normally drinks beer. He denies any chest pain or shortness of breath. He does have history of A. fib however he is not anticoagulated currently. Patient denies headache.] Physical Examination: [HEENT-PERRLA, EOMI. Cranial nerves II through XII grossly intact. TMs clear. Mucous membranes moist. No adenopathy. Cardiovascular-regular rate and rhythm without murmur or ectopy Lungs-clear to auscultation, chest wall stable without crepitus or subcu emphysema Abdomen-normoactive bowel sounds, soft, nontender, no rebound or rigidity, no peritoneal signs. Neuro [id number] and heel hilario testing within normal limits, negative Romberg, negative pronator drift, fundi benign Extremities-intact ?4, normal range of motion, normal pulses, atraumatic] Test Results: [EKG obtained arrival showed atrial flutter with a ventricular response of 127 bpm. CBC with differential 7.3, hemoglobin 5.8, hematocrit 37, plates 176. Chemistries were unremarkable. Troponin was less than 0.015. Alcohol was 190. Digoxin level was 0.71. CT scan of the brain showed atrophy that is more than would be expected given the patient's age.] Emergency Department Course and Treatment: [Patient was given a liter normal same fluid bolus as his orthostatics were positive with blood pressure dropping into the 70s systolic with standing. This was discussed with platform loader Dr. Romulo Burt as well as the hospitalist who will evaluate patient for admission.] Treatment Plan: [Admit] Disposition: [Admit] Impression: [Hypotension Atrial flutter with rapid ventricular response Alcohol intoxication] This note was generated with [employer]Hey[employer] software. It may contain incorrect words, spelling, and punctuation that were not noted in review of the chart prior to signing
[2019-07-07] VITALS (29 sets, daily range): BP systolic 96–135; BP diastolic 61–103; PULSE 99–137; RESP 12–24; TEMP 36.2–37.3; O2SAT 86–100
[2019-07-07] MEDS: 0.9% Normal Saline 1,000 ML 150 ML IV ×3 (00:20→16:52)
[2019-07-07] MEDS: chlordiazePOXIDE 25 MG Capsule PO ×4 (00:50→17:47)
--- NOTE | 2019-07-07 07:59 | PCM.CONS.C ---
Problem List (1) Atrial fibrillation and flutter Status: Acute (2) Wide-complex tachycardia Status: Chronic (3) Essential hypertension Status: Chronic (4) Alcohol intoxication Status: Chronic Reason for Consult Date of Consultation: 07/07/19 History of Present Illness: The patient is a 59 year old white male with a cardiovascular history of paroxysmal atrial fibrillation/flutter and a 30-day ambulatory event monitor demonstrating brief episodes of nonsustained wide-complex tachycardia superimposed upon underlying somatic/motion artifact contributing to difficulty to definitively define underlying ventricular ectopy (versus aberrancy) with previous noninvasive studies by transthoracic echocardiogram demonstrating normal left ventricular size, wall motion, and systolic function with an estimated LVEF of 60% and a previous pharmacologic stress nuclear imaging study demonstrating no evidence of stress-induced myocardial ischemia and a gated LVEF of 61%, superimposed on hypertension, and alcohol abuse who presents for concerns of feeling off balance upon standing and being found to be back in atrial fibrillation/flutter with rapid ventricular response as well as alcohol intoxication. The patient stated that he felt off balance upon standing but did not lose consciousness. He states he has not been able to sense his underlying cardiac rhythm changes or rate. He is denied any runs of chest discomfort or difficulty breathing. He states that he has decreased his alcohol intake from 8-10 tall boys per day down to approximately 2 tall boys per day. He was brought to the emergency department. He was evaluated. He was found to be in what appeared to be in atrial flutter with a rapid ventricular response. He was also found to have evidence of alcohol intoxication. He states he has been taking his medication as prescribed which has included diltiazem CD 360 mg daily and recently added digoxin 0.25 mg daily. He did have a digoxin level which was reported at 0.71. He has not been on anticoagulant therapy since his diagnosis based upon concerns of adverse risks with his history of repeat alcohol intoxication as well as a history of previous gastrointestinal bleeding episodes. [] Past Medical History Allergies/Adverse Reactions: Allergies No Known Allergies Allergy (Verified 07/06/19 20:49) Home Medications: Ambulatory Orders Medication Instructions Recorded Lisinopril 20 mg PO DAILY 03/16/19 Aspirin [Aspirin, Baby] 81 mg PO DAILY@0800 #30 tab.chew 04/09/19 gabapentin 600 mg tablet 600 mg PO TID PRN tab 05/11/19 digoxin 250 mcg tablet 250 mcg PO DAILY #30 tab 07/05/19 Diltiazem HCl [Diltiazem 24Hr ER 360 mg PO DAILY 07/06/19 (Cd)] Disulfiram [Antabuse] 250 mg PO DAILY 07/06/19 Magnesium Oxide [Mag-Ox 400] 400 mg PO DAILYCM 07/06/19 Omeprazole [Prilosec] 20 mg PO DAILY 07/06/19 Past Medical History (Chronic Problems): Chronic Problems (Last Reviewed 07/06/19 @ 23:03 by Artis Garvey MD) Alcohol intoxication (Chronic) Wide-complex tachycardia (Chronic) Legally blind in left eye, as defined in [place] (Chronic) Premature atrial contraction (Chronic) Essential hypertension (Chronic) Paroxysmal atrial fibrillation (Chronic) Alcohol abuse (Chronic) Surgical History: - - Right elbow surgery Psychiatric History: No pertinent psych hx - *Family History Maternal Family History: Family History (Last Reviewed 07/06/19 @ 23:03 by Artis Garvey MD) Mother Cancer Diabetes Brother Cancer Grandfather Heart disease Grandfather History of stroke Grandmother CVA (cerebral vascular accident) History Items: Cancer, Hypertension, Stroke Paternal Family History: Family History (Last Reviewed 07/06/19 @ 23:03 by Artis Garvey MD) Mother Cancer Diabetes Brother Cancer Grandfather Heart disease Grandfather History of stroke Grandmother CVA (cerebral vascular accident) History Items: Hypertension, Stroke Sibling Family History: Family History (Last Reviewed 07/06/19 @ 23:03 by Artis Garvey MD) Mother Cancer Diabetes Brother Cancer Grandfather Heart disease Grandfather History of stroke Grandmother CVA (cerebral vascular accident) History Items: Cancer Lives: With Family Smoking Status: Never smoker Alcohol: Heavy Review of Systems - Review of Systems General: Reports: - - General sensation of feeling off balance . Denies: Fever, Fatigue, Night Sweats Cardiovascular: Reports: -. Denies: Chest Discomfort, Shortness of Breath, Orthopnea, PND, Peripheral Edema, Palpitations, Lightheadedness, Dizziness, Near Syncope, Syncope Respiratory: Denies: Cough, Sputum Production, Hemoptysis Gastrointestinal: Denies: Hematemesis, Hematochezia, Melena Genitourinary: Denies: Dysuria, Hematuria Skin: Denies: Rash Subjectve: This is a 59-year-old white male who appears to be tremulous at this time. Objective: Vital Signs Temp Pulse Resp BP Pulse Ox 99.1 F 99 16 99/63 96 07/07/19 06:20 07/07/19 06:20 07/07/19 06:20 07/07/19 06:20 07/07/19 07:10 Oxygen Flow Rate (L/min) 2 Oxygen Delivery Method Nasal Cannula Weight: 244 lb 0.827 oz Body Mass Index (BMI) 32.1 Intake and Output for Last 24 Hours 07/05/19 07/06/19 07/07/19 23:59 23:59 23:59 Intake Total 1000 / 1000 1762.5 / 1762.5 Output Total 1750 / 1750 Balance 1000 / 1000 12.5 / 12.5 General: Awake, Alert, Oriented x 3, Cooperative, - - Tremulous appearing HEENT: Atraumatic, Normocephalic, PERRL, EOMI, Sclera Non Icteric Oral: Moist Mucosa Neck: Supple, Good ROM, No JVD Lungs: Clear to auscultation Cardiovascular: Regular Rhythm, Normal S1, Normal S2 Vascular: No Carotid Bruits Abdomen: Bowel Sounds Present, Soft, Non Tender Extremities: No Cyanosis, No Clubbing, No edema Psych/Mental Status: Anxious 07/06/19 20:55: WBC 7.3, RBC 3.85 L, Hgb 12.8 L, Hct 36.9 L, MCV 95.8 H, MCH 33.2 H, MCHC 34.7, Plt Count 176, MPV 9.1, Immature Gran % (Auto) 0.800, Neut % (Auto) 48.4, Lymph % (Auto) 28.0, Zapata % (Auto) 16.9 H, Eos % (Auto) 4.9, Baso % (Auto) 1.0, Absolute Neuts (auto) 3.5, Nucleated RBC % 0 07/06/19 20:55: Sodium 132 L, Potassium 4.4, Chloride 97 L, Carbon Dioxide 29.0, Anion Gap 6, BUN 14, Creatinine 0.79, Est GFR (MDRD) Af Amer 130, Est GFR (MDRD) Non-Af 107, BUN/Creatinine Ratio 17.7, Glucose 88, Calcium 9.2, Troponin I < 0.015 07/06/19 20:55: Digoxin 0.71 L Rhythm: Atrial flutter EKG: Atrial flutter ECHO: 02-28-19: Technically difficult study/contrast injection performed; left ventricle thought to be normal with an LVEF of 60%; mild left atrial enlargement; mild mitral annular consultation; extension of the mitral annular calcification under the base of the posterior mitral valve leaflet; trivial MR/TR; aortic valve sclerosis; decreased diastolic compliance Stress Test: 06-07-19: Pharmacologic stress nuclear imaging study: Considered negative for evidence of stress-induced myocardial ischemia CXR: ?16?: Reported as no acute cardiopulmonary disease process Assessment/Plan 1. Paroxysmal atrial fibrillation/flutter The patient presents with recurrent paroxysmal atrial fibrillation/flutter with rapid ventricular response. The etiology may be multifactorial based upon a combination of patient's age, his history of hypertension, his left atrial enlargement, his alcohol intake, etc. The patient claims to be taking his medications as prescribed to assist with rate control. He has not been on anticoagulant therapy for the aforementioned reasons. He claims to be taking his antiplatelet therapy with aspirin. At the present time the patient will continue to be monitored. He will continue antiplatelet therapy. It may be reasonable to attempt an alternative rate control agent for him such as a beta-gloria to evaluate whether he gains better rate control on a beta-gloria versus a calcium channel gloria. He was recently started on digoxin as it was thought he may require dual rate control agents to obtain rate control. This was done cautiously based upon his history including alcohol intoxication. He will also have an attempt at gaining rate control with a dose of digitalis IV. However, depending upon his clinical course, consideration will be given as to whether or not he will remain on this long-term. In the interim he will also have an attempt at not only rate control therapy but potentially regaining sinus rhythm with therapy with IV amiodarone. He may need a long-term anti-rhythmic agent to try and maintain sinus rhythm. Based upon his history, which has included his 30-day ambulatory event monitor demonstrating brief episodes of a nonsustained wide-complex rhythm which has previously noted was superimposed upon underlying somatic/motion artifact contributing to difficulty defining underlying ventricular ectopy versus aberrancy there may be some hesitancy to add other antiarrhythmics such as type Ic agents, etc. These agents would also be on a twice daily dosing which may be challenging for the patient to remain on. Thus, despite the patient's younger age, he may need an attempt at long-term oral amiodarone therapy as long as he is able to tolerate this agent, etc. Ideally if the patient did not have recurrent issues with alcohol intoxication or concerns of gastrointestinal bleeding-as previously noted in his past EMR-he would be on an anti-coagulant agent. This would allow him to be considered for EP evaluation for possible atrial fibrillation EPS/RFA. 2. Wide-complex tachycardia The patient was noted to have brief episodes of wide-complex tachycardia on his 30-day ambulatory event monitor. Again based on underlying somatic/motion artifact or been concerns as to whether or not this is underlying ventricular ectopy versus aberrancy. Thus this has to be taken into consideration with respect to his overall evaluation. This has included his previous transthoracic echocardiogram and pharmacologic stress nuclear imaging study. Both of the studies have demonstrated overall preserved left ventricular systolic function/LVEF and no evidence of ongoing myocardial ischemia. This has to be taken into consideration with respect to his rate control agents and antiarrhythmic agents as well. Thus, again, at this time the iteration would be given for the addition of IV amiodarone with transition to oral amiodarone therapy. Hopefully this would help the patient's rate, potentially help him regain sinus rhythm/maintain sinus rhythm, etc. 3. Hypertension The patient's blood pressure has been low. This will need to be monitored. His medications will need to be adjusted as deemed appropriate. 4. Alcohol intoxication The patient has repetitive hospitalizations for alcohol intoxication. He will be evaluated by internal medicine for alcohol withdrawal. He has been offered assistance in the past with alcohol withdrawal programs. Internal medicine will have to discuss this once again with the patient. Comment: The patient's case was discussed and reviewed with the patient and previously with the [facility] emergency department staff-Dr. Martinez. This note was generated using a voice recognition system and there may be incorrect words, spelling or punctuation that were not noted when reviewing the office note prior to saving.
[2019-07-07] MEDS: Digoxin 250 MCG/ML Ampul 500 MCG IV (08:50)
[2019-07-07] MEDS: Aspirin 81 MG TAB.CHEW PO (08:56)
[2019-07-07] MEDS: Multivitamins,Therapeutic Tablet 1 TABLET PO (08:56)
[2019-07-07] MEDS: Folic Acid 1 MG Tablet PO (08:56)
[2019-07-07] MEDS: Thiamine Hydrochloride 100 MG Tablet PO (08:57)
[2019-07-07] MEDS: Enoxaparin 40 MG/0.4 ML Syringe SC (08:58)
[2019-07-07] MEDS: 0.9% NaCl Peripheral Flush Adult/Peds IV (09:03)
[2019-07-07] MEDS: Metoprolol(XL)Succ 50 MG Tablet PO ×2 (09:14→13:12)
[2019-07-07 10:27] LABS: Magnesium 1.6 mg/dL (1.6-2.6); Phosphorus 3.3 mg/dL (2.5-4.9)
--- NOTE | 2019-07-07 11:00 | CASEMGMT ---
ZORAN met with patient. He remembered SW from last visit. SW asked him if he has any new thoughts on quitting drinking. He said he has cut back. ZORAN told him maybe it would help if he went to counseling to help him completely quit. He said he has been through all of the classes and it does not help, it depresses him. He said they preach at him and it does not help, it just makes him mad. He said he tells them he will just go buy a 30 pack when he leaves his appt and he does. SW asked him what would help him quit drinking completely. He said putting him back on his Klonapin. He said that is why he drinks. He worries about everything all the time. He worries so much he shakes. He hates feeling that way so he drinks a couple of beers and it helps him relax. His PCP weaned him off of it and told him if he wanted to go back on it he needs to see a Psychiatrist. He said he has been to counseling and Psychiatrists and nothing helps. He said he goes to appt and leaves and never hears anything he said he is just another number to them. SW asked why he feels this way. He said he never hears back from any of them. SW asked if he followed up with them and he said no. ZORAN asked the last time he tried counseling or seeing a Psychiatrist. He said it was a couple of months ago. ZORAN asked him if he has any hobbies he likes to do that would help him relax. He likes to fish, but is not from [place] so he does not know where any of the [place] are around the area. He does not drive, because he has to pay to re-instate his license and without a job he cannot pay. He is waiting on disability to kick in and the attorneys are giving him the runaround. He sees other people on disability and they look fine. He said no one wants to help him. ZORAN told him that is what the physicians and SW are trying to do. SW asked him if the doctors told him that they are limited on what medicines they can put him on due to his alcohol consumption. He said everyone keeps talking about his alcohol problem, but he only has a couple of beers. SW told him his alcohol level indicates he likely had more than a few beers. SW told him it was at the level of severe poisoning. He was perplexed as he said he only had a couple of beers. ZORAN asked if it was possible he had more than what he thinks. He said he would have to ask his . ZORAN told him he is going to have to get his anxiety under control in order to help with stopping drinking. ZORAN told him the best way to do this is to try counseling again to help teach him proper coping skills. ZORAN asked if he has ever tried going to [employer]. He said he has never heard of it. OZRAN told him it is another agency that helps with mental health and substance abuse. ZORAN told him their information is in the packet SW gave him a couple of days ago. ZORAN told him that they could possibly have a different approach that may work better for him. His phone rang at that time. ZORAN told him ZORAN just wanted to check in with him, not preach at him, but just let him know we are concerned about him and his well being. He thanked ZORAN for checking with him and that he appreciates it. Livier MAGUIRE MSW
--- NOTE | 2019-07-07 12:30 | CASEMGMT ---
This RN CM received a message from maite Coleman RN, regarding pt at this time and she stated concerns with pt at that time. This RN CM attempted to call her back at this time without success, but did leave a message to call this RN CM back when able. [place]'s contact info: [phone]. SStaten RN CM
--- NOTE | 2019-07-07 12:57 | PN_ITS ---
Patient Problems: Active and Suspected Problems (Last Reviewed 07/06/19 @ 23:03 by Artis Garvey MD) Atrial flutter (Acute) Atrial flutter with rapid ventricular response (Acute) Atrial fibrillation and flutter (Acute) Subjective: Pt seen and examined this AM while HR still 130s. At that time no symptoms of palpitation, CP, SOB, dizziness, LH. Pt was somewhat sleepy, easily rousable. Pt admits to continued drinking but reports he is trying to cut back. 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 - Physical Exam General: Alert, Oriented x3, Cooperative HEENT: Atraumatic, PERRLA, EOMI, Normocephalic Neck: Supple, No JVD, Negative Carotid Bruits Lungs: Clear to auscultation, Normal air movement Cardiovascular: No murmurs, Tachycardic Abdomen: Bowel Sounds Present, Soft, Non Tender Extremities: No edema, Capillary Refill Less than 3 Seconds Skin: No rashes, No breakdown Musculoskeletal: No Tenderness to Palpation of Joints or Extremities Neurological: Cranial nerves II-XII grossly intact Psych/Mental Status: Normal Affect, Appropriate, Alert and oriented to time, place, person, mood and affect Vital Signs Temp Pulse Resp BP Pulse Ox 97.2 F L 132 H 16 104/74 96 07/07/19 08:20 07/07/19 11:46 07/07/19 08:20 07/07/19 08:50 07/07/19 08:20 Oxygen Flow Rate (L/min) 2 Oxygen Delivery Method Nasal Cannula Weight: 244 lb 0.827 oz Body Mass Index (BMI) 32.1 Intake and Output for Last 24 Hours 07/05/19 07/06/19 07/07/19 23:59 23:59 23:59 Intake Total 1000 / 1000 2395.5 / 2395.5 Output Total 1750 / 1750 Balance 1000 / 1000 645.5 / 645.5 Laboratory Tests Past 24 Hrs 07/06/19 07/06/19 07/06/19 20:55 20:55 20:55 WBC 7.3 RBC 3.85 L Hgb 12.8 L Hct 36.9 L MCV 95.8 H MCH 33.2 H MCHC 34.7 RDW Std Deviation 43.8 RDW Coeff of Kaylen 12.5 Plt Count 176 MPV 9.1 Immature Gran % (Auto) 0.800 Neut % (Auto) 48.4 Lymph % (Auto) 28.0 [place] % (Auto) 16.9 H Eos % (Auto) 4.9 Baso % (Auto) 1.0 Absolute Neuts (auto) 3.5 Absolute Lymphs (auto) 2.05 Nucleated RBC % 0 Sodium 132 L Potassium 4.4 Chloride 97 L Carbon Dioxide 29.0 Anion Gap 6 BUN 14 Creatinine 0.79 Estim Creat Clear Calc 116.59 Est GFR (MDRD) Af Amer 130 Est GFR (MDRD) Non-Af 107 BUN/Creatinine Ratio 17.7 Glucose 88 Calcium 9.2 Phosphorus Magnesium Troponin I < 0.015 Digoxin Ethyl Alcohol 190.0 07/06/19 07/07/19 20:55 09:56 WBC RBC Hgb Hct MCV MCH MCHC RDW Std Deviation RDW Coeff of Kaylen Plt Count MPV Immature Gran % (Auto) Neut % (Auto) Lymph % (Auto) [place] % (Auto) Eos % (Auto) Baso % (Auto) Absolute Neuts (auto) Absolute Lymphs (auto) Nucleated RBC % Sodium Potassium Chloride Carbon Dioxide Anion Gap BUN Creatinine Estim Creat Clear Calc Est GFR (MDRD) Af Amer Est GFR (MDRD) Non-Af BUN/Creatinine Ratio Glucose Calcium Phosphorus 3.3 Magnesium 1.6 Troponin I Digoxin 0.71 L Ethyl Alcohol Medical Necessity - Tobacco Use Smoking Status: Never smoker Assessment/Plan All Active Problems (Last Reviewed 07/06/19 @ 23:03 by Artis Garvey MD) Atrial flutter (Acute) Atrial flutter with rapid ventricular response (Acute) Atrial fibrillation and flutter (Acute) Hypomagnesemia (Acute) Atrial fibrillation with rapid ventricular response (Acute) Alcohol withdrawal (Acute) Delirium tremens (Resolved) 1. Atrial Flutter with RVR - cardiology following. Ongoing alcoholism. Amio drip started. Continue Metoprolol. Was on home dig and cardizem. Not on OAC as o/p - poor candidate, hx GI bleed. Mag 1.6. Will supplement. Consider echo. 2. Hx nonsustained Vtach - maintain on tele. was noted on 30 day event monitor. 3. Alcoholism with withdrawal - librium, ativan prn. Pt continues to drink. No immediate plan to fully discontinue. EtOH [address] brain with alcoholism related changed. He was prescribed disulfiram at the last discharge on 07/04/2019. 4. Hyponatremia - likely 2/2 alcoholism. DVT ppx: lovenox DC planning: Pending further cardiac intervention, rate control. This patient was seen by Romel Bravo PA-C under the supervision of Dr. Tobar.
--- NOTE | 2019-07-07 14:12 | CASEMGMT ---
RN CM Readmission Note Previous Admission: 06/30/19-07/04/19 Diagnosis: Acute ETOH Withdrawal DC Disposition: Home SW spoke with pt re ETOH use and resources given. F/U appointment was made with Dr. Fernandez for 07/10/19 @ 3311. Current Admission 07/06/19 Presentation: ETOH intoxication, Aflutter with HR of 127. Placed on amio gtt. Cardiology consult, SW consult. DC PLAN: Anticipate home, dc planning re: ETOH per SW. Oc BRITO RN ACM
[2019-07-07] MEDS: Metoprolol Tartrate 5 MG/5 ML Vial IV (16:52)
[2019-07-07] MEDS: LORazepam 1 MG Tablet 2 MG PO (22:21)
[2019-07-08] VITALS (30 sets, daily range): BP systolic 86–148; BP diastolic 60–127; PULSE 69–136; RESP 13–22; TEMP 36.4–37.2; O2SAT 93–100
[2019-07-08] MEDS: chlordiazePOXIDE 25 MG Capsule PO ×3 (02:30→17:55)
[2019-07-08 04:16] LABS: Bedside Glucose 112 mg/dL (70-110)
[2019-07-08] MEDS: 0.9% Normal Saline 1,000 ML 150 ML IV (04:49)
--- NOTE | 2019-07-08 05:55 | EKG12_ITS ---
Test Reason : AM EKG Blood Pressure : / mmHG Vent. Rate : 068 BPM Atrial Rate : 272 BPM P-R Int : 000 ms QRS Dur : 096 ms QT Int : 390 ms P-R-T Axes : 000 030 040 degrees QTc Int : 414 ms Atrial flutter with 4:1 A-V conduction Abnormal ECG Confirmed by ELLIOT IBRAHIM, ALONZO ([id number]), pictures editor BRITTNEY GUZMÁN ([id number]) on 07/12/2019 12:58:38 PM Referred By: Artis Garvey Confirmed By:ALONZO ZARATE MD
[2019-07-08 06:41] LABS: Absolute Lymphocyte Count 1.28 X10^3/uL (0.83-4.51); Absolute Neutrophil Count 4.3 X10^3/uL (2.0-7.7); Basophil# 0.07 X10^3/uL; Eosinophils% 4.2 % (0-5); Hematocrit 40.6 % (40-54); Hemoglobin 13.5 g/dL (13.0-16.5); Lymphocyte # 1.28 X10^3/ul (4.0); Lymphocyte % 17.9 % (19-41); Mean Corp Hgb Conc 33.3 g/dL (32-36); Mean Corpuscular Hgb 32.6 pg (27.0-32.0); Mean Corpuscular Volume 98.1 fL (80-94); Mean Platelet Vol. 9.2 fl (6.2-12.0); Monocyte# 1.22 X10^3/uL; Monocyte% 17.1 % (0-10); NRBC Flagged by Analyzer 0 % (0-5); Neutrophil # 4.25 X10^3/uL (2.7-7.7); Neutrophil % 59.4 % (47-70); Platelet Count 217 K/mm3 (150-450); RBC Distribution Width CV 12.4 % (11.6-14.6); RBC Distribution Width SD 44.6 fl (35.1-43.9); Red Blood Count 4.14 M/mm3 (4.6-6.2); White Blood Count 7.2 K/mm3 (4.4-11.0)
[2019-07-08] MEDS: dilTIAZem 25 MG/5 ML Vial 20 MG IV BOLUS (06:51)
[2019-07-08 07:01] LABS: Anion Gap 6 (5-15); BUN 18 mg/dL (7-18); BUN/Creat Ratio 18.7 RATIO (10-20); Calcium,Total 9.3 mg/dL (8.5-10.1); Chloride 102 mmol/L (98-107); Creatinine, Serum 0.96 mg/dL (0.70-1.30); EST Glomerular Filtration Rate 86 mL/min (>60); Est Glom Filt Rate - Afr Amer 104 mL/min (>60); Estimated Creatinine Clearance 95.94 ml/min; Glucose 122 mg/dL (74-106); Potassium 4.3 mmol/L (3.5-5.1); Sodium Level 139 mmol/L (136-145)
[2019-07-08] MEDS: Multivitamins,Therapeutic Tablet 1 TABLET PO (07:40)
[2019-07-08] MEDS: Gabapentin 600 MG Tablet PO ×3 (07:40→17:55)
[2019-07-08] MEDS: Folic Acid 1 MG Tablet PO (07:40)
[2019-07-08] MEDS: Thiamine Hydrochloride 100 MG Tablet PO (07:40)
[2019-07-08] MEDS: Aspirin 81 MG TAB.CHEW PO (07:40)
[2019-07-08] MEDS: Enoxaparin 40 MG/0.4 ML Syringe SC (10:27)
[2019-07-08] MEDS: Metoprolol(XL)Succ 50 MG Tablet PO (10:27)
--- NOTE | 2019-07-08 10:38 | PN.CARD_ITS ---
Subjectve: Patient seen and evaluated. Appears to be doing somewhat better. Objective: Vital Signs Temp Pulse Resp BP Pulse Ox 98.6 F 101 H 15 111/86 H 96 07/08/19 07:15 07/08/19 10:27 07/08/19 10:00 07/08/19 10:27 07/08/19 10:00 Oxygen Flow Rate (L/min) 2 Oxygen Delivery Method Room Air Weight: 244 lb 0.827 oz Body Mass Index (BMI) 32.1 Intake and Output for Last 24 Hours 07/06/19 07/07/19 07/08/19 23:59 23:59 23:59 Intake Total 1000 / 1000 5243.98 / 5743.98 753.02 / 753.02 Output Total 3050 / 3875 1525 / 1525 Balance 1000 / 1000 2193.98 / 1868.98 -771.98 / -771.98 General: Awake, Alert, Oriented x 3 HEENT: PERRL, EOMI, Sclera Non Icteric Neck: Supple, Good ROM, No Lymph Node Enlargement Lungs: Clear to auscultation Cardiovascular: Irregular Rhythm, Normal S1, Normal S2, No Murmurs, No Rubs, No Gallops Vascular: No Carotid Bruits, Normal Femoral Pulses, Normal Radial Pulses, Normal Dorsalis Pedal Pulse, Normal Posterior Tibial Pulses Abdomen: Bowel Sounds Present, Soft, Non Tender, No HSM, No Organomegaly Extremities: No Cyanosis, No Clubbing, No edema Musculoskeletal: No Erythema Skin: No Rashes Lymphatic: No Lymph Node Enlargement Neurological: No Focal Motor or Sensory Deficit Psych/Mental Status: Appropriate 07/08/19 06:10: WBC 7.2, RBC 4.14 L, Hgb 13.5, Hct 40.6, MCV 98.1 H, MCH 32.6 H, MCHC 33.3, Plt Count 217, MPV 9.2, Immature Gran % (Auto) 0.400, Neut % (Auto) 59.4, Lymph % (Auto) 17.9 L, [place] % (Auto) 17.1 H, Eos % (Auto) 4.2, Baso % (Auto) 1.0, Absolute Neuts (auto) 4.3, Nucleated RBC % 0 07/08/19 06:10: Sodium 139, Potassium 4.3, Chloride 102, Carbon Dioxide 31.0, Anion Gap 6, BUN 18, Creatinine 0.96, Est GFR (MDRD) Af Amer 104, Est GFR (MDRD) Non-Af 86, BUN/Creatinine Ratio 18.7, Glucose 122 H, Calcium 9.3, Magnesium 2.0 Rhythm: EKG: ECHO: Stress Test: Cardiac Cath: PCI: CT Surgery: Holter monitor: EPS: PPM: CXR: Chest CT Scan: Medical Necessity - Tobacco Use Smoking Status: Never smoker Assessment/Plan 1. Paroxysmal atrial fibrillation/flutter The patient presents with recurrent paroxysmal atrial fibrillation/flutter with rapid ventricular response. He has been started on intravenous amiodarone as well as intravenous diltiazem with significant improvement in his heart rate. He does not appear to be an appropriate candidate for anticoagulation at this time in addition his chads vas score is 1. My recommendation is to continue the above and hopefully transition him to p.o. 2. Wide-complex tachycardia The patient was noted to have brief episodes of wide-complex tachycardia on his 30-day ambulatory event monitor. Again based on underlying somatic/motion artifact or been concerns as to whether or not this is underlying ventricular ectopy versus aberrancy. Thus this has to be taken into consideration with respect to his overall evaluation. This has included his previous transthoracic echocardiogram and pharmacologic stress nuclear imaging study. Both of the studies have demonstrated overall preserved left ventricular systolic function/LVEF and no evidence of ongoing myocardial ischemia. Thus, again, at this time the iteration would be given for the addition of IV amiodarone with transition to oral amiodarone therapy. Hopefully this would help the patient's rate, potentially help him regain sinus rhythm/maintain sinus rhythm, etc. 3. Hypertension The patient's blood pressure has been low. This will need to be monitored. His medications will need to be adjusted as deemed appropriate. 4. Alcohol intoxication The patient has repetitive hospitalizations for alcohol intoxication. He will be evaluated by internal medicine for alcohol withdrawal. He has been offered assistance in the past with alcohol withdrawal programs. Internal medicine will have to discuss this once again with the patient. Thank you for allowing me to participate in the care of your patient. Please don't hesitate to call if any issues arise
[2019-07-08] MEDS: dilTIAZem 25 MG/5 ML Vial IV BOLUS (11:34)
--- NOTE | 2019-07-08 11:54 | EKG12_ITS ---
Test Reason : AM EKG Blood Pressure : / mmHG Vent. Rate : 135 BPM Atrial Rate : 270 BPM P-R Int : 000 ms QRS Dur : 094 ms QT Int : 316 ms P-R-T Axes : 230 046 015 degrees QTc Int : 474 ms Atrial flutter with 2:1 A-V conduction Abnormal ECG Confirmed by ELLIOT IBRAHIM, ALONZO ([id number]), health editor BRITTNEY GUZMÁN ([id number]) on 07/12/2019 12:59:01 PM Referred By: Artis Garvey Confirmed By:ALONZO ZARATE MD
[2019-07-08] MEDS: 0.9% Normal Saline 1,000 ML 60 ML IV (13:59)
--- NOTE | 2019-07-08 18:50 | PN_ITS ---
Patient Problems: Active and Suspected Problems (Last Reviewed 07/07/19 @ 14:48 by RYAN Sweeney) Atrial flutter (Acute) Atrial flutter with rapid ventricular response (Acute) Atrial fibrillation and flutter (Acute) Subjective: Patient seen and examined today, his heart rate seems to be under better control with a lower heart rate today but he remains in atrial fibrillation. Patient wanted to know if he could be discharged home today, I told him no because he is still on IV rate control medications. I also discussed his alcohol use with him, he seemed unaware that alcohol could cause cardiac damage, he states he has a cut down-I told him that that was not enough and that he needed to stop drinking. Patient told this examiner he is only been drinking heavy about 5 years-this examiner feels that the patient is probably not being truthful about his alcohol use. - Physical Exam General: Alert, Oriented x3, Cooperative, No apparent distress, Well developed HEENT: Atraumatic, PERRLA, EOMI, Normocephalic Oral: Moist Mucosa Neck: Supple, Trachea Midline, Thyroid Normal Size and Texture Lungs: Clear to auscultation, Normal air movement, No rhonchi, No wheeze Cardiovascular: PMI Normal, Irregular Rate, No rub noted Abdomen: Bowel Sounds Present, Soft, Non Tender, Non-Distended Extremities: No edema, Capillary Refill Less than 3 Seconds Skin: No rashes, No breakdown Musculoskeletal: No Tenderness to Palpation of Joints or Extremities Neurological: Cranial nerves II-XII grossly intact, Neuro grossly intact, Sensory exam intact to light touch and pain Psych/Mental Status: Normal Affect, Appropriate, Alert and oriented to time, place, person, mood and affect Vital Signs Temp Pulse Resp BP Pulse Ox 97.8 F 86 17 122/88 H 97 07/08/19 13:00 07/08/19 18:00 07/08/19 18:00 07/08/19 18:00 07/08/19 18:00 Oxygen Flow Rate (L/min) 2 Oxygen Delivery Method Room Air Weight: 110.7 kg Body Mass Index (BMI) 32.1 Intake and Output for Last 24 Hours 07/06/19 07/07/19 07/08/19 23:59 23:59 23:59 Intake Total 1000 / 1000 5243.98 / 5743.98 4123.83 / 4123.83 Output Total 3050 / 3875 3975 / 3975 Balance 1000 / 1000 2193.98 / 1868.98 148.83 / 148.83 Laboratory Tests Past 24 Hrs 07/08/19 07/08/19 06:10 06:10 WBC 7.2 RBC 4.14 L Hgb 13.5 Hct 40.6 MCV 98.1 H MCH 32.6 H MCHC 33.3 RDW Std Deviation 44.6 H RDW Coeff of Kaylen 12.4 Plt Count 217 MPV 9.2 Immature Gran % (Auto) 0.400 Neut % (Auto) 59.4 Lymph % (Auto) 17.9 L [place] % (Auto) 17.1 H Eos % (Auto) 4.2 Baso % (Auto) 1.0 Absolute Neuts (auto) 4.3 Absolute Lymphs (auto) 1.28 Nucleated RBC % 0 Sodium 139 Potassium 4.3 Chloride 102 Carbon Dioxide 31.0 Anion Gap 6 BUN 18 Creatinine 0.96 Estim Creat Clear Calc 95.94 Est GFR (MDRD) Af Amer 104 Est GFR (MDRD) Non-Af 86 BUN/Creatinine Ratio 18.7 Glucose 122 H Calcium 9.3 Magnesium 2.0 POC Glucose 07/08/19 04:10 POC Glucose 112 H Medical Necessity - Tobacco Use Smoking Status: Never smoker Assessment/Plan All Active Problems (Last Reviewed 07/07/19 @ 14:48 by RYAN Sweeney) Atrial flutter (Acute) Atrial flutter with rapid ventricular response (Acute) Atrial fibrillation and flutter (Acute) Hypomagnesemia (Acute) Atrial fibrillation with rapid ventricular response (Acute) Alcohol withdrawal (Acute) Delirium tremens (Resolved) #1 paroxysmal atrial fib/flutter-under better control at this time on IV amiodarone and IV Cardizem, continue therapy per cardiology with adjustments as needed #2 acute alcohol withdrawal-patient seems less lethargic today and more mentally alert. Patient has been hospitalized multiple times for alcohol withdrawal, I remain skeptical patient will remain off alcohol when he is discharged home #3 essential hypertension #4 chronic alcoholism Code Visit Inpatient E&M: 61766 Subs Hosp L2
[2019-07-09] VITALS (30 sets, daily range): BP systolic 92–150; BP diastolic 53–119; PULSE 66–135; RESP 12–24; TEMP 36.3–37.1; O2SAT 92–98
[2019-07-09] MEDS: chlordiazePOXIDE 25 MG Capsule PO ×4 (02:36→21:51)
[2019-07-09] MEDS: 0.9% Normal Saline 1,000 ML 60 ML IV (06:23)
[2019-07-09] MEDS: Multivitamins,Therapeutic Tablet 1 TABLET PO (08:01)
[2019-07-09] MEDS: Thiamine Hydrochloride 100 MG Tablet PO (08:01)
[2019-07-09] MEDS: Gabapentin 600 MG Tablet PO ×3 (08:01→17:56)
[2019-07-09] MEDS: Folic Acid 1 MG Tablet PO (08:01)
[2019-07-09] MEDS: Aspirin 81 MG TAB.CHEW PO (08:01)
--- NOTE | 2019-07-09 08:09 | EKG12_ITS ---
Test Reason : Blood Pressure : / mmHG Vent. Rate : 092 BPM Atrial Rate : 092 BPM P-R Int : 232 ms QRS Dur : 098 ms QT Int : 384 ms P-R-T Axes : 037 030 060 degrees QTc Int : 474 ms Sinus rhythm with 1st degree A-V block Otherwise normal ECG Confirmed by ELLIOT IBRAHIM, ALONZO ([id number]), news video editor BRITTNEY GUZMÁN ([id number]) on 07/12/2019 1:03:13 PM Referred By: Artis Garvey Confirmed By:ALONZO ZARATE MD
[2019-07-09] MEDS: Enoxaparin 40 MG/0.4 ML Syringe SC (09:33)
[2019-07-09] MEDS: Metoprolol(XL)Succ 50 MG Tablet PO ×2 (09:40→10:54)
--- NOTE | 2019-07-09 10:08 | PCM.PN.CARD ---
Subjectve: Patient seen and evaluated. Appears to be doing better. Rate is under better control. Objective: Vital Signs Temp Pulse Resp BP Pulse Ox 98.3 F 120 H 17 120/79 93 07/09/19 08:00 07/09/19 09:40 07/09/19 09:00 07/09/19 09:40 07/09/19 09:00 Oxygen Flow Rate (L/min) 2 Oxygen Delivery Method Room Air Weight: 244 lb 0.827 oz Body Mass Index (BMI) 32.1 Intake and Output for Last 24 Hours 07/07/19 07/08/19 07/09/19 23:59 23:59 23:59 Intake Total 5243.98 / 5743.98 4859.47 / 4859.47 2076.88 / 2076.88 Output Total 3050 / 3875 5850 / 5850 2275 / 2275 Balance 2193.98 / 1868.98 -990.53 / -990.53 -198.12 / -198.12 General: Awake, Alert, Oriented x 3 HEENT: PERRL, EOMI, Sclera Non Icteric Neck: Supple, Good ROM, No Lymph Node Enlargement Lungs: Clear to auscultation Cardiovascular: Irregular Rhythm, Normal S1, Normal S2, No Murmurs, No Rubs, No Gallops Vascular: No Carotid Bruits, Normal Femoral Pulses, Normal Radial Pulses, Normal Dorsalis Pedal Pulse, Normal Posterior Tibial Pulses Abdomen: Bowel Sounds Present, Soft, Non Tender, No HSM, No Organomegaly Extremities: No Cyanosis, No Clubbing, No edema Musculoskeletal: No Erythema Skin: No Rashes Lymphatic: No Lymph Node Enlargement Neurological: No Focal Motor or Sensory Deficit Rhythm: EKG: ECHO: Stress Test: Cardiac Cath: PCI: CT Surgery: Holter monitor: EPS: PPM: CXR: Chest CT Scan: Medical Necessity - Tobacco Use Smoking Status: Never smoker Assessment/Plan 1. Paroxysmal atrial fibrillation/flutter The patient presents with recurrent paroxysmal atrial fibrillation/flutter with rapid ventricular response. He has been started on intravenous amiodarone as well as intravenous diltiazem with significant improvement in his heart rate. He does not appear to be an appropriate candidate for anticoagulation at this time in addition his chads vasc score is 1. My recommendation is to continue the above and hopefully transition him to p.o. He will be placed on oral amiodarone, oral beta-gloria increased to metoprolol XL 100 mg a day, and oral diltiazem. 2. Wide-complex tachycardia The patient was noted to have brief episodes of wide-complex tachycardia on his 30-day ambulatory event monitor. Again based on underlying somatic/motion artifact or been concerns as to whether or not this is underlying ventricular ectopy versus aberrancy. Thus this has to be taken into consideration with respect to his overall evaluation. This has included his previous transthoracic echocardiogram and pharmacologic stress nuclear imaging study. Both of the studies have demonstrated overall preserved left ventricular systolic function/LVEF and no evidence of ongoing myocardial ischemia. Thus, again, at this time the iteration would be given for the addition of IV amiodarone with transition to oral amiodarone therapy. Hopefully this would help the patient's rate, potentially help him regain sinus rhythm/maintain sinus rhythm, etc. 3. Hypertension The patient's blood pressure has been stable. This will need to be monitored. His medications will need to be adjusted as deemed appropriate. 4. Alcohol intoxication The patient has repetitive hospitalizations for alcohol intoxication. He will be evaluated by internal medicine for alcohol withdrawal. He has been offered assistance in the past with alcohol withdrawal programs. Internal medicine will have to discuss this once again with the patient. Thank you for allowing me to participate in the care of your patient. Please don't hesitate to call if any issues arise
[2019-07-09] MEDS: 0.9% NaCl Peripheral Flush Adult/Peds IV (14:44)
[2019-07-09] MEDS: LORazepam 2 MG/ML Syringe IV (14:44)
[2019-07-09] MEDS: dilTIAZem 25 MG/5 ML Vial IV BOLUS (17:56)
[2019-07-09] MEDS: LORazepam 1 MG Tablet 2 MG PO (17:56)
[2019-07-09] MEDS: Enoxaparin 120 MG/0.8 ML Syringe 110 MG SC (18:18)
--- NOTE | 2019-07-09 19:20 | PCM.PROGNOTE ---
Patient Problems: Active and Suspected Problems (Last Reviewed 07/07/19 @ 14:48 by RYAN Sweeney) Atrial flutter (Acute) Atrial flutter with rapid ventricular response (Acute) Atrial fibrillation and flutter (Acute) Subjective: Patient was seen and examined today, his atrial fibrillation is still not controlled, his rate is in 130s, I talked with cardiology this afternoon and increased his Cardizem, cardiology requested the patient be placed on full anticoagulation with Lovenox with the possibility he may have to undergo a cardioversion. I talked to the patient's today at length by phone and in person, patient at one time wanted to leave the hospital today but was convinced by nursing and his to stay. I have decided to keep the patient on program Librium during his hospital stay, I am doubtful he will stop drinking once he leaves the hospital. - Physical Exam General: Alert, Oriented x3, Cooperative, No apparent distress, Well developed, Well nourished HEENT: Atraumatic, PERRLA, EOMI, Normocephalic Oral: Moist Mucosa Neck: Supple, Trachea Midline, Thyroid Normal Size and Texture Lungs: Clear to auscultation, Normal air movement, No rhonchi, No wheeze, No rales Cardiovascular: PMI Normal, Irregular Rate, No rub noted Abdomen: Bowel Sounds Present, Soft, Non Tender, Non-Distended Extremities: No clubbing, No cyanosis, No edema, Capillary Refill Less than 3 Seconds Skin: No rashes, No breakdown Musculoskeletal: No Tenderness to Palpation of Joints or Extremities Neurological: Cranial nerves II-XII grossly intact, Neuro grossly intact, Sensory exam intact to light touch and pain, Coordination normal Psych/Mental Status: Normal Affect, Appropriate, Alert and oriented to time, place, person, mood and affect Vital Signs Temp Pulse Resp BP Pulse Ox 98.1 F 135 H 18 122/73 H 95 07/09/19 16:00 07/09/19 18:02 07/09/19 18:02 07/09/19 18:02 07/09/19 17:00 Oxygen Flow Rate (L/min) 2 Oxygen Delivery Method Room Air Weight: 110.7 kg Body Mass Index (BMI) 32.1 Intake and Output for Last 24 Hours 07/07/19 07/08/19 07/09/19 23:59 23:59 23:59 Intake Total 5243.98 / 5743.98 4859.47 / 4859.47 5949.96 / 5949.96 Output Total 3050 / 3875 5850 / 5850 5325 / 5325 Balance 2193.98 / 1868.98 -990.53 / -990.53 624.96 / 624.96 Medical Necessity - Tobacco Use Smoking Status: Never smoker Assessment/Plan All Active Problems (Last Reviewed 07/07/19 @ 14:48 by RYAN Sweeney) Atrial flutter (Acute) Atrial flutter with rapid ventricular response (Acute) Atrial fibrillation and flutter (Acute) Hypomagnesemia (Acute) Atrial fibrillation with rapid ventricular response (Acute) Alcohol withdrawal (Acute) Delirium tremens (Resolved) #1 paroxysmal atrial fib/flutter with RVR-again medication was adjusted by cardiology today, he will be reevaluated tomorrow #2 acute alcohol withdrawal-patient will be placed on programmed Librium #3 essential hypertension #4 chronic alcoholism Code Visit Inpatient E&M: 53620 Subs Hosp L2
[2019-07-10] VITALS (24 sets, daily range): BP systolic 96–125; BP diastolic 69–100; PULSE 80–115; RESP 16–23; TEMP 36.4–37.3; O2SAT 89–98; BMI 32.1
--- NOTE | 2019-07-10 02:00 | NURSING ---
PATIENT OXYGEN LEVEL DROPPED TO 60% WHILE ASLEEP, PLACED ON 2LNC AND CAME UP TO 95%, PATIENT STATES HE HAS SLEEP APNEA AND WAS SUPPOSE TO GET A CPAP
[2019-07-10] MEDS: Enoxaparin 120 MG/0.8 ML Syringe 110 MG SC (05:24)
--- NOTE | 2019-07-10 05:30 | EKG12_ITS ---
Test Reason : AM EKG Blood Pressure : / mmHG Vent. Rate : 105 BPM Atrial Rate : 264 BPM P-R Int : 000 ms QRS Dur : 100 ms QT Int : 356 ms P-R-T Axes : 000 054 044 degrees QTc Int : 470 ms Atrial flutter with variable A-V block Abnormal ECG Confirmed by ELLIOT IBRAHIM, ALONZO ([id number]), clinical editor BRITTNEY GUZMÁN ([id number]) on 07/12/2019 12:56:27 PM Referred By: Artis Garvey Confirmed By:ALONZO ZARATE MD
[2019-07-10] MEDS: Metoprolol(XL)Succ 100 MG Tablet PO (08:57)
[2019-07-10] MEDS: Gabapentin 600 MG Tablet PO ×3 (08:57→17:20)
[2019-07-10] MEDS: Multivitamins,Therapeutic Tablet 1 TABLET PO (08:57)
[2019-07-10] MEDS: Amiodarone 200 MG Tablet PO (08:57)
[2019-07-10] MEDS: Aspirin 81 MG TAB.CHEW PO (08:58)
[2019-07-10] MEDS: chlordiazePOXIDE 25 MG Capsule PO ×4 (09:00→21:59)
--- NOTE | 2019-07-10 09:28 | PN.CARD_ITS ---
Subjectve: The patient is awake and alert. He denies ongoing chest discomfort or difficulty breathing. He does not appear to be tremulous as he was previously. He has been up and in the chair and ambulating in his room. His and daughter are with him today. Objective: Vital Signs Temp Pulse Resp BP Pulse Ox 98.6 F 95 17 117/88 H 97 07/10/19 05:00 07/10/19 08:57 07/10/19 08:00 07/10/19 08:00 07/10/19 08:00 Oxygen Flow Rate (L/min) 2 Oxygen Delivery Method Room Air Weight: 244 lb 0.827 oz Body Mass Index (BMI) 32.1 Intake and Output for Last 24 Hours 07/08/19 07/09/19 07/10/19 23:59 23:59 23:59 Intake Total 4859.47 / 4859.47 6589.71 / 6589.71 45.25 / 45.25 Output Total 5850 / 5850 6325 / 6325 1500 / 1500 Balance -990.53 / -990.53 264.71 / 264.71 -1454.75 / -1454.75 General: Awake, Alert, Oriented x 3, Cooperative, No Acute Distress HEENT: Atraumatic, Normocephalic, PERRL, EOMI, Sclera Non Icteric Oral: Moist Mucosa Neck: Supple, Good ROM, No JVD Lungs: Clear to auscultation Cardiovascular: Irregular Rhythm, Normal S1, Normal S2 Abdomen: Bowel Sounds Present, Soft, Non Tender Extremities: No edema Psych/Mental Status: Flat Affect Rhythm: Atrial fibrillation/flutter Medical Necessity - Tobacco Use Smoking Status: Never smoker Assessment/Plan 1. Paroxysmal atrial fibrillation/flutter The patient presents with recurrent paroxysmal atrial fibrillation/flutter with rapid ventricular response. The etiology may be multifactorial based upon a combination of patient's age, his history of hypertension, his left atrial enlargement, his alcohol intake, etc. The patient has required continued multiple rate control medications. This is included oral beta-blockers, IV diltiazem, and IV amiodarone altered to oral amiodarone. He continues with an elevated rate-although somewhat improved compared to his admission. He has been placed on subcutaneous Lovenox therapy. A lengthy conversation was held with Dr. Mckeon who evaluated the patient over the weekend as well as the patient, his , and his daughter. This conversation included his atrial dysrhythmia, rate control, possible anticoagulant therapy, and attempts at regaining sinus rhythm with NICKOLAS guided synchronized biphasic DC cardioversion. At the present time the patient's states that she controls his medications at home. With respect to the risks and benefits and pros and cons of no anticoagulant therapy versus anticoagulant therapy the consensus was, as he is still challenging to rate control and is not yet gained sinus rhythm, was to consider NICKOLAS guided biphasic DC cardioversion with oral systemic anticoagulant therapy following the procedure for period of time with the hopes that his family controlling his medications and with the hopes that his family will inhibit him from alcohol intake that he will be compliant and hopefully not have any adverse events. If he demonstrates that he can be compliant and not have any adverse events then depending upon his long-term rhythm related issues he may be a future candidate for possible electrophysiology consultation leading to EPS/RFA. The patient and his and his daughter were agreeable to this approach. 2. Wide-complex tachycardia The patient was noted to have brief episodes of wide-complex tachycardia on his 30-day ambulatory event monitor. Again based on underlying somatic/motion artifact or been concerns as to whether or not this is underlying ventricular ectopy versus aberrancy. Thus this has to be taken into consideration with respect to his overall e valuation. This has included his previous transthoracic echocardiogram and pharmacologic stress nuclear imaging study. Both of the studies have demonstrated overall preserved left ventricular systolic function/LVEF and no evidence of ongoing myocardial ischemia. He has continued on his current medical management in-house without any obvious adverse events. 3. Hypertension The patient's blood pressure has been low. This will need to be monitored. His medications will need to be adjusted as deemed appropriate. 4. Alcohol intoxication The patient has repetitive hospitalizations for alcohol intoxication. He continues evaluation care per internal medicine. Comment: The patient's case was discussed and reviewed with the patient and previously with the [facility] emergency hospital staff. This note was generated using a voice recognition system and there may be incorrect words, spelling or punctuation that were not noted when reviewing the office note prior to saving.
[2019-07-10] MEDS: LORazepam 1 MG Tablet 2 MG PO (10:06)
--- NOTE | 2019-07-10 14:24 | PCM.PROGNOTE ---
Patient Problems: Active and Suspected Problems (Last Reviewed 07/07/19 @ 14:48 by RYAN Sweeney) Atrial flutter (Acute) Atrial flutter with rapid ventricular response (Acute) Atrial fibrillation and flutter (Acute) Subjective: Pt without complaints of CP, pressure, tightness, LH, dizziness, or palpitations. He is agreeable to heart cath. Again when I attempted to discuss alcohol cessation he replied that he has cut back, and I reemphasized that complete cessation is the goal. - Physical Exam General: Alert, Oriented x3, Cooperative HEENT: Atraumatic, PERRLA, EOMI, Normocephalic Neck: Supple, No JVD, Negative Carotid Bruits Lungs: Clear to auscultation, Normal air movement Cardiovascular: Irregular Rate, Tachycardic Abdomen: Bowel Sounds Present, Soft, Non Tender Extremities: No edema, Capillary Refill Less than 3 Seconds Skin: No rashes, No breakdown Musculoskeletal: No Tenderness to Palpation of Joints or Extremities Neurological: Cranial nerves II-XII grossly intact Psych/Mental Status: Normal Affect, Appropriate, Alert and oriented to time, place, person, mood and affect Vital Signs Temp Pulse Resp BP Pulse Ox 99.0 F 82 21 H 118/91 H 96 07/10/19 11:00 07/10/19 11:00 07/10/19 11:00 07/10/19 11:00 07/10/19 11:13 Oxygen Flow Rate (L/min) 2 Oxygen Delivery Method Room Air Weight: 244 lb 0.827 oz Body Mass Index (BMI) 32.1 Intake and Output for Last 24 Hours 07/08/19 07/09/19 07/10/19 23:59 23:59 23:59 Intake Total 4859.47 / 4859.47 6589.71 / 6589.71 199.75 / 199.75 Output Total 5850 / 5850 6325 / 6325 5 / 2225 Balance -990.53 / -990.53 264.71 / 264.71 -2024. / - Medical Necessity - Tobacco Use Smoking Status: Never smoker Assessment/Plan All Active Problems (Last Reviewed 07/07/19 @ 14:48 by RYAN Sweeney) Atrial flutter (Acute) Atrial flutter with rapid ventricular response (Acute) Atrial fibrillation and flutter (Acute) Hypomagnesemia (Acute) Atrial fibrillation with rapid ventricular response (Acute) Alcohol withdrawal (Acute) Delirium tremens (Resolved) 1. Atrial Flutter with RVR - cardiology following. Ongoing alcoholism. Cardioversion tomorrow. Xarelto. Pt has is an alcoholic and has a hx of GI bleed so he will need to be watched carefully with anticoagulation. 2. Hx nonsustained Vtach - maintain on tele. was noted on 30 day event monitor. 3. Alcoholism with withdrawal - scheduled librium, prn ativan. 4. Hyponatremia - likely 2/2 alcoholism. Resolved. DVT ppx: xarelto DC planning: Pending further cardiac intervention, rate control. This patient was seen by Romel Bravo PA-C under the supervision of Dr. Tobar.
[2019-07-10] MEDS: Rivaroxaban 20 MG Tablet PO (17:20)
[2019-07-11] VITALS (19 sets, daily range): BP systolic 103–131; BP diastolic 64–98; PULSE 88–108; RESP 13–24; TEMP 36.7–37.1; O2SAT 92–99
--- NOTE | 2019-07-11 05:00 | EKG12_ITS ---
Test Reason : AM EKG Blood Pressure : / mmHG Vent. Rate : 098 BPM Atrial Rate : 264 BPM P-R Int : 000 ms QRS Dur : 104 ms QT Int : 388 ms P-R-T Axes : 243 043 057 degrees QTc Int : 495 ms Atrial flutter with variable A-V block Prolonged QT Abnormal ECG Confirmed by ELLIOT IBRAHIM, ALONZO ([id number]), editor & co founder BRITTNEY GUZMÁN ([id number]) on 07/12/2019 12:54:12 PM Referred By: Artis Garvey Confirmed By:ALONZO ZARATE MD
[2019-07-11] MEDS: 0.9% Normal Saline 1,000 ML 15 ML IV (06:05)
[2019-07-11 07:26] LABS: Anion Gap 5 (5-15); BUN 18 mg/dL (7-18); BUN/Creat Ratio 21.3 RATIO (10-20); Calcium,Total 9.9 mg/dL (8.5-10.1); Chloride 102 mmol/L (98-107); Creatinine, Serum 0.84 mg/dL (0.70-1.30); EST Glomerular Filtration Rate 100 mL/min (>60); Est Glom Filt Rate - Afr Amer 120 mL/min (>60); Estimated Creatinine Clearance 109.65 ml/min; Glucose 115 mg/dL (74-106); Potassium 4.1 mmol/L (3.5-5.1); Sodium Level 139 mmol/L (136-145)
--- NOTE | 2019-07-11 07:56 | PN.CARD_ITS ---
Subjectve: The patient is awake and alert. He denies any acute chest discomfort or difficulty breathing. Objective: Vital Signs Temp Pulse Resp BP Pulse Ox 98.2 F 88 13 114/86 H 92 07/11/19 05:00 07/11/19 07:00 07/11/19 07:00 07/11/19 07:00 07/11/19 07:00 Oxygen Flow Rate (L/min) 2 Oxygen Delivery Method Room Air Weight: 244 lb 0.827 oz Body Mass Index (BMI) 32.1 Intake and Output for Last 24 Hours 07/09/19 07/10/19 07/11/19 23:59 23:59 23:59 Intake Total 6589.71 / 6589.71 1549.50 / 1549.75 105.00 / 105.00 Output Total 6325 / 6325 5025 / 5025 975 / 975 Balance 264.71 / 264.71 -3475.50 / -3475.25 -870.00 / -870.00 General: Awake, Alert, Oriented x 3, Cooperative, No Acute Distress HEENT: Atraumatic, Normocephalic, PERRL, EOMI, Sclera Non Icteric Oral: Moist Mucosa Neck: Supple, Good ROM, No JVD Lungs: Clear to auscultation Cardiovascular: Irregular Rhythm, Normal S1, Normal S2 Abdomen: Bowel Sounds Present, Soft, Non Tender Extremities: No edema Psych/Mental Status: Flat Affect 07/11/19 06:45: Sodium 139, Potassium 4.1, Chloride 102, Carbon Dioxide 32.0, Anion Gap 5, BUN 18, Creatinine 0.84, Est GFR (MDRD) Af Amer 120, Est GFR (MDRD) Non-Af 100, BUN/Creatinine Ratio 21.3 H, Glucose 115 H, Calcium 9.9 Rhythm: Atrial fibrillation/flutter Medical Necessity - Tobacco Use Smoking Status: Never smoker Assessment/Plan 1. Paroxysmal atrial fibrillation/flutter The patient presents with recurrent paroxysmal atrial fibrillation/flutter with rapid ventricular response. The etiology may be multifactorial based upon a combination of patient's age, his history of hypertension, his left atrial enlargement, his alcohol intake, etc. The patient has required continued multiple rate control medications. This is included oral beta-blockers, IV diltiazem, and IV amiodarone altered to oral amiodarone. He continues with an elevated rate-although somewhat improved compared to his admission. He has been placed on subcutaneous Lovenox therapy. He is also received oral anticoagulant therapy with Xarelto. At the present time he is going to proceed with NICKOLAS guided synchronized biphasic DC cardioversion. If successful the patient will need to continue on appropriate rate control therapy, antiarrhythmic therapy, and anticoagulant therapy. As previously noted, status post a lengthy discussion with the patient, his spouse, his daughter, and the [facility] medical staff members involved in his care, the hope is that he will refrain from alcohol intake, receive his medications appropriately, and avoid adverse events. 2. Wide-complex tachycardia The patient was noted to have brief episodes of wide-complex tachycardia on his 30-day ambulatory event monitor. Again based on underlying somatic/motion artifact or been concerns as to whether or not this is underlying ventricular ectopy versus aberrancy. We will continue medical management as deemed appropriate. 3. Hypertension The patient's blood pressure has been low. This will need to be monitored. His medications will need to be adjusted as deemed appropriate. 4. Alcohol intoxication The patient has repetitive hospitalizations for alcohol intoxication. He continues evaluation care per internal medicine. Comment: The patient's case has been discussed and reviewed as noted above with the patient, his family members, and members of the [facility] medical staff involved in his care. This note was generated using a voice recognition system and there may be incorrect words, spelling or punctuation that were not noted when reviewing the office note prior to saving.
--- NOTE | 2019-07-11 08:00 | ECHOTEE_ITS ---
Reason For Study: Afib/Flutter Medication NICKOLAS probe passed with minimal difficulty. No complications were noted. Cetacaine Topical Judsonia given X3 orally. Versed 1 mg given slow IVP. Fentanyl 50 mcg given slow IVP. Performed a rapid injection of agitated mix of 9 cc saline and 1cc air to assess for atrial septal defect. Left Ventricle Normal LV size. Left ventricular systolic function is normal. The estimated ejection fraction is 55 %. No regional wall motion abnormalities noted. Right Ventricle Normal RV size. Normal systolic function. Atria Faintly positive agitated saline contrast study for a right to left interatrial shunt during Valsalva maneuver appearing compatible with a small patent foramen ovale. The left atrium is mildly enlarged. There is no sponatenous contrast in the left atrium. No thrombus is detected in the left atrial appendage. The right atrium is mildly enlarged. There is no sponatenous contrast in the right atrium. No RA/appendage thrombus identified. Mitral Valve There is mild mitral annular calcification. Extension of the mitral annular calcification onto the posterior mitral valve leaflet. Mild (1+) mitral valve insufficiency. Tricuspid Valve Normal tricuspid valve. Trivial tricuspid valve insufficiency. Aortic Valve Trisinus/trileaflet aortic valve. Mild diffuse aortic valve thickening. Mild focal aortic valve calcification. Pulmonic Valve The pulmonic valve is not well visualized. Vessels Normal-appearing thoracic aorta. Pericardium No pericardial effusion. Interpretation Summary Left ventricular systolic function is normal. The estimated ejection fraction is 55 %. The left atrium is mildly enlarged. There is no sponatenous contrast in the left atrium. No thrombus is detected in the left atrial appendage. The right atrium is mildly enlarged. There is mild mitral annular calcification. Extension of the mitral annular calcification onto the posterior mitral valve leaflet. Mild (1+) mitral valve insufficiency. Trivial tricuspid valve insufficiency. Mild diffuse aortic valve thickening. Mild focal aortic valve calcification. Faintly positive agitated saline contrast study for a right to left interatrial shunt during Valsalva maneuver appearing compatible with a small patent foramen ovale. Ordering Physician: Romulo Burt Referring Physician: Artis Garvey Performed By: Fidencio Sanchez RCS
--- NOTE | 2019-07-11 09:48 | EKG12_ITS ---
Test Reason : AFIB TO SVT Blood Pressure : / mmHG Vent. Rate : 154 BPM Atrial Rate : 308 BPM P-R Int : 000 ms QRS Dur : 104 ms QT Int : 264 ms P-R-T Axes : 090 035 060 degrees QTc Int : 422 ms Atrial flutter Abnormal ECG Confirmed by ELLIOT IBRAHIM, ALONZO ([id number]), story editor BRITTNEY GUZMÁN ([id number]) on 07/12/2019 1:04:03 PM Referred By: Artis Garvey Confirmed By:ALONZO ZARATE MD
--- NOTE | 2019-07-11 09:49 | CARDIOVERS_ITS ---
Cardioversion Cardioversion: Procedure: Synchronized Biphasic DC Cardioversion Indications: Atrial fibrillation/flutter Consent: Per the Patient Anesthesia: per Dr. Gaona of pulmonology and critical care medicine with propofol 80 mg IV push total Procedure: Synchronized Biphasic DC Cardioversion: 200 J x1: Result: Sinus rhythm Complications: no apparent complications This note was generated with [employer] dictation software. It may contain incorrect words, spelling, and punctuation that were not noted in checking the note before signing.
--- NOTE | 2019-07-11 09:52 | PCM.OP.PRO ---
Procedure Report Date of Procedure: 07/11/19 CONSCIOUS SEDATION REPORT DATE OF SERVICE: July 11, 2019 BRIEF HISTORY OF PRESENT ILLNESS: The patient is a 59-year-old male who presented to [facility] on July 06 in the setting of acute alcohol withdrawal and new onset atrial flutter with rapid ventricular rate. The patient did undergo a transesophageal echocardiogram this morning which revealed an ejection fraction of approximately 55%. The patient does report having been diagnosed with obstructive sleep apnea previously, but does not currently utilize any form of nocturnal noninvasive positive pressure ventilatory support. He denies any previous anesthetic complications. PHYSICAL EXAMINATION: VITAL SIGNS: Reviewed and were acceptable. GENERAL: The patient is an obese male, in no apparent distress, speaking in full sentences. HEENT: Normocephalic, atraumatic. Mucous membranes are moist and pink. Good mouth opening noted. Trachea is midline. CHEST: S1, S2 irregularly irregular. No murmurs, rubs or gallops were noted. LUNGS: Clear to auscultation bilaterally without appreciable wheezes, rales or rhonchi. ABDOMEN: Soft, nontender, nondistended. Positive bowel sounds. EXTREMITIES: There is no clubbing, cyanosis or edema. + Tremulous ASA Class: II DESCRIPTION OF PROCEDURE: After confirmation of informed consent, the patient's anesthesia plan was reviewed in detail. Propofol was chosen. Risks and benefits were reviewed and the patient agreed to proceed. At 0921, the patient was given his first bolus of propofol. In total, the patient required 80 mg of propofol to achieve an appropriate level of sedation. Following this, the patient was given a 200 joule synchronized cardioversion by Dr. Burt at the bedside. This was successful in achieving normal sinus rhythm. The patient was monitored until 929, at which time he reached his baseline mental status and function. The patient tolerated the procedure well. COMPLICATIONS: None ESTIMATED BLOOD LOSS: None RECOMMENDATIONS: Okay to recover in usual fashion. Code Visit 9xxxx: Other Procedure See Report - [id number]
[2019-07-11] MEDS: chlordiazePOXIDE 25 MG Capsule PO ×3 (10:34→16:57)
[2019-07-11] MEDS: Gabapentin 600 MG Tablet PO ×2 (11:34→16:57)
[2019-07-11] MEDS: Multivitamins,Therapeutic Tablet 1 TABLET PO (11:34)
[2019-07-11] MEDS: Amiodarone 200 MG Tablet PO (11:34)
[2019-07-11] MEDS: Aspirin 81 MG TAB.CHEW PO (11:34)
[2019-07-11] MEDS: Metoprolol(XL)Succ 100 MG Tablet 200 MG PO (11:34)
--- NOTE | 2019-07-11 14:50 | PCM.PROGNOTE ---
Patient Problems: Active and Suspected Problems (Last Reviewed 07/07/19 @ 14:48 by RYAN Sweeney) Atrial flutter (Acute) Atrial flutter with rapid ventricular response (Acute) Atrial fibrillation and flutter (Acute) Subjective: Pt underwent succesful cardioversion this AM. No CP/tightness/pressure/palp/LH/dizziness/SOB. He is restless and wants to go home today, and is considering leaving AMA. - Physical Exam General: Alert, Oriented x3, Cooperative HEENT: Atraumatic, PERRLA, EOMI, Normocephalic Neck: Supple, No JVD, Negative Carotid Bruits Lungs: Clear to auscultation, Normal air movement Cardiovascular: Regular rate, No murmurs Abdomen: Bowel Sounds Present, Soft, Non Tender Extremities: No edema, Capillary Refill Less than 3 Seconds Skin: No rashes, No breakdown Musculoskeletal: No Tenderness to Palpation of Joints or Extremities Neurological: Cranial nerves II-XII grossly intact Psych/Mental Status: Anxious, Restless, Alert and oriented to time, place, person, mood and affect Vital Signs Temp Pulse Resp BP Pulse Ox 98.3 F 97 24 H 113/81 H 97 07/11/19 14:00 07/11/19 14:00 07/11/19 14:00 07/11/19 14:00 07/11/19 14:00 Oxygen Flow Rate (L/min) 2 Oxygen Delivery Method Room Air Weight: 244 lb 0.827 oz Body Mass Index (BMI) 32.1 Intake and Output for Last 24 Hours 07/09/19 07/10/19 07/11/19 23:59 23:59 23:59 Intake Total 6589.71 / 6589.71 1549.50 / 1549.75 343.00 / 343.00 Output Total 6325 / 6325 5025 / 5025 1800 / 1800 Balance 264.71 / 264.71 -3475.50 / -3475.25 -1457.00 / -1457.00 Laboratory Tests Past 24 Hrs 07/11/19 06:45 Sodium 139 Potassium 4.1 Chloride 102 Carbon Dioxide 32.0 Anion Gap 5 BUN 18 Creatinine 0.84 Estim Creat Clear Calc 109.65 Est GFR (MDRD) Af Amer 120 Est GFR (MDRD) Non-Af 100 BUN/Creatinine Ratio 21.3 H Glucose 115 H Calcium 9.9 Medical Necessity - Tobacco Use Smoking Status: Never smoker Assessment/Plan All Active Problems (Last Reviewed 07/07/19 @ 14:48 by RYAN Sweeney) Atrial flutter (Acute) Atrial flutter with rapid ventricular response (Acute) Atrial fibrillation and flutter (Acute) Hypomagnesemia (Acute) Atrial fibrillation with rapid ventricular response (Acute) Alcohol withdrawal (Acute) Delirium tremens (Resolved) 1. Atrial Flutter with RVR - cardiology following. Ongoing alcoholism. NICKOLAS/Cardioversion today successful. Xarelto. Pt has is an alcoholic and has a hx of GI bleed so he will need to be watched carefully with anticoagulation. Monitor overnight. 2. Hx nonsustained Vtach - maintain on tele. was noted on 30 day event monitor. 3. Alcoholism with withdrawal - scheduled librium, prn ativan. 4. Hyponatremia - likely 2/2 alcoholism. Resolved. DVT ppx: xarelto DC planning: monitor overnight. This patient was seen by Romel Bravo PA-C under the supervision of Dr. Tobar.
--- NOTE | 2019-07-11 16:29 | DCINST_ITS ---
- Discharge Diagnoses Current Active Problems: Current Active and Chronic Problems (Last Reviewed 07/07/19 @ 14:48 by RYAN Sweeney) Alcohol intoxication (Chronic) Atrial flutter (Acute) Atrial flutter with rapid ventricular response (Acute) Atrial fibrillation and flutter (Acute) Wide-complex tachycardia (Chronic) You will use the following diet at home:: No restrictions Your food should be the consistency of: Regular Your liquids should be the consistency of: Regular/Thin Discharge Activity: Return to Normal Activity Weight Bearing Status: Full weight bearing Additional Instructions: DO NOT INTAKE ALCOHOL Allergies/Adverse Reactions: Allergies No Known Allergies Allergy (Verified 07/06/19 20:49) Medications to take at Discharge Lisinopril 20 mg PO DAILY 03/16/19 gabapentin 600 mg tablet 600 mg PO TID tab 05/11/19 Omeprazole [Prilosec] 20 mg PO DAILY 07/06/19 Amiodarone HCl [Cordarone] 200 mg PO DAILY #30 tab 07/11/19 Metoprolol(XL)Succ [Toprol Xl (Beta Fred)] 200 mg PO DAILY #60 tab 07/11/19 Rivaroxaban [Xarelto] 20 mg PO DINNER #30 tab 07/11/19 The following prescriptions were given: Amiodarone HCl [Cordarone] 200 mg PO DAILY #30 tab Transmission Status: Pending to [facility] [place] #30 Metoprolol(XL)Succ [Toprol Xl (Beta Fred)] 200 mg PO DAILY #60 tab Transmission Status: Pending to [facility] [place] #30 Rivaroxaban [Xarelto] 20 mg PO DINNER #30 tab Transmission Status: Pending to [facility] [place] #30 Primary Care Physician: Moriah Fernandez MD [Primary Care Provider] - Please follow up with your Primary Care Physician in: in one week Test Results: Test results from this visit will be discussed in further detail at your follow- up appointment, if applicable. Please Follow Up With: Romulo Burt MD When: as directed-call for appointment
[2019-07-11] MEDS: Rivaroxaban 20 MG Tablet PO (16:57)
--- NOTE | 2019-07-12 10:21 | PCM.DC.SUM ---
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 The estimated ejection fraction is 55 %. The left atrium is mildly enlarged. There is no sponatenous contrast in the left atrium. No thrombus is detected in the left atrial appendage. The right atrium is mildly enlarged. There is mild mitral annular calcification. Extension of the mitral annular calcification onto the posterior mitral valve leaflet. Mild (1+) mitral valve insufficiency. Trivial tricuspid valve insufficiency. Mild diffuse aortic valve thickening. Mild focal aortic valve calcification. Faintly positive agitated saline contrast study for a right to left interatrial shunt during Valsalva maneuver appearing compatible with a small patent foramen ovale. CT/Brain/Head without Contrast IMPRESSION: No change and no acute abnormality. Atrophy, greater than typically seen for age but not uncommon in patient's with alcohol abuse. Consultations [place]: Cardiology Operations: None Procedures: Cardioversion, Transesophageal Echo Summary of Care Provided: Hospital Course: The patient is a 59 year old M with pmhx of ongoing alcoholism, afib with RVR who recently was discharged for the same, prior GI bleed, HTN, who presented to the ER with incoordination, lightheadedness, and confusion. He denies palpitations. He was intoxicated with blood alcohol level of . He also had aflutter with RVR. He was admitted to the PCU, placed on tele, cardiology was consulted, and he was treated with amiodarone drip, digoxin, and cardizem. These medications were ineffective at controlling his heart rate. He was given librium and ativan for alcohol withdrawal. His withdrawal was controlled. The decision was made to pursue a NICKOLAS cardioversion. He was started on xarelto. NICKOLAS was negative, and the following cardioversion was a success. Following the cardioversion the patient was insistent on discharge home. He will continue amiodarone, metoprolol, and xarelto. He will need close monitoring for bleeding. I attempted to discuss complete alcohol cessation with him several times, however he was dismissive, repeating that he has already cut down. He would not explicitly express interest in a desire to quit completely or to seek help with quitting. He will need follow up with cardiology as directed, and with his PCP in 1 week. He was discharged home in stable condition. This patient was seen by Romel Bravo PA-C under the supervision of Dr. Tobar. [] - Physical Exam General: Alert, Oriented x3, Cooperative HEENT: Atraumatic, PERRLA, EOMI, Normocephalic Neck: Supple, No JVD, Negative Carotid Bruits Lungs: Clear to auscultation, Normal air movement Cardiovascular: Regular rate, No murmurs Abdomen: Bowel Sounds Present, Soft, Non Tender Extremities: No edema, Capillary Refill Less than 3 Seconds Skin: No rashes, No breakdown Musculoskeletal: No Tenderness to Palpation of Joints or Extremities Neurological: Cranial nerves II-XII grossly intact Psych/Mental Status: Normal Affect, Appropriate, Alert and oriented to time, place, person, mood and affect Vital Signs Temp Pulse Resp BP Pulse Ox 98.1 F 90 18 122/66 H 97 07/11/19 16:00 07/11/19 16:00 07/11/19 16:00 07/11/19 16:00 07/11/19 16:00 Oxygen Flow Rate (L/min) 2 Oxygen Delivery Method Room Air Weight: 244 lb 0.827 oz Body Mass Index (BMI) 32.1 Intake and Output for Last 24 Hours 07/10/19 07/11/19 07/12/19 23:59 23:59 23:59 Intake Total 1549.50 / 1549.75 343.00 / 343.00 Output Total 5025 / 5025 1800 / 1800 Balance -3475.50 / -3475.25 -1457.00 / -1457.00 Discharge Diet: Low fat/ Low Cholesterol, 2000 mg Sodium Diet Discharge Activity: Return to Normal Activity Weight Bearing Status: Full weight bearing Home Medications: Medications to take at Discharge Lisinopril 20 mg PO DAILY 05/02/19 gabapentin 600 mg tablet 600 mg PO TID tab 05/11/19 Omeprazole [Prilosec] 20 mg PO DAILY 07/06/19 Amiodarone HCl [Cordarone] 200 mg PO DAILY #30 tab 07/11/19 Hydroxyzine Pamoate [Vistaril] 50 mg PO 4X/DAY PRN PRN #60 cap 07/11/19 Metoprolol(XL)Succ [Toprol Xl (Beta Fred)] 200 mg PO DAILY #60 tab 07/11/19 Rivaroxaban [Xarelto] 20 mg PO DINNER #30 tab 07/11/19 Following Prescrptions Were Given to Patient: Amiodarone HCl [Cordarone] 200 mg PO DAILY #30 tab Transmission Status: Received by [facility] #30 Metoprolol(XL)Succ [Toprol Xl (Beta Fred)] 200 mg PO DAILY #60 tab Transmission Status: Received by [facility] #30 Hydroxyzine Pamoate [Vistaril] 50 mg PO 4X/DAY PRN PRN #60 cap PRN Reason: Anxiety Transmission Status: Received by [facility] #30 Rivaroxaban [Xarelto] 20 mg PO DINNER #30 tab Transmission Status: Received by [facility] #30 Primary Care Physician: Moriah Fernandez MD [Primary Care Provider] - Please follow up with your Primary Care Physician in: in one week Please Follow Up With: Romulo Burt MD When: as directed-call for appointment Disposition: Home Minutes spent on discharge:: 35 Patient Condition:: Stable Medical Necessity - Tobacco Use Smoking Status: Never smoker Meaningful Use Info Meaningful Use Diagnoses (Choose all that apply): None applicable
--- NOTE | 2019-07-12 15:32 | CASEMGMT ---
RN ANGELIC DC PHONE CALL DC DATE: 07/11/19 DC Disposition: Home Diagnosis on Discharge: ETOH abuse LACE/STRATA: 09/17 Intro role of CM to patient's . States pt is improving, but still unsteady with ambulation. She is home to assist him. F/U appt has been made for Wednesday of this week with Dr. Fernandez. understands prescriptions and helps pt with meds. Discussed if concerns arise, will call Dr. Fernandez's office and speak with nurse for recommendations. No other concerns voiced, and no care improvement suggestions were given. Oc RODRIGUEZN RN ACM
== END 2019-07-11 17:22 | disposition home or self-care (01) | DRG 201 ==
LOC: ED 21:09 → PCU 23:46
PROVIDERS: Physician Assistant; Admitting Provider Hospitalist; Emergency Provider Emergency Medicine; Family Provider Internal Medicine; PCP Internal Medicine; Referring Provider Hospitalist; Visit Provider Internal Medicine
DX: I48.92 Unspecified atrial flutter (principal); H54.8 Legal blindness, as defined in USA; F10.229 Alcohol dependence with intoxication, unspecified; I48.0 Paroxysmal atrial fibrillation; Y90.6 Blood alcohol level of 120-199 mg/100 ml; E87.1 Hypo-osmolality and hyponatremia; I10 Essential (primary) hypertension; F10.239 Alcohol dependence with withdrawal, unspecified; Z87.19 Personal history of other diseases of the digestive system; Z91.81 History of falling
CPT/HCPCS: 36415; 70450; 80048; 80162; 80320; 82962; 83735; 84100; 84484; 85025; 92960; 93005; 93312; 93320; 93325; 97161; 97165; 99285; J7030; J7040; A4216; G0480; J2405

== ENCOUNTER → 2019-07-19 13:24 | Outpatient (CLI) | payer MEDICAID, SELFPAY ==
[2019-07-10 20:43] VITALS: BMI 32.1
[2019-07-19 16:39] LABS: Digoxin Level 0.24 ng/mL (0.80-2.00)
== END ==
PROVIDERS: Family Provider Internal Medicine; PCP Internal Medicine; Referring Provider Physician Assistant Medical; Visit Provider Physician Assistant Medical
DX: I48.91 Unspecified atrial fibrillation (principal)
CPT/HCPCS: 36415; 80162

== ENCOUNTER 2019-07-20 15:56 | Emergency (ER) | payer MEDICAID, SELFPAY ==
[2019-07-10 20:43] VITALS: BMI 32.1
[2019-07-20 15:56] VITALS: BP 111/78; PULSE 77; RESP 16; TEMP 36.9; O2SAT 98; BMI 31.1
--- NOTE | 2019-07-20 16:13 | ED.VIS.GEN ---
History of Present Illness Chief Complaint: Cough Informant: Patient, Significant Other Onset: Month(s) - 3 Narrative: She is here with significant other reporting dry cough for 3 months. Significant other stating coughing so much it bothers her, patient states he is not aware of it. He does drink alcohol daily. Later states at times when he coughs he does have a mild headache with it. Currently denies any symptoms. He is on MITA inhibitor for years of lisinopril. Significant other states she was told by friends that can cause a cough therefore is been held for 3 days. He denies tobacco history. Was recently in the hospital for new onset atrial fibrillation, he is on metoprolol and Xarelto. He states chest x-ray has been obtained during these episodes. Denies nausea or vomiting. No chest pains. No other complaints. Prior similar symptoms: No Past Medical History - Allergies and Home Meds Allergies/Adverse Reactions: Allergies No Known Allergies Allergy (Verified 07/06/19 20:49) Primary Care Physician: Moriah Fernandez MD [Primary Care Provider] - 5-7 Days Surgical History: - - Right elbow surgery Smoking Status: Never smoker - Family History Maternal Family History: Family History (Last Reviewed 07/07/19 @ 14:48 by RYAN Sweeney) Mother Cancer Diabetes Brother Cancer Grandfather Heart disease Grandfather History of stroke Grandmother CVA (cerebral vascular accident) Family History: Reports: Cancer, Hypertension, Stroke Paternal Family History: Family History (Last Reviewed 07/07/19 @ 14:48 by RYAN Sweeney) Mother Cancer Diabetes Brother Cancer Grandfather Heart disease Grandfather History of stroke Grandmother CVA (cerebral vascular accident) Family History: Reports: Hypertension, Stroke Sibling Family History: Family History (Last Reviewed 07/07/19 @ 14:48 by RYAN Sweeney) Mother Cancer Diabetes Brother Cancer Grandfather Heart disease Grandfather History of stroke Grandmother CVA (cerebral vascular accident) Family History: Reports: Cancer Review of Systems General: Denies: Chills, Fever, Sweats Eyes: Denies: Visual changes - bilaterally, Diplopia ENT: Denies: Rhinorrhea, Sore throat Cardiovascular: Denies: Chest pain, Palpitations Respiratory: Reports: Cough. Denies: Dyspnea, Dyspnea on exertion Gastrointestinal: Denies: Abdominal pain, Nausea, Vomiting, Diarrhea, Melena, Hematochezia Genitourinary: Denies: Dysuria, Hematuria, Frequency Musculoskeletal: Denies: Back pain, Extremity Pain Skin: Denies: Rash, Wounds Neurological: Denies: Headache, Weakness, Numbness Physical Exam Vital Signs/Narrative: Vital Signs Temp Pulse Resp BP Pulse Ox 07/20/19 15:56 98.5 F 77 16 111/78 98 Inital Vital Signs reviewed: Yes General: Well nourished, Well developed, No Acute Distress Head: Normocephalic, Atraumatic Eyes: Perrl, EOMI ENT: Moist mucous membranes, No rhinorrhea Neck: Supple, Nontender Cardiovascular: Regular rate, Regular rhythm, No murmurs Respiratory: No distress, CTA bilaterally, Chest nontender Abdomen: Soft, Nontender, Nondistended, Normal bowel sounds Back: Nontender, Normal Inspection Extremities: Nontender, No edema Skin: Normal color, No rash Neurological: Alert, Oriented x3, Cranial nerves II-XII grossly intact, Normal Strength, Normal Sensation Psychological: Normal affect, Normal Mood Diagnostic/Tx/Re-eval - Medical Decision Making Patient history of dry cough, vital signs stable, normal lung sounds, I do suspect this is MITA inhibitor related. This medication has been held, his blood pressure stable, discussed with patient and significant other to continue to hold this medication. Antitussives provided to help with symptoms as needed. He will follow-up with his PCP as an outpatient. I did review his records, he had a chest x-ray June 30 that was normal. All questions were answered. ED Disposition - Plan for ED Patient: Disposition: Home or Assisted Living Diagnosis: Cough due to MITA inhibitor Prescriptions: Benzonatate [Tessalon Perle] 200 mg PO TID PRN PRN #20 cap PRN Reason: Cough Prescription Printed Referrals: Moriah Fernandez MD [Primary Care Provider] - 5-7 Days Additional Instructions: Suspect your cough is due to your lisinopril that you have held for 3 days. Continue to hold this medication. Your blood pressure is stable. Follow-up with your doctor.
== END 2019-07-20 16:27 | disposition home or self-care (01) ==
PROVIDERS: Emergency Provider Emergency Medicine; Family Provider Internal Medicine; PCP Internal Medicine
DX: R05 Cough (principal); T46.4X5A Adverse effect of angiotensin-converting-enzyme inhibitors, initial encounter; Y92.9 Unspecified place or not applicable; I48.91 Unspecified atrial fibrillation; Z79.01 Long term (current) use of anticoagulants; Z79.899 Other long term (current) drug therapy
CPT/HCPCS: 99282

== ENCOUNTER 2019-07-26 12:09 | Emergency (ER) | payer MEDICAID, SELFPAY ==
[2019-07-26 12:11] VITALS: BP 98/77; PULSE 82; RESP 16; TEMP 36.7; O2SAT 95; BMI 33.0
--- NOTE | 2019-07-26 12:40 | EKG12_ITS ---
Test Reason : ANXIETY Blood Pressure : / mmHG Vent. Rate : 075 BPM Atrial Rate : 075 BPM P-R Int : 218 ms QRS Dur : 100 ms QT Int : 436 ms P-R-T Axes : 032 031 059 degrees QTc Int : 486 ms Sinus rhythm with 1st degree A-V block Possible Left atrial enlargement Prolonged QT Abnormal ECG Confirmed by KERWIN IBRAHIM, ELIAS ([id number]), map editor VAL AHN ([id number]) on 07/28/2019 11:36:48 AM Referred By: Fay Nielsen Confirmed By:ZAIRA SURESH MD
--- NOTE | 2019-07-26 12:40 | ED.VIS.GEN ---
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 Apparently he got an argument with his about a shed issue and now he is anxious. He wanted to make sure everything is okay. He denies chest pain shortness of breath fever or chills. He admits to quite a bit of alcohol this morning. He tells me he has no other symptoms he just wanted to make sure he is okay Past Medical History - Allergies and Home Meds Allergies/Adverse Reactions: Allergies No Known Allergies Allergy (Verified 07/26/19 12:10) Primary Care Physician: Moriah Fernandez MD [Primary Care Provider] - Prior records reviewed: Yes - Documentations in [facility], he has multiple visits for similar symptoms Past Medical History: - - Alcoholism Surgical History: - - Right elbow surgery Smoking Status: Never smoker - Family History Maternal Family History: Family History (Last Reviewed 07/07/19 @ 14:48 by RYAN Sweeney) Mother Cancer Diabetes Brother Cancer Grandfather Heart disease Grandfather History of stroke Grandmother CVA (cerebral vascular accident) Family History: Reports: Cancer, Hypertension, Stroke Paternal Family History: Family History (Last Reviewed 07/07/19 @ 14:48 by RYAN Sweeney) Mother Cancer Diabetes Brother Cancer Grandfather Heart disease Grandfather History of stroke Grandmother CVA (cerebral vascular accident) Family History: Reports: Hypertension, Stroke Sibling Family History: Family History (Last Reviewed 07/07/19 @ 14:48 by RYAN Sweeney) Mother Cancer Diabetes Brother Cancer Grandfather Heart disease Grandfather History of stroke Grandmother CVA (cerebral vascular accident) Family History: Reports: Cancer Review of Systems All systems negative except as indicated General: Reports: - - Admits to alcohol, however he is lucid and coherent and I can get a reasonable review of systems. Eyes: Denies: Visual changes - bilaterally Cardiovascular: Denies: Chest pain, Palpitations Respiratory: Denies: Dyspnea, Cough Skin: Denies: Rash Neurological: Denies: Headache, Weakness Psych: Reports: Anxiety. Denies: Suicidal thoughts Endocrine: Denies: Polyuria Hematologic: Denies: Easy bruising Physical Exam Vital Signs/Narrative: Vital Signs Temp Pulse Resp BP Pulse Ox 07/26/19 12:11 98.1 F 82 16 98/77 95 General: Well nourished, - - He appears chronically ill but not acutely toxic. Negative for: Acute Distress Eyes: Perrl ENT: Moist mucous membranes, No rhinorrhea Cardiovascular: Regular rate, Regular rhythm Respiratory: No distress, CTA bilaterally Abdomen: Soft Back: Nontender Skin: Normal color, No rash Neurological: Alert, Oriented x3, - - He is lucid, mostly coherent. Answers questions appropriately. I do smell for mentation on his breath. Psychological: Normal affect Diagnostic/Tx/Re-eval - Medical Decision Making I had a long conversation with the patient he appears well our monitor in the emergency department. I do not believe anxiolytics are needed at this time since just talking to him improved his symptoms and made him feel much better. ED Disposition - Plan for ED Patient: Disposition: Home or Assisted Living Diagnosis: Alcohol abuse Referrals: Moriah Fernandez MD [Primary Care Provider] - 3-5 Days
--- NOTE | 2019-07-26 13:20 | CM.ED ---
SOCIAL WORK PATIENT D/C'ED BEFORE SEEN BY SW. ALVARO MAYS, TV HOST, CYCLING INSTRUCTOR.
== END 2019-07-26 12:50 | disposition home or self-care (01) ==
PROVIDERS: Emergency Provider Emergency Medicine; Family Provider Internal Medicine; PCP Internal Medicine
DX: F10.20 Alcohol dependence, uncomplicated (principal); F41.9 Anxiety disorder, unspecified; Z79.01 Long term (current) use of anticoagulants; Z79.899 Other long term (current) drug therapy
CPT/HCPCS: 93005; 99284

== ENCOUNTER 2019-08-03 14:01 | Emergency (ER) | payer MEDICAID, SELFPAY ==
[2019-08-03 14:06] VITALS: BP 131/76; PULSE 78; RESP 20; TEMP 37.2; O2SAT 99; BMI 31.8
--- NOTE | 2019-08-03 14:13 | EKG12_ITS ---
Test Reason : DIZZINESS Blood Pressure : / mmHG Vent. Rate : 170 BPM Atrial Rate : 153 BPM P-R Int : 000 ms QRS Dur : 088 ms QT Int : 290 ms P-R-T Axes : 000 052 063 degrees QTc Int : 487 ms Atrial fibrillation with rapid ventricular response with premature ventricular or aberrantly conducte d complexes Nonspecific ST abnormality Abnormal ECG Confirmed by KERWIN IBRAHIM, ELIAS ([id number]), telegraph editor EMANUEL DOZIER ([id number]) on 08/04/2019 1:13:19 PM Referred By: RUDDY Confirmed By:ZAIRA SURESH MD
[2019-08-03 14:43] LABS: Absolute Lymphocyte Count 1.39 X10^3/uL (0.83-4.51); Absolute Neutrophil Count 3.8 X10^3/uL (2.0-7.7); Basophil# 0.06 X10^3/uL; Eosinophil# 0.18 X10^3/uL; Eosinophils% 3.1 % (0-5); Hematocrit 47.2 % (40-54); Lymphocyte # 1.39 X10^3/ul (4.0); Lymphocyte % 24.1 % (19-41); Mean Corp Hgb Conc 33.9 g/dL (32-36); Mean Corpuscular Hgb 31.4 pg (27.0-32.0); Mean Corpuscular Volume 92.7 fL (80-94); Mean Platelet Vol. 9.9 fl (6.2-12.0); Monocyte# 0.38 X10^3/uL; Monocyte% 6.6 % (0-10); NRBC Flagged by Analyzer 0 % (0-5); Neutrophil # 3.75 X10^3/uL (2.7-7.7); POSITIVE MORPHOLOGY YES; Platelet Count 229 K/mm3 (150-450); RBC Distribution Width CV 12.1 % (11.6-14.6); RBC Distribution Width SD 41.9 fl (35.1-43.9); Red Blood Count 5.09 M/mm3 (4.6-6.2); White Blood Count 5.8 K/mm3 (4.4-11.0)
[2019-08-03 14:45] LABS: Differential Indicated SCAN CRITERIA MET
[2019-08-03 14:46] LABS: Anion Gap 13 (5-15); BUN 12 mg/dL (7-18); BUN/Creat Ratio 9.4 RATIO (10-20); Calcium,Total 8.7 mg/dL (8.5-10.1); Chloride 102 mmol/L (98-107); Creatinine, Serum 1.28 mg/dL (0.70-1.30); EST Glomerular Filtration Rate 62 mL/min (>60); Est Glom Filt Rate - Afr Amer 74 mL/min (>60); Estimated Creatinine Clearance 71.96 ml/min; Glucose 101 mg/dL (74-106); Potassium 3.8 mmol/L (3.5-5.1); Sodium Level 139 mmol/L (136-145)
[2019-08-03 14:53] LABS: International Normalized Ratio 1.5; Prothrombin Time (Protime)PT. 17.7 SECONDS (11.7-14.9)
[2019-08-03 14:56] VITALS: BP 142/100; PULSE 147; PULSE 148; RESP 22; RESP 23; O2SAT 97; O2SAT 98
[2019-08-03 15:06] LABS: Bedside Glucose 105 mg/dL (70-110)
[2019-08-03] MEDS: 0.9% Normal Saline 1,000 ML 999 ML IV (15:17)
[2019-08-03] MEDS: dilTIAZem 25 MG/5 ML Vial 20 MG IV BOLUS (15:18)
--- NOTE | 2019-08-03 15:25 | ED.VISSUMM ---
- ER Visit Summary Date of Service: 08/03/19 Chief Complaint: Lightheadedness History of Present Illness: The patient is a 59 M who has been feeling lightheaded for the past 24 hours. He has also had nausea and vomiting associated with this. He does states that he feels dizzy. He has had difficulty walking due to the symptoms as well as his history of neuropathy. He was recently admitted for an abnormal heart rhythm which turns out to be atrial flutter. He was attempted to be managed with medications but he ended up being cardioverted and then discharged home on amiodarone, Lopressor and Xarelto. He does have a history of alcoholism and told nursing that he has cut back significantly on his drinking. According to his discharge summary he was resistant to this. He also has anxiety and was discharged with some Vistaril to take at home. He denies any chest pain. Physical Examination: Vital signs reviewed. Heart rate is irregular and 150. HEENT exam reveals some nystagmus to the right. Neck is supple without JVD. Heart is irregularly irregular and tachycardic. Lungs are clear to auscultation bilaterally. Abdomen soft nontender. Extremities have no edema. His neurologic exam is normal. He does have some tremulousness. Test Results: EKG is A. fib with rate of 170. Nonspecific ST and T wave changes noted, likely due to rate. Laboratory studies are normal. INR 1.5. Alcohol level 135. Emergency Department Course and Treatment: Patient was given IV Cardizem and normal saline. At 1610 he converted normal sinus rhythm with a rate of 106. He is feeling better at this time. At this point I will give him 1 dose of 5 mg of metoprolol to prevent him from converting back to atrial fibrillation. He is already on amiodarone, Lopressor and Xarelto at home. He just had an admission and a full work-up. I feel that his alcoholism likely has some element and causing this. Since he has converted I do not feel he needs to be readmitted to the hospital. He will be following up with cardiology Treatment Plan: [] Disposition: Discharge Impression: Atrial fibrillation with RVR, alcohol intoxication This note was generated with PlayJamation software. It may contain incorrect words, spelling, and punctuation that were not noted in review of the chart prior to signing ED Disposition - Plan for ED Patient: Referrals: Moriah Fernandez MD [Primary Care Provider] -
--- NOTE | 2019-08-03 15:27 | ED.RN ---
DR PRIETO NOTIFIED PT IN THE ROOM REQUESTING SOMETHING FOR HIS NERVES.
--- NOTE | 2019-08-03 15:31 | ED.RN ---
PT IN THE ROOM YELLING AND CURSING AT THIS NURSE. PT ATTEMPTING TO GET TO CALM DOWN. INFORMED THAT I AM NOT GOING TO ARGUE WITH HER
--- NOTE | 2019-08-03 15:36 | ED.RN ---
PER DR PRIETO D/C [facility]
--- NOTE | 2019-08-03 16:39 | ED.DEP ---
ED Disposition - Plan for ED Patient: Disposition: Home or Assisted Living Instructions: Atrial Fibrillation Referrals: Moriah Fernandez MD [Primary Care Provider] -
[2019-08-03] MEDS: Metoprolol Tartrate 5 MG/5 ML Vial IV (16:46)
[2019-08-03] MEDS: proMETHazine 25 MG/ML Syringe 12.5 MG IV (17:09)
[2019-08-03 17:36] VITALS: BP 145/79; PULSE 98; RESP 22; O2SAT 97
--- NOTE | 2019-08-03 17:36 | ED.RN ---
THIS NURSE REVIEWED D/C INSTRUCTIONS WITH PT AND . PT VERBALIZED UNDERSTANDING OF INSTRUCTIONS. IV D/C. IV CATHETER INTACT. PT TOLERATED WELL. PT DENIES FURTHER NEEDS OR QUESTIONS AT THIS TIME
== END 2019-08-03 17:38 | disposition home or self-care (01) ==
PROVIDERS: Emergency Provider Emergency Medicine; Family Provider Internal Medicine; PCP Internal Medicine
DX: I48.91 Unspecified atrial fibrillation (principal); F10.229 Alcohol dependence with intoxication, unspecified; Y90.6 Blood alcohol level of 120-199 mg/100 ml; I48.92 Unspecified atrial flutter; R11.2 Nausea with vomiting, unspecified; R26.2 Difficulty in walking, not elsewhere classified; G62.9 Polyneuropathy, unspecified; F41.9 Anxiety disorder, unspecified; Z79.01 Long term (current) use of anticoagulants; Z79.899 Other long term (current) drug therapy
CPT/HCPCS: 80048; 80320; 82962; 84484; 85025; 85610; 85730; 93005; 96361; 96374; 96375; 99284; J7030; A4216; G0480

== ENCOUNTER 2019-08-12 15:30 | Inpatient (IN) | payer MEDICAID, SELFPAY ==
[2019-08-12 15:31] VITALS: BP 132/109; PULSE 75; RESP 16; TEMP 37.1; O2SAT 94; BMI 31.4
--- NOTE | 2019-08-12 16:09 | ED.DCSUM_ITS ---
- ER Visit Summary Date of Service: 08/12/19 Chief Complaint: Requesting detox for alcoholism History of Present Illness: The patient is a 59 M acute alcoholism for years. Last detox was 6 years ago at another facility. Patient states he drinks heavily and drinks daily. He said today's early on 524 ounce beers. He came to get help. He called the squad himself. He is requesting detox. He denies any melena. Denies any fever. Physical Examination: Middle-aged male. No acute distress. Vital signs are stable. Afebrile. He is awake and alert. He is intoxicated but acting appropriately. HEENT exam unremarkable. No trauma. Smell of alcohol. Neck nontender. Lungs clear to auscultation bilaterally. Heart regular rhythm no murmur. Abdomen is soft and nontender. Normal bowel sounds. No peritoneal signs. Extremities moves all 4. Calves are nontender without edema or cords. Neurologically is awake and alert. He does appear to be intoxicated with alcohol but is moving all 4 extremities. He is answering questions and following commands. He has no focal motor deficits. Test Results: CBC unremarkable hemoglobin 14. Chemistries unremarkable normal creatinine and gap. Liver enzymes normal. Emergency Department Course and Treatment: Patient will be admitted for detox I will speak to the hospitalist. Screening labs will be obtained. Treatment Plan: Repeat exam unchanged at 1749. Hospitalist on page for admission. Disposition: Admission for detox Impression: History of alcoholism Acute alcohol intoxication Requesting detox for alcoholism This note was generated with SynapSense dictation software. It may contain incorrect words, spelling, and punctuation that were not noted in review of the chart prior to signing ED Disposition - Plan for ED Patient: Referrals: Moriah Fernandez MD [Primary Care Provider] -
[2019-08-12 16:41] LABS: Absolute Neutrophil Count 1.2 X10^3/uL (2.0-7.7); Basophil# 0.04 X10^3/uL; Basophil% 1.2 % (0-1); Eosinophil# 0.05 X10^3/uL; Eosinophils% 1.5 % (0-5); Hematocrit 41.2 % (40-54); Hemoglobin 14.1 g/dL (13.0-16.5); Lymphocyte % 49.4 % (19-41); Mean Corp Hgb Conc 34.2 g/dL (32-36); Mean Corpuscular Volume 93.4 fL (80-94); Mean Platelet Vol. 8.9 fl (6.2-12.0); Monocyte# 0.33 X10^3/uL; Monocyte% 10.2 % (0-10); NRBC Flagged by Analyzer 0 % (0-5); Neutrophil # 1.21 X10^3/uL (2.7-7.7); Neutrophil % 37.4 % (47-70); Platelet Count 234 K/mm3 (150-450); RBC Distribution Width CV 11.9 % (11.6-14.6); RBC Distribution Width SD 41.4 fl (35.1-43.9); Red Blood Count 4.41 M/mm3 (4.6-6.2); White Blood Count 3.2 K/mm3 (4.4-11.0)
[2019-08-12 16:59] LABS: AST(SGOT) 35 U/L (15-37); Alanine Aminotransfer ALT/SGPT 28 U/L (16-61); Albumin, Serum 3.5 g/dL (3.2-5.0); Alkaline Phosphatase 44 U/L (45-117); Anion Gap 9 (5-15); BUN 16 mg/dL (7-18); BUN/Creat Ratio 14.5 RATIO (10-20); Bilirubin, Direct 0.15 mg/dL (0.00-0.30); Calcium,Total 8.3 mg/dL (8.5-10.1); Chloride 103 mmol/L (98-107); EST Glomerular Filtration Rate 73 mL/min (>60); Est Glom Filt Rate - Afr Amer 89 mL/min (>60); Estimated Creatinine Clearance 83.73 ml/min; Globulin 4.1 g/dL (2.2-4.2); Glucose 109 mg/dL (74-106); Potassium 4.2 mmol/L (3.5-5.1); Protein, Total 7.6 g/dL (6.4-8.2); Sodium Level 142 mmol/L (136-145)
--- NOTE | 2019-08-12 17:51 | HP.PCM_ITS ---
History of Present Illness Date of Admission: 08/12/19 Chief Complaint: alcohol withdrawal The patient is a 59 year old M with a PMH of chronic alcohol abuse admitted for alcohol withdrawal. He has a past medical history as listed. He last underwent detox about 6 years ago. Patient drank about 5 24 ounce beers this morning and called the squad to come in for withdrawal. He states he usually drinks about 1224 ounce cans daily. He was on his way to buy some beer but decided to detail to the hospital to ask for help. He admits to tremors which is ongoing and says he has gait and balance problems which is also chronic. He denies any fever or chills, palpitations or dizziness, chest pain, diarrhea. Review of that otherwise negative. Vitals were stable in the ED and labs were essentially unremarkable. Serum alcohol level and urine tox were pending. He has been admitted to be managed for acute alcohol withdrawal. 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) Premature atrial contraction (Chronic) Essential hypertension (Chronic) Paroxysmal atrial fibrillation (Chronic) DCCV with NICKOLAS on 07/11/2019; Alcohol abuse (Chronic) Medical History: Medical History (Last Updated 07/18/19 @ 08:38 by ISAIAS Phillips) Legally blind in left eye, as defined in [place] (Chronic) H54.8 Premature atrial contraction (Chronic) I49.1 Essential hypertension (Chronic) I10 Paroxysmal atrial fibrillation (Chronic) I48.0 DCCV with NICKOLAS on 07/11/2019; Alcohol abuse (Chronic) F10.10 Alcohol withdrawal (Acute) F10.239 Depression F32.9 Neuropathy G62.9 Atrial fibrillation with RVR I48.91 Delirium tremens (Resolved) F10.231 TIA (transient ischemic attack) G45.9 Allergies No Known Allergies Allergy (Verified 08/03/19 14:05) Home Medications: Ambulatory Orders Medication Instructions Recorded Lisinopril 20 mg PO DAILY 03/16/19 gabapentin 600 mg tablet 600 mg PO TID tab 05/11/19 Omeprazole [Prilosec] 20 mg PO DAILY 07/06/19 Amiodarone HCl [Cordarone] 200 mg PO DAILY #30 tab 07/11/19 Hydroxyzine Pamoate [Vistaril] 50 mg PO 4X/DAY PRN PRN #60 cap 07/11/19 Metoprolol(XL)Succ [Toprol Xl 200 mg PO DAILY #60 tab 07/11/19 (Beta Fred)] Rivaroxaban [Xarelto] 20 mg PO DINNER #30 tab 07/11/19 Benzonatate [Tessalon Perle] 200 mg PO TID PRN PRN #20 cap 07/20/19 proMETHazine tablet [Phenergan] 25 mg PO Q6H PRN PRN #10 tab 08/03/19 Surgical History: Surgical History (Last Reviewed 07/07/19 @ 14:48 by RYAN Sweeney) History of elbow surgery Z98.890 History of tonsillectomy Z90.89 Surgical History: - - Right elbow surgery Psychiatric History: No pertinent psych hx Smoking Status: Never smoker - *Family History Maternal Family History: Family History (Last Reviewed 07/07/19 @ 14:48 by RYAN Sweeney) Mother Cancer Diabetes Brother Cancer Grandfather Heart disease Grandfather History of stroke Grandmother CVA (cerebral vascular accident) History Items: Cancer, Hypertension, Stroke Paternal Family History: Family History (Last Reviewed 07/07/19 @ 14:48 by RYAN Sweeney) Mother Cancer Diabetes Brother Cancer Grandfather Heart disease Grandfather History of stroke Grandmother CVA (cerebral vascular accident) History Items: Hypertension, Stroke Sibling Family History: Family History (Last Reviewed 07/07/19 @ 14:48 by RYAN Sweeney) Mother Cancer Diabetes Brother Cancer Grandfather Heart disease Grandfather History of stroke Grandmother CVA (cerebral vascular accident) History Items: Cancer Review of Systems Constitutional: Denies: Chills, Fever, Malaise, Weight Change HEENT: Denies: Head Aches, Sinus Congestion, Sinus Drainage Cardiovascular: Denies: Chest Pain, Palpitations Respiratory: Denies: Cough, Shortness of Breath, Shortness of breath at rest, Sputum production Gastrointestinal: Denies: Abdominal Pain, Nausea, Vomiting Genitourinary: Denies: Dysuria Musculoskeletal: Denies: Joint Pain, Joint Tenderness Skin: Denies: Rash, Wounds Neurological: Reports: Balance problems, Tremor. Denies: Focal weakness, Numbness, Tingling Psychiatric: Denies: Anxiety, Depression, Homicidal Ideations, Suicidal Ideations Hematologic/ Lymphatic: Denies: Easy Bruising, Easy Bleeding VTE Information - Inpt Only VTE Present on Admission: No VTE Pharm Prophylaxis ordered?: Yes - Physical Exam General: Alert, Oriented x3, Cooperative, No apparent distress, - - anxious and tremulous HEENT: Atraumatic, PERRLA, EOMI, Normocephalic Oral: Dry Mucosa Neck: Supple, No JVD, Negative Carotid Bruits Lungs: Clear to auscultation, Normal air movement, No rhonchi, No wheeze Cardiovascular: Regular rate, Regular Rhythm, Normal S1, Normal S2, No murmurs Abdomen: Bowel Sounds Present, Soft, Non Tender Extremities: No clubbing, No cyanosis, No edema, Capillary Refill Less than 3 Seconds Skin: No rashes, No breakdown Musculoskeletal: No Tenderness to Palpation of Joints or Extremities Neurological: Cranial nerves II-XII grossly intact, Neuro grossly intact, - - tremors of UEs Psych/Mental Status: Anxious, Alert and oriented to time, place, person, mood and affect Vital Signs Temp Pulse Resp BP Pulse Ox 98.7 F 75 16 132/109 H 94 08/12/19 15:31 08/12/19 15:31 08/12/19 15:31 08/12/19 15:31 08/12/19 15:31 Oxygen Delivery Method Room Air Weight: 238 lb 1.588 oz Body Mass Index (BMI) 31.4 Finger Stick Blood Glucose 105 Laboratory Tests Past 24 Hrs 08/12/19 08/12/19 16:30 16:30 WBC 3.2 L RBC 4.41 L Hgb 14.1 Hct 41.2 MCV 93.4 MCH 32.0 MCHC 34.2 RDW Std Deviation 41.4 RDW Coeff of Kaylen 11.9 Plt Count 234 MPV 8.9 Immature Gran % (Auto) 0.300 Neut % (Auto) 37.4 L Lymph % (Auto) 49.4 H [place] % (Auto) 10.2 H Eos % (Auto) 1.5 Baso % (Auto) 1.2 H Absolute Neuts (auto) 1.2 L Absolute Lymphs (auto) 1.60 Nucleated RBC % 0 Sodium 142 Potassium 4.2 Chloride 103 Carbon Dioxide 30.0 Anion Gap 9 BUN 16 Creatinine 1.10 Estim Creat Clear Calc 83.73 Est GFR (MDRD) Af Amer 89 Est GFR (MDRD) Non-Af 73 BUN/Creatinine Ratio 14.5 Glucose 109 H Calcium 8.3 L Total Bilirubin 0.40 Direct Bilirubin 0.15 AST 35 ALT 28 Alkaline Phosphatase 44 L Total Protein 7.6 Albumin 3.5 Globulin 4.1 Assessment/Plan All Active Problems (Last Updated 07/18/19 @ 08:38 by Lalo Juarez, FLATB[employer] STITCHER-C) Atrial flutter (Acute) Hypomagnesemia (Acute) Alcohol withdrawal (Acute) Atrial fibrillation and flutter (Resolved) Atrial fibrillation with rapid ventricular response (Resolved) Atrial flutter with rapid ventricular response (Resolved) Delirium tremens (Resolved) 59 y/o male admitted for acute alcohol withdrawal 1. Acute alcohol withdrawal * admit to Med surg with telemetry * potassium was WNL, and labs were otherwise unremarkable; check mg level * check urine tox and * start alcohol withdrawal protocol with ativan * monitor CIWA score * fall precautions * 2. History of A. fib: * Currently rate controlled. Had cardioversion with NICKOLAS on 07/11/2019. On ami odarone and metoprolol. Also on Xarelto. 3. Depression:stable 4. Hypertension: On lisinopril and metoprolol. DVT Prophylaxis: Already on Xarelto. Code Visit Inpatient E&M: 34680 Init Hosp L3
--- NOTE | 2019-08-12 17:56 | NURSING ---
MED SURG ALCOHOL WITHDRAWAL KORAM
[2019-08-12 18:36] VITALS: BMI 30.2
[2019-08-12 19:30] VITALS: BP 122/87; PULSE 79; RESP 18; TEMP 36.9; O2SAT 94
[2019-08-12] MEDS: Methocarbamol 750 MG Tablet PO (19:44)
[2019-08-12] MEDS: chlordiazePOXIDE 25 MG Capsule 50 MG PO (19:44)
[2019-08-12] MEDS: LORazepam 2 MG/ML Syringe IV ×3 (19:44→23:16)
[2019-08-12] MEDS: Ondansetron 4 MG/2 ML Vial 8 MG IV (20:41)
[2019-08-12 21:08] VITALS: PULSE 75
[2019-08-12] MEDS: Dicyclomine 10 MG Capsule 20 MG PO (23:16)
--- NOTE | 2019-08-12 23:20 | NURSING ---
setting off bed exit staff in to assist forgets to call for help for bathroom, restless, anxious, tremors medicated for etoh withdrawal symptoms
[2019-08-13] VITALS (14 sets, daily range): BP systolic 101–143; BP diastolic 50–92; PULSE 76–101; RESP 16–18; TEMP 36.5–36.8; O2SAT 93–98
[2019-08-13] MEDS: LORazepam 1 MG Tablet 2 MG PO ×10 (01:16→23:46)
[2019-08-13] MEDS: chlordiazePOXIDE 25 MG Capsule 50 MG PO ×4 (01:16→20:17)
[2019-08-13] MEDS: Gabapentin 600 MG Tablet PO ×3 (06:17→22:40)
[2019-08-13 06:32] LABS: Amphetamine Urine VISTA NEGATIVE (<1000 ng/mL); Barbiturate Urine VISTA NEGATIVE (< 200 ng/mL); Benzodiazepine Urine VISTA POSITIVE (< 200 ng/mL); Cocaine Urine VISTA NEGATIVE (< 300 ng/mL); Ecstacy Urine VISTA NEGATIVE (< 500 ng/mL); Methadone Urine VISTA NEGATIVE (< 300 ng/mL); PCP Urine VISTA NEGATIVE (< 25 ng/mL); THC Urine VISTA NEGATIVE (< 50 ng/mL); Vista UDS pH Range 5
[2019-08-13] MEDS: Thiamine Hydrochloride 100 MG Tablet PO (08:10)
[2019-08-13] MEDS: Folic Acid 1 MG Tablet PO (08:10)
[2019-08-13] MEDS: Multivitamins,Therapeutic Tablet 1 TABLET PO (08:10)
[2019-08-13] MEDS: Amiodarone 200 MG Tablet PO (08:10)
[2019-08-13] MEDS: Pantoprazole Sodium 20 MG Tablet PO (08:11)
[2019-08-13] MEDS: Metoprolol(XL)Succ 200 MG Tablet PO (08:11)
--- NOTE | 2019-08-13 09:26 | PCM.PN.HOSP ---
Subjective: No acute events overnight, he says that he is feeling well with the current medications Vitals/I&O's: Vital Signs Temp Pulse Resp BP Pulse Ox 97.7 F L 79 16 143/92 H 94 08/13/19 08:02 08/13/19 08:11 08/13/19 08:02 08/13/19 08:02 08/13/19 08:02 Oxygen Delivery Method Room Air Weight: 229 lb Body Mass Index (BMI) 30.2 Finger Stick Blood Glucose 105 Intake and Output for Last 24 Hours 08/11/19 08/12/19 08/13/19 23:59 23:59 23:59 Intake Total 500 / 500 200 / 200 Output Total 400 / 400 Balance 100 / 100 200 / 200 General: Alert, Oriented x3, Cooperative, No apparent distress HEENT: Atraumatic, PERRLA, EOMI, Normocephalic Oral: Dry Mucosa Neck: Supple, No JVD Lungs: Clear to auscultation, Normal air movement, No rhonchi, No wheeze, No rales Cardiovascular: Regular rate, Regular Rhythm, Normal S1, Normal S2, No murmurs Abdomen: Soft, Non Tender, Non-Distended, No Hepato-splenomegaly Extremities: No edema, Capillary Refill Less than 3 Seconds Skin: No rashes, No breakdown Neurological: Neuro grossly intact, Sensory exam intact to light touch and pain Psych/Mental Status: Normal Affect, Appropriate Laboratory Results 08/12/19 16:30: WBC 3.2 L, RBC 4.41 L, Hgb 14.1, Hct 41.2, MCV 93.4, MCH 32.0, MCHC 34.2, RDW Std Deviation 41.4, RDW Coeff of Kaylen 11.9, Plt Count 234, MPV 8.9, Immature Gran % (Auto) 0.300, Neut % (Auto) 37.4 L, Lymph % (Auto) 49.4 H, [place] % (Auto) 10.2 H, Eos % (Auto) 1.5, Baso % (Auto) 1.2 H, Absolute Neuts (auto) 1.2 L, Absolute Lymphs (auto) 1.60, Nucleated RBC % 0 08/12/19 16:30: Sodium 142, Potassium 4.2, Chloride 103, Carbon Dioxide 30.0, Anion Gap 9, BUN 16, Creatinine 1.10, Estim Creat Clear Calc 83.73, Est GFR (MDRD) Af Amer 89, Est GFR (MDRD) Non-Af 73, BUN/Creatinine Ratio 14.5, Glucose 109 H, Calcium 8.3 L, Total Bilirubin 0.40, Direct Bilirubin 0.15, AST 35, ALT 28, Alkaline Phosphatase 44 L, Total Protein 7.6, Albumin 3.5, Globulin 4.1 08/13/19 06:05: Urine Opiates Screen NEGATIVE, Urine Methadone Screen NEGATIVE, Ur Barbiturates Screen NEGATIVE, Ur Phencyclidine Scrn NEGATIVE, Ur Amphetamines Screen NEGATIVE, U Methamphetamin-MDMA NEGATIVE, U Benzodiazepines Scrn POSITIVE H, Urine Cocaine Screen NEGATIVE, U Cannabinoids Screen NEGATIVE, Ur Drug Screen Comment Current Medications Amiodarone HCl (Cordarone) 200 mg PO DAILY [facility] Last Admin: 08/13/19 08:10 Dose: 200 mg Documented by: Chlordiazepoxide (Librium) 50 mg PO Q6H [facility]; Taper Stop: 08/15/19 20:59 Last Admin: 08/13/19 06:17 Dose: 50 mg Documented by: Dextrose (D50w Syringe) 0 gm IV X1 PRN; Protocol PRN Reason: Hypoglycemia Dicyclomine HCl (Bentyl) 20 mg PO Q6H PRN PRN PRN Reason: abdominal discomfort Last Admin: 08/12/19 23:16 Dose: 20 mg Documented by: Folic Acid (Folic Acid) 1 mg PO DAILYCM [facility] Stop: 08/15/19 08:01 Last Admin: 08/13/19 08:10 Dose: 1 mg Documented by: Gabapentin (Neurontin) 600 mg PO TID [facility] Last Admin: 08/13/19 06:17 Dose: 600 mg Documented by: Glucagon () 1 mg IM .X1 PRN PRN Reason: Hypoglycemia Lorazepam (Ativan) 2 mg PO Q2H PRN PRN; Protocol PRN Reason: CIWA score > 8 but <15 Last Admin: 08/13/19 08:10 Dose: 2 mg Documented by: Lorazepam (Ativan) 2 mg PO UD PRN; Protocol PRN Reason: CIWA score >/=15. Lorazepam (Ativan) 2 mg IV Q2H PRN PRN; Protocol PRN Reason: CIWA score > 8 but <15 Last Admin: 08/12/19 19:44 Dose: 2 mg Documented by: Lorazepam (Ativan) 2 mg IV UD PRN; Protocol PRN Reason: CIWA score >/=15. Last Admin: 08/12/19 23:16 Dose: 2 mg Documented by: Lorazepam (Ativan) 2 mg PO Q6H [facility]; Taper Stop: 08/18/19 18:29 Last Admin: 08/13/19 06:18 Dose: 2 mg Documented by: Methocarbamol (Methocarbamol) 750 mg PO Q6H PRN PRN PRN Reason: Muscle Aches Last Admin: 08/12/19 19:44 Dose: 750 mg Documented by: Metoprolol Succinate (Toprol Xl (Beta Fred)) 200 mg PO DAILY [facility] Last Admin: 08/13/19 08:11 Dose: 200 mg Documented by: [facility]) [facility] Last Admin: 08/13/19 08:10 Dose: 1 tablet Documented by: Nutritional Formula (Lactose Free) (Ensure Enlive) 120 ml PO 4X/DAY [facility] Last Admin: 08/13/19 08:10 Dose: 120 ml Documented by: Ondansetron HCl (Zofran) 8 mg IV Q8H PRN PRN PRN Reason: NAUSEA/VOMITING Last Admin: 08/12/19 20:41 Dose: 8 mg Documented by: Pantoprazole Sodium (Protonix) 20 mg PO DAILY [facility] Last Admin: 08/13/19 08:11 Dose: 20 mg Documented by: Rivaroxaban (Xarelto) 20 mg PO DINNER [facility] Sodium Chloride () 10 - 40 ml IV UD PRN PRN Reason: SALINE FLUSH Thiamine HCl (Vitamin B1) [facility] Stop: 08/15/19 08:01 Last Admin: 08/13/19 08:10 Dose: 100 mg Documented by: Medical Necessity - Tobacco Use Smoking Status: Never smoker Assessment/Plan All Active Problems (Last Updated 07/18/19 @ 08:38 by ISAIAS Phillips) Atrial flutter (Acute) Hypomagnesemia (Acute) Alcohol withdrawal (Acute) Atrial fibrillation and flutter (Resolved) Atrial fibrillation with rapid ventricular response (Resolved) Atrial flutter with rapid ventricular response (Resolved) Delirium tremens (Resolved) 1. Acute alcohol withdrawal -Continue with alcohol withdrawal protocol with Ativan -Monitor CIWA -We will meet with social work tomorrow for outpatient rehab options 2. A. fib/HTN -Cardioversion July 11, 2019 -Continue with amiodarone, metoprolol and Xarelto -Continue with lisinopril 3. GERD -Stable -Continue with PPI DVT: Xarelto Code Visit Inpatient E&M: 70992 Subs Hosp L2
[2019-08-13] MEDS: Dicyclomine 10 MG Capsule 20 MG PO ×2 (11:28→20:17)
[2019-08-13] MEDS: Ondansetron 4 MG/2 ML Vial 8 MG IV ×2 (11:28→20:17)
[2019-08-13] MEDS: Methocarbamol 750 MG Tablet PO ×2 (15:02→23:46)
[2019-08-13] MEDS: Rivaroxaban 20 MG Tablet PO (17:40)
[2019-08-13] MEDS: 0.9% NaCl Peripheral Flush Adult/Peds IV (20:18)
[2019-08-14 01:10] VITALS: PULSE 74
[2019-08-14] MEDS: LORazepam 1 MG Tablet 2 MG PO ×2 (01:59→05:30)
[2019-08-14 02:04] VITALS: BP 143/96; PULSE 69; RESP 16; TEMP 36.7; O2SAT 96
[2019-08-14] MEDS: 0.9% NaCl Peripheral Flush Adult/Peds IV (03:56)
[2019-08-14] MEDS: chlordiazePOXIDE 25 MG Capsule 50 MG PO (03:57)
[2019-08-14 04:13] VITALS: PULSE 72
[2019-08-14] MEDS: Gabapentin 600 MG Tablet PO (05:30)
[2019-08-14] MEDS: Methocarbamol 750 MG Tablet PO (05:30)
[2019-08-14 07:30] VITALS: BP 146/105; PULSE 69; RESP 16; TEMP 36.6; O2SAT 96
[2019-08-14 08:11] VITALS: PULSE 69
[2019-08-14] MEDS: Multivitamins,Therapeutic Tablet 1 TABLET PO (08:11)
[2019-08-14] MEDS: Metoprolol(XL)Succ 200 MG Tablet PO (08:11)
[2019-08-14] MEDS: Thiamine Hydrochloride 100 MG Tablet PO (08:11)
[2019-08-14] MEDS: Folic Acid 1 MG Tablet PO (08:11)
[2019-08-14] MEDS: Amiodarone 200 MG Tablet PO (08:11)
[2019-08-14] MEDS: Pantoprazole Sodium 20 MG Tablet PO (08:11)
--- NOTE | 2019-08-14 08:14 | PCM.PN.HOSP ---
Subjective: No acute events overnight, has some anxiety and tremors periodically. Vitals/I&O's: Vital Signs Temp Pulse Resp BP Pulse Ox 97.9 F 69 16 146/105 H 96 08/14/19 07:30 08/14/19 08:11 08/14/19 07:30 08/14/19 07:30 08/14/19 07:30 Oxygen Delivery Method Room Air Weight: 229 lb Body Mass Index (BMI) 30.2 Finger Stick Blood Glucose 105 Intake and Output for Last 24 Hours 08/12/19 08/13/19 08/14/19 23:59 23:59 23:59 Intake Total 500 / 500 1750 / 1750 1500 / 1500 Output Total 400 / 400 450 / 450 Balance 100 / 100 1300 / 1300 1500 / 1500 General: Alert, Oriented x3, Cooperative, No apparent distress HEENT: Atraumatic, PERRLA, EOMI, Normocephalic Oral: Dry Mucosa Neck: Supple, No JVD Lungs: Clear to auscultation, Normal air movement, No rhonchi, No wheeze, No rales Cardiovascular: Regular rate, Regular Rhythm, Normal S1, Normal S2, No murmurs Abdomen: Soft, Non Tender, Non-Distended, No Hepato-splenomegaly Extremities: No edema, Capillary Refill Less than 3 Seconds Skin: No rashes, No breakdown Neurological: Neuro grossly intact, Sensory exam intact to light touch and pain Psych/Mental Status: Normal Affect, Appropriate Current Medications Amiodarone HCl (Cordarone) 200 mg PO DAILY [facility] Last Admin: 08/14/19 08:11 Dose: 200 mg Documented by: Chlordiazepoxide (Librium) 50 mg PO Q8H [facility]; Taper Stop: 08/15/19 20:59 Last Admin: 08/14/19 03:57 Dose: 50 mg Documented by: Dextrose (D50w Syringe) 0 gm IV X1 PRN; Protocol PRN Reason: Hypoglycemia Dicyclomine HCl (Bentyl) 20 mg PO Q6H PRN PRN PRN Reason: abdominal discomfort Last Admin: 08/13/19 20:17 Dose: 20 mg Documented by: Folic Acid (Folic Acid) 1 mg PO DAILYCM [facility]ITH[facility] Stop: 08/15/19 08:01 Last Admin: 08/14/19 08:11 Dose: 1 mg Documented by: Gabapentin (Neurontin) 600 mg PO TID [facility] Last Admin: 08/14/19 05:30 Dose: 600 mg Documented by: Glucagon () 1 mg IM .X1 PRN PRN Reason: Hypoglycemia Lorazepam (Ativan) 2 mg PO Q2H PRN PRN; Protocol PRN Reason: CIWA score > 8 but <15 Last Admin: 08/14/19 01:59 Dose: 2 mg Documented by: Lorazepam (Ativan) 2 mg PO UD PRN; Protocol PRN Reason: CIWA score >/=15. Lorazepam (Ativan) 2 mg IV Q2H PRN PRN; Protocol PRN Reason: CIWA score > 8 but <15 Last Admin: 08/12/19 19:44 Dose: 2 mg Documented by: Lorazepam (Ativan) 2 mg IV UD PRN; Protocol PRN Reason: CIWA score >/=15. Last Admin: 08/12/19 23:16 Dose: 2 mg Documented by: Lorazepam (Ativan) 2 mg PO Q6H [facility]; Taper Stop: 08/18/19 18:29 Last Admin: 08/14/19 05:30 Dose: 2 mg Documented by: Methocarbamol (Methocarbamol) 750 mg PO Q6H PRN PRN PRN Reason: Muscle Aches Last Admin: 08/14/19 05:30 Dose: 750 mg Documented by: Metoprolol Succinate (Toprol Xl (Beta Fred)) 200 mg PO DAILY [facility] Last Admin: 08/14/19 08:11 Dose: 200 mg Documented by: [facility]it[facility] ([facility]) [facility] Last Admin: 08/14/19 08:11 Dose: 1 tablet Documented by: Nutritional Formula (Lactose Free) (Ensure Enlive) 120 ml PO 4X/DAY [facility] Last Admin: 08/14/19 08:12 Dose: 120 ml Documented by: Ondansetron HCl (Zofran) 8 mg IV Q8H PRN PRN PRN Reason: NAUSEA/VOMITING Last Admin: 08/13/19 20:17 Dose: 8 mg Documented by: Pantoprazole Sodium (Protonix) 20 mg PO DAILY [facility] Last Admin: 08/14/19 08:11 Dose: 20 mg Documented by: Rivaroxaban (Xarelto) 20 mg PO DINNER [facility] Last Admin: 08/13/19 17:40 Dose: 20 mg Documented by: Sodium Chloride () 10 - 40 ml IV UD PRN PRN Reason: SALINE FLUSH Last Admin: 08/14/19 03:56 Dose: 10 ml Documented by: Thiamine HCl (Vitamin B1) 100 mg PO DAILYCM SMITHA Stop: 08/15/19 08:01 Last Admin: 08/14/19 08:11 Dose: 100 mg Documented by: Medical Necessity - Tobacco Use Smoking Status: Never smoker Assessment/Plan All Active Problems (Last Updated 07/18/19 @ 08:38 by Lalo Juarez, [employer]IST[employer]-C) Atrial flutter (Acute) Hypomagnesemia (Acute) Alcohol withdrawal (Acute) Atrial fibrillation and flutter (Resolved) Atrial fibrillation with rapid ventricular response (Resolved) Atrial flutter with rapid ventricular response (Resolved) Delirium tremens (Resolved) 1. Acute alcohol withdrawal -Continue with alcohol withdrawal protocol with Ativan -Monitor CIWA -We will meet with social work today for outpatient rehab options 2. A. fib/HTN -Cardioversion July 11, 2019 -Continue with amiodarone, metoprolol and Xarelto -Continue with lisinopril 3. GERD -Stable -Continue with PPI DVT: Xarelto Code Visit Inpatient E&M: 03572 Subs Hosp L2
--- NOTE | 2019-08-14 09:12 | NURSING ---
security Rodolfo informed pt left AMA to make sure finds his way out of facility.
--- NOTE | 2019-08-14 09:17 | NURSING ---
Pt found by elevators attempting to leave, pt taken back to room, pt states MD stated he could discharge, Pt ripped iv out and ripped tele off stated he had a family emergency and needed to leave, papers print went over with patient, copy given formed filed in chart, notified that pt left AMA
--- NOTE | 2019-08-14 09:24 | CASEMGMT ---
Social Work Note Pt admitted for Alcohol withdrawal. Pt left AMA before this worker could see pt. Loulou Chino PLANETARIUM SKY SHOW TECHNICIAN, EXCHANGE MECHANIC
== END 2019-08-14 09:10 | disposition left against medical advice (07) | DRG 770 ==
LOC: ED 16:09 → MS3 18:27
PROVIDERS: Admitting Provider Student in an Organized Health Care Education/Training Program; Emergency Provider Emergency Medicine; Family Provider Internal Medicine; PCP Internal Medicine; Visit Provider Family Medicine
DX: F10.239 Alcohol dependence with withdrawal, unspecified (principal); F10.229 Alcohol dependence with intoxication, unspecified; I10 Essential (primary) hypertension; F32.9 Major depressive disorder, single episode, unspecified; K21.9 Gastro-esophageal reflux disease without esophagitis; H54.8 Legal blindness, as defined in USA; Z79.899 Other long term (current) drug therapy
CPT/HCPCS: 80048; 80076; 80307; 85025; 97162; 97166; 99285; A4216; J2405

== ENCOUNTER 2019-08-14 18:35 | Inpatient (IN) | payer MEDICAID, SELFPAY ==
[2019-08-12 18:36] VITALS: BMI 30.2
[2019-08-14 18:36] VITALS: BP 119/97; PULSE 78; RESP 18; TEMP 36.9; O2SAT 93; BMI 33.8
--- NOTE | 2019-08-14 18:52 | EKG12_ITS ---
Test Reason : CP Blood Pressure : / mmHG Vent. Rate : 074 BPM Atrial Rate : 074 BPM P-R Int : 224 ms QRS Dur : 098 ms QT Int : 436 ms P-R-T Axes : 027 027 044 degrees QTc Int : 483 ms Sinus rhythm with 1st degree A-V block Possible Left atrial enlargement Prolonged QT Abnormal ECG Confirmed by ELLIOT IBRAHIM, ALONZO ([id number]), editorial specialist VAL AHN ([id number]) on 08/16/2019 12:26:53 PM Referred By: Kristyn Schmidt Confirmed By:ALONZO ZARATE MD
--- NOTE | 2019-08-14 18:54 | ED.DCSUM_ITS ---
History of Present Illness Narrative: 59-year-old male presents with concern for alcohol intoxication. Patient left AGAINST MEDICAL ADVICE this morning from the floor for alcohol withdrawal. States that he did drink alcohol today. States that he made a poor decision and wishes to be readmitted for detox. Denies any new complaints. Denies any falls or head injuries. <Ryan Sullivan - Last Filed: 08/14/19 21:09> <Mariano Martínez - Last Filed: 08/14/19 22:12> Chief Complaint: General Illness Past Medical History Prior records reviewed: Yes Surgical History: - - Right elbow surgery Smoking Status: Current every day smoker - Family History Maternal Family History: Family History (Last Reviewed 07/07/19 @ 14:48 by RYAN Sweeney) Mother Cancer Diabetes Brother Cancer Grandfather Heart disease Grandfather History of stroke Grandmother CVA (cerebral vascular accident) Family History: Reports: Cancer, Hypertension, Stroke Paternal Family History: Family History (Last Reviewed 07/07/19 @ 14:48 by RYAN Sweeney) Mother Cancer Diabetes Brother Cancer Grandfather Heart disease Grandfather History of stroke Grandmother CVA (cerebral vascular accident) Family History: Reports: Hypertension, Stroke Sibling Family History: Family History (Last Reviewed 07/07/19 @ 14:48 by RYAN Sweeney) Mother Cancer Diabetes Brother Cancer Grandfather Heart disease Grandfather History of stroke Grandmother CVA (cerebral vascular accident) Family History: Reports: Cancer <Ryan Sullivan - Last Filed: 08/14/19 21:09> - Family History Maternal Family History: Family History (Last Reviewed 07/07/19 @ 14:48 by RYAN Sweeney) Mother Cancer Diabetes Brother Cancer Grandfather Heart disease Grandfather History of stroke Grandmother CVA (cerebral vascular accident) Paternal Family History: Family History (Last Reviewed 07/07/19 @ 14:48 by RYAN Sweeney) Mother Cancer Diabetes Brother Cancer Grandfather Heart disease Grandfather History of stroke Grandmother CVA (cerebral vascular accident) Sibling Family History: Family History (Last Reviewed 07/07/19 @ 14:48 by RYAN Sweeney) Mother Cancer Diabetes Brother Cancer Grandfather Heart disease Grandfather History of stroke Grandmother CVA (cerebral vascular accident) <Mariano Martínez - Last Filed: 08/14/19 22:12> - Allergies and Home Meds Allergies/Adverse Reactions: Allergies No Known Allergies Allergy (Verified 08/14/19 18:39) Review of Systems General: Denies: Chills, Fever, Sweats Eyes: Denies: Visual changes - bilaterally, Diplopia ENT: Denies: Rhinorrhea, Sore throat Cardiovascular: Denies: Chest pain, Palpitations Respiratory: Denies: Dyspnea, Cough, Dyspnea on exertion Gastrointestinal: Denies: Abdominal pain, Nausea, Vomiting, Diarrhea, Melena, Hematochezia Genitourinary: Denies: Dysuria, Hematuria, Frequency Musculoskeletal: Denies: Back pain, Extremity Pain Skin: Denies: Rash, Wounds Neurological: Denies: Headache, Weakness, Numbness <Ryan Sullivan - Last Filed: 08/14/19 21:09> Physical Exam Vital Signs/Narrative: Vital Signs Temp Pulse Resp BP Pulse Ox 08/14/19 18:36 98.5 F 78 18 119/97 H 93 General: Well nourished, Well developed, No Acute Distress Head: Normocephalic, Atraumatic Eyes: Perrl, EOMI ENT: Moist mucous membranes, No rhinorrhea Neck: Supple, Nontender Cardiovascular: Regular rate, Regular rhythm, No murmurs Respiratory: No distress, CTA bilaterally, Chest nontender Abdomen: Soft, Nontender, Nondistended, Normal bowel sounds Back: Nontender, Normal Inspection Extremities: Nontender, No edema Skin: Normal color, No rash Neurological: Alert, Oriented x3, Cranial nerves II-XII grossly intact, Normal Strength, Normal Sensation Psychological: Normal affect, Normal Mood <Ryan Sullivan - Last Filed: 08/14/19 21:09> Vital Signs/Narrative: Vital Signs Temp Pulse Resp BP Pulse Ox 08/14/19 19:19 75 19 H 100/50 L 95 08/14/19 18:36 98.5 F 78 18 119/97 H 93 <Mariano Martínez - Last Filed: 08/14/19 22:12> Diagnostic/Tx/Re-eval - Rhythm Strip Rhythm Strip: Sinus Rhythm Rate: 74 - EKG Initial EKG Interpretation: - - Normal sinus rhythm at 74 bpm. ND interval 224 ms with first-degree AV block. Prolonged QT at [address] ms. No evidence of ST elevation or depression. - Medical Decision Making She appears well nontoxic. Vital signs within normal limits. Spoke with hospitalist who is agreeable with readmission for alcohol detox. Spoke with social work who stated this was not against hospital policy. Patient be given given 1 L of normal saline, labs to be drawn, and he will be admitted to the hospital. <Ryan Sullivan - Last Filed: 08/14/19 21:09> - Medical Decision Making Patient presents for alcohol detox. He left the hospital AGAINST MEDICAL ADVICE. No other complaints. Agree with the above. Patient was treated with fluids. Labs performed. Patient was discussed with the hospitalist who will admit for further care. <Mariano Martínez - Last Filed: 08/14/19 22:12> ED Disposition <Ryan Sullivan - Last Filed: 08/14/19 21:09> <Mariano Martínez - Last Filed: 08/14/19 22:12> - Plan for ED Patient: Disposition: Acute Care Hospital [facility] Diagnosis: Alcohol withdrawal, Alcohol abuse
[2019-08-14] MEDS: 0.9% Normal Saline 1,000 ML 1000 ML IV (19:08)
[2019-08-14 19:17] LABS: Absolute Lymphocyte Count 1.79 X10^3/uL (0.83-4.51); Absolute Neutrophil Count 1.6 X10^3/uL (2.0-7.7); Basophil# 0.05 X10^3/uL; Basophil% 1.2 % (0-1); Eosinophil# 0.17 X10^3/uL; Hematocrit 37.2 % (40-54); Lymphocyte # 1.79 X10^3/ul (4.0); Lymphocyte % 42.1 % (19-41); Mean Corp Hgb Conc 34.9 g/dL (32-36); Mean Corpuscular Hgb 32.4 pg (27.0-32.0); Mean Corpuscular Volume 92.8 fL (80-94); Mean Platelet Vol. 9.1 fl (6.2-12.0); Monocyte# 0.58 X10^3/uL; Monocyte% 13.6 % (0-10); NRBC Flagged by Analyzer 0 % (0-5); Neutrophil # 1.63 X10^3/uL (2.7-7.7); Neutrophil % 38.4 % (47-70); Platelet Count 217 K/mm3 (150-450); RBC Distribution Width CV 11.5 % (11.6-14.6); RBC Distribution Width SD 39.4 fl (35.1-43.9); Red Blood Count 4.01 M/mm3 (4.6-6.2); White Blood Count 4.3 K/mm3 (4.4-11.0)
[2019-08-14 19:19] VITALS: BP 100/50; PULSE 75; RESP 19; O2SAT 95
[2019-08-14 19:30] LABS: ALB/GLOB Ratio 0.8 RATIO (0.9-2.4); AST(SGOT) 32 U/L (15-37); Alanine Aminotransfer ALT/SGPT 23 U/L (16-61); Albumin, Serum 3.1 g/dL (3.2-5.0); Alkaline Phosphatase 44 U/L (45-117); Anion Gap 6 (5-15); BUN 12 mg/dL (7-18); BUN/Creat Ratio 11.3 RATIO (10-20); Calcium,Total 8.5 mg/dL (8.5-10.1); Chloride 98 mmol/L (98-107); Creatinine, Serum 1.06 mg/dL (0.70-1.30); EST Glomerular Filtration Rate 77 mL/min (>60); Est Glom Filt Rate - Afr Amer 93 mL/min (>60); Estimated Creatinine Clearance 86.89 ml/min; Globulin 3.9 g/dL (2.2-4.2); Glucose 92 mg/dL (74-106); Lipase 287 U/L (73-393); Sodium Level 134 mmol/L (136-145)
[2019-08-14 19:48] VITALS: BMI 31.8
--- NOTE | 2019-08-14 19:48 | HP.PCM_ITS ---
Problem List (1) Alcohol intoxication Status: Chronic (2) Atrial flutter Status: Acute (3) Essential hypertension Status: Chronic (4) Paroxysmal atrial fibrillation Status: Chronic Comment: DCCV with NICKOLAS on 07/11/2019; (5) Alcohol abuse Status: Chronic History of Present Illness Date of Admission: 08/14/19 Chief Complaint: Request for medical stabilization The patient is a 59 year old M with past medical history of chronic alcohol use disorder, hypertension, paroxysmal atrial fibrillation who was admitted on 08/12/19 with alcohol withdrawal symptoms requesting for medical stabilization. Patient was admitted to the [facility] floor and started on the alcohol withdrawal protocol. Patient signed out AGAINST MEDICAL ADVICE on 08/14/19 saying he had to check on his family. He apparently went home to drink alcohol. He presented back to the emergency department feeling remorseful and ask him to be readmitted for medical stabilization. His CIWA score done in the ED was 5 Admitting alcohol level was 207. BMP was unremarkable except for sodium of 134. 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) Premature atrial contraction (Chronic) Essential hypertension (Chronic) Paroxysmal atrial fibrillation (Chronic) DCCV with NICKOLAS on 07/11/2019; Alcohol abuse (Chronic) Medical History: Medical History (Last Updated 07/18/19 @ 08:38 by ISAIAS Phillips) Legally blind in left eye, as defined in [place] (Chronic) H54.8 Premature atrial contraction (Chronic) I49.1 Essential hypertension (Chronic) I10 Paroxysmal atrial fibrillation (Chronic) I48.0 DCCV with NICKOLAS on 07/11/2019; Alcohol abuse (Chronic) F10.10 Alcohol withdrawal (Acute) F10.239 Depression F32.9 Neuropathy G62.9 Atrial fibrillation with RVR I48.91 Delirium tremens (Resolved) F10.231 TIA (transient ischemic attack) G45.9 Allergies No Known Allergies Allergy (Verified 08/14/19 18:39) Home Medications: Ambulatory Orders Medication Instructions Recorded gabapentin 600 mg tablet 600 mg PO TID tab 05/11/19 Omeprazole [Prilosec] 20 mg PO DAILY 07/06/19 Amiodarone HCl [Cordarone] 200 mg PO DAILY 08/13/19 Metoprolol(XL)Succ [Toprol Xl 200 mg PO DAILY 08/13/19 (Beta Fred)] Rivaroxaban [Xarelto] 20 mg PO DINNER 08/13/19 Surgical History: Surgical History (Last Reviewed 07/07/19 @ 14:48 by RYAN Sweeney) History of elbow surgery Z98.890 History of tonsillectomy Z90.89 Surgical History: - - Right elbow surgery Psychiatric History: No pertinent psych hx Smoking Status: Current every day smoker - *Family History Maternal Family History: Family History (Last Reviewed 07/07/19 @ 14:48 by RYAN Sweeney) Mother Cancer Diabetes Brother Cancer Grandfather Heart disease Grandfather History of stroke Grandmother CVA (cerebral vascular accident) History Items: Cancer, Hypertension, Stroke Paternal Family History: Family History (Last Reviewed 07/07/19 @ 14:48 by RYAN Sweeney) Mother Cancer Diabetes Brother Cancer Grandfather Heart disease Grandfather History of stroke Grandmother CVA (cerebral vascular accident) History Items: Hypertension, Stroke Sibling Family History: Family History (Last Reviewed 07/07/19 @ 14:48 by RYAN Sweeney) Mother Cancer Diabetes Brother Cancer Grandfather Heart disease Grandfather History of stroke Grandmother CVA (cerebral vascular accident) History Items: Cancer Review of Systems Constitutional: Denies: Anorexia, Chills, Fever, Malaise, Weakness, Weight Change, Fatigue Eyes: Denies: Blurred vision, Cataracts, Conjunctivae Inflammation, Pain, Redness, Vision Change HEENT: Denies: Difficulty Swallowing, Head Aches, Hearing Changes, Sinus Congestion, Sinus Drainage Cardiovascular: Denies: Chest Pain, Claudication, Orthopnea, Palpitations, Paroxysmal Noc. Dyspnea Respiratory: Denies: Cough, Shortness of breath at rest, Shortness of breath upon exertion, Sputum production Gastrointestinal: Denies: Abdominal Pain, Hematemesis, Hematochezia, Nausea, Vomiting Genitourinary: Denies: Dysuria Musculoskeletal: Denies: Joint Pain, Joint Tenderness Skin: Denies: Rash, Wounds Neurological: Denies: Difficulty swallowing, Focal weakness, Numbness, Tingling Psychiatric: Denies: Anxiety, Depression, Homicidal Ideations, Suicidal Ideatio ns Hematologic/ Lymphatic: Denies: Easy Bruising, Easy Bleeding VTE Information - Inpt Only VTE Present on Admission: No VTE Pharm Prophylaxis ordered?: Yes Patient Problems: Active and Suspected Problems (Last Updated 07/18/19 @ 08:38 by Lalo Juarez COMPOSITE WORKER- C) Alcohol withdrawal (Acute) - Physical Exam General: Alert, Oriented x3, Cooperative, No apparent distress HEENT: Atraumatic, PERRLA, EOMI, Normocephalic Oral: Moist Mucosa Neck: Supple Lungs: Clear to auscultation, Normal air movement Cardiovascular: Regular rate, Regular Rhythm, Normal S1, Normal S2, No murmurs Abdomen: Bowel Sounds Present, Soft, Non Tender, Non-Distended, No Hepato- splenomegaly Extremities: No edema Skin: No rashes, No breakdown Musculoskeletal: No Tenderness to Palpation of Joints or Extremities Lymphatic: No Cervical, Supraclavicular, or Inguinal Adenopathy Neurological: Cranial nerves II-XII grossly intact, Neuro grossly intact Psych/Mental Status: Normal Affect, Appropriate Vital Signs Temp Pulse Resp BP Pulse Ox 98.5 F 75 19 H 100/50 L 95 08/14/19 18:36 08/14/19 19:19 08/14/19 19:19 08/14/19 19:19 08/14/19 19:19 Oxygen Delivery Method Room Air Weight: 116.5 kg Body Mass Index (BMI) 33.8 Finger Stick Blood Glucose 105 Laboratory Tests Past 24 Hrs 08/14/19 08/14/19 08/14/19 19:05 19:05 19:05 WBC 4.3 L RBC 4.01 L Hgb 13.0 Hct 37.2 L MCV 92.8 MCH 32.4 H MCHC 34.9 RDW Std Deviation 39.4 RDW Coeff of Kaylen 11.5 L Plt Count 217 MPV 9.1 Immature Gran % (Auto) 0.700 Neut % (Auto) 38.4 L Lymph % (Auto) 42.1 H Dawson % (Auto) 13.6 H Eos % (Auto) 4.0 Baso % (Auto) 1.2 H Absolute Neuts (auto) 1.6 L Absolute Lymphs (auto) 1.79 Nucleated RBC % 0 Sodium 134 L Potassium 4.0 Chloride 98 Carbon Dioxide 30.0 Anion Gap 6 BUN 12 Creatinine 1.06 Estim Creat Clear Calc 86.89 Est GFR (MDRD) Af Amer 93 Est GFR (MDRD) Non-Af 77 BUN/Creatinine Ratio 11.3 Glucose 92 Calcium 8.5 Total Bilirubin 0.50 AST 32 ALT 23 Alkaline Phosphatase 44 L Total Protein 7.0 Albumin 3.1 L Globulin 3.9 Albumin/Globulin Ratio 0.8 L Lipase 287 Ethyl Alcohol Pending Assessment/Plan All Active Problems (Last Updated 07/18/19 @ 08:38 by Lalo Juarez, COMPOSITE WORKER-C) Atrial flutter (Acute) Hypomagnesemia (Acute) Alcohol withdrawal (Acute) Atrial fibrillation and flutter (Resolved) Atrial fibrillation with rapid ventricular response (Resolved) Atrial flutter with rapid ventricular response (Resolved) Delirium tremens (Resolved) 59-year-old male with past medical history of alcohol use disorder, hypertension, paroxysmal atrial fibrillation who was recently admitted on 08/12/19 for alcohol withdrawal but signed out AGAINST MEDICAL ADVICE on 08/14/19. 1. Acute alcohol intoxication, pending alcohol withdrawal In a known alcoholic Plan: Admit to to [facility], alcohol withdrawal protocol Patient was counseled strongly that should he sign out AGAINST MEDICAL ADVICE again he would not be re-admitted 2. Hypertension, continue on home metoprolol 3. Paroxysmal atrial fibrillation, on metoprolol and Xarelto 4. DVT PPx- On Xarelto Code Visit Inpatient E&M: 89473 Init Hosp L2
[2019-08-14 20:06] VITALS: BP 111/75; PULSE 70; RESP 16; TEMP 37; O2SAT 96
[2019-08-14 20:07] VITALS: BMI 31.9
[2019-08-14] MEDS: LORazepam 1 MG Tablet PO (20:22)
[2019-08-14] MEDS: Gabapentin 600 MG Tablet PO (21:06)
[2019-08-15] VITALS (9 sets, daily range): BP systolic 80–156; BP diastolic 52–106; PULSE 70–85; RESP 16–18; TEMP 36.3–37; O2SAT 95–98
--- NOTE | 2019-08-15 00:24 | NURSING ---
Pt sleeping in bed, snoring. RR 18, even and unlabored. SpO2 84% on RA. 2L O2 applied and Spo2 increased to 96%. Pt awakens easily to touch.
[2019-08-15] MEDS: LORazepam 1 MG Tablet PO ×5 (00:28→21:54)
[2019-08-15] MEDS: 0.9% Normal Saline 1,000 ML 999 ML IV (05:03)
[2019-08-15] MEDS: Gabapentin 600 MG Tablet PO ×3 (05:03→21:54)
[2019-08-15] MEDS: 0.9% NaCl Peripheral Flush Adult/Peds IV (05:03)
[2019-08-15] MEDS: Pantoprazole Sodium 20 MG Tablet PO (08:10)
[2019-08-15] MEDS: Multivitamins,Therapeutic Tablet 1 TABLET PO (08:10)
[2019-08-15] MEDS: Folic Acid 1 MG Tablet PO (08:10)
[2019-08-15] MEDS: Amiodarone 200 MG Tablet PO (08:10)
[2019-08-15] MEDS: Thiamine Hydrochloride 100 MG Tablet PO (08:10)
--- NOTE | 2019-08-15 08:33 | PCM.PN.HOSP ---
Patient Problems: Active and Suspected Problems (Last Updated 07/18/19 @ 08:38 by Lalo Juarez SAP CONSULTANT-C) Alcohol withdrawal (Acute) Subjective: No acute events overnight, left AMA and then came back after have a few drinks Vitals/I&O's: Vital Signs Temp Pulse Resp BP Pulse Ox 98.5 F 77 18 137/96 H 95 08/15/19 07:58 08/15/19 07:58 08/15/19 07:58 08/15/19 07:58 08/15/19 07:58 Oxygen Flow Rate (L/min) 2 Oxygen Delivery Method Room Air Weight: 241 lb 13.553 oz Body Mass Index (BMI) 31.8 Finger Stick Blood Glucose 105 Intake and Output for Last 24 Hours 08/13/19 08/14/19 08/15/19 23:59 23:59 23:59 Intake Total 1000 / 1000 1729 / 1729 Output Total 875 / 875 Balance 1000 / 1000 854 / 854 General: Alert, Oriented x3, Cooperative, No apparent distress HEENT: Atraumatic, PERRLA, EOMI, Normocephalic Oral: Dry Mucosa Neck: Supple, No JVD Lungs: Clear to auscultation, Normal air movement, No rhonchi, No wheeze, No rales Cardiovascular: Regular rate, Regular Rhythm, Normal S1, Normal S2, No murmurs Abdomen: Soft, Non Tender, Non-Distended, No Hepato-splenomegaly Extremities: No edema, Capillary Refill Less than 3 Seconds Skin: No rashes, No breakdown Neurological: Neuro grossly intact, Sensory exam intact to light touch and pain Psych/Mental Status: Normal Affect, Appropriate Laboratory Results 08/14/19 19:05: WBC 4.3 L, RBC 4.01 L, Hgb 13.0, Hct 37.2 L, MCV 92.8, MCH 32.4 H, MCHC 34.9, RDW Std Deviation 39.4, RDW Coeff of Kaylen 11.5 L, Plt Count 217, MPV 9.1, Immature Gran % (Auto) 0.700, Neut % (Auto) 38.4 L, Lymph % (Auto) 42.1 H, [place] % (Auto) 13.6 H, Eos % (Auto) 4.0, Baso % (Auto) 1.2 H, Absolute Neuts (auto) 1.6 L, Absolute Lymphs (auto) 1.79, Nucleated RBC % 0 08/14/19 19:05: Sodium 134 L, Potassium 4.0, Chloride 98, Carbon Dioxide 30.0, Anion Gap 6, BUN 12, Creatinine 1.06, Estim Creat Clear Calc 86.89, Est GFR (MDRD) Af Amer 93, Est GFR (MDRD) Non-Af 77, BUN/Creatinine Ratio 11.3, Glucose 92, Calcium 8.5, Total Bilirubin 0.50, AST 32, ALT 23, Alkaline Phosphatase 44 L, Total Protein 7.0, Albumin 3.1 L, Globulin 3.9, Albumin/Globulin Ratio 0.8 L, Lipase 287 08/14/19 19:05: Ethyl Alcohol 207.0 Current Medications Amiodarone HCl (Cordarone) 200 mg PO DAILY [facility] Last Admin: 08/15/19 08:10 Dose: 200 mg Documented by: Dicyclomine HCl (Bentyl) 20 mg PO Q6H PRN PRN PRN Reason: abdominal discomfort [facility] ([facility]) [facility] Stop: 08/17/19 08:01 Last Admin: 08/15/19 08:10 Dose: 1 mg Documented by: Gabapentin (Neurontin) 600 mg PO TID [facility] Last Admin: 08/15/19 05:03 Dose: 600 mg Documented by: Hydroxyzine Pamoate (Vistaril Pamoate Capsule) 50 mg PO Q6H PRN PRN PRN Reason: Mild Anxiety (score 1/3) Lorazepam (Ativan) 2 mg IV X1 PRN PRN Reason: Seizure Lorazepam (Ativan) 1 mg PO Q4H [facility]; Taper Stop: 08/17/19 23:59 Last Admin: 08/15/19 08:14 Dose: 1 mg Documented by: Methocarbamol (Methocarbamol) 750 mg PO Q6H PRN PRN PRN Reason: Muscle Aches Metoprolol Succinate (Toprol Xl (Beta Fred)) 200 mg PO DAILY [facility] Multivitamins (Multivitamin) [facility] Last Admin: 08/15/19 08:10 Dose: 1 tablet Documented by: Pantoprazole Sodium (Protonix) 20 mg PO DAILY [facility] Last Admin: 08/15/19 08:10 Dose: 20 mg Documented by: Rivaroxaban (Xarelto) 20 mg PO DINNER [facility] Sodium Chloride () 5 - 15 ml IV UD PRN PRN Reason: SALINE FLUSH Last Admin: 08/15/19 05:03 Dose: 10 ml Documented by: Thiamine HCl (Vitamin B1) 100 mg PO DAILYCM SMITHA Stop: 08/17/19 08:01 Last Admin: 08/15/19 08:10 Dose: 100 mg Documented by: Medical Necessity - Tobacco Use Smoking Status: Current every day smoker Tobacco Use: Cigarettes Assessment/Plan All Active Problems (Last Updated 07/18/19 @ 08:38 by Lalo Juarez, SAP CONSULTANT-C) Atrial flutter (Acute) Hypomagnesemia (Acute) Alcohol withdrawal (Acute) Atrial fibrillation and flutter (Resolved) Atrial fibrillation with rapid ventricular response (Resolved) Atrial flutter with rapid ventricular response (Resolved) Delirium tremens (Resolved) 1. Acute alcohol withdrawal -Continue with alcohol withdrawal protocol with Ativan -Monitor CIWA -We will meet with social work today for outpatient rehab options 2. A. fib/HTN -Cardioversion July 11, 2019 -Continue with amiodarone, metoprolol and Xarelto -Continue with lisinopril 3. GERD -Stable -Continue with PPI DVT: Xarelto Code Visit Inpatient E&M: 21309 Subs Hosp L2
[2019-08-15] MEDS: Metoprolol(XL)Succ 200 MG Tablet PO (11:45)
--- NOTE | 2019-08-15 12:17 | CASEMGMT ---
Social Work Note ZORAN received call from pt's RN ANGELIC Coleman at [facility]. [place] states she has been working with pt on trying to get pt to agree to inpatient detox but pt has refused detox every time. [place] states that pt is on medication at home to help him quit drinking but pt doesn't take the medication at home. [place] states that pt will tell her that he is cutting back on his drinking and that he drinks about 5 tall boys daily. [place] states that they have a transition program through [facility] where a SW through [facility] can get involved with pt and get pt placed to inpatient detox from the community but pt has to be agreeable and currently pt has not been agreeable. [place] states that she will arrange appointments for pt and pt will not attend appointments. [place] states that pt and pt's know about the detox options and counseling and refuse to follow up or agree to detox. [place] provided direct number [phone]. ZORAN met with pt to confirm discharge plans. ZORAN is familiar with pt from previous visits. ZORAN introduced self and role at [facility]. Pt is alert and orientated x3. Pt states that at discharge he plans on going home, working on the yard and staying away from the beer store. ZORAN informed pt that he has been at [facility] multiple times for alcohol detox so clearly his plans of returning home with no help has not been working. Pt states this time is different, I want to stop drinking. ZORAN explained that it is extremely difficult for pt's to quit drinking by themselves and that pt would benefit from inpatient detox at discharge. Pt states my dad's health is bad and I am around family, I don't want to go anywhere for inpatient detox. ZORAN asked pt about outpatient options then as it would at least get pt linked up with some services at discharge. Pt also refused outpatient counseling. ZORAN asked pt how he plans on staying away from the beer store. Pt states I just will, I have the will power to do so. Pt states that his currently attends AA meetings and he will go to the meetings with her. Pt states that he has good support at home and denied the need for resources at this time. ZORAN asked pt if this worker could make initial appointments for him and pt denied. Again pt denied wanting resources for detox/counseling at this time. ZORAN received a message from the ZORAN Rose at [facility] ([phone]) requesting a call back. ZORAN placed a call to Rose MEEHAN at [facility]. Rose states that she was updated on pt's case and asked if pt is agreeable to inpatient rehab. ZORAN informed pt that this worker met with pt and pt denied inpatient rehab and outpatient counseling. Rose states there isn't much she can do at this time as pt is not agreeable to inpatient rehab. Plan: Pt denied outpatient counseling and inpatient rehab. Pt plans on attending AA meetings with his at discharge. Loulou Chino SHEET METAL LAYOUT WORKER, CONE WINDER
[2019-08-15] MEDS: Rivaroxaban 20 MG Tablet PO (17:32)
[2019-08-16] MEDS: LORazepam 1 MG Tablet PO ×4 (03:51→23:38)
[2019-08-16 03:53] VITALS: BP 135/100; PULSE 83; RESP 16; TEMP 36.7; O2SAT 97
[2019-08-16] MEDS: Gabapentin 600 MG Tablet PO ×3 (05:31→21:14)
[2019-08-16] MEDS: Thiamine Hydrochloride 100 MG Tablet PO (07:59)
[2019-08-16] MEDS: Folic Acid 1 MG Tablet PO (07:59)
[2019-08-16] MEDS: Multivitamins,Therapeutic Tablet 1 TABLET PO (07:59)
--- NOTE | 2019-08-16 09:03 | PCM.PN.HOSP ---
Patient Problems: Active and Suspected Problems (Last Updated 07/18/19 @ 08:38 by Lalo Juarez NP-C) Alcohol withdrawal (Acute) Subjective: No issues overnight Vitals/I&O's: Vital Signs Temp Pulse Resp BP Pulse Ox 98.0 F 83 16 135/100 H 97 08/16/19 03:53 08/16/19 03:53 08/16/19 03:53 08/16/19 03:53 08/16/19 03:53 Oxygen Flow Rate (L/min) 2 Oxygen Delivery Method Room Air Weight: 241 lb 13.553 oz Body Mass Index (BMI) 31.8 Finger Stick Blood Glucose 105 Intake and Output for Last 24 Hours 08/14/19 08/15/19 08/16/19 23:59 23:59 23:59 Intake Total 1000 / 1000 2229 / 2229 700 / 700 Output Total 875 / 875 Balance 1000 / 1000 1354 / 1354 700 / 700 General: Alert, Oriented x3, Cooperative, No apparent distress HEENT: Atraumatic, PERRLA, EOMI, Normocephalic Oral: Dry Mucosa Neck: Supple, No JVD Lungs: Clear to auscultation, Normal air movement, No rhonchi, No wheeze, No rales Cardiovascular: Regular rate, Regular Rhythm, Normal S1, Normal S2, No murmurs Abdomen: Soft, Non Tender, Non-Distended, No Hepato-splenomegaly Extremities: No edema, Capillary Refill Less than 3 Seconds Skin: No rashes, No breakdown Neurological: Neuro grossly intact, Sensory exam intact to light touch and pain Psych/Mental Status: Normal Affect, Appropriate Current Medications Amiodarone HCl (Cordarone) 200 mg PO DAILY [facility] Last Admin: 08/15/19 08:10 Dose: 200 mg Documented by: Dicyclomine HCl (Bentyl) 20 mg PO Q6H PRN PRN PRN Reason: abdominal discomfort [facility] Stop: 08/17/19 08:01 Last Admin: 08/16/19 07:59 Dose: 1 mg Documented by: Gabapentin (Neurontin) 600 mg PO TID [facility] Last Admin: 08/16/19 05:31 Dose: 600 mg Documented by: Hydroxyzine Pamoate (Vistaril Pamoate Capsule) 50 mg PO Q6H PRN PRN PRN Reason: Mild Anxiety (score 1/3) Lorazepam (Ativan) 2 mg IV X1 PRN PRN Reason: Seizure Lorazepam (Ativan) 1 mg PO Q6H [facility]; Taper Stop: 08/17/19 23:59 Last Admin: 08/16/19 03:51 Dose: 1 mg Documented by: Methocarbamol (Methocarbamol) 750 mg PO Q6H PRN PRN PRN Reason: Muscle Aches Metoprolol Succinate (Toprol Xl (Beta Fred)) 200 mg PO DAILY [facility] Last Admin: 08/15/19 11:45 Dose: 200 mg Documented by: Multivitamins (Multivitamin) [facility] Last Admin: 08/16/19 07:59 Dose: 1 tablet Documented by: Pantoprazole Sodium (Protonix) 20 mg PO DAILY [facility] Last Admin: 08/15/19 08:10 Dose: 20 mg Documented by: Rivaroxaban (Xarelto) 20 mg PO DINNER [facility] Last Admin: 08/15/19 17:32 Dose: 20 mg Documented by: Sodium Chloride () 5 - 15 ml IV UD PRN PRN Reason: SALINE FLUSH Last Admin: 08/15/19 05:03 Dose: 10 ml Documented by: Thiamine HCl (Vitamin B1) [facility] Stop: 08/17/19 08:01 Last Admin: 08/16/19 07:59 Dose: 100 mg Documented by: Medical Necessity - Tobacco Use Smoking Status: Current every day smoker Tobacco Use: Cigarettes Assessment/Plan All Active Problems (Last Updated 07/18/19 @ 08:38 by Lalo Juarez HORSE FARM MANAGER-C) Atrial flutter (Acute) Hypomagnesemia (Acute) Alcohol withdrawal (Acute) Atrial fibrillation and flutter (Resolved) Atrial fibrillation with rapid ventricular response (Resolved) Atrial flutter with rapid ventricular response (Resolved) Delirium tremens (Resolved) 1. Acute alcohol withdrawal -Continue with alcohol withdrawal protocol with Ativan -Monitor CIWA -We will meet with social work today for outpatient rehab options 2. A. fib/HTN -Cardioversion July 11, 2019 -Continue with amiodarone, metoprolol and Xarelto -Continue with lisinopril 3. GERD -Stable -Continue with PPI DVT: Xarelto Code Visit Inpatient E&M: 43638 Subs Hosp L2
[2019-08-16 09:51] VITALS: BP 161/103; PULSE 75; RESP 16; TEMP 36.7; O2SAT 96
[2019-08-16 09:54] VITALS: PULSE 75
[2019-08-16] MEDS: Metoprolol(XL)Succ 200 MG Tablet PO (09:54)
[2019-08-16] MEDS: Pantoprazole Sodium 20 MG Tablet PO (09:54)
[2019-08-16] MEDS: Amiodarone 200 MG Tablet PO (09:54)
[2019-08-16 13:34] VITALS: BP 136/98; PULSE 75; RESP 16; TEMP 36.8; O2SAT 97
[2019-08-16 16:44] VITALS: BP 149/95; PULSE 73; RESP 16; TEMP 36.8; O2SAT 97
[2019-08-16] MEDS: Rivaroxaban 20 MG Tablet PO (16:50)
[2019-08-16 21:12] VITALS: BP 144/103; PULSE 77; RESP 18; TEMP 36.9; O2SAT 96
[2019-08-16] MEDS: hydrOXYzine PAM 25 MG Capsule 50 MG PO (21:16)
--- NOTE | 2019-08-16 23:51 | NURSING ---
Pt's concerned with pt d/c. she feels pt's anxiety will lead pt to relapse. requesting medication for anxiety on d/c. states pt unhappy with primary physician and primary physician was wanting a psychiatry review. This has not been attended. Advised pt to discuss with hospitalist tomorrow morning and discuss with case management. Will hand off to dayshift RN.
[2019-08-17 06:01] VITALS: BP 124/72; PULSE 72; RESP 18; TEMP 36.6; O2SAT 95
[2019-08-17] MEDS: Gabapentin 600 MG Tablet PO (06:04)
[2019-08-17] MEDS: LORazepam 1 MG Tablet PO (08:03)
[2019-08-17] MEDS: Folic Acid 1 MG Tablet PO (08:03)
[2019-08-17] MEDS: Multivitamins,Therapeutic Tablet 1 TABLET PO (08:03)
[2019-08-17] MEDS: Thiamine Hydrochloride 100 MG Tablet PO (08:04)
[2019-08-17 09:17] VITALS: PULSE 72
[2019-08-17] MEDS: Pantoprazole Sodium 20 MG Tablet PO (09:17)
[2019-08-17] MEDS: Metoprolol(XL)Succ 200 MG Tablet PO (09:17)
[2019-08-17] MEDS: Amiodarone 200 MG Tablet PO (09:17)
[2019-08-17 10:00] VITALS: BP 136/103; PULSE 68; RESP 18; TEMP 37.2; O2SAT 98
--- NOTE | 2019-08-17 10:30 | CASEMGMT ---
Social Work Note Charge Nurse updated this worker that pt is now agreeable to appointment at [facility]. SW met with pt to confirm. Pt states he knows Hel[place], Lauren, Chanell and [facility] as they assist him with his housing. SW informed pt that this worker can make appointment for initial assessment for pt at [facility]. Pt denied wanting this worker to arrange appointment, pt states he will call [facility] himself to schedule his appointment. RN updated. Loulou Chino SIMPLEX OPERATOR, PRESS BREAKER
--- NOTE | 2019-08-17 11:03 | DCINST_ITS ---
- Discharge Diagnoses Current Active Problems: Current Active and Chronic Problems (Last Updated 07/18/19 @ 08:38 by TONIA PhillipsC) Alcohol abuse (Chronic) Alcohol withdrawal (Acute) You will use the following diet at home:: Cardiac Your food should be the consistency of: Regular Your liquids should be the consistency of: Regular/Thin Discharge Activity: Return to Normal Activity Call your doctor if you observe: Fever of 101 or Higher, Shortness of breath, Dizziness, Fainting spells, Swelling in the ankles, Chest pain, Increased palpitations (irregular heartbeat) Allergies/Adverse Reactions: Allergies No Known Allergies Allergy (Verified 08/14/19 18:39) Medications to take at Discharge gabapentin 600 mg tablet 600 mg PO TID tab 05/11/19 Omeprazole [Prilosec] 20 mg PO DAILY 07/06/19 Amiodarone HCl [Cordarone] 200 mg PO DAILY 08/13/19 Metoprolol(XL)Succ [Toprol Xl (Beta Fred)] 200 mg PO DAILY 08/13/19 Rivaroxaban [Xarelto] 20 mg PO DINNER 08/13/19 Primary Care Physician: Moriah Fernandez MD [Primary Care Provider] - Please follow up with your Primary Care Physician in: 3-5 days Test Results: Test results from this visit will be discussed in further detail at your follow- up appointment, if applicable. Please Follow Up With: [facility]
--- NOTE | 2019-08-17 12:35 | PCM.DC.SUM ---
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 Patient was admitted to the Medr floor and started on the alcohol withdrawal protocol. Patient signed out AGAINST MEDICAL ADVICE on 08/14/19 saying he had to check on his family. He apparently went home to drink alcohol. He presented back to the emergency department feeling remorseful and ask him to be readmitted for medical stabilization. His CIWA score done in the ED was 5 Admitting alcohol level was 207. BMP was unremarkable except for sodium of 134. Hospital Course: 1. Alcohol [id number] male who was admitted a few days prior from the withdrawal and then he left AMA, he represented to the hospital after having a couple drinks on the same day of his AMA. He is now completed 3 days of an Ativan taper and even though he still has 1 or 2 more dose of the Ativan he is refusing to stay and wants to go home and states that he will be able to call [facility] for outpatient rehab therapy on his own from home. Discussed with him that he will need to find outpatient mental health as well as behavioral health specialist to help deal with his anxiety. 2. His other medical diagnoses were evaluated and his home medications were continued where appropriate Patient Problems: Active and Suspected Problems (Last Updated 07/18/19 @ 08:38 by Lalo Juarez NP-C) Alcohol withdrawal (Acute) Objective: General: Alert, Oriented x3, Cooperative, No apparent distress HEENT: Atraumatic, PERRLA, EOMI, Normocephalic Oral: Dry Mucosa Neck: Supple, No JVD Lungs: Clear to auscultation, Normal air movement, No rhonchi, No wheeze, No rales Cardiovascular: Regular rate, Regular Rhythm, Normal S1, Normal S2, No murmurs Abdomen: Soft, Non Tender, Non-Distended, No Hepato-splenomegaly Extremities: No edema, Capillary Refill Less than 3 Seconds Skin: No rashes, No breakdown Neurological: Neuro grossly intact, Sensory exam intact to light touch and pain Psych/Mental Status: Normal Affect, Appropriate - Physical Exam Vital Signs Temp Pulse Resp BP Pulse Ox 98.9 F 68 18 136/103 H 98 08/17/19 10:00 08/17/19 10:00 08/17/19 10:00 08/17/19 10:00 08/17/19 10:00 Oxygen Flow Rate (L/min) 2 Oxygen Delivery Method Room Air Weight: 241 lb 13.553 oz Body Mass Index (BMI) 31.8 Finger Stick Blood Glucose 105 Intake and Output for Last 24 Hours 08/15/19 08/16/19 08/17/19 23:59 23:59 23:59 Intake Total 2229 / 2229 1400 / 1400 520 / 520 Output Total 875 / 875 950 / 950 Balance 1354 / 1354 1400 / 1400 -430 / -430 Discharge Activity: Return to Normal Activity Call your doctor if you observe: Fever of 101 or Higher, Shortness of breath, Dizziness, Fainting spells, Swelling in the ankles, Chest pain, Increased palpitations (irregular heartbeat) Home Medications: Medications to take at Discharge gabapentin 600 mg tablet 600 mg PO TID tab 05/11/19 Omeprazole [Prilosec] 20 mg PO DAILY 07/06/19 Amiodarone HCl [Cordarone] 200 mg PO DAILY 08/13/19 Metoprolol(XL)Succ [Toprol Xl (Beta Fred)] 200 mg PO DAILY 08/13/19 Rivaroxaban [Xarelto] 20 mg PO DINNER 08/13/19 Primary Care Physician: Moriah Fernandez MD [Primary Care Provider] - Please follow up with your Primary Care Physician in: 3-5 days Please Follow Up With: [facility] Please Follow Up With: Moriah Fernandez MD When: 3 to 5 days Disposition: Home Minutes spent on discharge:: 20 Patient Condition:: Stable Medical Necessity - Tobacco Use Smoking Status: Current every day smoker Tobacco Use: Cigarettes Meaningful Use Info Meaningful Use Diagnoses (Choose all that apply): None applicable Code Visit Inpatient E&M: 56851 Disch Hosp
[2019-08-17 12:48] VITALS: BP 144/98; PULSE 74; RESP 18; TEMP 36.7; O2SAT 98
== END 2019-08-17 12:55 | disposition home or self-care (01) | DRG 775 ==
LOC: ED 19:06 → MS3 19:23
PROVIDERS: Admitting Provider Internal Medicine; Emergency Provider Emergency Medicine; Family Provider Internal Medicine; PCP Internal Medicine; Referring Provider Internal Medicine; Visit Provider Family Medicine
DX: F10.239 Alcohol dependence with withdrawal, unspecified (principal); F10.229 Alcohol dependence with intoxication, unspecified; Y90.7 Blood alcohol level of 200-239 mg/100 ml; I10 Essential (primary) hypertension; I48.0 Paroxysmal atrial fibrillation; F17.210 Nicotine dependence, cigarettes, uncomplicated; K21.9 Gastro-esophageal reflux disease without esophagitis; H54.8 Legal blindness, as defined in USA
CPT/HCPCS: 80053; 80320; 83690; 85025; 93005; 99285; 99406; J7030; A4216; G0480

== ENCOUNTER 2019-08-18 20:28 | Emergency (ER) | payer MEDICAID, SELFPAY ==
[2019-08-18 20:30] VITALS: BP 110/66; PULSE 73; RESP 20; TEMP 37; O2SAT 93; BMI 33.7
--- NOTE | 2019-08-18 20:43 | CT_ITS ---
STUDY: CT BRAIN WITHOUT CONTRAST REASON FOR EXAM: Male, 59 years old. Trauma RADIATION DOSAGE (If Supplied By Facility): CTDIvol = ( 44.99 ) mGy, DLP = ( 829.85 ) mGycm TECHNIQUE: Transaxial CT imaging of the brain was performed without administration of intravenous contrast material. Individualized dose optimization techniques were used for this CT. COMPARISON: July 06, 2019 FINDINGS: Normal soft tissue structures. Normal calvarium. Mild atrophy and periventricular white matter ischemic changes.. Normal basal ganglia and thalami. Normal brainstem. Normal cerebellum. There is no intracranial hemorrhage. There are no findings of an acute ischemic infarction. Mild mucosal thickening of the left maxillary sinus. CT/Brain/Head without Contrast IMPRESSION: Mild atrophy and periventricular white matter ischemic changes. No evidence for acute intracranial bleed Electronically Signed: Ming Arciniega MD at 22:08 EDT , Service support ,
--- NOTE | 2019-08-18 20:55 | RAD_ITS ---
STUDY: X-RAY CHEST REASON FOR EXAM: Male, 59 years old. Malaise TECHNIQUE: Frontal view of the chest COMPARISON: 06/30/2019 FINDINGS: The lungs are clear. There are no pleural effusions. There is no pneumothorax. The heart is normal in size. The visualized osseous structures are within normal limits. RAD/Chest 1 View (Portable) IMPRESSION: No acute thoracic pathology. Electronically Signed: Cristhian Siddiqui, at 21:16 EDT Tel , Service support ,
--- NOTE | 2019-08-18 21:02 | ED.VIS.GEN ---
History of Present Illness Chief Complaint: General Illness Informant: Patient Onset: Yesterday Context: Gradual Onset Timing: Intermittent Current Severity: Moderate Maximum Severity: Moderate Narrative: The patient presents to the emergency department generalized weakness. Patient was recently admitted for alcohol dependence. He was discharged yesterday. He states that he had to leave. He states now that he feels like he may have left to soon. He states that he feels generally weak. He still feels unsteady on his feet, but states this is been ongoing for 2 years. He denies any nausea. He denies any vomiting. He denies any chest pain. I tried asked the patient what is his actual complaint brings him to the emergency department he does not know. He does admit to that he started drinking again. Prior similar symptoms: Yes Recent Illness/Hospitalization: Yes Past Medical History - Allergies and Home Meds Allergies/Adverse Reactions: Allergies No Known Allergies Allergy (Verified 08/18/19 21:34) Primary Care Physician: Moriah Fernandez MD [Primary Care Provider] - Prior records reviewed: Yes Surgical History: - - Right elbow surgery Smoking Status: Current every day smoker - Family History Maternal Family History: Family History (Last Reviewed 07/07/19 @ 14:48 by RYAN Sweeney) Mother Cancer Diabetes Brother Cancer Grandfather Heart disease Grandfather History of stroke Grandmother CVA (cerebral vascular accident) Family History: Reports: Cancer, Hypertension, Stroke Paternal Family History: Family History (Last Reviewed 07/07/19 @ 14:48 by RYAN Sweeney) Mother Cancer Diabetes Brother Cancer Grandfather Heart disease Grandfather History of stroke Grandmother CVA (cerebral vascular accident) Family History: Reports: Hypertension, Stroke Sibling Family History: Family History (Last Reviewed 07/07/19 @ 14:48 by RYAN Sweeney) Mother Cancer Diabetes Brother Cancer Grandfather Heart disease Grandfather History of stroke Grandmother CVA (cerebral vascular accident) Family History: Reports: Cancer Review of Systems General: Denies: Chills, Fever, Sweats Eyes: Denies: Visual changes - bilaterally, Diplopia ENT: Denies: Rhinorrhea, Sore throat Cardiovascular: Denies: Chest pain, Palpitations Respiratory: Denies: Dyspnea, Cough, Dyspnea on exertion Gastrointestinal: Denies: Abdominal pain, Nausea, Vomiting, Diarrhea, Melena, Hematochezia Genitourinary: Denies: Dysuria, Hematuria, Frequency Musculoskeletal: Denies: Back pain, Extremity Pain Skin: Denies: Rash, Wounds Neurological: Denies: Headache, Weakness, Numbness Physical Exam Vital Signs/Narrative: Vital Signs Temp Pulse Resp BP Pulse Ox 08/18/19 20:30 98.6 F 73 20 H 110/66 93 Inital Vital Signs reviewed: Yes General: Well nourished, Well developed, No Acute Distress Head: Normocephalic, Atraumatic Eyes: Perrl, EOMI ENT: Moist mucous membranes, No rhinorrhea Neck: Supple, Nontender Cardiovascular: Regular rate, Regular rhythm, No murmurs Respiratory: No distress, CTA bilaterally, Chest nontender Abdomen: Soft, Nontender, Nondistended, Normal bowel sounds Back: Nontender, Normal Inspection Extremities: Nontender, No edema Skin: Normal color, No rash Neurological: Alert, Oriented x3, Cranial nerves II-XII grossly intact, Normal Strength, Normal Sensation Psychological: Normal affect, Normal Mood Diagnostic/Tx/Re-eval Chest X-Ray - ED: 1 View, Read by ED Physician, Normal, Heart, Lungs, Mediastinum, No Infiltrates Abnormal Lab Results 08/18/19 08/18/19 08/18/19 21:15 21:15 21:15 WBC 6.8 RBC 4.05 L Hgb 13.2 Hct 38.1 L MCV 94.1 H MCH 32.6 H MCHC 34.6 RDW Std Deviation 41.1 RDW Coeff of Kaylen 11.9 Plt Count 196 MPV 9.4 Immature Gran % (Auto) 0.900 Neut % (Auto) 51.1 Lymph % (Auto) 31.7 Mccurtain % (Auto) 11.7 H Eos % (Auto) 3.6 Baso % (Auto) 1.0 Absolute Neuts (auto) 3.5 Absolute Lymphs (auto) 2.14 Nucleated RBC % 0 Sodium 136 Potassium 4.0 Chloride 97 L Carbon Dioxide 32.0 Anion Gap 7 BUN 16 Creatinine 0.89 Estim Creat Clear Calc 103.49 Est GFR (MDRD) Af Amer 113 Est GFR (MDRD) Non-Af 93 BUN/Creatinine Ratio 18.0 Glucose 84 Calcium 9.1 Ethyl Alcohol 259.0 - Rhythm Strip Rhythm Strip: Sinus Rhythm Rate: 80 Ectopy: None - Medical Decision Making The patient presents to the emergency department generalized weakness. He was just in the hospital for alcohol detox. He left and started drinking again. My suspicion is that this is all alcohol and substance induced. I did obtain a metabolic work-up which was unremarkable. Head CT was negative. Patient was observed. He had no further symptoms. He was counseled to abstain from alcohol. He did not have any indication for admission. The patient will be discharged home. Impression 1. Alcohol intoxication ED Disposition - Plan for ED Patient: Instructions: Alcohol Intoxication Referrals: Moriah Fernandez MD [Primary Care Provider] -
[2019-08-18] MEDS: 0.9% Normal Saline 1,000 ML 1000 ML IV (21:23)
[2019-08-18 21:38] LABS: Absolute Lymphocyte Count 2.14 X10^3/uL (0.83-4.51); Absolute Neutrophil Count 3.5 X10^3/uL (2.0-7.7); Basophil# 0.07 X10^3/uL; Eosinophil# 0.24 X10^3/uL; Eosinophils% 3.6 % (0-5); Hematocrit 38.1 % (40-54); Hemoglobin 13.2 g/dL (13.0-16.5); Lymphocyte # 2.14 X10^3/ul (4.0); Lymphocyte % 31.7 % (19-41); Mean Corp Hgb Conc 34.6 g/dL (32-36); Mean Corpuscular Hgb 32.6 pg (27.0-32.0); Mean Corpuscular Volume 94.1 fL (80-94); Mean Platelet Vol. 9.4 fl (6.2-12.0); Monocyte# 0.79 X10^3/uL; Monocyte% 11.7 % (0-10); NRBC Flagged by Analyzer 0 % (0-5); Neutrophil # 3.46 X10^3/uL (2.7-7.7); Neutrophil % 51.1 % (47-70); Platelet Count 196 K/mm3 (150-450); RBC Distribution Width CV 11.9 % (11.6-14.6); RBC Distribution Width SD 41.1 fl (35.1-43.9); Red Blood Count 4.05 M/mm3 (4.6-6.2); White Blood Count 6.8 K/mm3 (4.4-11.0)
[2019-08-18 21:46] LABS: Anion Gap 7 (5-15); BUN 16 mg/dL (7-18); Calcium,Total 9.1 mg/dL (8.5-10.1); Chloride 97 mmol/L (98-107); Creatinine, Serum 0.89 mg/dL (0.70-1.30); EST Glomerular Filtration Rate 93 mL/min (>60); Est Glom Filt Rate - Afr Amer 113 mL/min (>60); Estimated Creatinine Clearance 103.49 ml/min; Glucose 84 mg/dL (74-106); Sodium Level 136 mmol/L (136-145)
[2019-08-18 22:55] VITALS: BP 105/77; PULSE 71; RESP 20; O2SAT 95
--- NOTE | 2019-08-18 22:59 | ED.RN ---
[facility] JUST CALLED AND SAID THAT SHE WOULD COME AND GET HIM SINCE HE IS ABLE TO GO HOME WITH A RIDE. PATIENT IS EATING A MEAL CURRENTLY.
--- NOTE | 2019-08-18 23:15 | ED.RN ---
PATIENT DISCHARGED WITH HIS WITHOUT ANY COMPLAINTS.
== END 2019-08-18 23:15 | disposition home or self-care (01) ==
PROVIDERS: Emergency Provider Emergency Medicine; Family Provider Internal Medicine; PCP Internal Medicine
DX: F10.229 Alcohol dependence with intoxication, unspecified (principal); F17.200 Nicotine dependence, unspecified, uncomplicated; Z79.01 Long term (current) use of anticoagulants; Z79.899 Other long term (current) drug therapy
CPT/HCPCS: 70450; 71045; 80048; 80320; 85025; 99285; A4216; G0480

== ENCOUNTER 2019-08-25 17:21 | Emergency (ER) | payer MEDICAID, SELFPAY ==
[2019-08-25 17:22] VITALS: PULSE 102; RESP 16; TEMP 36.7; O2SAT 96; BMI 30.3
--- NOTE | 2019-08-25 18:51 | EKG12_ITS ---
Test Reason : DYSRHYTHMIA Blood Pressure : / mmHG Vent. Rate : 100 BPM Atrial Rate : 100 BPM P-R Int : 204 ms QRS Dur : 100 ms QT Int : 384 ms P-R-T Axes : 030 036 058 degrees QTc Int : 495 ms Normal sinus rhythm Possible Left atrial enlargement Prolonged QT Abnormal ECG Confirmed by KERWIN IBRAHIM, ELIAS ([id number]), telegraph editor BRITTNEY GUZMÁN ([id number]) on 08/30/2019 9:45:14 A M Referred By: ADAIR Confirmed By:ZAIRA SURESH MD
--- NOTE | 2019-08-25 18:51 | CT_ITS ---
STUDY: CT ABDOMEN AND PELVIS WITH CONTRAST REASON FOR EXAM: Male, 59 years old. Diarrhea, abdominal pain RADIATION DOSAGE (If Supplied By Facility): CTDIvol = ( 18.25 ) mGy, DLP = ( 1308.34 ) mGycm TECHNIQUE: Transaxial images were obtained from the dome of the diaphragm to the symphysis pubis without oral contrast. IV Isovue 300 100 was administered. Sagittal and coronal images were reconstructed. Individualized dose optimization techniques were used for this CT. COMPARISON: None. FINDINGS: The visualized lung bases are unremarkable. The visualized portions of the heart are within normal limits. Normal liver. Normal gallbladder and extrahepatic biliary system. Normal spleen. Normal pancreas. Normal bilateral adrenal glands. Normal right kidney. Normal left kidney. Normal visualized stomach. Normal small intestine. Diverticulosis of colon. The appendix is visualized and appears normal. Mildly calcified abdominal aorta. Normal inferior vena cava. Normal retroperitoneum. Normal urinary bladder. Mild fatty density at the inguinal canals. Normal abdominal wall. Normal osseous structures. CT/Abdomen/Pelvis W IV Cont ONLY IMPRESSION: Colonic diverticulosis. Mild fatty density at the inguinal canals. Electronically Signed: Yuri Monroe DO at 20:34 EDT Tel [phone], Service support ,
--- NOTE | 2019-08-25 18:59 | ED.VIS.GEN ---
History of Present Illness Chief Complaint: Nausea/Vomiting Informant: Patient, Family Onset: Days - 4 Context: Gradual Onset Current Severity: Severe Maximum Severity: Severe Worsened by: smells, eating/drinking Relieved by: nothing Narrative: Patient is a 59-year-old male presenting with multiple complaints including nausea, vomiting, diarrhea and generalized weakness. He states his symptoms been going on for the past few days however states is been going on closer to week. He states that every morning when he wakes up he throws up and has diarrhea. He denies any black or bloody stools. He cannot describe the vomit. He states that he cannot eat or drink anything even his favorite foods and drinks because he always feels so nauseous. Because of this he has been feeling more depressed however he denies any homicidal or suicidal ideations. states he is been sleeping a lot more he also has been more confused. He seems very unstable on his feet. Today patient had an episode of lower abdominal pain that resolved spontaneously. Patient stopped taking all of his medications including amiodarone, metoprolol and Xarelto yesterday thinking that the medications might be making him sick. Past Medical History - Allergies and Home Meds Allergies/Adverse Reactions: Allergies No Known Allergies Allergy (Verified 08/25/19 17:26) Primary Care Physician: Moriah Fernandez MD [Primary Care Provider] - Azeem Velazquez MD [STAFF PHYSICIAN] - Surgical History: - - Right elbow surgery Smoking Status: Never smoker - Family History Maternal Family History: Family History (Last Reviewed 07/07/19 @ 14:48 by RYAN Sweeney) Mother Cancer Diabetes Brother Cancer Grandfather Heart disease Grandfather History of stroke Grandmother CVA (cerebral vascular accident) Family History: Reports: Cancer, Hypertension, Stroke Paternal Family History: Family History (Last Reviewed 07/07/19 @ 14:48 by RYAN Sweeney) Mother Cancer Diabetes Brother Cancer Grandfather Heart disease Grandfather History of stroke Grandmother CVA (cerebral vascular accident) Family History: Reports: Hypertension, Stroke Sibling Family History: Family History (Last Reviewed 07/07/19 @ 14:48 by RYAN Sweeney) Mother Cancer Diabetes Brother Cancer Grandfather Heart disease Grandfather History of stroke Grandmother CVA (cerebral vascular accident) Family History: Reports: Cancer Review of Systems All systems negative except as indicated General: Reports: Malaise Gastrointestinal: Reports: Abdominal pain, Nausea, Vomiting, Diarrhea Neurological: Reports: Weakness - generalized Physical Exam Vital Signs/Narrative: Vital Signs Temp Pulse Resp Pulse Ox 08/25/19 17:22 98.0 F 102 H 16 96 Inital Vital Signs reviewed: Yes General: Well nourished, Well developed, No Acute Distress Head: Normocephalic, Atraumatic Eyes: Perrl, EOMI, - - Right pupil 5 mm, Left 3mm- chronic per ENT: Moist mucous membranes, No rhinorrhea Neck: Supple, Nontender Cardiovascular: Regular rate, Regular rhythm, No murmurs Respiratory: No distress, CTA bilaterally, Chest nontender Abdomen: Soft, Nontender, Nondistended, Normal bowel sounds Back: Nontender, Normal Inspection Extremities: Nontender, No edema Skin: Normal color, No rash Neurological: Alert, Oriented x3, Cranial nerves II-XII grossly intact, Normal Strength, Normal Sensation Psychological: Normal affect, Normal Mood Diagnostic/Tx/Re-eval Chest X-Ray - ED: 2 View, Read by ED Physician, Read by Radiologist, No Acute Disease Clinical Impression(s) from Imaging Studies Abdomen/Pelvis CT 08/25/19 18:51 IMPRESSION: Colonic diverticulosis. Mild fatty density at the inguinal canals. Electronically Signed: Yuri Monroe DO at 20:34 EDT Tel [phone], Service support , Chest X-Ray 08/25/19 19:35 IMPRESSION: Normal x-ray examination of the chest. Electronically Signed: Yuri Monroe DO at 20:08 EDT Tel [phone], Service support , Laboratory Data 08/25/19 08/25/19 08/25/19 17:55 17:55 19:00 WBC 4.7 RBC 4.65 Hgb 15.1 Hct 43.3 MCV 93.1 MCH 32.5 H MCHC 34.9 RDW Std Deviation 41.1 RDW Coeff of Kaylen 12.0 Plt Count 288 MPV 9.3 Immature Gran % (Auto) 0.200 Neut % (Auto) 39.5 L Lymph % (Auto) 41.1 H Stokes % (Auto) 16.7 H Eos % (Auto) 0.8 Baso % (Auto) 1.7 H Absolute Neuts (auto) 1.9 L Absolute Lymphs (auto) 1.95 Nucleated RBC % 0 Sodium 136 Potassium 4.0 Chloride 100 Carbon Dioxide 26.0 Anion Gap 10 BUN 15 Creatinine 1.15 Estim Creat Clear Calc 80.09 Est GFR (MDRD) Af Amer 84 Est GFR (MDRD) Non-Af 70 BUN/Creatinine Ratio 13.0 Glucose 107 H Lactic Acid 2.5 H Calcium 8.5 Total Bilirubin 0.50 AST 99 H ALT 66 H Alkaline Phosphatase 51 Troponin I < 0.015 Total Protein 7.8 Albumin 3.6 Globulin 4.2 Albumin/Globulin Ratio 0.9 Lipase 211 Urine Color Urine Clarity Urine pH Ur Specific Lolita Urine Protein Urine Glucose (UA) Urine Ketones Urine Occult Blood Urine Nitrite Urine Bilirubin Urine Urobilinogen Ur Leukocyte Esterase Urine RBC Urine WBC Ur Squamous Epith Cells Urine Bacteria Urine Mucus 08/25/19 20:08 WBC RBC Hgb Hct MCV MCH MCHC RDW Std Deviation RDW Coeff of Kaylen Plt Count MPV Immature Gran % (Auto) Neut % (Auto) Lymph % (Auto) Stokes % (Auto) Eos % (Auto) Baso % (Auto) Absolute Neuts (auto) Absolute Lymphs (auto) Nucleated RBC % Sodium Potassium Chloride Carbon Dioxide Anion Gap BUN Creatinine Estim Creat Clear Calc Est GFR (MDRD) Af Amer Est GFR (MDRD) Non-Af BUN/Creatinine Ratio Glucose Lactic Acid Calcium Total Bilirubin AST ALT Alkaline Phosphatase Troponin I Total Protein Albumin Globulin Albumin/Globulin Ratio Lipase Urine Color Yellow Urine Clarity Clear Urine pH 6.0 Ur Specific Lolita 1.010 Urine Protein Negative Urine Glucose (UA) Normal Urine Ketones Negative Urine Occult Blood Negative Urine Nitrite Negative Urine Bilirubin Negative Urine Urobilinogen Normal Ur Leukocyte Esterase 25 H Urine RBC 0-5 SEEN Urine WBC 0-5 SEEN Ur Squamous Epith Cells 0-5 SEEN Urine Bacteria 0 SEEN Urine Mucus 0 SEEN - Rhythm Strip Rhythm Strip: Sinus Rhythm Rate: 100 Ectopy: None - EKG Initial EKG Interpretation: Sinus Rhythm, - - UT interval 204 QRS 100 QT/QTc 384/495 Normal sinus rhythm at a rate of [address] segments - Medical Decision Making Patient is evaluated for around 1 week of decreased appetite due to nausea as well as vomiting and diarrhea. He appears nontoxic and in no acute distress. His vital signs are normal. Patient does not appear clinically dehydrated. He has a benign exam does not have any associated abdominal pain. Patient has a normal white blood cell count and normal hemoglobin. BMP grossly normal except for mildly elevated glucose of 107. Patient's lactate is 2.5. He does not have any obvious source of infection. His AST and ALT are mildly elevated however patient does admit to regular alcohol use. Bilirubin is normal. I do not suspect a primary gallbladder pathology at this time. CT of the abdomen and pelvis does not show any acute pathology. Patient has normal vital signs and relatively normal labs I do not think he requires inpatient evaluation at this time. Patient is counseled that he should follow-up outpatient with surgery as I think he would benefit from endoscopy for further evaluation of his nausea and vomiting. In the ER he is treated with IV fluids and IV Zofran. Patient does become quite upset when I suggest that he does not meet criteria for observation or inpatient management. He demands of his IV be taken out immediately. I did take the IV out myself so he does not harm himself. Patient is still complaining of nausea and is then given a dose of oral Phenergan. Patient is stable at time of disposition. He is counseled that it is very important for him to follow-up so that because of his symptoms can be further evaluated. However at this time he does not have any surgical or medical emergencies. Patient is counseled on signs and symptoms requiring return to the emergency room. Patient verbalizes agreement and understand this plan. Patient discharged home in stable and improved condition. ED Disposition - Plan for ED Patient: Disposition: Home or Assisted Living Diagnosis: Nausea vomiting and diarrhea Instructions: WEAKNESS, Unk Cause, VOMITING AND DIARRHEA, Nonspecific (Adult) Prescriptions: proMETHazine tablet [Phenergan tablet] 25 mg PO Q8H PRN PRN #12 tab PRN Reason: Nausea Prescription Printed Ondansetron [Zofran Odt] 4 mg PO Q8H PRN PRN #12 tab PRN Reason: Nausea Prescription Printed Referrals: Moriah Fernandez MD [Primary Care Provider] - Azeem Velazquez MD [STAFF PHYSICIAN] - Additional Instructions: Please call Dr. Gottman, surgery to follow-up. I would like for you to be evaluated by him to see if you would benefit from an EGD/colonoscopy because of your symptoms. Continue to drink plenty of fluids. Use the nausea medicine as prescribed. Return the emergency room with worsening or changing symptoms.
[2019-08-25 19:11] LABS: Absolute Lymphocyte Count 1.95 X10^3/uL (0.83-4.51); Absolute Neutrophil Count 1.9 X10^3/uL (2.0-7.7); Basophil# 0.08 X10^3/uL; Basophil% 1.7 % (0-1); Eosinophil# 0.04 X10^3/uL; Eosinophils% 0.8 % (0-5); Hematocrit 43.3 % (40-54); Hemoglobin 15.1 g/dL (13.0-16.5); Lymphocyte # 1.95 X10^3/ul (4.0); Lymphocyte % 41.1 % (19-41); Mean Corp Hgb Conc 34.9 g/dL (32-36); Mean Corpuscular Hgb 32.5 pg (27.0-32.0); Mean Corpuscular Volume 93.1 fL (80-94); Mean Platelet Vol. 9.3 fl (6.2-12.0); Monocyte# 0.79 X10^3/uL; Monocyte% 16.7 % (0-10); NRBC Flagged by Analyzer 0 % (0-5); Neutrophil # 1.87 X10^3/uL (2.7-7.7); Neutrophil % 39.5 % (47-70); Platelet Count 288 K/mm3 (150-450); RBC Distribution Width SD 41.1 fl (35.1-43.9); Red Blood Count 4.65 M/mm3 (4.6-6.2); White Blood Count 4.7 K/mm3 (4.4-11.0)
[2019-08-25] MEDS: 0.9% Normal Saline 1,000 ML 1000 ML IV (19:13)
[2019-08-25] MEDS: Ondansetron 4 MG/2 ML Vial IV (19:13)
--- NOTE | 2019-08-25 19:35 | RAD_ITS ---
STUDY: X-RAY CHEST REASON FOR EXAM: Male, 59 years old. Nausea, vomiting TECHNIQUE: Frontal and lateral views COMPARISON: August 18, 2019 FINDINGS: The lungs are clear and expanded. There is no demonstrated pleural abnormality. Normal size heart. Normal mediastinum and kimberly. Normal visualized pulmonary arteries. Normal visualized aortic arch and descending thoracic aorta. Normal visualized thoracic spine. Normal visualized ribs, clavicles, and shoulders. There is no demonstrated abnormality of the visualized soft tissue structures of the upper abdomen. RAD/Chest PA and Lateral IMPRESSION: Normal x-ray examination of the chest. Electronically Signed: Yuri Monroe DO at 20:08 EDT Tel [phone], Service support ,
[2019-08-25 19:38] LABS: ALB/GLOB Ratio 0.9 RATIO (0.9-2.4); AST(SGOT) 99 U/L (15-37); Alanine Aminotransfer ALT/SGPT 66 U/L (16-61); Albumin, Serum 3.6 g/dL (3.2-5.0); Alkaline Phosphatase 51 U/L (45-117); Anion Gap 10 (5-15); BUN 15 mg/dL (7-18); Calcium,Total 8.5 mg/dL (8.5-10.1); Chloride 100 mmol/L (98-107); Creatinine, Serum 1.15 mg/dL (0.70-1.30); EST Glomerular Filtration Rate 70 mL/min (>60); Est Glom Filt Rate - Afr Amer 84 mL/min (>60); Estimated Creatinine Clearance 80.09 ml/min; Globulin 4.2 g/dL (2.2-4.2); Glucose 107 mg/dL (74-106); Lipase 211 U/L (73-393); Protein, Total 7.8 g/dL (6.4-8.2); Sodium Level 136 mmol/L (136-145)
[2019-08-25 19:52] VITALS: PULSE 94; RESP 14; O2SAT 93
[2019-08-25 20:15] LABS: Bacteria 0 SEEN /hpf (None Seen); Mucous, Urine 0 SEEN /hpf (<or=2+)
[2019-08-25 20:33] LABS: Color, Urine Yellow (Yellow); Glucose, Dipstick Normal (Normal); Ketone-Dipstick Negative (Negative); Leukocyte Esterase-Dipstick 25 /ul (Negative); Nitrite-Dipstick Negative (Negative); Occult Blood-Urine Negative /ul (Negative); Protein-Dipstick Negative (Negative); Urine Bilirubin Dipstick Negative (Negative); Urine Clarity Clear (Clear); Urine Urobilinogen Normal (Normal)
[2019-08-25 20:38] LABS: Red Blood Cells-Urine 0-5 SEEN /hpf (0-5); Squamous Epithelial Cells - UA 0-5 SEEN /hpf (0-5); White Blood Cells 0-5 SEEN /hpf (0-5)
[2019-08-25 20:44] LABS: Lactic Acid 2.5 mmol/L (0.4-2.0)
--- NOTE | 2019-08-25 20:55 | ED.RN ---
DR CHASE NOTIFIED OF LACTIC
[2019-08-25] MEDS: proMETHazine 25 MG Tablet PO (21:18)
[2019-08-25 21:23] VITALS: BP 154/82; PULSE 91; RESP 16; O2SAT 98
[2019-08-25 23:09] LABS: Reflex Lactate? Y
== END 2019-08-25 21:33 | disposition home or self-care (01) ==
PROVIDERS: Emergency Provider Emergency Medicine; Family Provider Internal Medicine; PCP Internal Medicine
DX: R11.2 Nausea with vomiting, unspecified (principal); R19.7 Diarrhea, unspecified; R53.1 Weakness; R53.81 Other malaise; K57.30 Diverticulosis of large intestine without perforation or abscess without bleeding
CPT/HCPCS: 71046; 74177; 80053; 81001; 83605; 83690; 84484; 85025; 93005; 96361; 96374; 99285; J7030; Q9967; A4216; J2405

== ENCOUNTER 2019-10-02 23:37 | Emergency (ER) | payer MEDICAID, SELFPAY ==
[2019-10-02 23:38] VITALS: BP 110/87; PULSE 106; PULSE 108; RESP 18; RESP 20; TEMP 36.5; O2SAT 95; O2SAT 99; BMI 30.4
--- NOTE | 2019-10-02 23:50 | RAD_ITS ---
HISTORY: FALLSCRATCH TO LATERAL ASPECT OF RT SHOULDERC/O PAIN DISTAL RT FIBULA ADDITIONAL HISTORY: None provided. TECHNIQUE: Right humerus 2 views Number of images including paperwork: 2 COMPARISON: None FINDINGS: BONES: No acute fracture. Mineralization appears decreased. JOINTS: No subluxation. SOFT TISSUES: No distinct foreign body. RAD/Humerus min 2 Views IMPRESSION: No acute osseous abnormality. at 0107 Reported and signed by: Chikis Navarrete MD Electronically Signed: Chikis Navarrete MD at 1:06 EST Tel , Service support ,
--- NOTE | 2019-10-02 23:50 | RAD_ITS ---
HISTORY: FALLSCRATCH TO LATERAL ASPECT OF RT SHOULDERC/O PAIN DISTAL RT FIBULA ADDITIONAL HISTORY: None provided. TECHNIQUE: Right tibia fibula 2 views Number of images including paperwork: 4 COMPARISON: None FINDINGS: BONES: Obliquely oriented fracture of the right distal fibula with less than 2 mm of lateral displacement. No other definite fracture. JOINTS: No subluxation. SOFT TISSUES: No distinct foreign body. Soft tissue swelling. Vascular calcifications. RAD/Tibia & Fibula 2 Views IMPRESSION: Right distal fibula fracture. at 0108 Reported and signed by: Chikis Navarrete MD Electronically Signed: Chikis Navarrete MD at 1:08 EST Tel , Service support ,
--- NOTE | 2019-10-02 23:50 | EKG12_ITS ---
Test Reason : SYNCOPE Blood Pressure : / mmHG Vent. Rate : 100 BPM Atrial Rate : 100 BPM P-R Int : 210 ms QRS Dur : 100 ms QT Int : 372 ms P-R-T Axes : 039 033 052 degrees QTc Int : 479 ms Sinus rhythm with 1st degree A-V block Possible Left atrial enlargement Borderline ECG Confirmed by ELLIOT IBRAHIM, ALONZO ([id number]), proposal editor VAL AHN ([id number]) on 10/04/2019 2:08:28 PM Referred By: Confirmed By:ALONZO ZARATE MD
--- NOTE | 2019-10-02 23:51 | ED.DCSUM_ITS ---
- ER Visit Summary Date of Service: 10/02/19 Chief Complaint: Syncope History of Present Illness: The patient is a 59 M who presents the emergency department following a syncopal episode. Patient is an alcoholic and states he was drinking this morning has not had any since. He states he is watching them practically [employer] on television this evening when he went to go into the kitchen he states that he passed out and woke up on the floor. States he struck the back of his head and notes some soreness. He also notes an abrasion to the right shoulder and pain to the right lower lateral leg. He states he has not been taking any of his medications for the past month because he does not want to. He has a history of A. fib and is supposed to be on amiodarone and Xarelto. Also notes history of hypertension and a prior TIA. Patient denies any chest pain. He states he feels very shaky and experiences heart beating fast. Physical Examination: Afebrile vital signs are stable noted heart rate of 106 Gen: Well-nourished well-developed Head: Normocephalic small contusion to the right parietal occiput Eyes: Perrl EOMI ENT: TMs clear no rhinorrhea moist mucous membranes Neck: Supple no lymphadenopathy no JVD nontender CVS: Regular tachycardic rate rhythm no murmurs normal S1-S2 Respiratory: No distress clear to auscultation bilaterally chest nontender Abdomen: Soft nontender nondistended normal bowel sounds no masses Back: Nontender Extremity: Palpation over the distal right lateral leg. There is no medial or posterior malleoli or pain. Pain seems to be centered just above the lateral malleolus. There is a small abrasion to the right shoulder. Full range of margarita on with no deformity. Skin: Normal color no rash Neuro: alert orientated ?3 CN II-XII intact normal strength sensation reflexes gait cerebellar Psych: Appears nervous Test Results: EKG is a sinus rhythm at a rate of 100 with a first-degree AV block. White count 4.3 hemoglobin 13.1. Potassium 3.3. Magnesium 1.4. Coags obtained and negative. Troponin negative. Alcohol level is 207 despite the patient stated he has not had any alcohol since this morning. Humerus x-ray was negative. Tib-fib demonstrates a distal fibular fracture. CT of the brain was negative for hemorrhage or fracture. CT of the chest was negative for pulmonary embolism/dissection. Emergency Department Course and Treatment: She has had no events on the monitor. Patient received a dose of oral potassium and magnesium. The patient maintains that he is only had 3 tall boys today. He will need a ride home. He will be placed in a walking boot. Despite telling me that his leg hurts really bad he puts it under his left leg putting the pressure off his left calf directly over the fracture site. I advised him that that probably not a good idea. He has seen Dr. Ruiz in the past for an elbow surgery. I will write for a few [place]. I do not have a clear etiology for the patient's syncope if it was a syncope. It is possible that he fell by twisting his ankle resulting in fracture and then hitting his head. Either way at this point I think it safe to discharge the patient home with follow-up. I advised the patient that he should probably take his medications that have been prescribed to him and he tells me he will think about this. Impression: 1. Syncope 2. Alcohol abuse 3. Right shoulder abrasion 3. Right distal fibula fracture closed 5. Scalp contusion 6. Hypokalemia/hypomagnesemia This note was generated with [employer] dictation software. It may contain incorrect words, spelling, and punctuation that were not noted in review of the chart prior to signing ED Disposition - Plan for ED Patient: Disposition: Home or Assisted Living Instructions: SYNCOPE, Unk Cause, ANKLE FRACTURE (Distal Fibula), closed Prescriptions: Hydrocodone Bitart/Apap 5-325 [[place] 5MG-325MG] 1 tab PO Q6H PRN PRN 3 Days #10 tab PRN Reason: Pain Prescription Printed Referrals: Kait Saunders DO [STAFF PHYSICIAN] - As soon as possible Mariano Weiss MD [STAFF PHYSICIAN] - As soon as possible
[2019-10-03 00:02] LABS: Absolute Lymphocyte Count 1.94 X10^3/uL (0.83-4.51); Absolute Neutrophil Count 1.6 X10^3/uL (2.0-7.7); Basophil# 0.05 X10^3/uL; Basophil% 1.2 % (0-1); Eosinophil# 0.08 X10^3/uL; Eosinophils% 1.8 % (0-5); Hematocrit 38.2 % (40-54); Hemoglobin 13.1 g/dL (13.0-16.5); Lymphocyte # 1.94 X10^3/ul (4.0); Lymphocyte % 44.8 % (19-41); Mean Corp Hgb Conc 34.3 g/dL (32-36); Mean Corpuscular Hgb 32.6 pg (27.0-32.0); Monocyte# 0.64 X10^3/uL; Monocyte% 14.8 % (0-10); NRBC Flagged by Analyzer 0 % (0-5); Neutrophil # 1.61 X10^3/uL (2.7-7.7); Neutrophil % 37.2 % (47-70); Platelet Count 186 K/mm3 (150-450); RBC Distribution Width CV 14.4 % (11.6-14.6); RBC Distribution Width SD 50.4 fl (35.1-43.9); Red Blood Count 4.02 M/mm3 (4.6-6.2); White Blood Count 4.3 K/mm3 (4.4-11.0)
[2019-10-03 00:19] LABS: International Normalized Ratio 1.2; Prothrombin Time (Protime)PT. 14.9 SECONDS (11.7-14.9)
[2019-10-03 00:20] LABS: Partial Thromboplast Time 27.5 Seconds (24.1-36.2)
[2019-10-03 00:28] LABS: ALB/GLOB Ratio 0.8 RATIO (0.9-2.4); AST(SGOT) 101 U/L (15-37); Alanine Aminotransfer ALT/SGPT 56 U/L (16-61); Albumin, Serum 2.9 g/dL (3.2-5.0); Alkaline Phosphatase 84 U/L (45-117); Anion Gap 10 (5-15); BUN 11 mg/dL (7-18); BUN/Creat Ratio 11.1 RATIO (10-20); Calcium,Total 8.1 mg/dL (8.5-10.1); Chloride 105 mmol/L (98-107); Creatinine, Serum 0.99 mg/dL (0.70-1.30); EST Glomerular Filtration Rate 83 mL/min (>60); Est Glom Filt Rate - Afr Amer 100 mL/min (>60); Estimated Creatinine Clearance 93.04 ml/min; Globulin 3.8 g/dL (2.2-4.2); Glucose 137 mg/dL (74-106); Magnesium 1.4 mg/dL (1.6-2.6); Potassium 3.3 mmol/L (3.5-5.1); Protein, Total 6.7 g/dL (6.4-8.2); Sodium Level 141 mmol/L (136-145)
[2019-10-03] MEDS: Magnesium Oxide 400 MG Tablet PO (01:09)
[2019-10-03 01:11] VITALS: BP 112/74; PULSE 93; RESP 16; O2SAT 95
[2019-10-03 02:27] VITALS: BP 97/81; PULSE 112; RESP 18; O2SAT 94
[2019-10-03 03:35] VITALS: BP 136/96; PULSE 102; RESP 23; O2SAT 93
--- NOTE | 2019-10-03 05:32 | ED.RN ---
PATIENT IS STILL WAITING FOR HIS RIDE. HE IS SOUND ASLEEP IN HIS ROOM. HIS RESPIRATIONS ARE 18 CURRENTLY.
--- NOTE | 2019-10-03 23:49 | CT_ITS ---
HISTORY: ETOH, SYNCOPE, WOKE UP ON FLOOR, HIT POSTERIOR HEAD, C/O PAIN, HAS A-FIB-DOES NOT TAKE HIS MEDS, HX HTN, SZ ADDITIONAL HISTORY: None provided. COMPARISON: 08/18/2019 TECHNIQUE: Axial, coronal and sagittal CT images were obtained of the brain without intravenous contrast. Number of images including paperwork: 263. A radiation dose optimization technique was used for this scan. FINDINGS: BRAIN PARENCHYMA: No acute hemorrhage or mass. No definite acute infarct; MRI more sensitive. White matter hypodensity is nonspecific but most commonly seen with chronic ischemic changes. Generalized atrophy. EXTRA-AXIAL SPACES: No acute hemorrhage. VENTRICULAR SYSTEM: No hydrocephalus. PARANASAL SINUSES AND MASTOIDS: No air-fluid level in the imaged extent. Mild mucosal thickening noted. ORBITS: Unremarkable imaged extent. SKELETON AND SOFT TISSUES: Calvarium intact. ASPECTS score: Not applicable. CT/Brain/Head without Contrast IMPRESSION: No acute intracranial abnormality. Chronic involutional and white matter changes. Individualized dose optimization techniques were used for this CT. at 0121 Reported and signed by: Chikis Navarrete MD Electronically Signed: Chikis Navarrete MD at 1:21 EST Tel , Service support ,
--- NOTE | 2019-10-03 23:50 | CT_ITS ---
HISTORY: ETOH, SYNCOPE, WOKE UP ON FLOOR, HIT POSTERIOR HEAD, C/O PAIN, HAS A-FIB BUT DOES NOT TAKE HIS MEDS, HTN, SZ DISORDER ADDITIONAL HISTORY: None provided. TECHNIQUE: CT angiogram images of the chest were obtained with 100 mL Isovue-370 IV contrast as per pulmonary angiogram protocol. 3D MIP images used to aid in evaluation for pulmonary embolism. Number of images including paperwork: 1352 A radiation dose optimization technique was used for this scan. COMPARISON: 04/07/2019 FINDINGS: PULMONARY ARTERIES: No central or large peripheral filling defects. Subsegmental evaluation, particularly in the upper lobes, is limited due to contrast bolus timing. AORTA AND GREAT VESSELS: Unremarkable. HEART/PERICARDIUM: Unremarkable. MEDIASTINUM: Unremarkable. ADENOPATHY: No pathologic appearing adenopathy. THYROID: Unremarkable visualized portions. LUNG PARENCHYMA: No consolidation or mass. PLEURAL SPACES: Unremarkable. UPPER ABDOMEN: Decreased hepatic density compatible steatosis. OSSEOUS AND SOFT TISSUE STRUCTURES: No acute skeletal findings. CT/CTA Chest W/WO Contrast IMPRESSION: No pulmonary embolus detected. Individualized dose optimization techniques were used for this CT. at 0133 Reported and signed by: Chikis Navarrete MD Electronically Signed: Chikis Navarrete MD at 1:32 EST Tel , Service support ,
== END 2019-10-03 07:12 | disposition home or self-care (01) ==
PROVIDERS: Emergency Provider Emergency Medicine; Family Provider Internal Medicine; PCP Internal Medicine
DX: R55 Syncope and collapse (principal); S82.831A Other fracture of upper and lower end of right fibula, initial encounter for closed fracture; S00.03XA Contusion of scalp, initial encounter; S80.11XA Contusion of right lower leg, initial encounter; S40.211A Abrasion of right shoulder, initial encounter; W19.XXXA Unspecified fall, initial encounter; Y93.9 Activity, unspecified; Y92.000 Kitchen of unspecified non-institutional (private) residence as the place of occurrence of the external cause; Y99.9 Unspecified external cause status; E87.6 Hypokalemia; E83.42 Hypomagnesemia; F10.20 Alcohol dependence, uncomplicated; Y90.7 Blood alcohol level of 200-239 mg/100 ml; I48.91 Unspecified atrial fibrillation; I10 Essential (primary) hypertension; Z91.14 Patient's other noncompliance with medication regimen; Z86.73 Personal history of transient ischemic attack (TIA), and cerebral infarction without residual deficits
CPT/HCPCS: 70450; 71275; 73060; 73590; 80053; 80320; 83735; 84484; 85025; 85610; 85730; 93005; 99285; A4216; G0480

== ENCOUNTER → 2019-10-06 09:13 | Outpatient (CLI) | payer MEDICAID, SELFPAY ==
[2019-10-06 09:06] VITALS: BMI 30.4
--- NOTE | 2019-10-06 09:14 | RAD_ITS ---
STUDY: X-RAY - RIGHT TIBIA AND FIBULA REASON FOR EXAM: Injury. TECHNIQUE: 2 view(s) of the tibia and fibula were obtained. COMPARISON: Radiographs 10/03/2019. FINDINGS: Normal visualized tibia. There is no interval change of the nondisplaced oblique fracture of the distal fibular diaphysis. There is an overlying cast. RAD/Tibia & Fibula 2 Views IMPRESSION: No interval change of distal fibular fracture. Electronically Signed: Mike Worrell MD at 10:10 EST Tel , Service support ,
== END ==
PROVIDERS: Family Provider Internal Medicine; PCP Internal Medicine; Referring Provider Orthopaedic Surgery; Visit Provider Orthopaedic Surgery
DX: S82.831A Other fracture of upper and lower end of right fibula, initial encounter for closed fracture (principal); X58.XXXA Exposure to other specified factors, initial encounter; Y93.9 Activity, unspecified; Y92.9 Unspecified place or not applicable; Y99.9 Unspecified external cause status
CPT/HCPCS: 73590

== ENCOUNTER 2019-10-10 10:22 | Emergency (ER) | payer MEDICAID, SELFPAY ==
[2019-10-09 09:19] VITALS: BMI 30.4
[2019-10-10 10:23] VITALS: BP 177/113; PULSE 114; RESP 16; TEMP 36.9; O2SAT 97; BMI 30.3
--- NOTE | 2019-10-10 10:54 | ED.RN ---
pt reports having a broken bone in his ankle, being seen by dr murray, a fiberglass cast is in place. pt has cut away the lower part of ventral surface of the foot. pt reports currently walking on the cast. states he is unable to walk with crutches.
--- NOTE | 2019-10-10 11:39 | ED.VIS.GEN ---
History of Present Illness Chief Complaint: Lower Extremity Injury Informant: Patient Narrative: Presenting with right ankle pain after an ankle fracture he received a cast 4 days ago and has been walking on it quite a bit he has increased swelling he took part of his cast off with a drummel tool. He has no chest pain shortness of breath fever or chills or systemic complaints. Past Medical History - Allergies and Home Meds Allergies/Adverse Reactions: Allergies No Known Allergies Allergy (Verified 10/10/19 10:27) Primary Care Physician: Moriah Fernandez MD [Primary Care Provider] - Past Medical History: - - Alcoholism Surgical History: - Smoking Status: Never smoker - Family History Maternal Family History: Family History (Last Reviewed 07/07/19 @ 14:48 by RYAN Sweeney) Mother Cancer Diabetes Brother Cancer Grandfather Heart disease Grandfather History of stroke Grandmother CVA (cerebral vascular accident) Family History: Reports: Cancer, Hypertension, Stroke Paternal Family History: Family History (Last Reviewed 07/07/19 @ 14:48 by RYAN Sweeney) Mother Cancer Diabetes Brother Cancer Grandfather Heart disease Grandfather History of stroke Grandmother CVA (cerebral vascular accident) Family History: Reports: Hypertension, Stroke Sibling Family History: Family History (Last Reviewed 07/07/19 @ 14:48 by RYAN Sweeney) Mother Cancer Diabetes Brother Cancer Grandfather Heart disease Grandfather History of stroke Grandmother CVA (cerebral vascular accident) Family History: Reports: Cancer Review of Systems General: Denies: Fever Respiratory: Denies: Dyspnea Gastrointestinal: Denies: Abdominal pain Musculoskeletal: Reports: Myalgias, - - Ankle pain as in HPI Skin: Reports: Wounds Neurological: Denies: Headache, Weakness Hematologic: Denies: Easy bruising Physical Exam Vital Signs/Narrative: Vital Signs Temp Pulse Resp BP Pulse Ox 10/10/19 10:23 98.5 F 114 H 16 177/113 H 97 General: - - Appears chronically ill ENT: Moist mucous membranes Cardiovascular: Regular rate Respiratory: No distress Extremities: - - The cast is intact, he has some distal edema around his toes, there is a wound on the dorsal part of his great toe which does not appear infected. This is likely from the cast however this is been removed. He has normal capillary refill. Some edema. Skin: Normal color Neurological: Normal Strength, Normal Sensation Diagnostic/Tx/Re-eval - Medical Decision Making I used the cast saw and univalved the cast, patient had significant relief right away. I will discharge with orthopedic follow-up ED Disposition - Plan for ED Patient: Disposition: Home or Assisted Living Diagnosis: Cast discomfort Instructions: Cast Care Prescriptions: Oxycodone HCl/Acetaminophen [Percocet 5/325] 1 tab PO Q6H PRN PRN 3 Days #8 tab PRN Reason: Pain Prescription Printed Referrals: Kait Saunders DO [STAFF PHYSICIAN] - 2 Days
[2019-10-10 11:52] VITALS: BP 143/100; PULSE 100; RESP 16
== END 2019-10-10 11:54 | disposition home or self-care (01) ==
PROVIDERS: Emergency Provider Emergency Medicine; Family Provider Internal Medicine; PCP Internal Medicine
DX: S82.891D Other fracture of right lower leg, subsequent encounter for closed fracture with routine healing (principal); X58.XXXD Exposure to other specified factors, subsequent encounter; F10.21 Alcohol dependence, in remission; Z79.01 Long term (current) use of anticoagulants; Z79.899 Other long term (current) drug therapy
CPT/HCPCS: 99283

== ENCOUNTER → 2019-10-19 10:22 | Outpatient (CLI) | payer MEDICAID, SELFPAY ==
[2019-10-10 10:23] VITALS: BMI 30.3
--- NOTE | 2019-10-19 10:23 | RAD_ITS ---
STUDY: X-RAY - RIGHT ANKLE REASON FOR EXAM: Male, 59 years old. Trauma TECHNIQUE: 3 view(s) of the ankle. COMPARISON: Prior study of 10/06/2019 FINDINGS: There is a nondisplaced fracture of the distal fibular metaphysis. Normal medial and lateral malleoli. Normal tibiotalar articulation and ankle mortise. Normal visualized talus and calcaneus. The visualized subtalar, talonavicular, calcaneocuboid and tarsal articulations are normal. The soft tissue structures are unremarkable. RAD/Ankle min 3 Views IMPRESSION: Nondisplaced oblique fracture of the distal fibular metaphysis. No significant callus or periosteal new bone formation is evident as of yet. Electronically Signed: Dominick López MD at 19:52 EST , Service support ,
== END ==
PROVIDERS: Family Provider Internal Medicine; PCP Internal Medicine; Referring Provider Physician Assistant; Visit Provider Physician Assistant
DX: S82.401A Unspecified fracture of shaft of right fibula, initial encounter for closed fracture (principal); X58.XXXA Exposure to other specified factors, initial encounter; Y93.9 Activity, unspecified; Y92.9 Unspecified place or not applicable; Y99.9 Unspecified external cause status
CPT/HCPCS: 73610

== ENCOUNTER 2019-12-15 18:28 | Emergency (ER) | payer MEDICAID, SELFPAY ==
[2019-10-19 10:27] VITALS: BMI 30.3
[2019-12-15 18:29] VITALS: BP 137/93; PULSE 53; RESP 16; TEMP 36.5; O2SAT 95; BMI 29.5
--- NOTE | 2019-12-15 18:43 | ED.DCSUM_ITS ---
History of Present Illness Chief Complaint: Confusion Detail of Chief Complaint: Something is not right Informant: Patient Onset: Today - Today Per triage in my documentation. 4 weeks according to bedside nurse. Context: Sudden Onset Timing: Continuous Quality: Something is not right Location: Unable to specify Current Severity: Mild Maximum Severity: Mild Worsened by: Nothing Relieved by: Nothing Associated Symptoms: None Narrative: Patient is a middle-age male with history hypertension and drinks daily who presents with something is not right . He told triage and me that this started 8 hours ago. He told Heath his bedside nurse started 4 weeks ago after he moved in with his sister. He denies headache. He denies visual, ocular auditory symptoms. Nuys trouble with speech or swallowing. Denies neck pain or neck stiffness. He denies chest pain, cough, shortness of breath or difficulty breathing. He denies nausea, vomiting or diarrhea. He denies hematemesis, melena hematochezia. He denies dy suria, frequency, urgency or hematuria. He complains of paresthesia to feet and fingers bilaterally for 6 years. He did not take his medication today. Prior similar symptoms: No Recent Illness/Hospitalization: No - Past Medical History (1) Atrial flutter Status: Acute (2) Alcohol abuse Status: Chronic (3) Essential hypertension Status: Chronic (4) Paroxysmal atrial fibrillation Status: Chronic Comment: DCCV with [facility] on 07/11/2019; Past Medical History - Allergies and Home Meds Allergies/Adverse Reactions: Allergies No Known Allergies Allergy (Verified 12/15/19 18:31) Primary Care Physician: Moriah Fernandez MD [Primary Care Provider] - Prior records reviewed: Yes Surgical History: - Lives: With Family Smoking Status: Never smoker Alcohol: Heavy Drugs: None - Family History Maternal Family History: Family History (Last Reviewed 07/07/19 @ 14:48 by RYAN Sweeney) Mother Cancer Diabetes Brother Cancer Grandfather Heart disease Grandfather History of stroke Grandmother CVA (cerebral vascular accident) Family History: Reports: Cancer, Hypertension, Stroke Paternal Family History: Family History (Last Reviewed 07/07/19 @ 14:48 by RYAN Sweeney) Mother Cancer Diabetes Brother Cancer Grandfather Heart disease Grandfather History of stroke Grandmother CVA (cerebral vascular accident) Family History: Reports: Hypertension, Stroke Sibling Family History: Family History (Last Reviewed 07/07/19 @ 14:48 by RYAN Sweeney) Mother Cancer Diabetes Brother Cancer Grandfather Heart disease Grandfather History of stroke Grandmother CVA (cerebral vascular accident) Family History: Reports: Cancer Review of Systems General: Denies: Chills, Fever, Sweats Eyes: Denies: Visual changes - bilaterally, Blurred Vision - bilaterally, Diplopia ENT: Denies: Bilateral ear pain, Rhinorrhea, Sore throat Cardiovascular: Denies: Chest pain, Palpitations, Heart racing Respiratory: Denies: Dyspnea, Cough, Dyspnea on exertion, Orthopnea Gastrointestinal: Denies: Abdominal pain, Nausea, Vomiting, Diarrhea, Melena, Hematochezia Genitourinary: Denies: Dysuria, Hematuria, Frequency Musculoskeletal: Denies: Myalgias, Arthralgias, Neck pain, Back pain, Swelling, Extremity Pain Skin: Denies: Rash, Wounds Neurological: Denies: Headache, Weakness, Numbness Psych: Reports: Depression, Anxiety Endocrine: Denies: Polyuria, Polydipsia Hematologic: Denies: Easy bruising, Easy bleeding Allergy: Denies: Uticaria, Swelling of the mouth Physical Exam Vital Signs/Narrative: Vital Signs Temp Pulse Resp BP Pulse Ox 12/15/19 18:29 97.7 F L 53 L 16 137/93 H 95 Inital Vital Signs reviewed: Yes General: Well nourished, Well developed, No Acute Distress Head: Normocephalic, Atraumatic Eyes: Perrl, EOMI ENT: Moist mucous membranes, No rhinorrhea Neck: Supple, Nontender Cardiovascular: Regular rate, Regular rhythm, No murmurs Respiratory: No distress, CTA bilaterally, Chest nontender Abdomen: Soft, Nontender, Nondistended, Normal bowel sounds. Negative for: Hepatomegaly, Splenomegaly, Pulsatile mass, Ventral hernia, Umbilical hernia Back: Nontender, Normal Inspection Extremities: Nontender, No edema Skin: Normal color, No rash, No Trauma. Negative for: Cyanosis, Diaphoresis, Jaundice Neurological: Alert, Oriented x3, Cranial nerves II-XII grossly intact, Normal Strength, Normal Sensation, Normal DTR - There is no clonus or Babinski sign., Normal Gait, - - Cerebellar testing is normal. Psychological: Normal affect, Normal Mood Diagnostic/Tx/Re-eval Laboratory Results 12/15/19 12/15/19 18:40 18:40 WBC 11.6 H RBC 4.13 L Hgb 13.6 Hct 40.0 MCV 96.9 H MCH 32.9 H MCHC 34.0 RDW Std Deviation 41.5 RDW Coeff of Kaylen 11.6 Plt Count 438 MPV 8.6 Immature Gran % (Auto) 0.600 Neut % (Auto) 62.0 Lymph % (Auto) 27.4 [place] % (Auto) 7.7 Eos % (Auto) 1.4 Baso % (Auto) 0.9 Absolute Neuts (auto) 7.2 Absolute Lymphs (auto) 3.18 Nucleated RBC % 0 Sodium 134 L Potassium 3.9 Chloride 101 Carbon Dioxide 28.0 Anion Gap 5 BUN 9 Creatinine 0.78 Estim Creat Clear Calc 118.09 Est GFR (MDRD) Af Amer 133 Est GFR (MDRD) Non-Af 110 BUN/Creatinine Ratio 11.6 Glucose 90 Calcium 9.0 Total Bilirubin 0.20 AST 33 ALT 41 Alkaline Phosphatase 69 Total Protein 8.1 Albumin 3.5 Globulin 4.6 H Albumin/Globulin Ratio 0.8 L Count is slightly elevated. This is a nonspecific abnormality. There is no shift or bandemia. Liver enzymes unremarkable. Electrolyte panel unremarkable. Patient was told the cause of his not feeling right is unknown. - Medical Decision Making Since patient admits to drinking on a regular basis comprehensive metabolic panel was obtained to assess liver enzymes and electrolytes. CBC to evaluate for anemia. ED Disposition - Plan for ED Patient: Disposition: Home or Assisted Living Diagnosis: Abnormal feeling Instructions: MEDICAL SCREENING EXAM, NonUrgent Referrals: Moriah Fernandez MD [Primary Care Provider] - 3-5 Days if not improving
[2019-12-15 18:49] LABS: Absolute Lymphocyte Count 3.18 X10^3/uL (0.83-4.51); Absolute Neutrophil Count 7.2 X10^3/uL (2.0-7.7); Basophil# 0.11 X10^3/uL; Basophil% 0.9 % (0-1); Eosinophil# 0.16 X10^3/uL; Eosinophils% 1.4 % (0-5); Hemoglobin 13.6 g/dL (13.0-16.5); Lymphocyte # 3.18 X10^3/ul (4.0); Lymphocyte % 27.4 % (19-41); Mean Corpuscular Hgb 32.9 pg (27.0-32.0); Mean Corpuscular Volume 96.9 fL (80-94); Mean Platelet Vol. 8.6 fl (6.2-12.0); Monocyte# 0.89 X10^3/uL; Monocyte% 7.7 % (0-10); NRBC Flagged by Analyzer 0 % (0-5); Platelet Count 438 K/mm3 (150-450); RBC Distribution Width CV 11.6 % (11.6-14.6); RBC Distribution Width SD 41.5 fl (35.1-43.9); Red Blood Count 4.13 M/mm3 (4.6-6.2); White Blood Count 11.6 K/mm3 (4.4-11.0)
[2019-12-15 19:02] LABS: ALB/GLOB Ratio 0.8 RATIO (0.9-2.4); AST(SGOT) 33 U/L (15-37); Alanine Aminotransfer ALT/SGPT 41 U/L (16-61); Albumin, Serum 3.5 g/dL (3.2-5.0); Alkaline Phosphatase 69 U/L (45-117); Anion Gap 5 (5-15); BUN 9 mg/dL (7-18); BUN/Creat Ratio 11.6 RATIO (10-20); Chloride 101 mmol/L (98-107); Creatinine, Serum 0.78 mg/dL (0.70-1.30); EST Glomerular Filtration Rate 110 mL/min (>60); Est Glom Filt Rate - Afr Amer 133 mL/min (>60); Estimated Creatinine Clearance 118.09 ml/min; Globulin 4.6 g/dL (2.2-4.2); Glucose 90 mg/dL (74-106); Potassium 3.9 mmol/L (3.5-5.1); Protein, Total 8.1 g/dL (6.4-8.2); Sodium Level 134 mmol/L (136-145)
[2019-12-15 19:39] VITALS: BP 96/64; PULSE 73; RESP 16; O2SAT 97
== END 2019-12-15 19:40 | disposition home or self-care (01) ==
PROVIDERS: Emergency Provider Emergency Medicine; PCP Internal Medicine; Referring Provider Internal Medicine
DX: R41.0 Disorientation, unspecified (principal); I48.0 Paroxysmal atrial fibrillation; I48.92 Unspecified atrial flutter; I10 Essential (primary) hypertension; R20.2 Paresthesia of skin; Z79.899 Other long term (current) drug therapy; Z79.01 Long term (current) use of anticoagulants
CPT/HCPCS: 80053; 85025; 99283; A4216

== ENCOUNTER 2020-01-13 16:33 | Inpatient (IN) | payer MEDICAID, SELFPAY ==
[2020-01-13] VITALS (15 sets, daily range): BP systolic 91–166; BP diastolic 63–147; PULSE 60–160; RESP 15–26; TEMP 35.8–36.4; O2SAT 92–97; BMI 29.2; BMI 29.7
--- NOTE | 2020-01-13 16:54 | EKG12_ITS ---
Test Reason : ETOH Blood Pressure : / mmHG Vent. Rate : 143 BPM Atrial Rate : 288 BPM P-R Int : 000 ms QRS Dur : 080 ms QT Int : 314 ms P-R-T Axes : 265 009 006 degrees QTc Int : 484 ms Atrial flutter with variable A-V block with premature ventricular or aberrantly conducted complexes Nonspecific ST abnormality Abnormal ECG Confirmed by RACHELLE IBRAHIM, RACHEL ([id number]), editorial specialist BRITTNEY GUZMÁN ([id number]) on 01/15/2020 10:15:48 AM Referred By: RONIT Confirmed By:RACHEL BUSH MD
--- NOTE | 2020-01-13 17:07 | PCM.HP.STD ---
Problem List (1) Alcohol intoxication Status: Acute (2) Atrial flutter Status: Chronic (3) Wide-complex tachycardia Status: Chronic (4) Legally blind in left eye, as defined in [place] Status: Chronic (5) Premature atrial contraction Status: Chronic (6) Essential hypertension Status: Chronic (7) Paroxysmal atrial fibrillation Status: Chronic Comment: DCCV with NICKOLAS on 07/11/2019; (8) Alcohol abuse Status: Chronic History of Present Illness Date of Admission: 01/13/20 Chief Complaint: Alcohol withdrawal. The patient is a 59 year old M who presents to the emergency room for treatment related to alcohol abuse. Patient reports his drinking got out of hand today. He states he drank approximately 27 alcoholic drinks today, most recently 45 minutes ago. Patient reports he drinks heavily daily. Currently feels anxious and regretful. Patient states he was trying to impress his friends and drank more than he typically would today. Per patient, his friend brought him into the emergency room. He has an extensive history of alcoholism with history of DTs, atrial fibrillation, history of GI bleed, hypertension. Past Medical History Past Medical History (Chronic Problems): Chronic Problems Atrial flutter (Chronic) Wide-complex tachycardia (Chronic) Legally blind in left eye, as defined in [place] (Chronic) Premature atrial contraction (Chronic) Essential hypertension (Chronic) Paroxysmal atrial fibrillation (Chronic) DCCV with NICKOLAS on 07/11/2019; Alcohol abuse (Chronic) Medical History: Medical History (Last Updated 07/18/19 @ 08:38 by Lalo Juarez IRONING MACHINE OPERATOR-C) Legally blind in left eye, as defined in [place] (Chronic) H54.8 Premature atrial contraction (Chronic) I49.1 Essential hypertension (Chronic) I10 Paroxysmal atrial fibrillation (Chronic) I48.0 DCCV with NICKOLAS on 07/11/2019; Alcohol abuse (Chronic) F10.10 Depression F32.9 Neuropathy G62.9 Atrial fibrillation with RVR I48.91 Delirium tremens (Resolved) F10.231 TIA (transient ischemic attack) G45.9 Allergies No Known Allergies Allergy (Verified 01/13/20 16:36) Home Medications: Ambulatory Orders Medication Instructions Recorded gabapentin 600 mg tablet 600 mg PO TID tab 05/11/19 Omeprazole [Prilosec] 20 mg PO DAILY 07/06/19 Metoprolol(XL)Succ [Toprol Xl 200 mg PO DAILY 08/13/19 (Beta Fred)] amiodarone 200 mg tablet 200 mg PO DAILY #90 tab 08/22/19 rivaroxaban 20 mg tablet 20 mg PO DINNER #90 tab 08/22/19 Ondansetron [Zofran Odt] 4 mg PO Q8H PRN PRN #12 tab 08/25/19 proMETHazine tablet [Phenergan 25 mg PO Q8H PRN PRN #12 tab 08/25/19 tablet] Surgical History: Surgical History (Last Reviewed 01/13/20 @ 17:08 by ISAIAS Kwok) History of elbow surgery Z98.890 History of tonsillectomy Z90.89 Psychiatric History: No pertinent psych hx Lives: With Family - Patient reports him and his are living with his sister Smoking Status: Never smoker Tobacco Use: Non-smoker Alcohol: Heavy Drugs: None - *Family History Maternal Family History: Family History (Last Reviewed 01/13/20 @ 17:09 by ISAIAS Kwok) Mother Cancer Diabetes Brother Cancer Grandfather Heart disease Grandfather History of stroke Grandmother CVA (cerebral vascular accident) History Items: Cancer, Hypertension, Stroke Paternal Family History: Family History (Last Reviewed 01/13/20 @ 17:09 by ISAIAS Kwok) Mother Cancer Diabetes Brother Cancer Grandfather Heart disease Grandfather History of stroke Grandmother CVA (cerebral vascular accident) History Items: Hypertension, Stroke Sibling Family History: Family History (Last Reviewed 01/13/20 @ 17:09 by ISAIAS Kwok) Mother Cancer Diabetes Brother Cancer Grandfather Heart disease Grandfather History of stroke Grandmother CVA (cerebral vascular accident) History Items: Cancer Review of Systems Constitutional: Denies: Chills, Fever, Weight Change HEENT: Denies: Head Aches, Sinus Congestion, Sinus Drainage Cardiovascular: Denies: Chest Pain, Palpitations Respiratory: Denies: Cough, Shortness of breath at rest, Sputum production Gastrointestinal: Denies: Abdominal Pain, Nausea, Vomiting Genitourinary: Denies: Dysuria Musculoskeletal: Denies: Joint Pain, Joint Tenderness Skin: Denies: Rash, Wounds Neurological: Denies: Numbness, Tingling, Focal weakness Psychiatric: Reports: Anxiety Hematologic/ Lymphatic: Denies: Easy Bruising, Easy Bleeding VTE Information - Inpt Only VTE Present on Admission: No VTE Mechan Device Prophylaxis: None VTE Pharm Prophylaxis ordered?: No Reason prophylaxis not ordered:: Treatment Not Indicated - Already on anticoagulation - Physical Exam Vitals/I&O's: Vital Signs Temp Pulse Resp Pulse Ox 96.5 F L 79 18 95 01/13/20 16:33 01/13/20 16:33 01/13/20 16:33 01/13/20 16:33 Oxygen Delivery Method Room Air Weight: 222 lb Body Mass Index (BMI) 29.2 Finger Stick Blood Glucose 105 General: Alert, Oriented x3, Cooperative, - - Appears anxious, upper extremity tremors HEENT: Atraumatic, PERRLA, EOMI, Normocephalic Oral: Dry Mucosa Neck: Supple, No JVD, Negative Carotid Bruits Lungs: Clear to auscultation, Normal air movement Cardiovascular: Regular rate, Regular Rhythm, Normal S1, Normal S2, No murmurs Abdomen: Bowel Sounds Present, Soft, Non Tender, Non-Distended Extremities: No clubbing, No cyanosis, No edema, Capillary Refill Less than 3 Seconds Skin: No rashes, No breakdown Musculoskeletal: No Tenderness to Palpation of Joints or Extremities Neurological: Cranial nerves II-XII grossly intact, Neuro grossly intact Psych/Mental Status: Anxious, Restless Current Medications Amiodarone HCl (Cordarone) 200 mg PO X1 ONE Stop: 01/14/20 16:57 Sodium Chloride () 1,000 mls @ 1,000 mls/hr IV .Q1H ONE Stop: 01/13/20 17:53 Assessment/Plan All Active Problems (Last Updated 07/18/19 @ 08:38 by Lalo Juarez NP-C) Alcohol intoxication (Acute) Atrial fibrillation and flutter (Resolved) Atrial fibrillation with rapid ventricular response (Resolved) Atrial flutter with rapid ventricular response (Resolved) Delirium tremens (Resolved) 1. Alcohol withdrawal/chronic alcohol abuse, history of DTs-medical stabilization per alcohol withdrawal protocol. Phenobarbital taper. PRN regimen for somatic complaints. Case management/social work consult for outpatient follow-up. Check mag, phosphorus. CIWA. Initial labs from ER pending. 2. Hypertension-continue metoprolol. 3. Paroxysmal atrial fibrillation-continue amiodarone, metoprolol, Xarelto. 4. GERD-continue PPI. DVT prophylaxis-Xarelto This patient was seen by ISAIAS Kwok under the supervision of Dr. Sims.
[2020-01-13] MEDS: 0.9% Normal Saline 1,000 ML 1000 ML IV (17:21)
[2020-01-13] MEDS: Pantoprazole Sodium 20 MG Tablet PO (17:22)
[2020-01-13] MEDS: Metoprolol Tartrate 5 MG/5 ML Vial IV ×2 (17:25→17:46)
[2020-01-13] MEDS: Metoprolol(XL)Succ 200 MG Tablet PO (17:25)
[2020-01-13] MEDS: Rivaroxaban 20 MG Tablet PO ×2 (17:26→22:59)
[2020-01-13] MEDS: Amiodarone 200 MG Tablet PO (17:26)
--- NOTE | 2020-01-13 17:33 | RAD_ITS ---
STUDY: X-RAY CHEST REASON FOR EXAM: Male, 59 years old. COUGH. ALTERED MENTAL STATUS. TECHNIQUE: PA and lateral views of the chest. COMPARISON: 08/25/2019 FINDINGS: The lungs are clear and expanded. There is no demonstrated pleural abnormality. Normal size heart. Normal mediastinum and kimberly. Normal visualized pulmonary arteries. Normal visualized aortic arch and descending thoracic aorta. Normal visualized thoracic spine. Normal visualized ribs, clavicles, and shoulders. There is no demonstrated abnormality of the visualized soft tissue structures of the upper abdomen. RAD/Chest PA and Lateral IMPRESSION: Normal x-ray examination of the chest. Electronically Signed: Du Hall DO at 17:58 EST Tel , Service support ,
[2020-01-13 17:36] LABS: Absolute Lymphocyte Count 2.37 X10^3/uL (0.83-4.51); Absolute Neutrophil Count 1.9 X10^3/uL (2.0-7.7); Basophil# 0.06 X10^3/uL; Basophil% 1.2 % (0-1); Eosinophil# 0.04 X10^3/uL; Eosinophils% 0.8 % (0-5); Hematocrit 45.2 % (40-54); Hemoglobin 15.2 g/dL (13.0-16.5); Lymphocyte # 2.37 X10^3/ul (4.0); Mean Corp Hgb Conc 33.6 g/dL (32-36); Mean Corpuscular Hgb 32.2 pg (27.0-32.0); Mean Corpuscular Volume 95.8 fL (80-94); Mean Platelet Vol. 8.4 fl (6.2-12.0); Monocyte# 0.67 X10^3/uL; Monocyte% 13.3 % (0-10); NRBC Flagged by Analyzer 0 % (0-5); Neutrophil # 1.89 X10^3/uL (2.7-7.7); Neutrophil % 37.5 % (47-70); Platelet Count 312 K/mm3 (150-450); RBC Distribution Width CV 11.8 % (11.6-14.6); RBC Distribution Width SD 41.8 fl (35.1-43.9); Red Blood Count 4.72 M/mm3 (4.6-6.2)
--- NOTE | 2020-01-13 17:39 | ED.RN ---
Attempted to call pt's and daughter with numbers listed in contacts as pt denies knowing numbers. Both numbers inactive.
[2020-01-13 17:58] LABS: ALB/GLOB Ratio 0.8 RATIO (0.9-2.4); AST(SGOT) 29 U/L (15-37); Alanine Aminotransfer ALT/SGPT 23 U/L (16-61); Albumin, Serum 3.2 g/dL (3.2-5.0); Alkaline Phosphatase 55 U/L (45-117); Anion Gap 10 (5-15); BUN 5 mg/dL (7-18); BUN/Creat Ratio 6.4 RATIO (10-20); Calcium,Total 8.5 mg/dL (8.5-10.1); Chloride 101 mmol/L (98-107); Creatinine, Serum 0.78 mg/dL (0.70-1.30); EST Glomerular Filtration Rate 108 mL/min (>60); Est Glom Filt Rate - Afr Amer 131 mL/min (>60); Estimated Creatinine Clearance 118.09 ml/min; Globulin 4.2 g/dL (2.2-4.2); Glucose 98 mg/dL (74-106); Potassium 3.6 mmol/L (3.5-5.1); Protein, Total 7.4 g/dL (6.4-8.2); Sodium Level 139 mmol/L (136-145)
[2020-01-13] MEDS: Phenobarbital Sodium 130 MG/ML Vial 90 MG IV (18:02)
[2020-01-13] MEDS: dilTIAZem 25 MG/5 ML Vial 20 MG IV BOLUS (18:55)
[2020-01-13] MEDS: 0.9% Normal Saline 1,000 ML 999 ML IV (18:55)
--- NOTE | 2020-01-13 18:56 | ED.RN ---
pts phone and this rn asked to bring list of home meds
[2020-01-13] MEDS: LORazepam 2 MG/ML Syringe IV (20:58)
[2020-01-13] MEDS: Lactated Ringers 1,000 ML 125 ML IV (21:02)
[2020-01-13 21:06] LABS: Magnesium 1.7 mg/dL (1.6-2.6); Phosphorus 2.9 mg/dL (2.5-4.9); Thyroid Stim Hormone (TSH) 0.78 uIU/mL (0.358-3.74)
[2020-01-13 21:26] LABS: Bedside Glucose 109 mg/dL (70-110)
[2020-01-13] MEDS: Amiodarone 360 MG in Dextrose 5% Viaflo Bag 192.8 ML 33.3 MG CONT INF (21:59)
[2020-01-13] MEDS: 0.9% Saline Lock 10 ML Syringe IV (22:03)
[2020-01-13] MEDS: traZODone 50 MG Tablet PO (22:14)
[2020-01-13] MEDS: Gabapentin 600 MG Tablet PO (22:14)
[2020-01-13] MEDS: Phenobarbital 32.4 MG Tablet 64.8 MG PO (22:59)
[2020-01-14] VITALS (24 sets, daily range): BP systolic 94–156; BP diastolic 56–124; PULSE 76–100; RESP 12–21; TEMP 36.7–36.8; O2SAT 92–97
--- NOTE | 2020-01-14 01:06 | ED.VISSUMM ---
- ER Visit Summary Date of Service: 01/14/20 Chief Complaint: Needing help with alcohol abuse History of Present Illness: The patient is a [address] Calzada. He reports that typically he drinks 6 beers per day. States that today he has had 17 beers and that his last drink was approximately 30 minutes ago. He states that he was in detox a few months ago and was clean for approximately 1 week. On review of systems patient reports that he has not been taking any of his medications because he ran out. He reports he has had a cough for the past 3 weeks that is nonproductive. He denies any fever, chills, chest pain, shortness of breath. Physical Examination: Vitals: Stable. Afebrile. General: Well-nourished and well-developed. Head: Normocephalic atraumatic. Neck: Supple, no lymphadenopathy. No JVD. Nontender. Cardiovascular: Tachycardic irregular rhythm. No murmurs. Respiratory: No respiratory distress. Clear to auscultation bilaterally. Abdominal: Soft, nontender, nondistended, normal bowel sounds. No guarding, rebound, or peritoneal signs. Back: Nontender. Extremities: Nontender, no edema. Skin: Normal color, no rash. Neurologic: Alert and oriented ?3. Cranial nerves II through XII are intact. Normal strength and sensation. Psych: Normal affect. Test Results: EKG is A. fib at [address] changes. CBC shows 7 neutrophils of 38, lymphocytes 47, monocytes 13. Chem-7 shows a BUN of 5. LFTs are normal. Troponin is negative. Blood alcohol level is 311. Chest x-ray shows no acute disease. Emergency Department Course and Treatment: Patient was given his home dose of amiodarone and Toprol p.o. There was no change in his rhythm or rate over the next 45 minutes. He was given 10 mg of Lopressor IV and his rate went from 1 50-1 30. He was given 20 mg of Cardizem IV and his rate is in the 1 teens. He was given phenobarbital IV he was also given Protonix and Xarelto p.o. He is resting more comfortably. Treatment Plan: Patient was discussed with Dr. Sims. At this time we will hold off on any further Cardizem while we wait for the Toprol and amiodarone to work. He will be admitted to PCU. Disposition: Admitted in improved condition. Impression: 1. Alcohol intoxication. 2. Atrial fibrillation with RVR. 3. Medical noncompliance. 4. Critical care time 30 minutes. This note was generated with [employer] dictation software. It may contain incorrect words, spelling, and punctuation that were not noted in review of the chart prior to signing ED Disposition - Plan for ED Patient: Disposition: Acute Care Hospital [facility]
[2020-01-14] MEDS: Phenobarbital 32.4 MG Tablet 64.8 MG PO ×6 (01:49→22:32)
[2020-01-14] MEDS: 0.9% Saline Lock 10 ML Syringe IV ×2 (01:49→21:25)
[2020-01-14] MEDS: Ibuprofen 600 MG Tablet PO ×2 (02:02→22:31)
[2020-01-14 02:36] LABS: Amphetamine Urine VISTA NEGATIVE (<1000 ng/mL); Barbiturate Urine VISTA POSITIVE (< 200 ng/mL); Benzodiazepine Urine VISTA NEGATIVE (< 200 ng/mL); Cocaine Urine VISTA NEGATIVE (< 300 ng/mL); Ecstacy Urine VISTA NEGATIVE (< 500 ng/mL); Methadone Urine VISTA NEGATIVE (< 300 ng/mL); PCP Urine VISTA NEGATIVE (< 25 ng/mL); THC Urine VISTA NEGATIVE (< 50 ng/mL); Vista UDS pH Range 6
[2020-01-14] MEDS: Amiodarone 360 MG in Dextrose 5% Viaflo Bag 192.8 ML 16.7 MG CONT INF (04:06)
[2020-01-14] MEDS: Gabapentin 600 MG Tablet PO ×3 (05:04→21:44)
[2020-01-14] MEDS: Metoprolol(XL)Succ 200 MG Tablet PO (09:51)
[2020-01-14] MEDS: Pantoprazole Sodium 20 MG Tablet PO (09:51)
[2020-01-14] MEDS: Thiamine Hydrochloride 100 MG Tablet PO (09:51)
[2020-01-14] MEDS: Folic Acid 1 MG Tablet PO (09:51)
[2020-01-14] MEDS: Multivitamins,Therapeutic Tablet 1 TABLET PO (09:52)
[2020-01-14] MEDS: Amiodarone 200 MG Tablet PO (11:09)
--- NOTE | 2020-01-14 12:38 | PCM.CONS.C ---
Problem List (1) Atrial flutter Status: Chronic (2) Essential hypertension Status: Chronic (3) Alcohol intoxication Status: Acute Reason for Consult Date of Consultation: 01/14/20 History of Present Illness: The patient is a 59 year old white male with a past medical history of atrial flutter and hypertension and alcohol abuse/intoxication who presented for concerns of palpitations as well as feeling messed up . He states earlier this year he was admitted to [facility]. At that time he apparently underwent evaluation for similar type findings. The details of his evaluation are unknown at this time. However, a transthoracic echocardiogram is available for review. The results are as noted below. Following his release he states he has not been taking his medications for some time. He notes that yesterday he received his Social Security check and was out with friends. He drank greater than 20 alcoholic beverages. Following which he felt palpitations and felt messed up . He asked his friends to bring him to the hospital. He was found to have atrial flutter with rapid ventricular response and was intoxicated with an alcohol level greater than 300. He was evaluated in treated medically with reinitiation of his cardiovascular medicines to assist with rate control, rhythm control, and anticoagulation. He was placed in the PCU for further evaluation and care. He has subsequently been noted to convert to sinus rhythm. He continues to undergo alcohol withdrawal precautions as well. He has denied any ongoing chest discomfort or difficulty breathing. There is been no issues with findings compatible CHF or pulmonary edema. He has had no near syncope or syncope. He states he continues to want to stop his alcohol intake but has problems doing so. He is undergone evaluation with cardiac enzymes. They have been negative. His ECG demonstrated atrial flutter with rapid ventricular response. His cardiac rhythm has subsequently demonstrated conversion to sinus rhythm. [] Past Medical History Allergies/Adverse Reactions: Allergies No Known Allergies Allergy (Verified 01/13/20 16:36) Home Medications: Ambulatory Orders Medication Instructions Recorded Metoprolol(XL)Succ [Toprol Xl 25 mg PO BID 08/13/19 (Beta Fred)] Folic Acid 1 mg PO DAILY 01/13/20 Multivitamin [Tab-A-Rm] 1 ea PO DAILY 01/13/20 Thiamine HCl [Vitamin B-1] 100 mg PO DAILY 01/13/20 Past Medical History (Chronic Problems): Chronic Problems Atrial flutter (Chronic) Wide-complex tachycardia (Chronic) Legally blind in left eye, as defined in [place] (Chronic) Premature atrial contraction (Chronic) Essential hypertension (Chronic) Paroxysmal atrial fibrillation (Chronic) DCCV with NICKOLAS on 07/11/2019; Alcohol abuse (Chronic) Surgical History: - Psychiatric History: No pertinent psych hx - *Family History Maternal Family History: Family History (Last Reviewed 01/13/20 @ 17:09 by ISAIAS Kwok) Mother Cancer Diabetes Brother Cancer Grandfather Heart disease Grandfather History of stroke Grandmother CVA (cerebral vascular accident) History Items: Cancer, Hypertension, Stroke Paternal Family History: Family History (Last Reviewed 01/13/20 @ 17:09 by ISAIAS Kwok) Mother Cancer Diabetes Brother Cancer Grandfather Heart disease Grandfather History of stroke Grandmother CVA (cerebral vascular accident) History Items: Hypertension, Stroke Sibling Family History: Family History (Last Reviewed 01/13/20 @ 17:09 by ISAIAS Kwok) Mother Cancer Diabetes Brother Cancer Grandfather Heart disease Grandfather History of stroke Grandmother CVA (cerebral vascular accident) History Items: Cancer Lives: With Family - Patient reports him and his are living with his sister Smoking Status: Never smoker Tobacco Use: Non-smoker, Secondhand Alcohol: Heavy Drugs: None Review of Systems - Review of Systems General: Denies: Fever, Night Sweats, Fatigue Cardiovascular: Reports: Palpitations. Denies: Chest Discomfort, Shortness of Breath, Orthopnea, PND, Peripheral Edema, Lightheadedness, Dizziness, Near Syncope, Syncope Respiratory: Denies: Cough, Sputum Production, Hemoptysis Gastrointestinal: Denies: Hematemesis, Hematochezia, Melena Genitourinary: Denies: Dysuria, Hematuria Skin: Denies: Rash Subjectve: Is a 59-year-old white male who appears to be anxious at this time. Objective: Vital Signs Temp Pulse Resp BP Pulse Ox 98.3 F 100 15 128/96 H 96 01/14/20 08:00 01/14/20 12:09 01/14/20 12:00 01/14/20 12:00 01/14/20 12:00 Oxygen Flow Rate (L/min) 2 Oxygen Delivery Method Room Air Weight: 225 lb 4.999 oz Body Mass Index (BMI) 29.7 Finger Stick Blood Glucose 105 Intake and Output for Last 24 Hours 01/12/20 01/13/20 01/14/20 23:59 23:59 23:59 Intake Total 2204.29 / 2237.59 2942.64 / 2942.64 Output Total 1020 / 1020 Balance 2204.29 / 2237.59 1922.64 / 1922.64 General: Awake, Alert, Oriented x 3, Cooperative, No Acute Distress HEENT: Atraumatic, Normocephalic, PERRL, EOMI, Sclera Non Icteric Oral: Moist Mucosa Neck: Supple, Good ROM Lungs: Clear to auscultation Cardiovascular: Regular Rhythm, Normal S1, Normal S2 Abdomen: Bowel Sounds Present, Soft, Non Tender Extremities: No edema Neurological: No Focal Motor or Sensory Deficit Psych/Mental Status: Anxious 01/13/20 17:15: WBC 5.0, RBC 4.72, Hgb 15.2, Hct 45.2, MCV 95.8 H, MCH 32.2 H, MCHC 33.6, Plt Count 312, MPV 8.4, Immature Gran % (Auto) 0.200, Neut % (Auto) 37.5 L, Lymph % (Auto) 47.0 H, Overton % (Auto) 13.3 H, Eos % (Auto) 0.8, Baso % (Auto) 1.2 H, Absolute Neuts (auto) 1.9 L, Nucleated RBC % 0 01/13/20 17:15: Sodium 139, Potassium 3.6, Chloride 101, Carbon Dioxide 28.0, Anion Gap 10, BUN 5 L, Creatinine 0.78, Est GFR (MDRD) Af Amer 131, Est GFR (MDRD) Non-Af 108, BUN/Creatinine Ratio 6.4 L, Glucose 98, Calcium 8.5, Total Bilirubin 0.20, Troponin I < 0.015 01/13/20 20:28: Phosphorus 2.9, Magnesium 1.7 01/13/20 22:46: Troponin I < 0.015 01/14/20 00:43: Troponin I < 0.015 01/14/20 03:41: Troponin I < 0.015 Rhythm: Sinus rhythm EKG: Atrial flutter with RVR ECHO: 02/28/2019 Interpretation Summary The study was technically difficult. Contrast injection was performed. Based upon the 2D echocardiographic and contrast enhanced images obtained there appears to be grossly normal left ventricular size, wall motion, and systolic function. The estimated ejection fraction is 60 %. The left atrium is mildly enlarged. There is mild mitral annular calcification. Extension of the mitral annular calcification onto the base of the posterior mitral valve leaflet. Trivial mitral valve insufficiency. Trivial tricuspid valve insufficiency. Aortic sclerosis, no stenosis. Unable to estimate RV systolic pressure/pulmonary artery pressure due to technically difficult study. Transmitral doppler flow suggestive of impaired relaxation of left ventricle ECHO: 11/26/2019: [facility] Left ventricle: Normal systolic function with an estimated LVEF 65% Mitral valve: Mildly calcified annulus: Mildly thickened leaflets: Trivial MR Tricuspid valve: Trivial TR Aortic valve: Thickening consistent with sclerosis Pulmonic valve: Trivial OK Aortic root: Mildly dilated Ascending aorta: Mildly dilated No pericardial effusion NICKOLAS: Interpretation Summary Left ventricular systolic function is normal. The estimated ejection fraction is 55 %. The left atrium is mildly enlarged. There is no sponatenous contrast in the left atrium. No thrombus is detected in the left atrial appendage. The right atrium is mildly enlarged. There is mild mitral annular calcification. Extension of the mitral annular calcification onto the posterior mitral valve leaflet. Mild (1+) mitral valve insufficiency. Trivial tricuspid valve insufficiency. Mild diffuse aortic valve thickening. Mild focal aortic valve calcification. Faintly positive agitated saline contrast study for a right to left interatrial shunt during Valsalva maneuver appearing compatible with a small patent foramen ovale. Stress Test: 06/07/2019 Stress Test Report Pharmacologic myocardial perfusion stress test. 59-year-old man with a history of atrial flutter. Resting EKG demonstrates atrial flutter with a rate of 146 bpm resting blood pressures 130/72 mmHg. 0.4 mg of regadenoson was infused per usual protocol followed by rapid intravenous saline flush injection continuous EKG monitoring was performed. The patient maintained atrial flutter throughout the recording. At rest there were no ST or T wave changes noted suggest ischemia. Resting blood pressure 130/72 final blood pressure was 124/74. Myocardial perfusion protocol per 14.3 mCi of technetium 99m sestamibi was injected at rest. 0.4 mg of regadenoson was infused per usual protocol peak infusion 44.0 mCi of technetium 99m sestamibi was injected stress images were obtained stress and rest images were reconstructed and compared in the short axis vertical long horizontal long axis. Gated images were also obtained for next Perfusion SPECT analysis: Review of the stress images demonstrate normal uptake of tracer noted in all rest myocardium the resting images similar demonstrate normal uptake of tracer noted in all areas of myocardium. No obvious reversibility is no suggest ischemia Pennex Gated SPECT analysis: The gated ejection fraction is noted to be 61%. Conclusion: Persistent atrial flutter. No obvious ischemia noted. Preserved ejection fraction. CXR: Preliminary evaluation: No acute cardiopulmonary disease process appreciated: Please see official report Chest CTA: 10-03-19 PULMONARY ARTERIES: No central or large peripheral filling defects. Subsegmental evaluation, particularly in the upper lobes, is limited due to contrast bolus timing. AORTA AND GREAT VESSELS: Unremarkable. HEART/PERICARDIUM: Unremarkable. MEDIASTINUM: Unremarkable. ADENOPATHY: No pathologic appearing adenopathy. THYROID: Unremarkable visualized portions. LUNG PARENCHYMA: No consolidation or mass. PLEURAL SPACES: Unremarkable. UPPER ABDOMEN: Decreased hepatic density compatible steatosis. OSSEOUS AND SOFT TISSUE STRUCTURES: No acute skeletal findings. CT/CTA Chest W/WO Contrast IMPRESSION: No pulmonary embolus detected. Individualized dose optimization techniques were used for this CT. Assessment/Plan 1. Atrial flutter He had recurrence of his atrial flutter. At the present time after medical management he has been noted to have spontaneous conversion back to sinus rhythm. He will continue to be monitored. He will continue medical therapy. This will include his rate control therapy. His antiarrhythmic therapy with respect to IV amiodarone is being changed to oral amiodarone therapy. He will continue anticoagulant therapy. He has undergone previous noninvasive evaluation as noted. At the present time other than medical management there are no immediate plans for additional cardiac diagnostic studies or therapeutic intervention. 2. Hypertension His blood pressure will be followed. His medicines can be adjusted as needed. 3. Alcohol intoxication He continues to undergo alcohol withdrawal precautions. He should be considered for referral for an alcohol detoxification program. Comment: The patients case was discussed and reviewed with the patient, his spouse, Dr. Tobar, and Myrna Hanson CNP. This note was generated using a voice recognition system and there may be incorrect words, spelling or punctuation that were not noted when reviewing the office note prior to saving.
--- NOTE | 2020-01-14 12:40 | PCM.PROGNOTE ---
Subjective: Patient seen and examined. at bedside. Patient denies current significant withdrawal symptoms. States he had mild nausea earlier this morning, otherwise feels well. - Physical Exam Vitals/I&O's: Vital Signs Temp Pulse Resp BP Pulse Ox 98.3 F 100 15 128/96 H 96 01/14/20 08:00 01/14/20 12:09 01/14/20 12:00 01/14/20 12:00 01/14/20 12:00 Oxygen Flow Rate (L/min) 2 Oxygen Delivery Method Room Air Weight: 225 lb 4.999 oz Body Mass Index (BMI) 29.7 Finger Stick Blood Glucose 105 Intake and Output for Last 24 Hours 01/12/20 01/13/20 01/14/20 23:59 23:59 23:59 Intake Total 2204.29 / 2237.59 2942.64 / 2942.64 Output Total 1020 / 1020 Balance 2204.29 / 2237.59 1922.64 / 1922.64 General: Alert, Oriented x3, Cooperative HEENT: Atraumatic, PERRLA, EOMI, Normocephalic Neck: Supple, No JVD, Negative Carotid Bruits Lungs: Clear to auscultation, Normal air movement Cardiovascular: Regular rate, Regular Rhythm, Normal S1, Normal S2, No murmurs Abdomen: Bowel Sounds Present, Soft, Non Tender, Non-Distended Extremities: No clubbing, No cyanosis, No edema, Capillary Refill Less than 3 Seconds Skin: No rashes, No breakdown Musculoskeletal: No Tenderness to Palpation of Joints or Extremities Neurological: Cranial nerves II-XII grossly intact, Neuro grossly intact Psych/Mental Status: Normal Affect, Appropriate Laboratory Results 01/13/20 17:15: WBC 5.0, RBC 4.72, Hgb 15.2, Hct 45.2, MCV 95.8 H, MCH 32.2 H, MCHC 33.6, RDW Std Deviation 41.8, RDW Coeff of Kaylen 11.8, Plt Count 312, MPV 8.4, Immature Gran % (Auto) 0.200, Neut % (Auto) 37.5 L, Lymph % (Auto) 47.0 H, Ness % (Auto) 13.3 H, Eos % (Auto) 0.8, Baso % (Auto) 1.2 H, Absolute Neuts (auto) 1.9 L, Absolute Lymphs (auto) 2.37, Nucleated RBC % 0 01/13/20 17:15: Sodium 139, Potassium 3.6, Chloride 101, Carbon Dioxide 28.0, Anion Gap 10, BUN 5 L, Creatinine 0.78, Estim Creat Clear Calc 118.09, Est GFR (MDRD) Af Amer 131, Est GFR (MDRD) Non-Af 108, BUN/Creatinine Ratio 6.4 L, Glucose 98, Calcium 8.5, Total Bilirubin 0.20, AST 29, ALT 23, Alkaline Phosphatase 55, Troponin I < 0.015, Total Protein 7.4, Albumin 3.2, Globulin 4.2, Albumin/Globulin Ratio 0.8 L 01/13/20 17:15: Ethyl Alcohol 311.0 H* 01/13/20 17:15: Urine Opiates Screen Cancelled, Urine Methadone Screen Cancelled, Ur Barbiturates Screen Cancelled, Ur Phencyclidine Scrn Cancelled, Ur Amphetamines Screen Cancelled, U Methamphetamin-MDMA Cancelled, U Benzodiazepines Scrn Cancelled, Urine Cocaine Screen Cancelled, U Cannabinoids Screen Cancelled, Ur Drug Screen Comment Cancelled 01/13/20 20:28: Phosphorus 2.9, Magnesium 1.7, TSH 0.78 01/13/20 21:12: POC Glucose 109 01/13/20 22:46: Troponin I < 0.015 01/14/20 00:43: Troponin I < 0.015 01/14/20 02:00: Urine Opiates Screen NEGATIVE, Urine Methadone Screen NEGATIVE, Ur Barbiturates Screen POSITIVE H, Ur Phencyclidine Scrn NEGATIVE, Ur Amphetamines Screen NEGATIVE, U Methamphetamin-MDMA NEGATIVE, U Benzodiazepines Scrn NEGATIVE, Urine Cocaine Screen NEGATIVE, U Cannabinoids Screen NEGATIVE, Ur Drug Screen Comment 01/14/20 03:41: Troponin I < 0.015 Current Medications Acetaminophen (Tylenol) 500 mg PO Q4H PRN PRN PRN Reason: Temp > 100.4 F Al Hydroxide/Mg Hydroxide (Mylanta Ii) 30 ml PO Q6H PRN PRN PRN Reason: dyspesia Albuterol Sulfate (Ventolin Aerosols) 2.5 mg INHALATION Q2H PRN PRN PRN Reason: Shortness of Breath/Wheezing Amiodarone HCl (Cordarone) 200 mg PO X1 ONE Stop: 01/14/20 16:57 Last Admin: 01/13/20 17:26 Dose: 200 mg Documented by: Amiodarone HCl (Cordarone) 200 mg PO DAILY [facility] Last Admin: 01/14/20 11:09 Dose: 200 mg Documented by: Bisacodyl (Dulcolax) 10 mg RECTAL DAILY PRN PRN PRN Reason: Constipation Dicyclomine HCl (Bentyl) 20 mg PO Q6H PRN PRN PRN Reason: abdominal discomfort Folic Acid (Folic Acid) 1 mg PO DAILYCM [facility] Stop: 01/16/20 08:01 Last Admin: 01/14/20 09:51 Dose: 1 mg Documented by: Gabapentin (Neurontin) 600 mg PO TID [facility] Last Admin: 01/14/20 05:04 Dose: 600 mg Documented by: Glucagon () 1 mg IM .X1 PRN PRN Reason: Hypoglycemia Hydroxyzine Pamoate (Vistaril Pamoate Capsule) 50 mg PO Q6H PRN PRN PRN Reason: Mild Anxiety (score 1/3) Dextrose (Dextrose 10%-Water) 250 mls @ 999 mls/hr IV .Q16M PRN; Protocol PRN Reason: HYPOGLYCEMIA Ibuprofen (Motrin) 600 mg PO Q8H PRN PRN PRN Reason: Pain Score 1-10/10 Last Admin: 01/14/20 02:02 Dose: 600 mg Documented by: Loperamide HCl (Imodium) 2 - 4 mg PO UD PRN PRN Reason: LOOSE STOOLS Lorazepam (Ativan) 1 mg IV Q4H PRN PRN PRN Reason: Severe Anxiety Lorazepam (Ativan) 2 mg IV X1 PRN PRN Reason: Seizure Lorazepam (Ativan) 2 mg PO Q2H PRN PRN; Protocol PRN Reason: CIWA score > 8 but <15 Lorazepam (Ativan) 2 mg PO UD PRN; Protocol PRN Reason: CIWA score >/=15. Lorazepam (Ativan) 2 mg IV Q2H PRN PRN; Protocol PRN Reason: CIWA score > 8 but <15 Last Admin: 01/13/20 20:58 Dose: 2 mg Documented by: Lorazepam (Ativan) 2 mg IV UD PRN; Protocol PRN Reason: CIWA score >/=15. Methocarbamol (Methocarbamol) 750 mg PO Q6H PRN PRN PRN Reason: Muscle Aches Metoprolol Succinate (Toprol Xl (Beta Fred)) 200 mg PO DAILY [facility] Last Admin: 01/14/20 09:51 Dose: 200 mg Documented by: [facility]) [facility] Last Admin: 01/14/20 09:52 Dose: 1 tablet Documented by: Ondansetron HCl (Zofran Odt) 4 mg PO Q6H PRN PRN PRN Reason: NAUSEA Pantoprazole Sodium (Protonix) 20 mg PO DAILY [facility] Last Admin: 01/14/20 09:51 Dose: 20 mg Documented by: Phenobarbital (Phenobarbital) 97.2 mg PO Q4H [facility]; Taper Stop: 01/18/20 04:44 Last Admin: 01/14/20 09:50 Dose: 97.2 mg Documented by: Rivaroxaban (Xarelto) 20 mg PO DINNER [facility] Last Admin: 01/13/20 22:59 Dose: 20 mg Documented by: Senna (Senokot) 1 tablet PO QHS PRN PRN PRN Reason: Constipation Sodium Chloride () 10 - 40 ml IV UD PRN PRN Reason: SALINE FLUSH Last Admin: 01/14/20 01:49 Dose: 20 ml Documented by: Thiamine HCl (Vitamin B1) [facility] Stop: 01/16/20 08:01 Last Admin: 01/14/20 09:51 Dose: 100 mg Documented by: Trazodone HCl (Desyrel) 50 mg PO QHS [facility] Last Admin: 01/13/20 22:14 Dose: 50 mg Documented by: Medical Necessity - Tobacco Use Smoking Status: Never smoker Tobacco Use: Non-smoker, Secondhand Assessment/Plan All Active Problems (Last Updated 07/18/19 @ 08:38 by ISAIAS Phillips) Alcohol intoxication (Acute) Atrial fibrillation and flutter (Resolved) Atrial fibrillation with rapid ventricular response (Resolved) Atrial flutter with rapid ventricular response (Resolved) Delirium tremens (Resolved) 1. Alcohol withdrawal/chronic alcohol abuse, history of DTs-medical stabilization per alcohol withdrawal protocol. Phenobarbital taper. PRN regimen for somatic complaints. Case management/social work consult for outpatient follow-up. CIWA. Alcohol level 311 on admission. Patient interested in inpatient treatment at discharge, will discuss this with case management. 2. Atrial fibrillation with RVR, paroxysmal atrial fibrillation/atrial flutter-initially placed on amiodarone drip. Converted to sinus rhythm. Cardiology following. Continue amiodarone, metoprolol, Xarelto. Echo at [facility] 11/26/2019 demonstrated EF 65%. Will not repeat echo at this time. 3. Hypertension-continue metoprolol. 4. GERD-continue PPI. DVT prophylaxis-Xarelto This patient was seen by ISAIAS Kwok under the supervision of Dr. Tobar.
[2020-01-14] MEDS: Rivaroxaban 20 MG Tablet PO (17:08)
[2020-01-14] MEDS: LORazepam 2 MG/ML Syringe IV (21:25)
[2020-01-14] MEDS: traZODone 50 MG Tablet PO (22:33)
[2020-01-15] VITALS (14 sets, daily range): BP systolic 115–154; BP diastolic 79–105; PULSE 78–89; RESP 16–19; TEMP 36.2–37; O2SAT 93–98
[2020-01-15] MEDS: Phenobarbital 32.4 MG Tablet 64.8 MG PO ×6 (02:31→20:25)
[2020-01-15] MEDS: Gabapentin 600 MG Tablet PO ×3 (05:52→21:48)
[2020-01-15] MEDS: Folic Acid 1 MG Tablet PO (08:35)
[2020-01-15] MEDS: Multivitamins,Therapeutic Tablet 1 TABLET PO (08:35)
[2020-01-15] MEDS: Thiamine Hydrochloride 100 MG Tablet PO (08:35)
--- NOTE | 2020-01-15 09:18 | PCM.PN.CARD ---
Subjectve: The patient is awake and alert. He denies any chest discomfort, difficulty breathing, or ongoing palpitations at this time. Objective: Vital Signs Temp Pulse Resp BP Pulse Ox 97.2 F L 85 18 129/88 H 96 01/15/20 05:47 01/15/20 05:47 01/15/20 05:47 01/15/20 05:47 01/15/20 07:31 Oxygen Flow Rate (L/min) 2 Oxygen Delivery Method Room Air Weight: 225 lb 4.999 oz Body Mass Index (BMI) 29.7 Finger Stick Blood Glucose 105 Intake and Output for Last 24 Hours 01/13/20 01/14/20 01/15/20 23:59 23:59 23:59 Intake Total 2204.29 / 2237.59 3439.34 / 3439.34 1175 / 1175 Output Total 1570 / 1570 575 / 575 Balance 2204.29 / 2237.59 1869.34 / 1869.34 600 / 600 General: Awake, Alert, Oriented x 3, Cooperative, No Acute Distress HEENT: Atraumatic, Normocephalic, PERRL, EOMI, Sclera Non Icteric Oral: Moist Mucosa Neck: Supple, Good ROM, No JVD Lungs: Clear to auscultation Cardiovascular: Regular Rhythm, Normal S1, Normal S2 Abdomen: Bowel Sounds Present, Soft, Non Tender Extremities: No edema Psych/Mental Status: Anxious Rhythm: Sinus rhythm Medical Necessity - Tobacco Use Smoking Status: Never smoker Tobacco Use: Non-smoker, Secondhand Assessment/Plan 1. Atrial flutter He had recurrence of his atrial flutter. At the present time after medical management he has been noted to have spontaneous conversion back to sinus rhythm. He will continue to be monitored. He will continue medical therapy. This will include his rate control therapy. He will continue his oral amiodarone therapy. He will continue anticoagulant therapy. He recently underwent noninvasive cardiovascular evaluation with a transthoracic echocardiogram at [facility]. The results are as noted in his previous cardiovascular progress note. At the present time other than medical management there are no immediate plans for additional cardiac diagnostic studies or therapeutic intervention. 2. Hypertension His blood pressure will be followed. His medicines can be adjusted as needed. 3. Alcohol intoxication He continues to undergo alcohol withdrawal precautions. He should be considered for referral for an alcohol detoxification program. This note was generated using a voice recognition system and there may be incorrect words, spelling or punctuation that were not noted when reviewing the office note prior to saving.
[2020-01-15] MEDS: Metoprolol(XL)Succ 200 MG Tablet PO (09:27)
[2020-01-15] MEDS: Pantoprazole Sodium 20 MG Tablet PO (09:28)
[2020-01-15] MEDS: Amiodarone 200 MG Tablet PO (09:28)
--- NOTE | 2020-01-15 09:44 | NURSING ---
Pill found in bed by CORRECTIONAL MAINTENANCE TECHNICIAN. This RN obtained pill, identified as phenobarbital. Per pt, he thought he had dropped one last night. Pill placed in RX destroyer with Bg MOLINA.
--- NOTE | 2020-01-15 10:17 | CASEMGMT ---
SW met with patient and his . Introduced self and role at [facility]. SW asked patient if he would like to talk with someone from [facility] while he was here at [facility]. Patient's spoke up right away and told him that he can do it on his own. He declined stating he can do it on his own. He said he has really strong will power. SW told him if he changes his mind he can always ask for SW. He told SW, I can't promise anything. SW told him that is fine, but if he decides he would like any resources to ask for SW. Patient's said she went through treatment at [facility] so they know where it is located. Livier MAGUIRE MSW
--- NOTE | 2020-01-15 13:50 | PN_ITS ---
Subjective: Patient seen and examined. at bedside. Patient denies significant withdrawal symptoms. Patient goes back and forth on whether he is agreeable to inpatient treatment for chronic alcohol abuse. - Physical Exam Vitals/I&O's: Vital Signs Temp Pulse Resp BP Pulse Ox 97.6 F L 82 16 128/83 H 93 01/15/20 08:30 01/15/20 09:27 01/15/20 08:30 01/15/20 08:30 01/15/20 08:30 Oxygen Flow Rate (L/min) 2 Oxygen Delivery Method Room Air Weight: 225 lb 4.999 oz Body Mass Index (BMI) 29.7 Finger Stick Blood Glucose 105 Intake and Output for Last 24 Hours 01/13/20 01/14/20 01/15/20 23:59 23:59 23:59 Intake Total 2204.29 / 2237.59 3439.34 / 3439.34 1355 / 1355 Output Total 1570 / 1570 1250 / 1250 Balance 2204.29 / 2237.59 1869.34 / 1869.34 105 / 105 General: Alert, Oriented x3, Cooperative HEENT: Atraumatic, PERRLA, EOMI, Normocephalic Neck: Supple, No JVD, Negative Carotid Bruits Lungs: Clear to auscultation, Normal air movement Cardiovascular: Regular rate, Regular Rhythm, Normal S1, Normal S2, No murmurs Abdomen: Bowel Sounds Present, Soft, Non Tender, Non-Distended Extremities: No clubbing, No cyanosis, No edema, Capillary Refill Less than 3 Seconds Skin: No rashes, No breakdown Musculoskeletal: No Tenderness to Palpation of Joints or Extremities Neurological: Cranial nerves II-XII grossly intact, Neuro grossly intact Psych/Mental Status: Normal Affect, Appropriate Current Medications Acetaminophen (Tylenol) 500 mg PO Q4H PRN PRN PRN Reason: Temp > 100.4 F Al Hydroxide/Mg Hydroxide (Mylanta Ii) 30 ml PO Q6H PRN PRN PRN Reason: dyspesia Albuterol Sulfate (Ventolin Aerosols) 2.5 mg INHALATION Q2H PRN PRN PRN Reason: Shortness of Breath/Wheezing Amiodarone HCl (Cordarone) 200 mg PO DAILY [facility] Last Admin: 01/15/20 09:28 Dose: 200 mg Documented by: Bisacodyl (Dulcolax) 10 mg RECTAL DAILY PRN PRN PRN Reason: Constipation Dicyclomine HCl (Bentyl) 20 mg PO Q6H PRN PRN PRN Reason: abdominal discomfort [facility]: 01/16/20 08:01 Last Admin: 01/15/20 08:35 Dose: 1 mg Documented by: Gabapentin (Neurontin) 600 mg PO TID [facility] Last Admin: 01/15/20 05:52 Dose: 600 mg Documented by: Glucagon () 1 mg IM .X1 PRN PRN Reason: Hypoglycemia Hydroxyzine Pamoate (Vistaril Pamoate Capsule) 50 mg PO Q6H PRN PRN PRN Reason: Mild Anxiety (score 1/3) Dextrose (Dextrose 10%-Water) 250 mls @ 999 mls/hr IV .Q16M PRN; Protocol PRN Reason: HYPOGLYCEMIA Ibuprofen (Motrin) 600 mg PO Q8H PRN PRN PRN Reason: Pain Score 1-10/10 Last Admin: 01/14/20 22:31 Dose: 600 mg Documented by: Loperamide HCl (Imodium) 2 - 4 mg PO UD PRN PRN Reason: LOOSE STOOLS Lorazepam (Ativan) 1 mg IV Q4H PRN PRN PRN Reason: Severe Anxiety Lorazepam (Ativan) 2 mg IV X1 PRN PRN Reason: Seizure Lorazepam (Ativan) 2 mg PO Q2H PRN PRN; Protocol PRN Reason: CIWA score > 8 but <15 Lorazepam (Ativan) 2 mg PO UD PRN; Protocol PRN Reason: CIWA score >/=15. Lorazepam (Ativan) 2 mg IV Q2H PRN PRN; Protocol PRN Reason: CIWA score > 8 but <15 Last Admin: 01/14/20 21:25 Dose: 2 mg Documented by: Lorazepam (Ativan) 2 mg IV UD PRN; Protocol PRN Reason: CIWA score >/=15. Methocarbamol (Methocarbamol) 750 mg PO Q6H PRN PRN PRN Reason: Muscle Aches Metoprolol Succinate (Toprol Xl (Beta Fred)) 200 mg PO DAILY [facility] Last Admin: 01/15/20 09:27 Dose: 200 mg Documented by: Multivit[facility] ([facility]itamin) [facility] Last Admin: 01/15/20 08:35 Dose: 1 tablet Documented by: Ondansetron HCl (Zofran Odt) 4 mg PO Q6H PRN PRN PRN Reason: NAUSEA Pantoprazole Sodium (Protonix) 20 mg PO DAILY [facility] Last Admin: 01/15/20 09:28 Dose: 20 mg Documented by: Phenobarbital (Phenobarbital) 64.8 mg PO Q4H [facility]; Taper Stop: 01/18/20 04:44 Last Admin: 01/15/20 12:26 Dose: 64.8 mg Documented by: Rivaroxaban (Xarelto) 20 mg PO DINNER [facility] Last Admin: 01/14/20 17:08 Dose: 20 mg Documented by: Senna (Senokot) 1 tablet PO QHS PRN PRN PRN Reason: Constipation Sodium Chloride () 10 - 40 ml IV UD PRN PRN Reason: SALINE FLUSH Last Admin: 01/14/20 21:25 Dose: 10 ml Documented by: Thiamine HCl ([facility]itamin B1) [facility] Stop: 01/16/20 08:01 Last Admin: 01/15/20 08:35 Dose: 100 mg Documented by: Trazodone HCl (Desyrel) 50 mg PO QHS [facility] Last Admin: 01/14/20 22:33 Dose: 50 mg Documented by: Medical Necessity - Tobacco Use Smoking Status: Never smoker Tobacco Use: Non-smoker, Secondhand Assessment/Plan All Active Problems (Last Updated 07/18/19 @ 08:38 by Lalo Juarez CONCRETE HOPPER OPERATOR-C) Alcohol intoxication (Acute) Atrial fibrillation and flutter (Resolved) Atrial fibrillation with rapid ventricular response (Resolved) Atrial flutter with rapid ventricular response (Resolved) Delirium tremens (Resolved) 1. Alcohol withdrawal/chronic alcohol abuse, history of DTs-medical stabilizat ion per alcohol withdrawal protocol. Phenobarbital taper. PRN regimen for somatic complaints. Case management/social work consult for outpatient follow- up. CIWA. Alcohol level 311 on admission. Patient interested in inpatient treatment at discharge, will discuss this with case management. 2. Atrial fibrillation with RVR, paroxysmal atrial fibrillation/atrial flutter- initially placed on amiodarone drip. Converted to sinus rhythm. Cardiology following. Continue amiodarone, metoprolol, Xarelto. Echo at [facility] 11/26/2019 demonstrated EF 65%. Will not repeat echo at this time. 3. Hypertension-continue metoprolol. 4. GERD-continue PPI. DVT prophylaxis-Xarelto This patient was seen by ISAIAS Kwok under the supervision of Dr. Tobar.
[2020-01-15] MEDS: Rivaroxaban 20 MG Tablet PO (18:06)
[2020-01-15] MEDS: traZODone 50 MG Tablet PO (21:48)
[2020-01-16] VITALS (8 sets, daily range): BP systolic 117–128; BP diastolic 77–87; PULSE 75–94; RESP 16–18; TEMP 36.4–37; O2SAT 93–95
[2020-01-16] MEDS: Phenobarbital 32.4 MG Tablet 64.8 MG PO ×3 (00:50→10:15)
[2020-01-16] MEDS: Gabapentin 600 MG Tablet PO ×2 (05:09→14:31)
--- NOTE | 2020-01-16 09:23 | CASEMGMT ---
ZORAN met with patient regarding treatment for alcohol. He said he is going to go to [facility] when he is discharged today. SW offered to have someone from [facility] come and talk with him and he declined stating he knows the people there already and knows where to go. 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
--- NOTE | 2020-01-16 09:24 | PN.CARD_ITS ---
Subjectve: The patient denies any new acute cardiovascular concerns/issues. Objective: Vital Signs Temp Pulse Resp BP Pulse Ox 98.6 F 76 18 128/80 H 95 01/16/20 05:13 01/16/20 07:33 01/16/20 05:13 01/16/20 05:13 01/16/20 07:15 Oxygen Flow Rate (L/min) 2 Oxygen Delivery Method Room Air Weight: 225 lb 4.999 oz Body Mass Index (BMI) 29.7 Finger Stick Blood Glucose 105 Intake and Output for Last 24 Hours 01/14/20 01/15/20 01/16/20 23:59 23:59 23:59 Intake Total 3439.34 / 3439.34 2955 / 2955 200 / 200 Output Total 1570 / 1570 1850 / 1850 1300 / 1300 Balance 1869.34 / 1869.34 1105 / 1105 -1100 / -1100 General: Awake, Alert, Oriented x 3, Cooperative, No Acute Distress HEENT: Atraumatic, Normocephalic, PERRL, EOMI, Sclera Non Icteric Oral: Moist Mucosa Neck: Supple, Good ROM, No JVD Lungs: Clear to auscultation Cardiovascular: Regular Rhythm, Normal S1, Normal S2 Abdomen: Bowel Sounds Present, Soft, Non Tender Neurological: No Focal Motor or Sensory Deficit Psych/Mental Status: Appropriate Rhythm: Sinus rhythm Medical Necessity - Tobacco Use Smoking Status: Never smoker Tobacco Use: Non-smoker, Secondhand Assessment/Plan 1. Atrial flutter He had recurrence of his atrial flutter. At the present time after medical management he has been noted to have sponta neous conversion back to sinus rhythm. He will continue to be monitored. He will continue medical therapy. This will include his rate control therapy. He will continue his oral amiodarone therapy. He will continue anticoagulant therapy. He recently underwent noninvasive cardiovascular evaluation with a transthoracic echocardiogram at [facility]. The results are as noted in his previous cardiovascular progress note. At the present time other than medical management there are no immediate plans for additional cardiac diagnostic studies or therapeutic intervention. 2. Hypertension His blood pressure will be followed. His medicines can be adjusted as needed. 3. Alcohol intoxication He continues to undergo alcohol withdrawal precautions. He is considering whether he wants to be referred as an outpatient or an inpatient for alcohol withdrawal. Comment: The patient's case was discussed and reviewed with the patient, his spouse, and Dr. Tobar. This note was generated using a voice recognition system and there may be incorrect words, spelling or punctuation that were not noted when reviewing the office note prior to saving.
[2020-01-16] MEDS: Metoprolol(XL)Succ 200 MG Tablet PO (10:01)
[2020-01-16] MEDS: Amiodarone 200 MG Tablet PO (10:01)
[2020-01-16] MEDS: Folic Acid 1 MG Tablet PO (10:01)
[2020-01-16] MEDS: Pantoprazole Sodium 20 MG Tablet PO (10:02)
[2020-01-16] MEDS: Thiamine Hydrochloride 100 MG Tablet PO (10:02)
[2020-01-16] MEDS: Multivitamins,Therapeutic Tablet 1 TABLET PO (10:02)
--- NOTE | 2020-01-16 11:44 | DCINST_ITS ---
You will use the following diet at home:: No restrictions Discharge Activity: Return to Normal Activity Call your doctor if you observe: Shortness of breath, Dizziness, Fainting spells, Chest pain Allergies/Adverse Reactions: Allergies No Known Allergies Allergy (Verified 01/13/20 16:36) Medications to take at Discharge Folic Acid 1 mg PO DAILY 01/13/20 Multivitamin [Tab-A-Rm] 1 ea PO DAILY 01/13/20 Thiamine HCl [Vitamin B-1] 100 mg PO DAILY 01/13/20 Amiodarone HCl [Cordarone] 200 mg PO DAILY #30 tab 01/16/20 Metoprolol(XL)Succ [Toprol Xl (Beta Fred)] 200 mg PO DAILY #30 tab 01/16/20 Rivaroxaban [Xarelto] 20 mg PO DINNER #30 tab 01/16/20 The following prescriptions were given: Amiodarone HCl [Cordarone] 200 mg PO DAILY #30 tab Transmission Status: Sent to [facility] [place] Metoprolol(XL)Succ [Toprol Xl (Beta Fred)] 200 mg PO DAILY #30 tab Transmission Status: Sent to [facility] [place] Rivaroxaban [Xarelto] 20 mg PO DINNER #30 tab Transmission Status: Sent to [facility] [place] Primary Care Physician: Moriah Fernandez MD [Primary Care Provider] - Please follow up with your Primary Care Physician in: 1 Week Test Results: Test results from this visit will be discussed in further detail at your follow- up appointment, if applicable. Please Follow Up With: Fay Nielsen PA When: 2 Weeks
--- NOTE | 2020-01-16 11:58 | PCA ---
[facility] staff report patient has been discharged from internal medicine and cannot reschedule with them, patient is still able to schedule with family medicine. Follow-up apt made with for this reason.
--- NOTE | 2020-01-16 12:20 | PHA.DC.MR ---
Pharmacy Service has performed discharge medication reconciliation for this patient. Per notes, pt will be going to [facility]. The patient's discharge medication list was reviewed for discrepancies and discrepancies were resolved. Home Medications Folic Acid 1 mg PO DAILY 01/13/20 Multivitamin [Tab-A-Rm] 1 ea PO DAILY 01/13/20 Thiamine HCl [Vitamin B-1] 100 mg PO DAILY 01/13/20 Amiodarone HCl [Cordarone] 200 mg PO DAILY #30 tab 01/16/20 Metoprolol(XL)Succ [Toprol Xl (Beta Fred)] 200 mg PO DAILY #30 tab 01/16/20 Rivaroxaban [Xarelto] 20 mg PO DINNER #30 tab 01/16/20
--- NOTE | 2020-01-16 13:27 | PCM.DC.SUM ---
Discharge Date and Diagnosis Date of Admission: 01/13/20 Date of Discharge: 01/16/20 - Primary Discharge Diagnosis 1. Alcohol withdrawal/chronic alcohol abuse, history of DTs 2. Atrial fibrillation with RVR, paroxysmal atrial fibrillation/atrial flutter 3. Hypertension 4. 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 Electronically Signed: Du Hall DO at 17:58 EST Tel , Service support , Dr. Burt- Cardiology Operations: None Procedures: None Summary of Care Provided: The patient is a 59 year old M admitted 01/13/2020 due to alcohol withdrawal. 1. Alcohol withdrawal/chronic alcohol abuse, history of DTs-medical stabilization per alcohol withdrawal protocol. Phenobarbital taper. CIWA. Alcohol level 311 on admission. Patient did not have significant withdrawal symptoms during admission. Patient agreeable to inpatient treatment at [facility]. Patient well-known go to [facility] following at discharge for further evaluation and treatment. 2. Atrial fibrillation with RVR, paroxysmal atrial fibrillation/atrial flutter-initially placed on amiodarone drip. Converted to sinus rhythm. Cardiology following. Continue amiodarone, metoprolol, Xarelto. Echo at [facility] 11/26/2019 demonstrated EF 65%. Will not repeat echo at this time. 3. Hypertension-continue metoprolol. 4. GERD-continue PPI. General: Alert, Oriented x3, Cooperative HEENT: Atraumatic, PERRLA, EOMI, Normocephalic Neck: Supple, No JVD, Negative Carotid Bruits Lungs: Clear to auscultation, Normal air movement Cardiovascular: Regular rate, Regular Rhythm, Normal S1, Normal S2, No murmurs Abdomen: Bowel Sounds Present, Soft, Non Tender, Non-Distended Extremities: No clubbing, No cyanosis, No edema, Capillary Refill Less than 3 Seconds Skin: No rashes, No breakdown Musculoskeletal: No Tenderness to Palpation of Joints or Extremities Neurological: Cranial nerves II-XII grossly intact, Neuro grossly intact Psych/Mental Status: Normal Affect, Appropriate Patient seen and examined prior to discharge. Physical assessment as noted above. Patient is stable for discharge with follow up recommendations as noted above. This patient was seen by ISAIAS Kwok under the supervision of Dr. Tobar. - Physical Exam Vitals/I&O's: Vital Signs Temp Pulse Resp BP Pulse Ox 98.1 F 94 18 117/77 95 01/16/20 09:54 01/16/20 10:01 01/16/20 09:54 01/16/20 10:01 01/16/20 09:54 Oxygen Flow Rate (L/min) 2 Oxygen Delivery Method Room Air Weight: 225 lb 4.999 oz Body Mass Index (BMI) 29.7 Finger Stick Blood Glucose 105 Intake and Output for Last 24 Hours 01/14/20 01/15/20 01/16/20 23:59 23:59 23:59 Intake Total 3439.34 / 3439.34 2955 / 2955 200 / 200 Output Total 1570 / 1570 1850 / 1850 1300 / 1300 Balance 1869.34 / 1869.34 1105 / 1105 -1100 / -1100 Current Medications Acetaminophen (Tylenol) 500 mg PO Q4H PRN PRN PRN Reason: Temp > 100.4 F Al Hydroxide/Mg Hydroxide (Mylanta Ii) 30 ml PO Q6H PRN PRN PRN Reason: dyspesia Albuterol Sulfate (Ventolin Aerosols) 2.5 mg INHALATION Q2H PRN PRN PRN Reason: Shortness of Breath/Wheezing Amiodarone HCl (Cordarone) 200 mg PO DAILY [facility] Last Admin: 01/16/20 10:01 Dose: 200 mg Documented by: Bisacodyl (Dulcolax) 10 mg RECTAL DAILY PRN PRN PRN Reason: Constipation Dicyclomine HCl (Bentyl) 20 mg PO Q6H PRN PRN PRN Reason: abdominal discomfort Gabapentin (Neurontin) 600 mg PO TID [facility] Last Admin: 01/16/20 05:09 Dose: 600 mg Documented by: Glucagon () 1 mg IM .X1 PRN PRN Reason: Hypoglycemia Hydroxyzine Pamoate (Vistaril Pamoate Capsule) 50 mg PO Q6H PRN PRN PRN Reason: Mild Anxiety (score 1/3) Dextrose (Dextrose 10%-Water) 250 mls @ 999 mls/hr IV .Q16M PRN; Protocol PRN Reason: HYPOGLYCEMIA Ibuprofen (Motrin) 600 mg PO Q8H PRN PRN PRN Reason: Pain Score 1-10/10 Last Admin: 01/14/20 22:31 Dose: 600 mg Documented by: Loperamide HCl (Imodium) 2 - 4 mg PO UD PRN PRN Reason: LOOSE STOOLS Lorazepam (Ativan) 1 mg IV Q4H PRN PRN PRN Reason: Severe Anxiety Lorazepam (Ativan) 2 mg IV X1 PRN PRN Reason: Seizure Lorazepam (Ativan) 2 mg PO Q2H PRN PRN; Protocol PRN Reason: CIWA score > 8 but <15 Lorazepam (Ativan) 2 mg PO UD PRN; Protocol PRN Reason: CIWA score >/=15. Lorazepam (Ativan) 2 mg IV Q2H PRN PRN; Protocol PRN Reason: CIWA score > 8 but <15 Last Admin: 01/14/20 21:25 Dose: 2 mg Documented by: Lorazepam (Ativan) 2 mg IV UD PRN; Protocol PRN Reason: CIWA score >/=15. Methocarbamol (Methocarbamol) 750 mg PO Q6H PRN PRN PRN Reason: Muscle Aches Metoprolol Succinate (Toprol Xl (Beta Fred)) 200 mg PO DAILY [facility] Last Admin: 01/16/20 10:01 Dose: 200 mg Documented by: [facility] Admin: 01/16/20 10:02 Dose: 1 tablet Documented by: Ondansetron HCl (Zofran Odt) 4 mg PO Q6H PRN PRN PRN Reason: NAUSEA Pantoprazole Sodium (Protonix) 20 mg PO DAILY [facility] Last Admin: 01/16/20 10:02 Dose: 20 mg Documented by: Phenobarbital (Phenobarbital) 64.8 mg PO Q6H [facility]; Taper Stop: 01/18/20 04:44 Last Admin: 01/16/20 10:15 Dose: 64.8 mg Documented by: Rivaroxaban (Xarelto) 20 mg PO DINNER [facility] Last Admin: 01/15/20 18:06 Dose: 20 mg Documented by: Senna (Senokot) 1 tablet PO QHS PRN PRN PRN Reason: Constipation Sodium Chloride () 10 - 40 ml IV UD PRN PRN Reason: SALINE FLUSH Last Admin: 01/14/20 21:25 Dose: 10 ml Documented by: Trazodone HCl (Desyrel) 50 mg PO QHS [facility] Last Admin: 01/15/20 21:48 Dose: 50 mg Documented by: Discharge Diet: No Restrictions Discharge Activity: Return to Normal Activity Call your doctor if you observe: Shortness of breath, Dizziness, Fainting spells, Chest pain Home Medications: Medications to take at Discharge Folic Acid 1 mg PO DAILY 01/13/20 Multivitamin [Tab-A-Rm] 1 ea PO DAILY 01/13/20 Thiamine HCl [Vitamin B-1] 100 mg PO DAILY 01/13/20 Amiodarone HCl [Cordarone] 200 mg PO DAILY #30 tab 01/16/20 Metoprolol(XL)Succ [Toprol Xl (Beta Fred)] 200 mg PO DAILY #30 tab 01/16/20 Rivaroxaban [Xarelto] 20 mg PO DINNER #30 tab 01/16/20 Following Prescrptions Were Given to Patient: Amiodarone HCl [Cordarone] 200 mg PO DAILY #30 tab Transmission Status: Received by [facility] [place] Metoprolol(XL)Succ [Toprol Xl (Beta Fred)] 200 mg PO DAILY #30 tab Transmission Status: Received by [facility] [place] Rivaroxaban [Xarelto] 20 mg PO DINNER #30 tab Transmission Status: Received by [facility] [place] Primary Care Physician: Moriah Fernandez MD [Primary Care Provider] - Please follow up with your Primary Care Physician in: 1 Week Please Follow Up With: Fay Nielsen PA When: 2 Weeks Please Follow Up With: Fay Nielsen PA When: 2 weeks Disposition: Home Minutes spent on discharge:: 35 Patient Condition:: Stable Medical Necessity - Tobacco Use Smoking Status: Never smoker Tobacco Use: Non-smoker, Secondhand Meaningful Use Info Meaningful Use Diagnoses (Choose all that apply): None applicable
== END 2020-01-16 14:48 | disposition home or self-care (01) | DRG 775 ==
LOC: ED 16:59 → PCU 18:25
PROVIDERS: Student in an Organized Health Care Education/Training Program; Admitting Provider Family Medicine; Emergency Provider Emergency Medicine; PCP Internal Medicine; Visit Provider Internal Medicine
DX: F10.239 Alcohol dependence with withdrawal, unspecified (principal); Y90.8 Blood alcohol level of 240 mg/100 ml or more; F10.229 Alcohol dependence with intoxication, unspecified; I48.92 Unspecified atrial flutter; I48.0 Paroxysmal atrial fibrillation; I10 Essential (primary) hypertension; K21.9 Gastro-esophageal reflux disease without esophagitis; H54.8 Legal blindness, as defined in USA; Z86.73 Personal history of transient ischemic attack (TIA), and cerebral infarction without residual deficits
CPT/HCPCS: 36415; 71046; 80053; 80307; 80320; 82962; 83735; 84100; 84443; 84484; 85025; 93005; 99251; 99285; J7030; J7120; 90686; A4216; G0463; G0480; J0610

== ENCOUNTER 2020-02-01 19:51 | Emergency (ER) | payer MEDICAID, SELFPAY ==
[2020-01-13 20:41] VITALS: BMI 29.7
[2020-02-01 19:52] VITALS: BP 145/103; PULSE 85; RESP 16; TEMP 36.4; O2SAT 95; BMI 31.3
[2020-02-01 21:53] LABS: ALB/GLOB Ratio 0.9 RATIO (0.9-2.4); AST(SGOT) 26 U/L (15-37); Alanine Aminotransfer ALT/SGPT 24 U/L (16-61); Albumin, Serum 3.7 g/dL (3.2-5.0); Alkaline Phosphatase 51 U/L (45-117); Anion Gap 7 (5-15); BUN 9 mg/dL (7-18); BUN/Creat Ratio 11.7 RATIO (10-20); Calcium,Total 8.8 mg/dL (8.5-10.1); Chloride 101 mmol/L (98-107); Creatinine, Serum 0.77 mg/dL (0.70-1.30); EST Glomerular Filtration Rate 110 mL/min (>60); Est Glom Filt Rate - Afr Amer 134 mL/min (>60); Estimated Creatinine Clearance 119.62 ml/min; Globulin 4.2 g/dL (2.2-4.2); Glucose 90 mg/dL (74-106); Protein, Total 7.9 g/dL (6.4-8.2); Sodium Level 136 mmol/L (136-145)
[2020-02-01] MEDS: Phenobarbital 32.4 MG Tablet 97.2 MG PO (22:00)
[2020-02-01 22:03] VITALS: BP 125/84; PULSE 81; RESP 18; O2SAT 98
--- NOTE | 2020-02-01 22:22 | ED.VISSUMM ---
- ER Visit Summary Date of Service: 02/01/20 Chief Complaint: Do not feel right History of Present Illness: The patient is a 59 M who says he does not feel right. I asked him to explain, and he said he feels anxious. He drinks 6 tall boys tonight. He is requesting detox from alcohol. He has many visits for alcohol withdrawal and detox. He denies suicidal or homicidal thoughts. Physical Examination: Afebrile and vital signs unremarkable. Alert and oriented. Anxious. No acute distress. Heart regular. Lungs clear. Abdomen soft. Skin appears normal. Test Results: CMP unremarkable. Tox screen and alcohol pending. Emergency Department Course and Treatment: Patient treated phenobarbital awaiting results. I followed the addiction pathway. CMP unremarkable. Alcohol was 323. Tox screen is pending. Will contact the hospitalist for admission. Hospitalist reviewed the patient's prior visits. He had multiple visits for alcohol intoxication and withdrawal, including earlier this month. He will not be admitted today. He is referred for outpatient follow-up. Treatment Plan: As above Disposition: Discharge Impression: Alcohol intoxication This note was generated with [employer] dictation software. It may contain incorrect words, spelling, and punctuation that were not noted in review of the chart prior to signing ED Disposition - Plan for ED Patient: Referrals: Moriah Fernandez MD [Primary Care Provider] -
--- NOTE | 2020-02-01 22:41 | ED.DEP ---
ED Disposition - Plan for ED Patient: Instructions: Alcohol Intoxication Referrals: Moriah Fernandez MD [Primary Care Provider] -
[2020-02-01 22:53] LABS: Amphetamine Urine VISTA NEGATIVE (<1000 ng/mL); Barbiturate Urine VISTA NEGATIVE (< 200 ng/mL); Benzodiazepine Urine VISTA NEGATIVE (< 200 ng/mL); Cocaine Urine VISTA NEGATIVE (< 300 ng/mL); Ecstacy Urine VISTA NEGATIVE (< 500 ng/mL); Methadone Urine VISTA NEGATIVE (< 300 ng/mL); PCP Urine VISTA NEGATIVE (< 25 ng/mL); THC Urine VISTA NEGATIVE (< 50 ng/mL); Vista UDS pH Range 6
== END 2020-02-01 23:12 | disposition home or self-care (01) ==
PROVIDERS: Emergency Provider Emergency Medicine; PCP Internal Medicine
DX: F10.129 Alcohol abuse with intoxication, unspecified (principal); Y90.9 Presence of alcohol in blood, level not specified; I10 Essential (primary) hypertension; I48.91 Unspecified atrial fibrillation; Z79.01 Long term (current) use of anticoagulants; Z79.899 Other long term (current) drug therapy
CPT/HCPCS: 36415; 80053; 80307; 80320; 99284; G0480

== ENCOUNTER 2020-04-19 13:12 | Inpatient (IN) | payer MEDICAID, SELFPAY ==
[2020-04-19] VITALS (9 sets, daily range): BP systolic 79–121; BP diastolic 63–79; PULSE 67–96; RESP 16–27; TEMP 36.2–36.9; O2SAT 93–97; BMI 29.7; BMI 30.9; BMI 30.8
--- NOTE | 2020-04-19 13:28 | EKG12_ITS ---
Test Reason : NSR Blood Pressure : / mmHG Vent. Rate : 079 BPM Atrial Rate : 079 BPM P-R Int : 284 ms QRS Dur : 106 ms QT Int : 448 ms P-R-T Axes : 040 038 054 degrees QTc Int : 513 ms Sinus rhythm with 1st degree A-V block Abnormal ECG When compared with ECG of 19-APR-2020 13:21, MANUAL COMPARISON REQUIRED, DATA IS UNCONFIRMED Confirmed by RACHELLE IBRAHIM, RACHEL ([id number]), video editor EMANUEL DOZIER ([id number]) on 04/23/2020 10:38:08 AM Referred By: Alex HERNANDEZ Confirmed By:RACHEL BUSH MD
--- NOTE | 2020-04-19 13:35 | ED.DCSUM_ITS ---
- ER Visit Summary Date of Service: 04/19/20 Chief Complaint: Syncope History of Present Illness: The patient is a 59 M presenting after syncopal episode. Patient was staying with his friends. He he has passed out several times in the past few days. States typically has a warning before he passes out but today had no warning and fell. He denies injury with the fall. He admits to drinking beer last night. He denies heavy drinking. He denies chest pain. He complains of chronic shortness of breath. He has nausea vomiting. He states he vomits every morning. He denies fever cough or other complaints. Physical Examination: Blood pressure 79/68. Patient is afebrile. Alert no acute distress. HEENT exam is unremarkable. Neck is supple. Lungs are clear and equal bilaterally. Heart is regular rate and rhythm. Abdomen is soft nontender nondistended. Extremities are unremarkable. Skin is warm and dry. No focal neurologic deficit. Remainder of exam is unremarkable. Emergency Department Course and Treatment: EKG is A. fib with PVCs and artifact rate of 76. CBC, chemistries show sodium 128. AST 63. Troponin negative. Lactic acid 3.0. D-dimer negative. Alcohol level 306. Repeat blood pressure 101/79. Due to his multiple syncopal episodes discussed with the hospitalist for admission. Disposition: Admission Impression: Syncope, alcohol intoxication This note was generated with [employer] dictation software. It may contain incorrect words, spelling, and punctuation that were not noted in review of the chart prior to signing ED Disposition - Plan for ED Patient:
[2020-04-19] MEDS: 0.9% Normal Saline 1,000 ML 1000 ML IV (13:41)
[2020-04-19] MEDS: Ondansetron 4 MG/2 ML Vial IV (13:41)
--- NOTE | 2020-04-19 13:50 | RAD_ITS ---
STUDY: X-RAY CHEST REASON FOR EXAM: Male, 59 years old. SYNCOPE TECHNIQUE: Single AP portable view of the chest. COMPARISON: Comparison is made with prior examination dated January 13, 2020. FINDINGS: EKG electrodes are seen. Mild elevation of the right hemidiaphragm. The lungs are clear. There is no demonstrated pleural abnormality. Normal size heart. Normal mediastinum and kimberly. Normal visualized pulmonary arteries. Normal visualized aortic arch and descending thoracic aorta. Normal visualized thoracic spine. Normal visualized ribs, clavicles, and shoulders. There is no demonstrated abnormality of the visualized soft tissue structures of the upper abdomen. RAD/Chest 1 View (Portable) IMPRESSION: No acute abnormality is seen. Electronically Signed: Néstor Elizabeth, at 14:05 EDT , Service support ,
[2020-04-19 13:57] LABS: Absolute Lymphocyte Count 2.11 X10^3/uL (0.83-4.51); Absolute Neutrophil Count 2.7 X10^3/uL (2.0-7.7); Basophil# 0.04 X10^3/uL; Basophil% 0.7 % (0-1); Eosinophil# 0.08 X10^3/uL; Eosinophils% 1.4 % (0-5); Hematocrit 39.5 % (40-54); Hemoglobin 14.2 g/dL (13.0-16.5); Lymphocyte # 2.11 X10^3/ul (4.0); Lymphocyte % 37.1 % (19-41); Mean Corp Hgb Conc 35.9 g/dL (32-36); Mean Corpuscular Hgb 33.4 pg (27.0-32.0); Mean Corpuscular Volume 92.9 fL (80-94); Mean Platelet Vol. 8.8 fl (6.2-12.0); Monocyte# 0.72 X10^3/uL; Monocyte% 12.7 % (0-10); NRBC Flagged by Analyzer 0 % (0-5); Neutrophil # 2.72 X10^3/uL (2.7-7.7); Neutrophil % 47.7 % (47-70); Platelet Count 243 K/mm3 (150-450); RBC Distribution Width CV 12.2 % (11.6-14.6); RBC Distribution Width SD 40.9 fl (35.1-43.9); Red Blood Count 4.25 M/mm3 (4.6-6.2); White Blood Count 5.7 K/mm3 (4.4-11.0)
[2020-04-19 14:09] LABS: D-Dimer Quantitative (DVT/PE) 0.28 FEU/ug/m (0.27-0.49)
[2020-04-19 14:26] LABS: ALB/GLOB Ratio 0.7 RATIO (0.9-2.4); AST(SGOT) 63 U/L (15-37); Alanine Aminotransfer ALT/SGPT 39 U/L (16-61); Albumin, Serum 3.1 g/dL (3.2-5.0); Alkaline Phosphatase 62 U/L (45-117); Anion Gap 10 (5-15); BUN 10 mg/dL (7-18); BUN/Creat Ratio 8.8 RATIO (10-20); Calcium,Total 8.4 mg/dL (8.5-10.1); Chloride 94 mmol/L (98-107); Creatinine, Serum 1.14 mg/dL (0.70-1.30); EST Glomerular Filtration Rate 70 mL/min (>60); Est Glom Filt Rate - Afr Amer 85 mL/min (>60); Globulin 4.3 g/dL (2.2-4.2); Glucose 101 mg/dL (74-106); Potassium 4.4 mmol/L (3.5-5.1); Protein, Total 7.4 g/dL (6.4-8.2); Sodium Level 128 mmol/L (136-145)
[2020-04-19] MEDS: 0.9% Normal Saline 1,000 ML 999 ML IV ×2 (14:52→17:53)
--- NOTE | 2020-04-19 17:01 | NURSING ---
PCU OBS DAVID SYNCOPE, ALCOHOL INTOXICATION
--- NOTE | 2020-04-19 17:26 | HP.PCM_ITS ---
History of Present Illness Date of Admission: 04/19/20 The patient is a 59 year old M who presented to the ED today for rib pain on the R s/p fall. He states that he was with his friends and he has been passing out periodically. He states that everything goes black when this happens to him and seems to happen for now reason. he has chronic SOB and is blind in his L eye. He denies heavy drinking but his blood EtOH level on admission was 306. He does admit to drinking 3 24 oz beers daily and states that his last drink was today at about 11 am. He states that today he remembers walking through a door way and then fell but that is all the detail he remembers. He has a h/o atrial fibrillation for which he is to be on Amiodarone, Xarelto and a BB. It doesn't sound like he is that compliant with his medications. He does state that he was cardioverted at one time and hasn't really ever followed up and has assumed that since that time he was in NSR. He has been having these syncopal episodes over the last few months. His Na was 128, AST 63 with a nml ALT, Troponin was WNL, Lactic acid was 3 and D-dimer was WNL. His BP has fluctuated but was 82/62 when I evaluated him. Sats were stable on RA and HR was 96. He states that he is willing to go through EtOH detox here. He denies ANEUDY but O2 sats were 57% when i entered the room but franco quickly to 95% on RA when I awoken him. Past Medical History Past Medical History (Chronic Problems): Chronic Problems Atrial flutter (Chronic) Wide-complex tachycardia (Chronic) Legally blind in left eye, as defined in [place] (Chronic) Premature atrial contraction (Chronic) Essential hypertension (Chronic) Paroxysmal atrial fibrillation (Chronic) DCCV with NICKOLAS on 07/11/2019; Alcohol abuse (Chronic) Medical History: Medical History (Last Updated 07/18/19 @ 08:38 by TONIA PhillipsC) Legally blind in left eye, as defined in [place] (Chronic) H54.8 Premature atrial contraction (Chronic) I49.1 Essential hypertension (Chronic) I10 Paroxysmal atrial fibrillation (Chronic) I48.0 DCCV with NICKOLAS on 07/11/2019; Alcohol abuse (Chronic) F10.10 Depression F32.9 Neuropathy G62.9 Atrial fibrillation with RVR I48.91 Delirium tremens (Resolved) F10.231 TIA (transient ischemic attack) G45.9 Allergies No Known Allergies Allergy (Verified 04/19/20 13:13) Home Medications: Ambulatory Orders Medication Instructions Recorded Folic Acid 1 mg PO DAILY 01/13/20 Multivitamin [Tab-A-Rm] 1 ea PO DAILY 01/13/20 Thiamine HCl [Vitamin B-1] 100 mg PO DAILY 01/13/20 Rivaroxaban [Xarelto] 20 mg PO DINNER #30 tab 01/16/20 Amiodarone HCl 200 mg PO DAILY 04/19/20 Gabapentin [Neurontin] 600 mg PO TIDCM 04/19/20 Metoprolol Succinate 200 mg PO DAILY 04/19/20 Omeprazole 20 mg PO DAILY 04/19/20 Surgical History: Surgical History (Last Reviewed 01/13/20 @ 17:08 by ISAIAS Kwok) History of elbow surgery Z98.890 History of tonsillectomy Z90.89 Psychiatric History: No pertinent psych hx Smoking Status: Never smoker - *Family History Maternal Family History: Family History (Last Reviewed 01/13/20 @ 17:09 by ISAIAS Kwok) Mother Cancer Diabetes Brother Cancer Grandfather Heart disease Grandfather History of stroke Grandmother CVA (cerebral vascular accident) History Items: Cancer, Hypertension, Stroke Paternal Family History: Family History (Last Reviewed 01/13/20 @ 17:09 by ISAIAS Kwok) Mother Cancer Diabetes Brother Cancer Grandfather Heart disease Grandfather History of stroke Grandmother CVA (cerebral vascular accident) History Items: Hypertension, Stroke Sibling Family History: Family History (Last Reviewed 01/13/20 @ 17:09 by ISAIAS Kwok) Mother Cancer Diabetes Brother Cancer Grandfather Heart disease Grandfather History of stroke Grandmother CVA (cerebral vascular accident) History Items: Cancer Review of Systems Constitutional: Denies: Anorexia, Chills, Fever, Night Sweats, Malaise, Weakness, Weight Change, Fatigue Eyes: Reports: - - blind L. Denies: Blurred vision, Cataracts, Conjunctivae Inflammation, Double vision, Drainage, Eyelid Inflammation, Pain, Redness, Vision Change HEENT: Denies: Difficulty Hearing, Difficulty Swallowing, Dysphasia, Ear Pain, Eye Pain, Hard of Hearing, Head Aches, Hearing Changes, Nasal bleeding, Nasal Congestion, Post Nasal Drip, Sinus Congestion, Sinus Drainage, Sore Throat, Visual Changes Cardiovascular: Reports: Chest Pain - R Ribs, Syncope. Denies: Claudication, Chest Pressure, Chest Tightness, Edema, Heaviness, Light Headedness, Orthopnea, Paroxysmal Noc. Dyspnea Respiratory: Reports: Shortness of Breath. Denies: Cough, Hemoptysis, Pleuritic Pain, Shortness of breath at rest, Shortness of breath upon exertion, Sputum production, Wheezing Gastrointestinal: Reports: Nausea, Vomiting - daily in am. Denies: Abdominal Pain, Constipation, Diarrhea, Dyspepsia, Hematemesis, Hematochezia, Melena Genitourinary: Denies: Dysuria, Frequency, Hesitancy, Incontinence, Nocturia, Retention, Urgency Musculoskeletal: Reports: Back Pain, - - R Rib pain. Denies: Arm Pain, Foot Pain, Hand Pain, Joint Pain, Joint stiffness, Joint swelling, Joint Tenderness, Leg Pain, Muscle pain, Neck Pain, Shoulder Pain Skin: Denies: Dryness, Jaundice, Lesions, Pruritis, Rash, Skin Changes, Wounds Neurological: Reports: Balance problems, Tingling - feet. Denies: Blurred vision, Double vision, Change in Speech, Slurred speech, Confusion, Difficulty swallowing, Focal weakness, Headaches, Numbness, Tremor, Seizures Psychiatric: Denies: Anxiety, Depression, Homicidal Ideations, Suicidal Ideations Endocrine: Denies: Change in Body Habitus, Heat/ Cold Intolerance, Polydipsia, Polyuria, Hx of Irradiation, Hx of Thyroiditis Hematologic/ Lymphatic: Denies: Adenopathy, Anemia, Easy Bruising, Easy Bleeding, Petechiae, Purpura, Hx of blood clot, Hx of blood transfusion Unable to obtain accurate/complete ROS d/t: difficut to obtain as pt in somewhat of a stupor VTE Information - Inpt Only VTE Present on Admission: No VTE Pharm Prophylaxis ordered?: Yes - Physical Exam Vitals/I&O's: Vital Signs Temp Pulse Resp BP Pulse Ox 98.4 F 96 19 H 82/63 L 95 04/19/20 17:11 04/19/20 17:11 04/19/20 17:11 04/19/20 17:11 04/19/20 17:11 Oxygen Delivery Method Room Air Weight: 106.4 kg Body Mass Index (BMI) 30.9 Finger Stick Blood Glucose 105 Intake and Output for Last 24 Hours 04/17/20 04/18/20 04/19/20 23:59 23:59 23:59 Intake Total 1999 Balance 1999 General: Oriented x3 - delayed responses, Cooperative, No apparent distress, Well developed, Well nourished, - - sleeping upon my arrival with SpO2 54% but franco to 95% when I awoken him HEENT: Atraumatic, PERRLA, EOMI, Normocephalic, EAC Clear Oral: Moist Mucosa, No Gingival or Mucosal Lesions/ Ulcerations, - - Mallampati 3, no thrush, fair dentition Neck: Supple, No JVD, Negative Carotid Bruits, Negative Hepatojugular Reflux, No Nodes, No Nuchal Rigidity, Trachea Midline, Thyroid Normal Size and Texture Lungs: Clear to auscultation, Normal air movement, No rhonchi, No wheeze, No rales Cardiovascular: Regular rate, Normal S1, Normal S2, No murmurs, No Ectopic Activity, No rub noted, No Gallop, - - irreg rhythm Abdomen: Bowel Sounds Present, Soft, Non Tender, Non-Distended, No Hepato- splenomegaly, Obese, No hernias noted Extremities: No clubbing, No cyanosis, No edema, Capillary Refill Less than 3 Seconds, Peripheral Pulses Normal Skin: No rashes, No breakdown Musculoskeletal: No Muscle Wasting, Tenderness - R Ribs from axilla to inf ribs Lymphatic: No Cervical, Supraclavicular, or Inguinal Adenopathy Neurological: Cranial nerves II-XII grossly intact, Deep Tendon Reflexes 2+/4 and Symmetrical, Neuro grossly intact, Motor Exam 5/5 strength throughout, - - coordination slowed Psych/Mental Status: - - intoxicated but appropriate at this time Laboratory Results 04/19/20 13:30: WBC 5.7, RBC 4.25 L, Hgb 14.2, Hct 39.5 L, MCV 92.9, MCH 33.4 H, MCHC 35.9, RDW Std Deviation 40.9, RDW Coeff of Kaylen 12.2, Plt Count 243, MPV 8.8, Immature Gran % (Auto) 0.400, Neut % (Auto) 47.7, Lymph % (Auto) 37.1, Harlan % (Auto) 12.7 H, Eos % (Auto) 1.4, Baso % (Auto) 0.7, Absolute Neuts (auto) 2.7, Absolute Lymphs (auto) 2.11, Nucleated RBC % 0 04/19/20 13:30: Sodium 128 L, Potassium 4.4, Chloride 94 L, Carbon Dioxide 24.0, Anion Gap 10, BUN 10, Creatinine 1.14, Estim Creat Clear Calc 80.80, Est GFR (MDRD) Af Amer 85, Est GFR (MDRD) Non-Af 70, BUN/Creatinine Ratio 8.8 L, Glucose 101, Calcium 8.4 L, Total Bilirubin 0.80, AST 63 H, ALT 39, Alkaline Phosphatase 62, Troponin I < 0.015, Total Protein 7.4, Albumin 3.1 L, Globulin 4.3 H, Albumin/Globulin Ratio 0.7 L 04/19/20 13:30: Ethyl Alcohol 306.0 H* 04/19/20 13:30: D-Dimer Quant (PE/DVT) 0.28 04/19/20 13:30: Lactic Acid 3.0 H* Assessment/Plan All Active Problems (Last Updated 07/18/19 @ 08:38 by Lalo Juarez, CONCESSION CASHIER-C) Alcohol intoxication (Acute) Atrial fibrillation and flutter (Resolved) Atrial fibrillation with rapid ventricular response (Resolved) Atrial flutter with rapid ventricular response (Resolved) Delirium tremens (Resolved) Hypotension -admit to PCU -suspect dehydration -LR at 75 cc/hr with 1 more L bolus -trend -hold Metoprolol scheduled and use only PRN Acute EtOH Intoxication with h/o Withdrawal/DT's -Phenobarb 64.8 q 8 hrs -may need to increase dose -Ativan PRN q 4 hrs -CIWA q 2 hrs -thiamine 200 mg x 3 days -folate -will need outpt f/u Lactic acidosis -repeat now and if remains elevated repeat bolus and repeat -doubt sepsis Syncope -check echo -cycle troponins -? related to A-fib -cards consultation Atrial Fibrillation -has h/o but pt not aware that he was in fib again -h/o DCC -suspect related to EtOH consumption and untreated ANEUDY -check TSH -continue Amiodarone -hold BB scheduled but will use prn for HR > 110 -Hold xarelto 2/2 interaction with phenobarb -therapeutic Lovenox for now and then convert -with falls ant EtOH risk may be > benefit at this time R Rib pain -CXR neg -check r rib views in am -no ecchymosis at this time/hgb WNL Neuropathy continue Gabapentin H/O TIA -stable Suspected ANEUDY -CPAP at hs -needs outpt PSG as has never been tested -SpO2 54% while sleeping GERD -PPI DVT Prophylaxis -Full dose Lovenox for now Inpatient E&M: [id number] Init Hosp L3
[2020-04-19 17:56] LABS: Reflex Lactate? Y
[2020-04-19] MEDS: oxyCODONE 5 MG Tablet PO (18:27)
[2020-04-19] MEDS: Lactated Ringers 1,000 ML 75 ML IV (18:55)
[2020-04-19] MEDS: Thiamine Hydrochloride 100 MG Tablet 200 MG PO (18:56)
--- NOTE | 2020-04-19 19:00 | EKG12_ITS ---
Test Reason : Blood Pressure : / mmHG Vent. Rate : 076 BPM Atrial Rate : 078 BPM P-R Int : 000 ms QRS Dur : 100 ms QT Int : 442 ms P-R-T Axes : 000 048 055 degrees QTc Int : 497 ms Atrial fibrillation with premature ventricular or aberrantly conducted complexes ST elevation consider inferior injury or acute infarct Prolonged QT Abnormal ECG Confirmed by RACHELLE IBRAHIM, RACHEL ([id number]), assistant editor BRITTNEY GUZMÁN ([id number]) on 04/22/2020 1:24:40 PM Referred By: THALIA Confirmed By:RACHEL BUSH MD
[2020-04-19 19:44] LABS: Lactic Acid 2.4 mmol/L (0.4-1.9)
[2020-04-19 20:06] LABS: Magnesium 1.5 mg/dL (1.6-2.6)
[2020-04-19] MEDS: Phenobarbital 32.4 MG Tablet 64.8 MG PO ×2 (20:11→23:46)
[2020-04-19] MEDS: Enoxaparin 120 MG/0.8 ML Syringe 110 MG SC (21:30)
[2020-04-19] MEDS: 0.9% Saline Lock 10 ML Syringe IV (21:30)
[2020-04-19 21:40] LABS: Bedside Glucose 111 mg/dL (70-110)
[2020-04-19 22:50] LABS: Phosphorus 3.6 mg/dL (2.5-4.9)
[2020-04-19] MEDS: Morphine 2 MG/ML Syringe IV (23:05)
--- NOTE | 2020-04-19 23:24 | CPS ---
pt does not wear cpap at home, and does not wish to have it here but agreed to 2L nasal o2 over night
[2020-04-19 23:36] LABS: Amphetamine Urine VISTA NEGATIVE (<1000 ng/mL); Barbiturate Urine VISTA NEGATIVE (< 200 ng/mL); Benzodiazepine Urine VISTA NEGATIVE (< 200 ng/mL); Cocaine Urine VISTA NEGATIVE (< 300 ng/mL); Ecstacy Urine VISTA NEGATIVE (< 500 ng/mL); Methadone Urine VISTA NEGATIVE (< 300 ng/mL); PCP Urine VISTA NEGATIVE (< 25 ng/mL); THC Urine VISTA NEGATIVE (< 50 ng/mL); Vista UDS pH Range 6
[2020-04-20] VITALS (12 sets, daily range): BP systolic 103–147; BP diastolic 64–94; PULSE 73–84; RESP 14–18; TEMP 36.4–36.8; O2SAT 94–98
[2020-04-20] MEDS: oxyCODONE 5 MG Tablet PO ×3 (00:28→20:06)
--- NOTE | 2020-04-20 00:50 | NURSING ---
Handoff given to Arben Fonseca RN
[2020-04-20] MEDS: Morphine 2 MG/ML Syringe IV ×2 (04:21→17:44)
[2020-04-20] MEDS: Phenobarbital 32.4 MG Tablet 64.8 MG PO ×5 (04:21→20:06)
[2020-04-20] MEDS: 0.9% Saline Lock 10 ML Syringe IV ×2 (04:21→17:44)
[2020-04-20] MEDS: Lactated Ringers 1,000 ML 75 ML IV ×2 (06:35→20:05)
[2020-04-20 06:36] LABS: Absolute Lymphocyte Count 1.03 X10^3/uL (0.83-4.51); Absolute Neutrophil Count 3.2 X10^3/uL (2.0-7.7); Basophil# 0.04 X10^3/uL; Basophil% 0.8 % (0-1); Eosinophil# 0.08 X10^3/uL; Eosinophils% 1.6 % (0-5); Hemoglobin 12.2 g/dL (13.0-16.5); Lymphocyte # 1.03 X10^3/ul (4.0); Lymphocyte % 20.6 % (19-41); Mean Corp Hgb Conc 34.9 g/dL (32-36); Mean Corpuscular Hgb 32.4 pg (27.0-32.0); Mean Corpuscular Volume 93.1 fL (80-94); Mean Platelet Vol. 8.7 fl (6.2-12.0); Monocyte# 0.62 X10^3/uL; Monocyte% 12.4 % (0-10); NRBC Flagged by Analyzer 0 % (0-5); Neutrophil # 3.21 X10^3/uL (2.7-7.7); Neutrophil % 64.2 % (47-70); Platelet Count 180 K/mm3 (150-450); RBC Distribution Width CV 12.2 % (11.6-14.6); Red Blood Count 3.76 M/mm3 (4.6-6.2)
[2020-04-20 06:45] LABS: Bedside Glucose 100 mg/dL (70-110)
[2020-04-20 07:14] LABS: AST(SGOT) 39 U/L (15-37); Alanine Aminotransfer ALT/SGPT 30 U/L (16-61); Albumin, Serum 2.7 g/dL (3.2-5.0); Alkaline Phosphatase 56 U/L (45-117); Anion Gap 8 (5-15); BUN 9 mg/dL (7-18); BUN/Creat Ratio 11.5 RATIO (10-20); Calcium,Total 7.9 mg/dL (8.5-10.1); Chloride 100 mmol/L (98-107); Creatinine, Serum 0.78 mg/dL (0.70-1.30); EST Glomerular Filtration Rate 108 mL/min (>60); Est Glom Filt Rate - Afr Amer 131 mL/min (>60); Estimated Creatinine Clearance 114.69 ml/min; Globulin 3.8 g/dL (2.2-4.2); Glucose 91 mg/dL (74-106); Magnesium 1.7 mg/dL (1.6-2.6); Phosphorus 3.2 mg/dL (2.5-4.9); Potassium 3.5 mmol/L (3.5-5.1); Protein, Total 6.5 g/dL (6.4-8.2); Sodium Level 135 mmol/L (136-145); Thyroid Stim Hormone (TSH) 0.94 uIU/mL (0.358-3.74)
[2020-04-20] MEDS: Multivitamins,Therapeutic Tablet 1 TABLET PO (08:07)
[2020-04-20] MEDS: Folic Acid 1 MG Tablet PO (08:07)
[2020-04-20] MEDS: Gabapentin 600 MG Tablet PO ×3 (08:07→16:30)
[2020-04-20] MEDS: Thiamine Hydrochloride 100 MG Tablet 200 MG PO (08:08)
--- NOTE | 2020-04-20 09:38 | RAD_ITS ---
STUDY: X-RAY - UNILATERAL RIBS ( RIGHT ) REASON FOR EXAM: Male, 59 years old. RIGHT SIDED RIB PAIN LATERALLY RADIATING POSTERIORLY. PATIENT STATES HE HAD SYNCOPAL EPISODES AND FELL SEVERAL TIMES. TECHNIQUE: 5 view(s) of the ribs. COMPARISON: None. FINDINGS: Normal visualized ribs without a demonstrated fracture. The visualized lung is clear and expanded. RAD/Ribs Unil 2V No CXR IMPRESSION: No evidence of acute rib fracture on examination. Electronically Signed: Davonte Ríos DO at 9:52 EDT , Service support ,
--- NOTE | 2020-04-20 10:12 | CON.PCM_ITS ---
Reason for Consult Date of Consultation: 04/20/20 Reason for Consultation: Presyncopal events. History of Present Illness: The patient is a 59 year old M with a history of hypertension, previous episodes of atrial fibrillation and significant alcohol use. This is his second admission in approximately 2 months with alcohol levels over 300. He was noted to have episodes of dizziness when he got up quickly from the seated position. It is unclear from his history whether he really passed out. He however did hit his ribs and was having some pain over there. On a similar admission he had had similar problems. He was in atrial fibrillation converted to sinus rhythm was put on amiodarone and Xarelto. It is not clear whether he has been very compliant with the above. He has had no chest pain. He has had an echocardiogram which demonstrated preserved ejection fraction in November 2019 as well as a transesophageal echocardiogram which also demonstrated preserved ejection fraction. At this particular time he appears to be pain-free. His presenting EKG demonstrated sinus rhythm with QT prolongation. His magnesium was 1.5 and he received magnesium infusion. Potassium was noted to be over 4. He was on amiodarone. [] Past Medical History Allergies/Adverse Reactions: Allergies No Known Allergies Allergy (Verified 04/19/20 13:13) Home Medications: Ambulatory Orders Medication Instructions Recorded Folic Acid 1 mg PO DAILY 01/13/20 Multivitamin [Tab-A-Rm] 1 ea PO DAILY 01/13/20 Thiamine HCl [Vitamin B-1] 100 mg PO DAILY 01/13/20 Rivaroxaban [Xarelto] 20 mg PO DINNER #30 tab 01/16/20 Amiodarone HCl 200 mg PO DAILY 04/19/20 Gabapentin [Neurontin] 600 mg PO TIDCM 04/19/20 Metoprolol Succinate 200 mg PO DAILY 04/19/20 Omeprazole 20 mg PO DAILY 04/19/20 Past Medical History (Chronic Problems): Chronic Problems Atrial flutter (Chronic) Wide-complex tachycardia (Chronic) Legally blind in left eye, as defined in [place] (Chronic) Premature atrial contraction (Chronic) Essential hypertension (Chronic) Paroxysmal atrial fibrillation (Chronic) DCCV with [facility] on 07/11/2019; Alcohol abuse (Chronic) Psychiatric History: No pertinent psych hx - *Family History Maternal Family History: Family History (Last Reviewed 01/13/20 @ 17:09 by ISAIAS Kwok) Mother Cancer Diabetes Brother Cancer Grandfather Heart disease Grandfather History of stroke Grandmother CVA (cerebral vascular accident) History Items: Cancer, Hypertension, Stroke Paternal Family History: Family History (Last Reviewed 01/13/20 @ 17:09 by ISAIAS Kwok) Mother Cancer Diabetes Brother Cancer Grandfather Heart disease Grandfather History of stroke Grandmother CVA (cerebral vascular accident) History Items: Hypertension, Stroke Sibling Family History: Family History (Last Reviewed 01/13/20 @ 17:09 by ISAIAS Kwok) Mother Cancer Diabetes Brother Cancer Grandfather Heart disease Grandfather History of stroke Grandmother CVA (cerebral vascular accident) History Items: Cancer Smoking Status: Never smoker Alcohol: Heavy Drugs: - Review of Systems - Review of Systems General: Denies: Fever, Night Sweats, Fatigue HEENT: Denies: Vision Change Cardiovascular: Reports: Dizziness, Near Syncope, Syncope. Denies: Chest Discomfort, Shortness of Breath, Orthopnea, PND, Peripheral Edema, Palpitations, Lightheadedness Respiratory: Denies: Cough, Sputum Production, Hemoptysis Gastrointestinal: Denies: Hematemesis, Hematochezia, Melena Genitourinary: Denies: Dysuria, Hematuria Muscoloskeletal: Denies: Myalgias Skin: Denies: Rash Neurological: Reports: Dizziness Psychiatric: Denies: Anxiety Endocrine: Denies: Unexplained Weight Loss Subjectve: Cooperative man in no distress at this time Objective: Vital Signs Temp Pulse Resp BP Pulse Ox 98.3 F 75 16 145/93 H 95 04/20/20 07:58 04/20/20 07:58 04/20/20 07:58 04/20/20 07:58 04/20/20 07:58 Oxygen Delivery Method Room Air Weight: 235 lb 0.204 oz Body Mass Index (BMI) 30.8 Finger Stick Blood Glucose 105 Intake and Output for Last 24 Hours 04/18/20 04/19/20 04/20/20 23:59 23:59 23:59 Intake Total 3464 / 3464 3475 / 3475 Output Total 950 / 950 1750 / 1750 Balance 2514 / 2514 1725 / 1725 General: Awake, Alert, Oriented x 3 HEENT: PERRL, EOMI, Sclera Non Icteric Neck: Supple, Good ROM, No Lymph Node Enlargement Lungs: Clear to auscultation Cardiovascular: Regular Rhythm, Normal S1, Normal S2, No Murmurs, No Rubs, No Gallops Vascular: No Carotid Bruits, Normal Femoral Pulses, Normal Radial Pulses, Normal Dorsalis Pedal Pulse, Normal Posterior Tibial Pulses Abdomen: Bowel Sounds Present, Soft, Non Tender, No HSM, No Organomegaly Extremities: No Cyanosis, No Clubbing, No edema Musculoskeletal: No Erythema Skin: No Rashes Lymphatic: No Lymph Node Enlargement Neurological: No Focal Motor or Sensory Deficit Psych/Mental Status: Anxious 04/19/20 13:30: WBC 5.7, RBC 4.25 L, Hgb 14.2, Hct 39.5 L, MCV 92.9, MCH 33.4 H, MCHC 35.9, Plt Count 243, MPV 8.8, Immature Gran % (Auto) 0.400, Neut % (Auto) 47.7, Lymph % (Auto) 37.1, [place] % (Auto) 12.7 H, Eos % (Auto) 1.4, Baso % (Auto) 0.7, Absolute Neuts (auto) 2.7, Nucleated RBC % 0 04/19/20 13:30: Sodium 128 L, Potassium 4.4, Chloride 94 L, Carbon Dioxide 24.0, Anion Gap 10, BUN 10, Creatinine 1.14, Est GFR (MDRD) Af Amer 85, Est GFR (MDRD) Non-Af 70, BUN/Creatinine Ratio 8.8 L, Glucose 101, Calcium 8.4 L, Total Bilirubin 0.80, Troponin I < 0.015 04/19/20 13:30: D-Dimer Quant (PE/DVT) 0.28 04/19/20 13:30: Lactic Acid 3.0 H* 04/19/20 18:20: Lactic Acid 2.4 H* 04/19/20 18:55: Troponin I < 0.015 04/19/20 18:55: Magnesium 1.5 L 04/19/20 21:20: Troponin I < 0.015 04/19/20 21:20: Phosphorus 3.6 04/20/20 00:52: Troponin I < 0.015 04/20/20 06:19: WBC 5.0, RBC 3.76 L, Hgb 12.2 L, Hct 35.0 L, MCV 93.1, MCH 32.4 H, MCHC 34.9, Plt Count 180, MPV 8.7, Immature Gran % (Auto) 0.400, Neut % (Auto) 64.2, Lymph % (Auto) 20.6, [place] % (Auto) 12.4 H, Eos % (Auto) 1.6, Baso % (Auto) 0.8, Absolute Neuts (auto) 3.2, Nucleated RBC % 0 04/20/20 06:19: Sodium 135 L, Potassium 3.5, Chloride 100, Carbon Dioxide 27.0, Anion Gap 8, BUN 9, Creatinine 0.78, Est GFR (MDRD) Af Amer 131, Est GFR (MDRD) Non-Af 108, BUN/Creatinine Ratio 11.5, Glucose 91, Calcium 7.9 L, Phosphorus 3.2, Magnesium 1.7, Total Bilirubin 0.70, Direct Bilirubin 0.20 Rhythm: EKG: Normal sinus rhythm with QT prolongation. ECHO: Preserved ejection fraction of 55% from echocardiogram in November 2019 Stress Test: Cardiac Cath: PCI: CT Surgery: Holter monitor: EPS: PPM: CXR: Chest CT Scan: Assessment/Plan 1. Presyncope * The etiology of the above is likely secondary to significant alcohol use and inebriation. He does have a history of atrial fibrillation but I doubt that this is causing him to be presyncopal. He does have QT prolongation likely secondary to his electrolytes abnormalities as well as amiodarone. He has been monitored overnight and no significant arrhythmias have been noted. * My recommendation at this time would be to discontinue the amiodarone and also to discontinue the Xarelto. He is at fairly high risk with his recurrent falls and his continued alcohol use for significant bleeding. * 2. 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 At this time I would recommend that we continue him on the beta-gloria only. * He has a CHADS VASC score of 1 and I would recommend no anticoagulation. The risk appears to outweigh the benefit with his alcohol use * 3. Hypertension * Continue current beta-gloria but would recommend a lower dose of 100 mg a day.. * * He can follow-up as an outpatient with his primary grocery clerk Dr. Burt.
[2020-04-20] MEDS: Enoxaparin 120 MG/0.8 ML Syringe 110 MG SC ×2 (11:01→22:02)
[2020-04-20] MEDS: Pantoprazole Sodium 20 MG Tablet PO (11:02)
--- NOTE | 2020-04-20 12:40 | CASEMGMT ---
SW met w/pt in room in regard to prior level of function and discharge plan, as well as alcohol abuse. PCP: Dr. Fernandez--though pt states is in the process of changing to a different doctor. Pt states he had an appointment yesterday with the new doctor but missed it. Insurance/Prescription coverage: [facility] [place] LW/POA: Pt has not completed LW/POA, may be interested in the future. SW gave pt copies of LW/POA forms with number to department to call should he want to complete these in the future. LNOK: Pt has listed his sister and daughter on demographics and pt confirmed this is who he would like listed. Living arrangements: Pt lives with a friend, and is independent with ADL's. Pt uses a cane at times. Pt does not drive, friends take him to the doctor when needed. Plan: Pt plans to return home at discharge, no homegoing needs are anticipated. SW spoke w/pt about alcohol use. Pt states was doing well for a while there and then got together with a friend and drank. Pt plans to follow up with Justin Cordero at discharge, pt states he called Lauren at [address] on Wednesday and will follow up with her on Wednesday. Pt declined any additional referrals. Pt also states plans to follow up w/[facility]. No further social service needs, pt plans to follow up w/Justin Eighty on Wednesday. JOSE C Reinoso
--- NOTE | 2020-04-20 13:35 | PN_ITS ---
<Myrna Hanson - Last Filed: 04/20/20 14:18> Subjective: Patient seen and examined. Complains of back pain. Denies shortness of breath, chest pain. Discussed with patient inpatient treatment for alcohol abuse given recurrent relapses. Patient states he is interested in inpatient treatment however he is moving from [place] to [place] and would not be able to go to inpatient for another week or so. He denies current significant withdrawal symptoms. - Physical Exam Vitals/I&O's: Vital Signs Temp Pulse Resp BP Pulse Ox 98.3 F 81 16 112/71 95 04/20/20 07:58 04/20/20 11:07 04/20/20 07:58 04/20/20 11:07 04/20/20 07:58 Oxygen Delivery Method Room Air Weight: 235 lb 0.204 oz Body Mass Index (BMI) 30.8 Finger Stick Blood Glucose 105 Orthostatic Vital Signs Start: 04/20/20 11:07 Freq: q24h Status: Active Protocol: Activity Type Activity Date Activity User E-Sign Co-Sign Detail Recorded Client Recorded Date Recorded By Document 04/20/20 11:07 PATRICIA [id number] 04/20/20 11:17 PATRICIA 04/20/20 11:07 Orthostatic Vitals Sitting -Blood Pressure (90/60-120/80) 110/73 -Extremity Use Right Arm -Pulse Rate (60-100) 84 Lying -Blood Pressure (90/60-120/80) 112/71 -Extremity Use Right Arm -Pulse Rate (60-100) 81 Intake and Output for Last 24 Hours 04/18/20 04/19/20 04/20/20 23:59 23:59 23:59 Intake Total 3464 / 3464 3693.75 / 3693.75 Output Total 950 / 950 1750 / 1750 Balance 2514 / 2514 1943.75 / 1943.75 General: Alert, Oriented x3, Cooperative, - - Upper extremity tremors HEENT: Atraumatic, PERRLA, EOMI, Normocephalic Neck: Supple, No JVD, Negative Carotid Bruits Lungs: Clear to auscultation, Normal air movement Cardiovascular: Regular rate, No murmurs Abdomen: Bowel Sounds Present, Soft, Non Tender Extremities: No edema, Capillary Refill Less than 3 Seconds Skin: No rashes, No breakdown Musculoskeletal: No Tenderness to Palpation of Joints or Extremities Neurological: Cranial nerves II-XII grossly intact, Neuro grossly intact Psych/Mental Status: Normal Affect, Appropriate Laboratory Results 04/19/20 13:30: WBC 5.7, RBC 4.25 L, Hgb 14.2, Hct 39.5 L, MCV 92.9, MCH 33.4 H, MCHC 35.9, RDW Std Deviation 40.9, RDW Coeff of Kaylen 12.2, Plt Count 243, MPV 8.8, Immature Gran % (Auto) 0.400, Neut % (Auto) 47.7, Lymph % (Auto) 37.1, [place] % (Auto) 12.7 H, Eos % (Auto) 1.4, Baso % (Auto) 0.7, Absolute Neuts (auto) 2.7, Absolute Lymphs (auto) 2.11, Nucleated RBC % 0 04/19/20 13:30: Sodium 128 L, Potassium 4.4, Chloride 94 L, Carbon Dioxide 24.0, Anion Gap 10, BUN 10, Creatinine 1.14, Estim Creat Clear Calc 80.80, Est GFR (MDRD) Af Amer 85, Est GFR (MDRD) Non-Af 70, BUN/Creatinine Ratio 8.8 L, Glucose 101, Calcium 8.4 L, Total Bilirubin 0.80, AST 63 H, ALT 39, Alkaline Phosphatase 62, Troponin I < 0.015, Total Protein 7.4, Albumin 3.1 L, Globulin 4.3 H, Albumin/Globulin Ratio 0.7 L 04/19/20 13:30: Ethyl Alcohol 306.0 H* 04/19/20 13:30: D-Dimer Quant (PE/DVT) 0.28 04/19/20 13:30: Lactic Acid 3.0 H* 04/19/20 18:20: Lactic Acid 2.4 H* 04/19/20 18:55: Troponin I < 0.015 04/19/20 18:55: Magnesium 1.5 L 04/19/20 21:20: Troponin I < 0.015 04/19/20 21:20: Phosphorus 3.6 04/19/20 21:37: POC Glucose 111 H 04/19/20 22:45: Urine Opiates Screen NEGATIVE, Urine Methadone Screen NEGATIVE, Ur Barbiturates Screen NEGATIVE, Ur Phencyclidine Scrn NEGATIVE, Ur Amphetamines Screen NEGATIVE, U Methamphetamin-MDMA NEGATIVE, U Benzodiazepines Scrn NEGATIVE, Urine Cocaine Screen NEGATIVE, U Cannabinoids Screen NEGATIVE, Ur Drug Screen Comment 04/20/20 00:52: Troponin I < 0.015 04/20/20 06:19: WBC 5.0, RBC 3.76 L, Hgb 12.2 L, Hct 35.0 L, MCV 93.1, MCH 32.4 H, MCHC 34.9, RDW Std Deviation 41.0, RDW Coeff of Kaylen 12.2, Plt Count 180, MPV 8.7, Immature Gran % (Auto) 0.400, Neut % (Auto) 64.2, Lymph % (Auto) 20.6, [place] % (Auto) 12.4 H, Eos % (Auto) 1.6, Baso % (Auto) 0.8, Absolute Neuts (auto) 3.2, Absolute Lymphs (auto) 1.03, Nucleated RBC % 0 04/20/20 06:19: Sodium 135 L, Potassium 3.5, Chloride 100, Carbon Dioxide 27.0, Anion Gap 8, BUN 9, Creatinine 0.78, Estim Creat Clear Calc 114.69, Est GFR (MDRD) Af Amer 131, Est GFR (MDRD) Non-Af 108, BUN/Creatinine Ratio 11.5, Glucose 91, Calcium 7.9 L, Phosphorus 3.2, Magnesium 1.7, Total Bilirubin 0.70, Direct Bilirubin 0.20, AST 39 H, ALT 30, Alkaline Phosphatase 56, Total Protein 6.5, Albumin 2.7 L, Globulin 3.8, TSH 0.94 04/20/20 06:35: POC Glucose 100 Current Medications Acetaminophen (Tylenol) 650 mg PO Q6H PRN PRN PRN Reason: Pain Score 1-3 /Temp>100.7 Albuterol Sulfate (Ventolin Aerosols) 2.5 mg INHALATION Q2H PRN PRN PRN Reason: SOB/Wheezing Dextrose (D50w Syringe) 0 gm IV X1 PRN; Protocol PRN Reason: Hypoglycemia Enoxaparin Sodium (Lovenox) 110 mg SC Q12 [facility] Last Admin: 04/20/20 11:01 Dose: 110 mg Documented by: Folic Acid (Folic Acid) 1 mg PO DAILY@0800 [facility] Last Admin: 04/20/20 08:07 Dose: 1 mg Documented by: Gabapentin (Neurontin) 600 mg PO TIDCM [facility] Last Admin: 04/20/20 11:02 Dose: 600 mg Documented by: Glucagon () 1 mg IM .X1 PRN PRN Reason: Hypoglycemia Lactated Ringer's () 1,000 mls @ 75 mls/hr IV .[id number] [facility] Last Infusion: 04/20/20 10:05 Dose: 75 mls/hr Documented by: Lorazepam (Ativan) 2 mg IV Q4H PRN PRN PRN Reason: Alcohol Withdrawal Melatonin (Melatonin) 3 mg PO QHS PRN PRN PRN Reason: INSOMNIA Metoprolol Tartrate (Lopressor (Beta Fred)) 5 mg IV Q6H PRN PRN PRN Reason: CARDIAC ARRYTHMIA Morphine Sulfate () 2 mg IV Q4H PRN PRN PRN Reason: Pain Score 6-10/10 Last Admin: 04/20/20 04:21 Dose: 2 mg Documented by: Multivitamins (Multivitamin) 1 tablet PO DAILY@0800 [facility] Last Admin: 04/20/20 08:07 Dose: 1 tablet Documented by: Nutritional Formula (Lactose Free) (Ensure Enlive) 120 ml PO 4X/DAY [facility] Last Admin: 04/20/20 11:01 Dose: 120 ml Documented by: Ondansetron HCl (Zofran) 4 mg IV Q8H PRN PRN PRN Reason: NAUSEA/VOMITING Oxycodone HCl (Oxyir) 5 mg PO Q6H PRN PRN PRN Reason: Pain Score 1-5/10 Last Admin: 04/20/20 12:08 Dose: 5 mg Documented by: Pantoprazole Sodium (Protonix) 20 mg PO DAILY [facility] Last Admin: 04/20/20 11:02 Dose: 20 mg Documented by: Phenobarbital (Phenobarbital) 97.2 mg PO Q4H [facility]; Taper Stop: 04/24/20 03:59 Last Admin: 04/20/20 12:06 Dose: 97.2 mg Documented by: Senna/Docusate Sodium (Senokot-S, Edith-Colace) 2 tablet PO BID PRN PRN PRN Reason: Constipation Sodium Chloride () 10 - 40 ml IV UD PRN PRN Reason: SALINE FLUSH Last Admin: 04/20/20 04:21 Dose: 10 ml Documented by: [facility]) [facility] Stop: 04/21/20 23:59 Last Admin: 04/20/20 08:08 Dose: 200 mg Documented by: Medical Necessity - Tobacco Use Smoking Status: Never smoker Assessment/Plan All Active Problems (Last Updated 07/18/19 @ 08:38 by ISAIAS Phillips) Alcohol intoxication (Acute) Atrial fibrillation and flutter (Resolved) Atrial fibrillation with rapid ventricular response (Resolved) Atrial flutter with rapid ventricular response (Resolved) Delirium tremens (Resolved) 1. Alcohol withdrawal/chronic alcohol abuse, history of DTs-medical stabilization per alcohol withdrawal protocol. Phenobarbital taper. CIWA. Alcohol level 306 on admission. Continue folic acid, multivitamin and thiamine. Patient well-known to Gwendolyn, reports he has follow up on Wednesday. Discussed inpatient treatment, agreeable however states he is in process of moving. Will have him further discuss with Gwendolyn as outpatient. 2. Presyncope-likely secondary to #1. Alcohol level significantly elevated as noted above. No significant arrhythmias noted on telemetry. Echo at [facility] facility 11/26/2019 demonstrated EF 65%. Will not repeat echo at this time. Troponin negative. 3. Atrial fibrillation with RVR, paroxysmal atrial fibrillation/atrial flutter- Converted to sinus rhythm. Suspect PAF exacerbated by heavy alcohol use. Cardiology following. Echo in November as noted above. Discontinue amiodarone and Xarelto given heavy alcohol use. Reduce metoprolol to 100 mg daily. 4. Hypertension-continue metoprolol. 5. GERD-continue PPI. DVT prophylaxis- Lovenox sc Discharge planning: Home with outpatient follow-up pending alcohol withdrawal protocol. This patient was seen by ISAIAS Kwok under the supervision of Dr. Vargas. <Aj Vargas - Last Filed: 04/21/20 13:27> Subjective: Patient complain of right-sided back pain mainly over right lower ribs secondary to fall. X-rays ribs revealed no fracture. Patient has shaking, tremor secondary to alcohol withdrawal. Patient drinks heavily, 6-8 beers every day. - Physical Exam Vitals/I&O's: Vital Signs Temp Pulse Resp BP Pulse Ox 98.4 F 88 16 128/83 H 96 04/21/20 09:57 04/21/20 10:49 04/21/20 09:57 04/21/20 10:49 04/21/20 09:57 Oxygen Delivery Method Room Air Weight: 235 lb 3.2 oz Body Mass Index (BMI) 30.8 Finger Stick Blood Glucose 105 Orthostatic Vital Signs Start: 04/20/20 11:07 Freq: Status: Active Protocol: Activity Type Activity Date Activity User E-Sign Co-Sign Detail Recorded Client Recorded Date Recorded By Document 04/20/20 11:07 PATRICIA [id number] 04/20/20 11:17 PATRICIA 04/20/20 11:07 Orthostatic Vitals Sitting -Blood Pressure (90/60-120/80) 110/73 -Extremity Use Right Arm -Pulse Rate (60-100) 84 Lying -Blood Pressure (90/60-120/80) 112/71 -Extremity Use Right Arm -Pulse Rate (60-100) 81 Intake and Output for Last 24 Hours 04/19/20 04/20/20 04/21/20 23:59 23:59 23:59 Intake Total 3464 / 3464 4443.75 / 4443.75 2521.25 / 2521.25 Output Total 950 / 950 1750 / 1750 2250 / 2250 Balance 2514 / 2514 2693.75 / 2693.75 271.25 / 271.25 General: Alert, Oriented x3, Cooperative, - - Upper extremity tremors No hallucination or delusion. HEENT: Atraumatic, PERRLA, EOMI, Normocephalic Neck: Supple, No JVD, Negative Carotid Bruits Lungs: Clear to auscultation, Normal air movement, No rhonchi, No wheeze, No rales Cardiovascular: Regular rate, Regular Rhythm, Normal S1, Normal S2, No murmurs Abdomen: Bowel Sounds Present, Soft, Non Tender, Non-Distended Extremities: No edema, Capillary Refill Less than 3 Seconds Skin: No rashes, No breakdown Musculoskeletal: Tenderness - Tenderness present over right posterolateral ribs. No open wound or ulcer or bruise Neurological: Cranial nerves II-XII grossly intact, Deep Tendon Reflexes 2+/4 and Symmetrical, Neuro grossly intact Psych/Mental Status: Normal Affect, Appropriate Laboratory Results 04/21/20 05:50: WBC 6.0, RBC 3.84 L, Hgb 12.4 L, Hct 36.6 L, MCV 95.3 H, MCH 32.3 H, MCHC 33.9, RDW Std Deviation 42.8, RDW Coeff of Kaylen 12.3, Plt Count 168, MPV 9.1 04/21/20 05:50: Sodium 134 L, Potassium 3.9, Chloride 95 L, Carbon Dioxide 31.0, Anion Gap 8, BUN 6 L, Creatinine 0.83, Estim Creat Clear Calc 107.78, Est GFR (MDRD) Af Amer 123, Est GFR (MDRD) Non-Af 101, BUN/Creatinine Ratio 7.2 L, Glucose 115 H, Calcium 8.7 Current Medications Acetaminophen (Tylenol) 650 mg PO Q6H PRN PRN PRN Reason: Pain Score 1-3 /Temp>100.7 Albuterol Sulfate (Ventolin Aerosols) 2.5 mg INHALATION Q2H PRN PRN PRN Reason: SOB/Wheezing Dextrose (D50w Syringe) 0 gm IV X1 PRN; Protocol PRN Reason: Hypoglycemia Enoxaparin Sodium (Lovenox) 40 mg SC DAILY@0600 [facility] Folic Acid (Folic Acid) 1 mg PO DAILY@0800 [facility] Last Admin: 04/21/20 08:06 Dose: 1 mg Documented by: Gabapentin (Neurontin) 600 mg PO TIDCM [facility] Last Admin: 04/21/20 12:24 Dose: 600 mg Documented by: Glucagon () 1 mg IM .X1 PRN PRN Reason: Hypoglycemia Lactated Ringer's () 1,000 mls @ 75 mls/hr IV .[id number] [facility] Last Admin: 04/21/20 08:06 Dose: 75 mls/hr Documented by: Lorazepam (Ativan) 2 mg IV Q4H PRN PRN PRN Reason: Alcohol Withdrawal Melatonin (Melatonin) 3 mg PO QHS PRN PRN PRN Reason: INSOMNIA Last Admin: 04/21/20 00:18 Dose: 3 mg Documented by: Metoprolol Succinate (Toprol Xl (Beta Fred)) 100 mg PO DAILY [facility] Last Admin: 04/21/20 10:49 Dose: 100 mg Documented by: Morphine Sulfate () 2 mg IV Q4H PRN PRN PRN Reason: Pain Score 6-10/10 Last Admin: 04/20/20 17:44 Dose: 2 mg Documented by: Multivitamins (Multivitamin) 1 tablet PO DAILY@0800 [facility] Last Admin: 04/21/20 08:06 Dose: 1 tablet Documented by: Nutritional Formula (Lactose Free) (Ensure Enlive) 120 ml PO 4X/DAY [facility] Last Admin: 04/21/20 10:48 Dose: 120 ml Documented by: Ondansetron HCl (Zofran) 4 mg IV Q8H PRN PRN PRN Reason: NAUSEA/VOMITING Oxycodone HCl (Oxyir) 5 mg PO Q6H PRN PRN PRN Reason: Pain Score 1-5/10 Last Admin: 04/21/20 10:52 Dose: 5 mg Documented by: Pantoprazole Sodium (Protonix) 20 mg PO DAILY [facility] Last Admin: 04/21/20 10:48 Dose: 20 mg Documented by: Phenobarbital (Phenobarbital) 32.4 mg PO BID [facility] Senna/Docusate Sodium (Senokot-S, Edith-Colace) 2 tablet PO BID PRN PRN PRN Reason: Constipation Sodium Chloride () 10 - 40 ml IV UD PRN PRN Reason: SALINE FLUSH Last Admin: 04/20/20 17:44 Dose: 10 ml Documented by: Thiamine HCl (Vitamin B1) 200 mg PO DAILYCM [facility] Stop: 04/21/20 23:59 Last Admin: 04/21/20 08:06 Dose: 200 mg Documented by: Assessment/Plan This patient was seen in conjunction with GALLEY BOY, Myrna. I have independently interviewed and examined the patient and reviewed pertinent history, examination findings, laboratory and plan of management. I have reviewed the note and agree with the documented findings with the few additional points. In brief, patient is 59 question intermittent is admitted after fall with right lower chest rib pain and hypotension. Patient has been passing out periodically. Patient drinks heavily every day about 6-8 beers dear. Patient had syncopal event about 5 years ago which led to head injury, aspiration pneumonia and prolonged ICU stay in [place]. Blood pressure has recovered. Currently patient is undergoing alcohol withdrawal with tremors, anxiety attack. Started on phenobarbital based treatment along with other supportive medications. On CIWA monitoring. Alcohol level was 306 on admission. Other comorbidities as mentioned above includes paroxysmal A. fib/a flutter with RVR. Heart rate is controlled GERD, hypertension Chronic alcohol use and dependence: Hypomagnesemia, magnesium replaced. Continue folic acid, multivitamin thiamine. I have discussed my assessment with GALLEY BOYMyrna and orders have been reviewed. Inpatient E&M: 33598 Subs Hosp L2
[2020-04-21] VITALS (11 sets, daily range): BP systolic 128–154; BP diastolic 76–98; PULSE 70–88; RESP 10–18; TEMP 36.7–37; O2SAT 93–98
[2020-04-21] MEDS: Phenobarbital 32.4 MG Tablet 64.8 MG PO ×3 (00:18→08:06)
[2020-04-21] MEDS: MELATONIN 3 MG TABLET PO ×2 (00:18→22:08)
[2020-04-21] MEDS: oxyCODONE 5 MG Tablet PO ×3 (03:50→16:53)
[2020-04-21 06:22] LABS: Hematocrit 36.6 % (40-54); Hemoglobin 12.4 g/dL (13.0-16.5); Mean Corp Hgb Conc 33.9 g/dL (32-36); Mean Corpuscular Hgb 32.3 pg (27.0-32.0); Mean Corpuscular Volume 95.3 fL (80-94); Mean Platelet Vol. 9.1 fl (6.2-12.0); Platelet Count 168 K/mm3 (150-450); RBC Distribution Width CV 12.3 % (11.6-14.6); RBC Distribution Width SD 42.8 fl (35.1-43.9); Red Blood Count 3.84 M/mm3 (4.6-6.2)
[2020-04-21 06:50] LABS: Anion Gap 8 (5-15); BUN 6 mg/dL (7-18); BUN/Creat Ratio 7.2 RATIO (10-20); Calcium,Total 8.7 mg/dL (8.5-10.1); Chloride 95 mmol/L (98-107); Creatinine, Serum 0.83 mg/dL (0.70-1.30); EST Glomerular Filtration Rate 101 mL/min (>60); Est Glom Filt Rate - Afr Amer 123 mL/min (>60); Estimated Creatinine Clearance 107.78 ml/min; Glucose 115 mg/dL (74-106); Potassium 3.9 mmol/L (3.5-5.1); Sodium Level 134 mmol/L (136-145)
[2020-04-21] MEDS: Lactated Ringers 1,000 ML 75 ML IV ×2 (08:06→21:52)
[2020-04-21] MEDS: Gabapentin 600 MG Tablet PO ×3 (08:06→16:54)
[2020-04-21] MEDS: Multivitamins,Therapeutic Tablet 1 TABLET PO (08:06)
[2020-04-21] MEDS: Folic Acid 1 MG Tablet PO (08:06)
[2020-04-21] MEDS: Thiamine Hydrochloride 100 MG Tablet 200 MG PO (08:06)
--- NOTE | 2020-04-21 10:39 | PCM.PROGNOTE ---
<Myrna Hanson - Last Filed: 04/21/20 10:41> Subjective: Patient seen and examined. Reports improvement in withdrawal symptoms. Upper extremity tremors improved. Rib and back pain improved as well. - Physical Exam Vitals/I&O's: Vital Signs Temp Pulse Resp BP Pulse Ox 98.6 F 83 18 154/93 H 93 04/21/20 03:57 04/21/20 07:54 04/21/20 03:57 04/21/20 03:57 04/21/20 07:29 Oxygen Delivery Method Room Air Weight: 235 lb 3.2 oz Body Mass Index (BMI) 30.8 Finger Stick Blood Glucose 105 Orthostatic Vital Signs Start: 04/20/20 11:07 Freq: Status: Active Protocol: Activity Type Activity Date Activity User E-Sign Co-Sign Detail Recorded Client Recorded Date Recorded By Document 04/20/20 11:07 PATRICIA [id number] 04/20/20 11:17 PATRICIA 04/20/20 11:07 Orthostatic Vitals Sitting -Blood Pressure (90/60-120/80) 110/73 -Extremity Use Right Arm -Pulse Rate (60-100) 84 Lying -Blood Pressure (90/60-120/80) 112/71 -Extremity Use Right Arm -Pulse Rate (60-100) 81 Intake and Output for Last 24 Hours 04/19/20 04/20/20 04/21/20 23:59 23:59 23:59 Intake Total 3464 / 3464 4443.75 / 4443.75 2521.25 / 2521.25 Output Total 950 / 950 1750 / 1750 2250 / 2250 Balance 2514 / 2514 2693.75 / 2693.75 271.25 / 271.25 General: Alert, Oriented x3, Cooperative HEENT: Atraumatic, PERRLA, EOMI, Normocephalic Neck: Supple, No JVD, Negative Carotid Bruits Lungs: Clear to auscultation, Normal air movement Cardiovascular: Regular rate, No murmurs Abdomen: Bowel Sounds Present, Soft, Non Tender Extremities: No clubbing, No cyanosis, No edema, Capillary Refill Less than 3 Seconds Skin: No rashes, No breakdown Musculoskeletal: No Tenderness to Palpation of Joints or Extremities Neurological: Cranial nerves II-XII grossly intact, Neuro grossly intact Psych/Mental Status: Normal Affect, Appropriate Laboratory Results 04/21/20 05:50: WBC 6.0, RBC 3.84 L, Hgb 12.4 L, Hct 36.6 L, MCV 95.3 H, MCH 32.3 H, MCHC 33.9, RDW Std Deviation 42.8, RDW Coeff of Kaylen 12.3, Plt Count 168, MPV 9.1 04/21/20 05:50: Sodium 134 L, Potassium 3.9, Chloride 95 L, Carbon Dioxide 31.0, Anion Gap 8, BUN 6 L, Creatinine 0.83, Estim Creat Clear Calc 107.78, Est GFR (MDRD) Af Amer 123, Est GFR (MDRD) Non-Af 101, BUN/Creatinine Ratio 7.2 L, Glucose 115 H, Calcium 8.7 Current Medications Acetaminophen (Tylenol) 650 mg PO Q6H PRN PRN PRN Reason: Pain Score 1-3 /Temp>100.7 Albuterol Sulfate (Ventolin Aerosols) 2.5 mg INHALATION Q2H PRN PRN PRN Reason: SOB/Wheezing Dextrose (D50w Syringe) 0 gm IV X1 PRN; Protocol PRN Reason: Hypoglycemia Enoxaparin Sodium (Lovenox) 40 mg SC DAILY@0600 [facility] Folic Acid (Folic Acid) 1 mg PO DAILY@0800 [facility] Last Admin: 04/21/20 08:06 Dose: 1 mg Documented by: Gabapentin (Neurontin) 600 mg PO TIDCM [facility] Last Admin: 04/21/20 08:06 Dose: 600 mg Documented by: Glucagon () 1 mg IM .X1 PRN PRN Reason: Hypoglycemia Lactated Ringer's () 1,000 mls @ 75 mls/hr IV .[id number] [facility] Last Admin: 04/21/20 08:06 Dose: 75 mls/hr Documented by: Lorazepam (Ativan) 2 mg IV Q4H PRN PRN PRN Reason: Alcohol Withdrawal Melatonin (Melatonin) 3 mg PO QHS PRN PRN PRN Reason: INSOMNIA Last Admin: 04/21/20 00:18 Dose: 3 mg Documented by: Metoprolol Succinate (Toprol Xl (Beta Fred)) 100 mg PO DAILY [facility] Morphine Sulfate () 2 mg IV Q4H PRN PRN PRN Reason: Pain Score 6-10/10 Last Admin: 04/20/20 17:44 Dose: 2 mg Documented by: Multivitamins (Multivitamin) 1 tablet PO DAILY@0800 [facility] Last Admin: 04/21/20 08:06 Dose: 1 tablet Documented by: Nutritional Formula (Lactose Free) (Ensure Enlive) 120 ml PO 4X/DAY [facility] Last Admin: 04/20/20 22:02 Dose: 120 ml Documented by: Ondansetron HCl (Zofran) 4 mg IV Q8H PRN PRN PRN Reason: NAUSEA/VOMITING Oxycodone HCl (Oxyir) 5 mg PO Q6H PRN PRN PRN Reason: Pain Score 1-03/24 Last Admin: 04/21/20 03:50 Dose: 5 mg Documented by: Pantoprazole Sodium (Protonix) 20 mg PO DAILY [facility] Last Admin: 04/20/20 11:02 Dose: 20 mg Documented by: Phenobarbital (Phenobarbital) 64.8 mg PO Q4H [facility]; Taper Stop: 04/24/20 03:59 Last Admin: 04/21/20 08:06 Dose: 64.8 mg Documented by: Senna/Docusate Sodium (Senokot-S, Edith-Colace) 2 tablet PO BID PRN PRN PRN Reason: Constipation Sodium Chloride () 10 - 40 ml IV UD PRN PRN Reason: SALINE FLUSH Last Admin: 04/20/20 17:44 Dose: 10 ml Documented by: Thiamine HCl (Vitamin B1) 200 mg PO DAILYCM [facility] Stop: 04/21/20 23:59 Last Admin: 04/21/20 08:06 Dose: 200 mg Documented by: Medical Necessity - Tobacco Use Smoking Status: Never smoker Assessment/Plan All Active Problems (Last Updated 07/18/19 @ 08:38 by Lalo Juarez NP-C) Alcohol intoxication (Acute) Atrial fibrillation and flutter (Resolved) Atrial fibrillation with rapid ventricular response (Resolved) Atrial flutter with rapid ventricular response (Resolved) Delirium tremens (Resolved) 1. Alcohol withdrawal/chronic alcohol abuse, history of DTs-medical stabilization per alcohol withdrawal protocol. Phenobarbital taper. CIWA. Alcohol level 306 on admission. Continue folic acid, multivitamin and thiamine. Patient well-known to [facility], reports he has follow up on Wednesday. Discussed inpatient treatment, agreeable however states he is in process of moving. Will have him further discuss with Gwendolyn as outpatient. 2. Presyncope-likely secondary to #1. Alcohol level significantly elevated as noted above. No significant arrhythmias noted on telemetry. Echo at [facility] 11/26/2019 demonstrated EF 65%. Will not repeat echo at this time. Troponin negative. 3. Atrial fibrillation with RVR, paroxysmal atrial fibrillation/atrial flutter-Converted to sinus rhythm. Suspect PAF exacerbated by heavy alcohol use. Cardiology following. Echo in November as noted above. Discontinue amiodarone and Xarelto given heavy alcohol use. Reduce metoprolol to 100 mg daily. 4. Hypertension-continue metoprolol. 5. GERD-continue PPI. DVT prophylaxis- Lovenox sc Discharge planning: Home with outpatient follow-up pending alcohol withdrawal protocol. This patient was seen by ISAIAS Kwok under the supervision of Dr. Vargas. <Aj Vargas - Last Filed: 04/21/20 13:29> Subjective: Patient symptoms are much improved. Looks awake alert oriented x3. Tremor is much improved. Denies hallucinations, delusions or seizure. Right-sided rib pain has also improved. Blood pressure is better. No tachycardia - Physical Exam Vitals/I&O's: Vital Signs Temp Pulse Resp BP Pulse Ox 98.4 F 88 16 128/83 H 96 04/21/20 09:57 04/21/20 10:49 04/21/20 09:57 04/21/20 10:49 04/21/20 09:57 Oxygen Delivery Method Room Air Weight: 235 lb 3.2 oz Body Mass Index (BMI) 30.8 Finger Stick Blood Glucose 105 Orthostatic Vital Signs Start: 04/20/20 11:07 Freq: Status: Active Protocol: Activity Type Activity Date Activity User E-Sign Co-Sign Detail Recorded Client Recorded Date Recorded By Document 04/20/20 11:07 PATRICIA [id number] 04/20/20 11:17 PATRICIA 04/20/20 11:07 Orthostatic Vitals Sitting -Blood Pressure (90/60-120/80) 110/73 -Extremity Use Right Arm -Pulse Rate (60-100) 84 Lying -Blood Pressure (90/60-120/80) 112/71 -Extremity Use Right Arm -Pulse Rate (60-100) 81 Intake and Output for Last 24 Hours 04/19/20 04/20/20 04/21/20 23:59 23:59 23:59 Intake Total 3464 / 3464 4443.75 / 4443.75 2521.25 / 2521.25 Output Total 950 / 950 1750 / 1750 2250 / 2250 Balance 2514 / 2514 2693.75 / 2693.75 271.25 / 271.25 General: Alert, Oriented x3, Cooperative HEENT: Atraumatic, PERRLA, EOMI, Normocephalic Neck: Supple, No JVD, Negative Carotid Bruits Lungs: Clear to auscultation, Normal air movement Cardiovascular: Regular rate, Regular Rhythm, Normal S1, Normal S2, No murmurs Abdomen: Bowel Sounds Present, Soft, Non Tender Extremities: No cyanosis, No edema, Capillary Refill Less than 3 Seconds Skin: No rashes, No breakdown Musculoskeletal: Tenderness - Mild tenderness over left lower rib. No hematoma or bruise Neurological: Cranial nerves II-XII grossly intact Psych/Mental Status: Normal Affect, Appropriate Laboratory Results 04/21/20 05:50: WBC 6.0, RBC 3.84 L, Hgb 12.4 L, Hct 36.6 L, MCV 95.3 H, MCH 32.3 H, MCHC 33.9, RDW Std Deviation 42.8, RDW Coeff of Kaylen 12.3, Plt Count 168, MPV 9.1 04/21/20 05:50: Sodium 134 L, Potassium 3.9, Chloride 95 L, Carbon Dioxide 31.0, Anion Gap 8, BUN 6 L, Creatinine 0.83, Estim Creat Clear Calc 107.78, Est GFR (MDRD) Af Amer 123, Est GFR (MDRD) Non-Af 101, BUN/Creatinine Ratio 7.2 L, Glucose 115 H, Calcium 8.7 Current Medications Acetaminophen (Tylenol) 650 mg PO Q6H PRN PRN PRN Reason: Pain Score 1-3 /Temp>100.7 Albuterol Sulfate (Ventolin Aerosols) 2.5 mg INHALATION Q2H PRN PRN PRN Reason: SOB/Wheezing Dextrose (D50w Syringe) 0 gm IV X1 PRN; Protocol PRN Reason: Hypoglycemia Enoxaparin Sodium (Lovenox) 40 mg SC DAILY@0600 [facility] Folic Acid (Folic Acid) 1 mg PO DAILY@0800 [facility] Last Admin: 04/21/20 08:06 Dose: 1 mg Documented by: Gabapentin (Neurontin) 600 mg PO TIDCM [facility] Last Admin: 04/21/20 12:24 Dose: 600 mg Documented by: Glucagon () 1 mg IM .X1 PRN PRN Reason: Hypoglycemia Lactated Ringer's () 1,000 mls @ 75 mls/hr IV .[id number] [facility] Last Admin: 04/21/20 08:06 Dose: 75 mls/hr Documented by: Lorazepam (Ativan) 2 mg IV Q4H PRN PRN PRN Reason: Alcohol Withdrawal Melatonin (Melatonin) 3 mg PO QHS PRN PRN PRN Reason: INSOMNIA Last Admin: 04/21/20 00:18 Dose: 3 mg Documented by: Metoprolol Succinate (Toprol Xl (Beta Fred)) 100 mg PO DAILY [facility] Last Admin: 04/21/20 10:49 Dose: 100 mg Documented by: Morphine Sulfate () 2 mg IV Q4H PRN PRN PRN Reason: Pain Score 6-10/10 Last Admin: 04/20/20 17:44 Dose: 2 mg Documented by: Multivitamins (Multivitamin) 1 tablet PO DAILY@0800 [facility] Last Admin: 04/21/20 08:06 Dose: 1 tablet Documented by: Nutritional Formula (Lactose Free) (Ensure Enlive) 120 ml PO 4X/DAY [facility] Last Admin: 04/21/20 10:48 Dose: 120 ml Documented by: Ondansetron HCl (Zofran) 4 mg IV Q8H PRN PRN PRN Reason: NAUSEA/VOMITING Oxycodone HCl (Oxyir) 5 mg PO Q6H PRN PRN PRN Reason: Pain Score 1-5/10 Last Admin: 04/21/20 10:52 Dose: 5 mg Documented by: Pantoprazole Sodium (Protonix) 20 mg PO DAILY [facility] Last Admin: 04/21/20 10:48 Dose: 20 mg Documented by: Phenobarbital (Phenobarbital) 32.4 mg PO BID [facility] Senna/Docusate Sodium (Senokot-S, Edith-Colace) 2 tablet PO BID PRN PRN PRN Reason: Constipation Sodium Chloride () 10 - 40 ml IV UD PRN PRN Reason: SALINE FLUSH Last Admin: 04/20/20 17:44 Dose: 10 ml Documented by: Thiamine HCl (Vitamin B1) 200 mg PO DAILYCM [facility]ITH[facility] Stop: 04/21/20 23:59 Last Admin: 04/21/20 08:06 Dose: 200 mg Documented by: Assessment/Plan This patient was seen in conjunction with Myrna DOWNEY. I have independently interviewed and examined the patient and reviewed pertinent history, examination findings, laboratory and plan of management. I have reviewed the note and agree with the documented findings with the few additional points. In brief, patient is 59-year-old gentleman is admitted after fall with right lower chest rib pain and hypotension. Patient has been passing out periodically. Patient drinks heavily every day about 6-8 beers dear. Blood pressure has recovered and normotensive. Patient has improvement of alcohol withdrawal syndrome. Continue phenobarbital based treatment along with other supportive medications as per protocol. On CIWA monitoring. Alcohol level was 306 on admission. Other comorbidities as mentioned above includes paroxysmal A. fib/a flutter with RVR. Heart rate is controlled GERD, hypertension Chronic alcohol use and dependence: Hypomagnesemia, magnesium replaced. Continue folic acid, multivitamin thiamine. I have discussed my assessment with HOSIERY BAGGERMyrna and orders have been reviewed. Inpatient E&M: [id number] Subs Hosp L2
[2020-04-21] MEDS: Pantoprazole Sodium 20 MG Tablet PO (10:48)
[2020-04-21] MEDS: Metoprolol(XL)Succ 100 MG Tablet PO (10:49)
[2020-04-21] MEDS: Acetaminophen 325 MG Tablet 650 MG PO (14:45)
[2020-04-21] MEDS: Morphine 2 MG/ML Syringe IV ×2 (14:48→22:08)
[2020-04-21] MEDS: Phenobarbital 32.4 MG Tablet PO (21:53)
[2020-04-21 23:30] LABS: Bedside Glucose 110 mg/dL (70-110)
[2020-04-22] VITALS (7 sets, daily range): BP systolic 108–132; BP diastolic 71–92; PULSE 64–80; RESP 8–18; TEMP 36.5–36.6; O2SAT 94–97
[2020-04-22] MEDS: oxyCODONE 5 MG Tablet PO (02:47)
[2020-04-22] MEDS: Enoxaparin 40 MG/0.4 ML Syringe SC (06:01)
[2020-04-22 06:51] LABS: Bedside Glucose 148 mg/dL (70-110)
[2020-04-22] MEDS: Gabapentin 600 MG Tablet PO (10:20)
[2020-04-22] MEDS: Folic Acid 1 MG Tablet PO (10:20)
[2020-04-22] MEDS: Phenobarbital 32.4 MG Tablet PO (10:20)
[2020-04-22] MEDS: Pantoprazole Sodium 20 MG Tablet PO (10:20)
[2020-04-22] MEDS: Multivitamins,Therapeutic Tablet 1 TABLET PO (10:20)
[2020-04-22] MEDS: Metoprolol(XL)Succ 100 MG Tablet PO (10:21)
--- NOTE | 2020-04-22 10:39 | PCM.DC ---
You will use the following diet at home:: No restrictions Discharge Activity: Return to Normal Activity Call your doctor if you observe: Shortness of breath, Dizziness, Fainting spells, Chest pain Allergies/Adverse Reactions: Allergies No Known Allergies Allergy (Verified 04/19/20 13:13) Medications to take at Discharge Folic Acid 1 mg PO DAILY 01/13/20 Multivitamin [Tab-A-Rm] 1 ea PO DAILY 01/13/20 Thiamine HCl [Vitamin B-1] 100 mg PO DAILY 01/13/20 Gabapentin [Neurontin] 600 mg PO TIDCM 04/19/20 Omeprazole 20 mg PO DAILY 04/19/20 Metoprolol(XL)Succ [Toprol Xl (Beta Fred)] 100 mg PO DAILY #30 tab 04/22/20 The following prescriptions were given: Metoprolol(XL)Succ [Toprol Xl (Beta Fred)] 100 mg PO DAILY #30 tab Transmission Status: Pending to [id number] Primary Care Physician: Moriah Fernandez MD [Primary Care Provider] - Please follow up with your Primary Care Physician in: 1 Week Test Results: Test results from this visit will be discussed in further detail at your follow-up appointment, if applicable. Please Follow Up With: Romulo Burt MD When: 2 Weeks, may see GEOLOGICAL SPECIALIST/PA Please Follow Up With: GILLIANONE When: call for follow up Proposed Discharge Date: 04/22/20
--- NOTE | 2020-04-22 10:47 | PCM.DC.SUM ---
<Myrna Hanson - Last Filed: 04/22/20 10:55> Discharge Date and Diagnosis Date of Admission: 04/19/20 Date of Discharge: 04/22/20 - Primary Discharge Diagnosis Acute Problems: 1. Alcohol withdrawal/chronic alcohol abuse, history of DTs 2. Presyncope-likely secondary to #1. 3. Atrial fibrillation with RVR, paroxysmal atrial fibrillation/atrial flutter 4. Hypertension 5. GERD - Secondary Discharge Diagnosis Chronic Problems: Chronic Problems Atrial flutter (Chronic) Wide-complex tachycardia (Chronic) Legally blind in left eye, as defined in [place] (Chronic) Premature atrial contraction (Chronic) Essential hypertension (Chronic) Paroxysmal atrial fibrillation (Chronic) DCCV with NICKOLAS on 07/11/2019; Alcohol abuse (Chronic) Hospital Course and Treatment Imaging Results: Diagnostic Data Chest X-Ray 04/19/20 13:50 IMPRESSION: No acute abnormality is seen. Electronically Signed: Néstor Elizabeth, at 14:05 EDT , Service support , Ribs X-Ray 04/20/20 09:38 IMPRESSION: No evidence of acute rib fracture on examination. Electronically Signed: Davonte Ríos DO at 9:52 EDT , Service support , Dr. Mckeon- Cardiology Operations: None Procedures: None Summary of Care Provided: The patient is a 60 year old M admitted 04/19/2020 due to fall with right rib pain and passing out. 1. Alcohol withdrawal/chronic alcohol abuse, history of DTs-medical stabilization per alcohol withdrawal protocol. Phenobarbital taper. CIWA. Alcohol level 306 on admission. Continue folic acid, multivitamin and thiamine. Patient well-known to [facility], reports he has follow up on Wednesday. Discussed inpatient treatment, agreeable however states he is in process of moving. Will have him further discuss with [facility] as outpatient. 2. Presyncope-likely secondary to #1. Alcohol level significantly elevated as noted above. No significant arrhythmias noted on telemetry. Echo at [facility] 11/26/2019 demonstrated EF 65%. Will not repeat echo at this time. Troponin negative. 3. Atrial fibrillation with RVR, paroxysmal atrial fibrillation/atrial flutter-Converted to sinus rhythm. Suspect PAF exacerbated by heavy alcohol use. Cardiology consulted during mission. Echo in November as noted above. Discontinue amiodarone and Xarelto given heavy alcohol use. Reduce metoprolol to 100 mg daily. Follow-up with Dr. Burt in 2 weeks. 4. Hypertension-continue metoprolol. 5. GERD-continue PPI. General: Alert, Oriented x3, Cooperative HEENT: Atraumatic, PERRLA, EOMI, Normocephalic Neck: Supple, No JVD, Negative Carotid Bruits Lungs: Clear to auscultation, Normal air movement Cardiovascular: Regular rate, No murmurs Abdomen: Bowel Sounds Present, Soft, Non Tender Extremities: No clubbing, No cyanosis, No edema, Capillary Refill Less than 3 Seconds Skin: No rashes, No breakdown Musculoskeletal: No Tenderness to Palpation of Joints or Extremities Neurological: Cranial nerves II-XII grossly intact, Neuro grossly intact Psych/Mental Status: Normal Affect, Appropriate Patient seen and examined prior to discharge. Physical assessment as noted above. Patient is stable for discharge with follow up recommendations as noted above. This patient was seen by ISAIAS Kwok under the supervision of Dr. Vargas. - Physical Exam Vitals/I&O's: Vital Signs Temp Pulse Resp BP Pulse Ox 97.7 F L 73 18 131/92 H 97 04/22/20 10:15 04/22/20 10:21 04/22/20 10:15 04/22/20 10:21 04/22/20 10:15 Oxygen Delivery Method Room Air Weight: 235 lb 3.732 oz Body Mass Index (BMI) 30.8 Finger Stick Blood Glucose 105 Orthostatic Vital Signs Start: 04/20/20 11:07 Freq: Status: Active Protocol: Activity Type Activity Date Activity User E-Sign Co-Sign Detail Recorded Client Recorded Date Recorded By Document 04/20/20 11:07 PATRICIA [id number] 04/20/20 11:17 PATRICIA 04/20/20 11:07 Orthostatic Vitals Sitting -Blood Pressure (90/60-120/80) 110/73 -Extremity Use Right Arm -Pulse Rate (60-100) 84 Lying -Blood Pressure (90/60-120/80) 112/71 -Extremity Use Right Arm -Pulse Rate (60-100) 81 Intake and Output for Last 24 Hours 04/20/20 04/21/20 04/22/20 23:59 23:59 23:59 Intake Total 4443.75 / 4443.75 6251.25 / 6251.25 2366.5 / 2366.5 Output Total 1750 / 1750 4600 / 4600 2150 / 2150 Balance 2693.75 / 2693.75 1651.25 / 1651.25 216.5 / 216.5 Laboratory Results 04/21/20 21:48: POC Glucose 110 04/22/20 06:46: POC Glucose 148 H Current Medications Acetaminophen (Tylenol) 650 mg PO Q6H PRN PRN PRN Reason: Pain Score 1-3 /Temp>100.7 Last Admin: 04/21/20 14:45 Dose: 650 mg Documented by: Albuterol Sulfate (Ventolin Aerosols) 2.5 mg INHALATION Q2H PRN PRN PRN Reason: SOB/Wheezing Dextrose (D50w Syringe) 0 gm IV X1 PRN; Protocol PRN Reason: Hypoglycemia Enoxaparin Sodium (Lovenox) 40 mg SC DAILY@0600 [facility] Last Admin: 04/22/20 06:01 Dose: 40 mg Documented by: Folic Acid (Folic Acid) 1 mg PO DAILY@0800 [facility] Last Admin: 04/22/20 10:20 Dose: 1 mg Documented by: Gabapentin (Neurontin) 600 mg PO TIDCM [facility] Last Admin: 04/22/20 10:20 Dose: 600 mg Documented by: Glucagon () 1 mg IM .X1 PRN PRN Reason: Hypoglycemia Lactated Ringer's () 1,000 mls @ 75 mls/hr IV .[id number] [facility] Last Infusion: 04/22/20 07:10 Dose: 75 mls/hr Documented by: Lorazepam (Ativan) 2 mg IV Q4H PRN PRN PRN Reason: Alcohol Withdrawal Melatonin (Melatonin) 3 mg PO QHS PRN PRN PRN Reason: INSOMNIA Last Admin: 04/21/20 22:08 Dose: 3 mg Documented by: Metoprolol Succinate (Toprol Xl (Beta Fred)) 100 mg PO DAILY [facility] Last Admin: 04/22/20 10:21 Dose: 100 mg Documented by: Morphine Sulfate () 2 mg IV Q4H PRN PRN PRN Reason: Pain Score 6-10/10 Last Admin: 04/21/20 22:08 Dose: 2 mg Documented by: Multivitamins (Multivitamin) 1 tablet PO DAILY@0800 [facility] Last Admin: 04/22/20 10:20 Dose: 1 tablet Documented by: Nutritional Formula (Lactose Free) (Ensure Enlive) 120 ml PO 4X/DAY [facility] Last Admin: 04/22/20 10:20 Dose: 120 ml Documented by: Ondansetron HCl (Zofran) 4 mg IV Q8H PRN PRN PRN Reason: NAUSEA/VOMITING Oxycodone HCl (Oxyir) 5 mg PO Q6H PRN PRN PRN Reason: Pain Score 1-5/10 Last Admin: 04/22/20 02:47 Dose: 5 mg Documented by: Pantoprazole Sodium (Protonix) 20 mg PO DAILY [facility] Last Admin: 04/22/20 10:20 Dose: 20 mg Documented by: Phenobarbital (Phenobarbital) 32.4 mg PO BID [facility] Last Admin: 04/22/20 10:20 Dose: 32.4 mg Documented by: Senna/Docusate Sodium (Senokot-S, Edith-Colace) 2 tablet PO BID PRN PRN PRN Reason: Constipation Sodium Chloride () 10 - 40 ml IV UD PRN PRN Reason: SALINE FLUSH Last Admin: 04/20/20 17:44 Dose: 10 ml Documented by: Discharge Diet: No Restrictions Discharge Activity: Return to Normal Activity Call your doctor if you observe: Shortness of breath, Dizziness, Fainting spells, Chest pain Home Medications: Medications to take at Discharge Folic Acid 1 mg PO DAILY 01/13/20 Multivitamin [Tab-A-Rm] 1 ea PO DAILY 01/13/20 Thiamine HCl [Vitamin B-1] 100 mg PO DAILY 01/13/20 Gabapentin [Neurontin] 600 mg PO TIDCM 04/19/20 Omeprazole 20 mg PO DAILY 04/19/20 Metoprolol(XL)Succ [Toprol Xl (Beta Fred)] 100 mg PO DAILY #30 tab 04/22/20 Following Prescrptions Were Given to Patient: Metoprolol(XL)Succ [Toprol Xl (Beta Fred)] 100 mg PO DAILY #30 tab Transmission Status: Received by [facility] #[id number] Primary Care Physician: Moriah Fernandez MD [Primary Care Provider] - Please follow up with your Primary Care Physician in: 1 Week Please Follow Up With: Romulo Burt MD When: 2 Weeks, may see ONCOLOGY NAVIGATOR/PA Please Follow Up With: EIGHTY,ONE When: call for follow up Disposition: Home Minutes spent on discharge:: 35 Patient Condition:: Stable Medical Necessity - Tobacco Use Smoking Status: Never smoker Meaningful Use Info Meaningful Use Diagnoses (Choose all that apply): None applicable <Aj Vargas - Last Filed: 04/22/20 12:24> Discharge Date and Diagnosis - Secondary Discharge Diagnosis Chronic Problems: Chronic Problems Atrial flutter (Chronic) Wide-complex tachycardia (Chronic) Legally blind in left eye, as defined in [place] (Chronic) Premature atrial contraction (Chronic) Essential hypertension (Chronic) Paroxysmal atrial fibrillation (Chronic) DCCV with NICKOLAS on 07/11/2019; Alcohol abuse (Chronic) Hospital Course and Treatment Summary of Care Provided: This patient was seen in conjunction with ONCOLOGY NAVIGATORMyrna. I have independently interviewed and examined the patient and reviewed pertinent history, examination findings, laboratory and plan of management. I have reviewed the note and agree with the documented findings with the few additional points. In brief, patient is 59-year-old gentleman is admitted after fall with right lower chest rib pain and hypotension. Patient has been passing out periodically. Alcohol level was 306 on admission. Patient drinks heavily every day about 6-8 beers dear. Subsequently, after 1 day patient went to overt alcohol withdrawal syndrome with tremors, shaking, nausea. Patient was started on phenobarbital treatment along with other supportive medication as per protocol. CIWA monitoring was done. Blood pressure has recovered and normotensive. Patient has improvement of alcohol withdrawal syndrome. Other comorbidities as mentioned above includes paroxysmal A. fib/a flutter with RVR. Recent echo on November 26 showed EF 65%. Heart rate is controlled. Patient has mild QT prolongation mostly secondary to electrolyte abnormality as well as amiodarone. Amiodarone and Xarelto were discontinued. He is at high risk for fall and bleeding secondary to chronic alcohol use, dependence. Advised to follow-up with 180. GERD, hypertension Chronic alcohol use and dependence: Hypomagnesemia, magnesium replaced. Continue folic acid, multivitamin thiamine. I have discussed my assessment with ONCOLOGY NAVIGATORMyrna and orders have been reviewed.[] Discharge medication reconciliation done. Discharge follow-up instructions completed. Discharge process discussed with the patient and all questions were answered to patient's satisfaction. Total time spent, exact 35 minutes on discharge meds reconciliation, examination, coordination of care with nurses and ancillary staff, review of imaging and blood test and discussion with the patient on follow-up instructions Objective: Seen and examined. Right lower rib pain has much improved. No obvious or significant alcohol withdrawal symptoms. Tremors are well controlled. No nausea, vomiting, abdominal pain, hallucination or seizure. On physical exam General: Alert, Oriented x3, Cooperative HEENT: Atraumatic, PERRLA, EOMI, Normocephalic Neck: Supple, No JVD, Negative Carotid Bruits Lungs: Clear to auscultation, Normal air movement Chest wall: There is mild bruise over right lower chest. Mild tenderness over right lower posterior lateral rib Cardiovascular: Regular rate, Regular Rhythm, Normal S1, Normal S2, No murmurs Abdomen: Bowel Sounds Present, Soft, Non Tender Extremities: No cyanosis, No edema, Capillary Refill Less than 3 Seconds Skin: No rashes, No breakdown Musculoskeletal: Tenderness - Mild tenderness over left lower rib. No hematoma or bruise Neurological: Cranial nerves II-XII grossly intact Psych/Mental Status: Normal Affect, Appropriate - Physical Exam Vitals/I&O's: Vital Signs Temp Pulse Resp BP Pulse Ox 97.7 F L 73 18 131/92 H 97 04/22/20 11:00 04/22/20 11:00 04/22/20 11:00 04/22/20 11:00 04/22/20 11:00 Oxygen Delivery Method Room Air Weight: 235 lb 3.732 oz Body Mass Index (BMI) 30.8 Finger Stick Blood Glucose 105 Orthostatic Vital Signs Start: 04/20/20 11:07 Freq: Status: Active Protocol: Activity Type Activity Date Activity User E-Sign Co-Sign Detail Recorded Client Recorded Date Recorded By Document 04/20/20 11:07 PATRICIA [id number] 04/20/20 11:17 PATRICIA 04/20/20 11:07 Orthostatic Vitals Sitting -Blood Pressure (90/60-120/80) 110/73 -Extremity Use Right Arm -Pulse Rate (60-100) 84 Lying -Blood Pressure (90/60-120/80) 112/71 -Extremity Use Right Arm -Pulse Rate (60-100) 81 Intake and Output for Last 24 Hours 04/20/20 04/21/20 04/22/20 23:59 23:59 23:59 Intake Total 4443.75 / 4443.75 6251.25 / 6251.25 2366.5 / 2366.5 Output Total 1750 / 1750 4600 / 4600 2150 / 2150 Balance 2693.75 / 2693.75 1651.25 / 1651.25 216.5 / 216.5 Laboratory Results 04/21/20 21:48: POC Glucose 110 04/22/20 06:46: POC Glucose 148 H Current Medications Acetaminophen (Tylenol) 650 mg PO Q6H PRN PRN PRN Reason: Pain Score 1-3 /Temp>100.7 Last Admin: 04/21/20 14:45 Dose: 650 mg Documented by: Albuterol Sulfate (Ventolin Aerosols) 2.5 mg INHALATION Q2H PRN PRN PRN Reason: SOB/Wheezing Dextrose (D50w Syringe) 0 gm IV X1 PRN; Protocol PRN Reason: Hypoglycemia Enoxaparin Sodium (Lovenox) 40 mg SC DAILY@0600 [facility] Last Admin: 04/22/20 06:01 Dose: 40 mg Documented by: Folic Acid (Folic Acid) 1 mg PO DAILY@0800 [facility] Last Admin: 04/22/20 10:20 Dose: 1 mg Documented by: Gabapentin (Neurontin) 600 mg PO TIDCM [facility] Last Admin: 04/22/20 10:20 Dose: 600 mg Documented by: Glucagon () 1 mg IM .X1 PRN PRN Reason: Hypoglycemia Lactated Ringer's () 1,000 mls @ 75 mls/hr IV .[id number] [facility] Last Infusion: 04/22/20 07:10 Dose: 75 mls/hr Documented by: Lorazepam (Ativan) 2 mg IV Q4H PRN PRN PRN Reason: Alcohol Withdrawal Melatonin (Melatonin) 3 mg PO QHS PRN PRN PRN Reason: INSOMNIA Last Admin: 04/21/20 22:08 Dose: 3 mg Documented by: Metoprolol Succinate (Toprol Xl (Beta Fred)) 100 mg PO DAILY [facility] Last Admin: 04/22/20 10:21 Dose: 100 mg Documented by: Morphine Sulfate () 2 mg IV Q4H PRN PRN PRN Reason: Pain Score 6-1010 Last Admin: 04/21/20 22:08 Dose: 2 mg Documented by: Multivitamins (Multivitamin) 1 tablet PO DAILY@0800 [facility] Last Admin: 04/22/20 10:20 Dose: 1 tablet Documented by: Nutritional Formula (Lactose Free) (Ensure Enlive) 120 ml PO 4X/DAY [facility] Last Admin: 04/22/20 10:20 Dose: 120 ml Documented by: Ondansetron HCl (Zofran) 4 mg IV Q8H PRN PRN PRN Reason: NAUSEA/VOMITING Oxycodone HCl (Oxyir) 5 mg PO Q6H PRN PRN PRN Reason: Pain Score 1-510 Last Admin: 04/22/20 02:47 Dose: 5 mg Documented by: Pantoprazole Sodium (Protonix) 20 mg PO DAILY [facility] Last Admin: 04/22/20 10:20 Dose: 20 mg Documented by: Phenobarbital (Phenobarbital) 32.4 mg PO BID [facility] Last Admin: 04/22/20 10:20 Dose: 32.4 mg Documented by: Senna/Docusate Sodium (Senokot-S, Edith-Colace) 2 tablet PO BID PRN PRN PRN Reason: Constipation Sodium Chloride () 10 - 40 ml IV UD PRN PRN Reason: SALINE FLUSH Last Admin: 04/20/20 17:44 Dose: 10 ml Documented by: Inpatient E&M: [id number] Disch Hosp
--- NOTE | 2020-04-22 11:22 | PHA.DC.MC ---
Pharmacy Service has performed discharge medication reconciliation and counseling for this patient. The patient's discharge medication list was reviewed for discrepancies and discrepancies were resolved. The patient was counseled on the following discharge medications and changes in medications for homegoing were reviewed. 1. Toprol XL dose decrease to 100mg PO Daily (Was taking 200mg PO Daily previously) The Reason for Use, instructions for use, and potential side effects were reviewed for all new medications. The patient's questions regarding all of their medications were answered. The patient demonstrated some understanding but would benefit from further education and reinforcement. Home Medications Folic Acid 1 mg PO DAILY 01/13/20 Multivitamin [Tab-A-Rm] 1 ea PO DAILY 01/13/20 Thiamine HCl [Vitamin B-1] 100 mg PO DAILY 01/13/20 Gabapentin [Neurontin] 600 mg PO TIDCM 04/19/20 Omeprazole 20 mg PO DAILY 04/19/20 Metoprolol(XL)Succ [Toprol Xl (Beta Fred)] 100 mg PO DAILY #30 tab 04/22/20
--- NOTE | 2020-04-24 12:39 | CASEMGMT ---
Social Work Date of Discharge: 04/22/20 reason for followup call: advance directives, pt was to follow up with [facility] for alcohol use Duration of call: 2 minutes Outcome of call: Pt not available. Left message with family member requesting pt return call to GWYN Flores
== END 2020-04-22 13:05 | disposition home or self-care (01) | DRG 775 ==
LOC: ED 14:12 → PCU 17:28
PROVIDERS: Family Medicine; Internal Medicine Cardiovascular Disease; Nurse Practitioner Family; Admitting Provider Internal Medicine; Emergency Provider Emergency Medicine; PCP Internal Medicine; Visit Provider Internal Medicine
DX: F10.229 Alcohol dependence with intoxication, unspecified (principal); F10.239 Alcohol dependence with withdrawal, unspecified; Y90.8 Blood alcohol level of 240 mg/100 ml or more; R55 Syncope and collapse; I48.0 Paroxysmal atrial fibrillation; E83.42 Hypomagnesemia; I49.3 Ventricular premature depolarization; I95.9 Hypotension, unspecified; E86.0 Dehydration; E87.2 Acidosis; I10 Essential (primary) hypertension; G47.33 Obstructive sleep apnea (adult) (pediatric); F41.1 Generalized anxiety disorder; G62.9 Polyneuropathy, unspecified; R29.6 Repeated falls; R07.81 Pleurodynia; M54.9 Dorsalgia, unspecified; W19.XXXA Unspecified fall, initial encounter; K21.9 Gastro-esophageal reflux disease without esophagitis; H54.8 Legal blindness, as defined in USA; F32.9 Major depressive disorder, single episode, unspecified; Z79.01 Long term (current) use of anticoagulants; Z79.899 Other long term (current) drug therapy; Z86.73 Personal history of transient ischemic attack (TIA), and cerebral infarction without residual deficits
CPT/HCPCS: 36415; 71045; 71100; 80048; 80053; 80076; 80307; 80320; 82962; 83605; 83735; 84100; 84443; 84484; 85025; 85027; 85379; 93005; 97162; 97802; 99251; 99285; J7030; J7120; Q9957; A4216; G0463; G0480; J2405

== ENCOUNTER 2020-05-01 13:05 | Inpatient (IN) | payer MEDICAID, SELFPAY ==
[2020-04-19 17:58] VITALS: BMI 30.8
[2020-05-01 13:09] VITALS: BP 135/81; PULSE 107; RESP 17; TEMP 36.1; O2SAT 93; BMI 31.1
--- NOTE | 2020-05-01 13:24 | EKG12_ITS ---
Test Reason : SUBSTANCE ABUSE Blood Pressure : / mmHG Vent. Rate : 105 BPM Atrial Rate : 105 BPM P-R Int : 214 ms QRS Dur : 100 ms QT Int : 352 ms P-R-T Axes : 055 013 041 degrees QTc Int : 465 ms Sinus tachycardia with 1st degree A-V block Otherwise normal ECG Confirmed by ELLIOT IBRAHIM, ALONZO ([id number]), photograph editor EMANUEL DOZIER ([id number]) on 05/03/2020 11:11:53 AM Referred By: ANISH Confirmed By:ALONZO ZARATE MD
--- NOTE | 2020-05-01 13:25 | ED.DCSUM_ITS ---
History of Present Illness Chief Complaint: Substance Abuse Detail of Chief Complaint: Requesting detox from alcohol Informant: Patient Narrative: Patient presents with a friend requesting detox from alcohol. Patient is a longstanding alcoholic. He has been through alcohol withdrawal multiple times. Patient was admitted to the hospital a week ago with a fall and rib injury. He went through withdrawal while he was in the hospital. Patient states he did not follow-up with 180 but has been talking to Lauren, 1 of the staff members there. He states he started drinking again as soon as he left the hospital. His last drink was in the car on the way to the hospital. - Past Medical History (1) Alcohol abuse Status: Chronic (2) Atrial flutter Status: Chronic (3) Essential hypertension Status: Chronic (4) Paroxysmal atrial fibrillation Status: Chronic Comment: DCCV with NICKOLAS on 07/11/2019; Past Medical History - Allergies and Home Meds Allergies/Adverse Reactions: Allergies No Known Allergies Allergy (Verified 05/01/20 13:08) Primary Care Physician: Moriah Fernandez MD [STAFF PHYSICIAN] - Prior records reviewed: Yes Smoking Status: Never smoker Alcohol: Heavy - Family History Maternal Family History: Family History (Last Reviewed 01/13/20 @ 17:09 by ISAIAS Kwok) Mother Cancer Diabetes Brother Cancer Grandfather Heart disease Grandfather History of stroke Grandmother CVA (cerebral vascular accident) Family History: Reports: Cancer, Hypertension, Stroke Paternal Family History: Family History (Last Reviewed 01/13/20 @ 17:09 by ISAIAS Kwok) Mother Cancer Diabetes Brother Cancer Grandfather Heart disease Grandfather History of stroke Grandmother CVA (cerebral vascular accident) Family History: Reports: Hypertension, Stroke Sibling Family History: Family History (Last Reviewed 01/13/20 @ 17:09 by ISAIAS Kwok) Mother Cancer Diabetes Brother Cancer Grandfather Heart disease Grandfather History of stroke Grandmother CVA (cerebral vascular accident) Family History: Reports: Cancer Review of Systems General: Denies: Chills, Fever Eyes: Denies: Visual changes - bilaterally ENT: Denies: Bilateral ear pain Cardiovascular: Denies: Chest pain Respiratory: Denies: Dyspnea, Cough Gastrointestinal: Denies: Abdominal pain, Nausea, Vomiting, Diarrhea Musculoskeletal: Denies: Extremity Pain Neurological: Denies: Headache Hematologic: Denies: Easy bruising, Easy bleeding Allergy: Denies: Uticaria Physical Exam Vital Signs/Narrative: Vital Signs Temp Pulse Resp BP Pulse Ox 05/01/20 13:09 97.0 F L 107 H 17 135/81 H 93 Inital Vital Signs reviewed: Yes General: Well nourished, Well developed Head: Normocephalic ENT: Moist mucous membranes Neck: Supple Cardiovascular: Regular rate, Regular rhythm Respiratory: No distress, CTA bilaterally Abdomen: Soft, Nontender, Normal bowel sounds Extremities: Nontender Skin: Normal color, No rash Neurological: Alert, Oriented x3, Normal Strength, Normal Sensation Psychological: - - Anxious Diagnostic/Tx/Re-eval Laboratory Results 05/01/20 05/01/20 05/01/20 14:09 14:09 14:09 WBC 3.8 L RBC 4.01 L Hgb 13.1 Hct 38.4 L MCV 95.8 H MCH 32.7 H MCHC 34.1 RDW Std Deviation 47.2 H RDW Coeff of Kaylen 13.4 Plt Count 292 MPV 9.0 Immature Gran % (Auto) 0.300 Neut % (Auto) 50.4 Lymph % (Auto) 33.8 Guadalupe % (Auto) 12.1 H Eos % (Auto) 2.1 Baso % (Auto) 1.3 H Absolute Neuts (auto) 1.9 L Absolute Lymphs (auto) 1.28 Nucleated RBC % 0 PT 12.7 INR 1.0 Sodium 139 Potassium 4.0 Chloride 100 Carbon Dioxide 29.0 Anion Gap 10 BUN 5 L Creatinine 0.82 Estim Creat Clear Calc 110.97 Est GFR (MDRD) Af Amer 123 Est GFR (MDRD) Non-Af 102 BUN/Creatinine Ratio 6.1 L Glucose 97 Calcium 9.3 Total Bilirubin 0.20 AST 40 H ALT 30 Alkaline Phosphatase 58 Total Protein 7.7 Albumin 3.5 Globulin 4.2 Albumin/Globulin Ratio 0.8 L Ur Drug Screen Comment 05/01/20 14:26 WBC RBC Hgb Hct MCV MCH MCHC RDW Std Deviation RDW Coeff of Kaylen Plt Count MPV Immature Gran % (Auto) Neut % (Auto) Lymph % (Auto) Guadalupe % (Auto) Eos % (Auto) Baso % (Auto) Absolute Neuts (auto) Absolute Lymphs (auto) Nucleated RBC % PT INR Sodium Potassium Chloride Carbon Dioxide Anion Gap BUN Creatinine Estim Creat Clear Calc Est GFR (MDRD) Af Amer Est GFR (MDRD) Non-Af BUN/Creatinine Ratio Glucose Calcium Total Bilirubin AST ALT Alkaline Phosphatase Total Protein Albumin Globulin Albumin/Globulin Ratio Ur Drug Screen Comment - EKG Initial EKG Interpretation: Sinus Tachycardia - Sinus tach at 105. First-degree AV block noted. - Medical Decision Making Patient was given 1 mg of IV Ativan to help with anxiety. I spoke with the hospitalist to admit the patient for further evaluation. I also spoke with social work. Although patient reportedly was set to follow-up with [facility] when he was discharged last week, and advised that this was with the housing assistance portion of [facility] and not with the detox unit. Social work will continue to follow-up with [facility] to ensure patient has appropriate outpatient follow-up. ED Disposition - Plan for ED Patient: Disposition: Acute Care Hospital [facility] Diagnosis: Desire for detoxification Referrals: Moriah Fernandez MD [STAFF PHYSICIAN] -
--- NOTE | 2020-05-01 14:08 | HP.PCM_ITS ---
History of Present Illness Date of Admission: 05/01/20 Chief Complaint: EtOH Detox The patient is a 60 year old M who was recently admitted from 04/19-04/22 after a syncopal episode. Upon admission at that time he was found to be in A-fib with RVR and have a blood EtOH level of 306 on admission. He was detoxed with a phenobarbital taper and did well with this. He was to F/U at [facility] after declining inpatient rehab admission 12/17 to being in the process of moving at the time. For he PAF his amiodarone and Xarelto were discontinued by cardiology 2 his heavy EtOH use and his metoprolol was reduced to 100 mg daily and he was to f/u with Dr. Burt. He now presents today with a friend requesting detox from EtOH. He never followed up at [facility] but has been talking to Lauren (one of the staff members at [facility]). He admits that he started drinking as soon as he left the hospital on 04/22. His last drink was today on the way to the hospital in the car. His VS are stable. His lab is relatively normal with a slightly elevated AST. Tox is + for barbiturates as would be expected with recent admission for withdrawal. His EtOH level is 366. Past Medical History Past Medical History (Chronic Problems): Chronic Problems Atrial flutter (Chronic) Wide-complex tachycardia (Chronic) Legally blind in left eye, as defined in [place] (Chronic) Premature atrial contraction (Chronic) Essential hypertension (Chronic) Paroxysmal atrial fibrillation (Chronic) DCCV with [facility] on 07/11/2019; Alcohol abuse (Chronic) Medical History: Medical History (Last Reviewed 05/01/20 @ 15:[address] Laine Orona, DO) Legally blind in left eye, as defined in [place] (Chronic) H54.8 Premature atrial contraction (Chronic) I49.1 Essential hypertension (Chronic) I10 Paroxysmal atrial fibrillation (Chronic) I48.0 DCCV with [facility] on 07/11/2019; Alcohol abuse (Chronic) F10.10 Depression F32.9 Neuropathy G62.9 Atrial fibrillation with RVR I48.91 Delirium tremens (Resolved) F10.231 TIA (transient ischemic attack) G45.9 Allergies No Known Allergies Allergy (Verified 05/01/20 13:08) Home Medications: Ambulatory Orders Medication Instructions Recorded Folic Acid 1 mg PO DAILY 01/13/20 Multivitamin [Tab-A-Rm] 1 ea PO DAILY 01/13/20 Thiamine HCl [Vitamin B-1] 100 mg PO DAILY 01/13/20 Gabapentin [Neurontin] 600 mg PO TIDCM 04/19/20 Omeprazole 20 mg PO DAILY 04/19/20 Metoprolol(XL)Succ [Toprol Xl 100 mg PO DAILY #30 tab 04/22/20 (Beta Fred)] Surgical History: Surgical History (Last Reviewed 05/01/20 @ 15:[address] Laine Orona DO) History of elbow surgery Z98.890 History of tonsillectomy Z90.89 Psychiatric History: No pertinent psych hx Lives: Friends Smoking Status: Never smoker Alcohol: Heavy Drugs: None - *Family History Maternal Family History: Family History (Last Reviewed 05/01/20 @ 15:[address] Laine Orona DO) Mother Cancer Diabetes Brother Cancer Grandfather Heart disease Grandfather History of stroke Grandmother CVA (cerebral vascular accident) History Items: Cancer, Hypertension, Stroke Paternal Family History: Family History (Last Reviewed 05/01/20 @ 15:[address] Laine Orona DO) Mother Cancer Diabetes Brother Cancer Grandfather Heart disease Grandfather History of stroke Grandmother CVA (cerebral vascular accident) History Items: Hypertension, Stroke Sibling Family History: Family History (Last Reviewed 05/01/20 @ 15:[address] Laine Orona DO) Mother Cancer Diabetes Brother Cancer Grandfather Heart disease Grandfather History of stroke Grandmother CVA (cerebral vascular accident) History Items: Cancer Review of Systems Constitutional: Denies: Anorexia, Chills, Fever, Night Sweats, Malaise, Weakness, Weight Change, Fatigue Eyes: Reports: Redness. Denies: Blurred vision, Double vision, Drainage, Pain HEENT: Denies: Difficulty Hearing, Difficulty Swallowing, Ear Pain, Nasal bleeding, Nasal Congestion, Sore Throat Cardiovascular: Denies: Chest Pain, Chest Pressure, Chest Tightness, Edema, Heaviness, Light Headedness, Orthopnea, Palpitations, Paroxysmal Noc. Dyspnea, Syncope Respiratory: Denies: Cough, Hemoptysis, Pleuritic Pain, Shortness of Breath, Shortness of breath at rest, Shortness of breath upon exertion, Sputum production, Wheezing Gastrointestinal: Denies: Abdominal Pain, Constipation, Diarrhea, Dyspepsia, Hematemesis, Hematochezia, Nausea, Melena, Vomiting Genitourinary: Denies: Dysuria, Frequency, Hematuria, Hesitancy, Incontinence, Nocturia, Retention, Urgency Musculoskeletal: Denies: Back Pain, Joint Pain, Joint stiffness, Joint swelling, Joint Tenderness, Muscle pain, Neck Pain Skin: Denies: Dryness, Jaundice, Lesions, Pruritis, Rash, Skin Changes, Wounds Neurological: Denies: Balance problems, Blurred vision, Double vision, Confusion, Focal weakness, Headaches, Incoordination, Numbness, Tingling, Tremor, Seizures Psychiatric: Denies: Anxiety, Depression, Homicidal Ideations, Suicidal Ideations Endocrine: Denies: Change in Body Habitus, Heat/ Cold Intolerance, Polydipsia, Polyuria Hematologic/ Lymphatic: Denies: Adenopathy, Anemia, Easy Bruising, Easy Bleeding, Petechiae, Purpura, Hx of blood clot VTE Information - Inpt Only VTE Present on Admission: No VTE Mechan Device Prophylaxis: SCD's VTE Pharm Prophylaxis ordered?: No Patient Problems: Active and Suspected Problems (Last Updated 07/18/19 @ 08:38 by Lalo Juarez NP- C) Desire for detoxification (Acute) - Physical Exam Vitals/I&O's: Vital Signs Temp Pulse Resp BP Pulse Ox 97.0 F L 107 H 17 135/81 H 93 05/01/20 13:09 05/01/20 13:09 05/01/20 13:09 05/01/20 13:05/01/20 13:09 Oxygen Delivery Method Room Air Weight: 107.048 kg Body Mass Index (BMI) 31.1 Finger Stick Blood Glucose 105 General: Oriented x3, Cooperative, No apparent distress, Well developed, Well nourished, - - Middle aged white male, lying in bed sleeping but awakens with tactile stimulus HEENT: Atraumatic, PERRLA, EOMI, Normocephalic, EAC Clear Oral: Moist Mucosa, No Gingival or Mucosal Lesions/ Ulcerations, - - Mallampati 3 Neck: Supple, No JVD, Negative Carotid Bruits, Negative Hepatojugular Reflux, No Nodes, No Nuchal Rigidity, Trachea Midline, Thyroid Normal Size and Texture Lungs: Clear to auscultation, Normal air movement, No rhonchi, No wheeze, No rales, Using Accessory Muscles Cardiovascular: Regular rate, Regular Rhythm, Normal S1, Normal S2, No murmurs, No Ectopic Activity, No rub noted, No Gallop Abdomen: Bowel Sounds Present, Soft, Non Tender, Non-Distended, Obese, No hernias noted Extremities: No clubbing, No cyanosis, No edema, Capillary Refill Less than 3 Seconds, Peripheral Pulses Normal Skin: No rashes, No breakdown Musculoskeletal: No Tenderness to Palpation of Joints or Extremities, No Muscle Wasting Lymphatic: No Cervical, Supraclavicular, or Inguinal Adenopathy Neurological: Cranial nerves II-XII grossly intact, Deep Tendon Reflexes 2+/4 and Symmetrical, Neuro grossly intact, Muscle tone normal, Sensory exam intact to light touch and pain, Coordination normal, - - no tremor currently Psych/Mental Status: Normal Affect, Appropriate, Alert and oriented to time, place, person, mood and affect Assessment/Plan All Active Problems (Last Updated 07/18/19 @ 08:38 by Lalo Juarez CAUSTIC STRENGTH INSPECTOR-C) Desire for detoxification (Acute) Alcohol intoxication (Acute) Atrial fibrillation and flutter (Resolved) Atrial fibrillation with rapid ventricular response (Resolved) Atrial flutter with rapid ventricular response (Resolved) Delirium tremens (Resolved) Acute EtOH Intoxication with h/o Withdrawal/DT's -Phenobarb taper per protocol -Ativan PRN -thiamine 200 mg x 3 days -folate -will need outpt f/u vs inpt rehab PAF -h/o DCC -was in a-fib at last admission but currently in NSR -most likely related to cardiac toxicity from EtOH -amiodarone and Xarelto d/c at last admission 2/2 EtOH use -Metoprolol was decreased to 100 mg daily--> continue this -will need to f/u with Dr. Burt as outpt -no need for inpt consultation Neuropathy continue Gabapentin H/O TIA -stable Suspected ANEUDY -CPAP at hs -needs outpt PSG as has never been tested -SpO2 54% while sleeping GERD -PPI DVT Prophylaxis -Lovenox 40 mg Code Status -Full Inpatient E&M: 31801 Init Hosp L3
[2020-05-01] MEDS: LORazepam 2 MG/ML Syringe 1 MG IV (14:14)
[2020-05-01 14:18] LABS: Absolute Lymphocyte Count 1.28 X10^3/uL (0.83-4.51); Absolute Neutrophil Count 1.9 X10^3/uL (2.0-7.7); Basophil# 0.05 X10^3/uL; Basophil% 1.3 % (0-1); Eosinophil# 0.08 X10^3/uL; Eosinophils% 2.1 % (0-5); Hematocrit 38.4 % (40-54); Hemoglobin 13.1 g/dL (13.0-16.5); Lymphocyte # 1.28 X10^3/ul (4.0); Lymphocyte % 33.8 % (19-41); Mean Corp Hgb Conc 34.1 g/dL (32-36); Mean Corpuscular Hgb 32.7 pg (27.0-32.0); Mean Corpuscular Volume 95.8 fL (80-94); Monocyte# 0.46 X10^3/uL; Monocyte% 12.1 % (0-10); NRBC Flagged by Analyzer 0 % (0-5); Neutrophil # 1.91 X10^3/uL (2.7-7.7); Neutrophil % 50.4 % (47-70); Platelet Count 292 K/mm3 (150-450); RBC Distribution Width CV 13.4 % (11.6-14.6); RBC Distribution Width SD 47.2 fl (35.1-43.9); Red Blood Count 4.01 M/mm3 (4.6-6.2); White Blood Count 3.8 K/mm3 (4.4-11.0)
--- NOTE | 2020-05-01 14:27 | CM.ED ---
SOCIAL WORK INFORMANT: DR. OTOOLE REASON FOR REFERRAL: SUBSTANCE ABUSE UPDATED BY DR. OTOOLE, PATIENT REQUESTING TO BE ADMITTED TO [facility]. PER DR. OTOOLE, PATIENT REPORTS MISSED FOLLOW UP APPOINTMENT WITH [facility] AND REPORTS WAS TO SEE SYLVESTER. DR. OOTOLE REQUESTING THIS WORKER FOLLOW UP WITH [facility] REGARDING PATIENT'S COMPLIANCE WITH FOLLOW UP. CALL TO [facility] TREATMENT NAVIGATOR, CHANTELL. 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 CHANTELL REPORTS IF PATIENT ADMITTED TO [facility], WILL HAVE ASSESSMENT AND FOLLOW UP BY ATTENUATOR WHO WILL GET PATIENT CONNECTED WITH INPATIENT OR OUTPATIENT SERVICES. CHANTELL STATES DOES NOT LOOK LIKE PATIENT HAS BEEN ACTIVE WITH DR[facility] AND ALCOHOL SERVICES SINCE 2017. PATIENT WAS SCHEDULED WITH A COUNSELOR FOR MARCH 17, 2020 AND NO SHOWED TO APPOINTMENT. PATIENT IS NOT IN ACTIVE SERVICES WITH [facility] AT THIS TIME. DR. OTOOLE UPDATED ON THE ABOVE. WORK UP BEING COMPLETED AT THIS TIME. Elina MAYS, VISCOSITY INSPECTOR, LEAD SPRINKLER
[2020-05-01 14:43] LABS: ALB/GLOB Ratio 0.8 RATIO (0.9-2.4); AST(SGOT) 40 U/L (15-37); Alanine Aminotransfer ALT/SGPT 30 U/L (16-61); Albumin, Serum 3.5 g/dL (3.2-5.0); Alkaline Phosphatase 58 U/L (45-117); Anion Gap 10 (5-15); BUN 5 mg/dL (7-18); BUN/Creat Ratio 6.1 RATIO (10-20); Calcium,Total 9.3 mg/dL (8.5-10.1); Chloride 100 mmol/L (98-107); Creatinine, Serum 0.82 mg/dL (0.70-1.30); EST Glomerular Filtration Rate 102 mL/min (>60); Est Glom Filt Rate - Afr Amer 123 mL/min (>60); Estimated Creatinine Clearance 110.97 ml/min; Globulin 4.2 g/dL (2.2-4.2); Glucose 97 mg/dL (74-106); Protein, Total 7.7 g/dL (6.4-8.2); Sodium Level 139 mmol/L (136-145)
--- NOTE | 2020-05-01 14:48 | NURSING ---
MED SURG ETOH DETOX DAVID
[2020-05-01 14:52] LABS: Prothrombin Time (Protime)PT. 12.7 SECONDS (11.7-14.9)
[2020-05-01 15:05] LABS: Amphetamine Urine VISTA NEGATIVE (<1000 ng/mL); Barbiturate Urine VISTA POSITIVE (< 200 ng/mL); Benzodiazepine Urine VISTA NEGATIVE (< 200 ng/mL); Cocaine Urine VISTA NEGATIVE (< 300 ng/mL); Ecstacy Urine VISTA NEGATIVE (< 500 ng/mL); Methadone Urine VISTA NEGATIVE (< 300 ng/mL); PCP Urine VISTA NEGATIVE (< 25 ng/mL); THC Urine VISTA NEGATIVE (< 50 ng/mL); Vista UDS pH Range 6
[2020-05-01 15:06] VITALS: BP 121/98; PULSE 98; RESP 18; TEMP 36.7; O2SAT 95
--- NOTE | 2020-05-01 15:27 | CM.ED ---
SOCIAL WORK PATIENT ADMITTED TO [facility]. CALL TO [facility] NAVIGATOR, CHANTELL TO UPDATE ON PATIENT'S ADMISSION. CHANTELL REPORTS AN ACCOUNTS RECEIVABLE PROCESSOR WILL BE IN TOMORROW TO ASSESS PATIENT. Elina MAYS MSW, EPIC KALEIDOSCOPE ANALYST.
[2020-05-01 17:41] VITALS: BMI 30.1
[2020-05-01 17:51] VITALS: BP 114/76; PULSE 68; RESP 18; TEMP 36.7; O2SAT 98
[2020-05-01] MEDS: Phenobarbital 32.4 MG Tablet 97.2 MG PO (18:19)
[2020-05-01] MEDS: Lactated Ringers 1,000 ML 50 ML IV (18:22)
[2020-05-01 19:15] VITALS: O2SAT 94
[2020-05-01 22:04] VITALS: BP 128/78; PULSE 118; RESP 18; TEMP 36.7; O2SAT 97
[2020-05-01] MEDS: Phenobarbital 32.4 MG Tablet 64.8 MG PO (22:07)
[2020-05-01] MEDS: Gabapentin 300 MG Capsule PO (22:10)
[2020-05-01] MEDS: traZODone 100 MG Tablet PO (22:10)
[2020-05-02] VITALS (14 sets, daily range): BP systolic 134–168; BP diastolic 90–120; PULSE 90–115; RESP 16–20; TEMP 36.4–37.1; O2SAT 95–97
[2020-05-02] MEDS: Phenobarbital 32.4 MG Tablet 64.8 MG PO ×6 (01:48→21:51)
[2020-05-02] MEDS: LORazepam 2 MG/ML Syringe IV ×2 (01:52→04:00)
[2020-05-02] MEDS: 0.9% Saline Lock 10 ML Syringe IV ×2 (01:52→04:00)
[2020-05-02 06:02] LABS: Absolute Lymphocyte Count 0.68 X10^3/uL (0.83-4.51); Basophil# 0.04 X10^3/uL; Basophil% 1.2 % (0-1); Eosinophil# 0.07 X10^3/uL; Eosinophils% 2.2 % (0-5); Hematocrit 38.8 % (40-54); Hemoglobin 11.6 g/dL (13.0-16.5); Lymphocyte # 0.68 X10^3/ul (4.0); Lymphocyte % 20.9 % (19-41); Mean Corp Hgb Conc 29.9 g/dL (32-36); Mean Corpuscular Hgb 32.2 pg (27.0-32.0); Mean Corpuscular Volume 107.8 fL (80-94); Mean Platelet Vol. 8.5 fl (6.2-12.0); Monocyte# 0.48 X10^3/uL; Monocyte% 14.8 % (0-10); NRBC Flagged by Analyzer 0 % (0-5); Neutrophil # 1.97 X10^3/uL (2.7-7.7); Neutrophil % 60.6 % (47-70); Platelet Count 210 K/mm3 (150-450); RBC Distribution Width CV 13.2 % (11.6-14.6); RBC Distribution Width SD 52.7 fl (35.1-43.9); White Blood Count 3.3 K/mm3 (4.4-11.0)
[2020-05-02] MEDS: Gabapentin 300 MG Capsule PO ×2 (06:30→19:55)
[2020-05-02 06:31] LABS: ALB/GLOB Ratio 0.7 RATIO (0.9-2.4); AST(SGOT) 41 U/L (15-37); Alanine Aminotransfer ALT/SGPT 27 U/L (16-61); Alkaline Phosphatase 59 U/L (45-117); Anion Gap 9 (5-15); BUN 7 mg/dL (7-18); BUN/Creat Ratio 7.4 RATIO (10-20); Calcium,Total 8.7 mg/dL (8.5-10.1); Chloride 100 mmol/L (98-107); Creatinine, Serum 0.95 mg/dL (0.70-1.30); EST Glomerular Filtration Rate 87 mL/min (>60); Est Glom Filt Rate - Afr Amer 105 mL/min (>60); Estimated Creatinine Clearance 95.79 ml/min; Globulin 4.1 g/dL (2.2-4.2); Glucose 103 mg/dL (74-106); Magnesium 1.7 mg/dL (1.6-2.6); Phosphorus 3.3 mg/dL (2.5-4.9); Potassium 3.9 mmol/L (3.5-5.1); Protein, Total 7.1 g/dL (6.4-8.2); Sodium Level 135 mmol/L (136-145)
--- NOTE | 2020-05-02 08:29 | CASEMGMT ---
Social Work Note Pt is RAMP pt. SW placed a call to Doug at [facility] and left message that pt will need to be seen. Loulou Chino DIRECTOR OF MATH, GROUND TRANSPORTATION OPERATOR
[2020-05-02] MEDS: Multivitamins,Ther W-Minerals Tablet 1 TABLET PO (08:43)
[2020-05-02] MEDS: Folic Acid 1 MG Tablet PO (08:43)
[2020-05-02] MEDS: Pantoprazole Sodium 20 MG Tablet PO (08:43)
[2020-05-02] MEDS: Metoprolol(XL)Succ 100 MG Tablet PO (08:43)
[2020-05-02] MEDS: Thiamine Hydrochloride 100 MG Tablet 200 MG PO (08:43)
[2020-05-02] MEDS: LORazepam 1 MG Tablet 2 MG PO ×2 (08:48→19:55)
--- NOTE | 2020-05-02 09:39 | PN_ITS ---
Patient Problems: Active and Suspected Problems (Last Reviewed 05/01/20 @ 15:[address] Laine Orona DO) Desire for detoxification (Acute) Subjective: Patient seen and examined. Complains of upper extremity tremors. Denies other current withdrawal symptoms. Reports bilateral leg pain which is chronic and right rib area pain from prior fall. - Physical Exam Vitals/I&O's: Vital Signs Temp Pulse Resp BP Pulse Ox 97.5 F L 115 H 16 146/101 H 95 05/02/20 08:59 05/02/20 08:59 05/02/20 08:59 05/02/20 08:59 05/02/20 08:59 Oxygen Delivery Method Room Air Weight: 228 lb Body Mass Index (BMI) 30.0 Finger Stick Blood Glucose 105 Intake and Output for Last 24 Hours 04/30/20 05/01/20 05/02/20 23:59 23:59 23:59 Intake Total 1020 / 1020 200 / 200 Balance 1020 / 1020 200 / 200 General: Alert, Oriented x3, Cooperative HEENT: Atraumatic, PERRLA, EOMI, Normocephalic Neck: Supple, No JVD, Negative Carotid Bruits Lungs: Clear to auscultation, Normal air movement Cardiovascular: Regular rate, No murmurs Abdomen: Bowel Sounds Present, Soft, Non Tender, Non-Distended Extremities: No clubbing, No cyanosis, No edema, Capillary Refill Less than 3 Seconds Skin: No rashes, No breakdown Musculoskeletal: No Tenderness to Palpation of Joints or Extremities Neurological: Cranial nerves II-XII grossly intact, Neuro grossly intact Psych/Mental Status: Normal Affect, Appropriate Laboratory Results 05/01/20 14:09: WBC 3.8 L, RBC 4.01 L, Hgb 13.1, Hct 38.4 L, MCV 95.8 H, MCH 32.7 H, MCHC 34.1, RDW Std Deviation 47.2 H, RDW Coeff of Kaylen 13.4, Plt Count 292, MPV 9.0, Immature Gran % (Auto) 0.300, Neut % (Auto) 50.4, Lymph % (Auto) 33.8, Wilkes % (Auto) 12.1 H, Eos % (Auto) 2.1, Baso % (Auto) 1.3 H, Absolute Neuts (auto) 1.9 L, Absolute Lymphs (auto) 1.28, Nucleated RBC % 0 05/01/20 14:09: PT 12.7, INR 1.0 05/01/20 14:09: Sodium 139, Potassium 4.0, Chloride 100, Carbon Dioxide 29.0, Anion Gap 10, BUN 5 L, Creatinine 0.82, Estim Creat Clear Calc 110.97, Est GFR (MDRD) Af Amer 123, Est GFR (MDRD) Non-Af 102, BUN/Creatinine Ratio 6.1 L, Glucose 97, Calcium 9.3, Total Bilirubin 0.20, AST 40 H, ALT 30, Alkaline Phosphatase 58, Total Protein 7.7, Albumin 3.5, Globulin 4.2, Albumin/Globulin Ratio 0.8 L 05/01/20 14:09: Ethyl Alcohol 366.0 H* 05/01/20 14:26: Urine Opiates Screen NEGATIVE, Urine Methadone Screen NEGATIVE, Ur Barbiturates Screen POSITIVE H, Ur Phencyclidine Scrn NEGATIVE, Ur Amphetamines Screen NEGATIVE, U Methamphetamin-MDMA NEGATIVE, U Benzodiazepines Scrn NEGATIVE, Urine Cocaine Screen NEGATIVE, U Cannabinoids Screen NEGATIVE, Ur Drug Screen Comment 05/02/20 05:44: WBC 3.3 L, RBC 3.60 L, Hgb 11.6 L, Hct 38.8 L, MCV 107.8 H D, MCH 32.2 H, MCHC 29.9 L D, RDW Std Deviation 52.7 H, RDW Coeff of Kaylen 13.2, Plt Count 210, MPV 8.5, Immature Gran % (Auto) 0.300, Neut % (Auto) 60.6, Lymph % (Auto) 20.9, Wilkes % (Auto) 14.8 H, Eos % (Auto) 2.2, Baso % (Auto) 1.2 H, Absolute Neuts (auto) 2.0, Absolute Lymphs (auto) 0.68 L, Nucleated RBC % 0 05/02/20 05:44: Sodium 135 L, Potassium 3.9, Chloride 100, Carbon Dioxide 26.0, Anion Gap 9, BUN 7, Creatinine 0.95, Estim Creat Clear Calc 95.79, Est GFR (MDRD) Af Amer 105, Est GFR (MDRD) Non-Af 87, BUN/Creatinine Ratio 7.4 L, Glucose 103, Calcium 8.7, Phosphorus 3.3, Magnesium 1.7, Total Bilirubin 0.40, AST 41 H, ALT 27, Alkaline Phosphatase 59, Total Protein 7.1, Albumin 3.0 L, Globulin 4.1, Albumin/Globulin Ratio 0.7 L Current Medications Al Hydroxide/Mg Hydroxide (Mylanta Ii) 30 ml PO Q6H PRN PRN PRN Reason: Gastric Burning Albuterol Sulfate (Ventolin Aerosols) 2.5 mg INHALATION Q2H PRN PRN PRN Reason: Shortness of Breath/Wheezing Dextrose (D50w Syringe) 0 gm IV X1 PRN; Protocol PRN Reason: Hypoglycemia Dicyclomine HCl (Bentyl) 20 mg PO Q6H PRN PRN PRN Reason: abdominal discomfort Folic Acid (Folic Acid) 1 mg PO DAILY@0800 [facility] Stop: 05/04/20 08:01 Last Admin: 05/02/20 08:43 Dose: 1 mg Documented by: Gabapentin (Neurontin) 300 mg PO Q8H PRN PRN PRN Reason: moderate to severe anxiety Last Admin: 05/02/20 06:30 Dose: 300 mg Documented by: Glucagon () 1 mg IM .X1 PRN PRN Reason: Hypoglycemia Hydroxyzine Pamoate (Vistaril Pamoate Capsule) 50 mg PO Q4H PRN PRN PRN Reason: mild anxiety Lactated Ringer's () 1,000 mls @ 50 mls/hr IV .Q20H [facility] Stop: 05/02/20 15:36 Last Admin: 05/01/20 18:22 Dose: 50 mls/hr Documented by: Loperamide HCl (Imodium) 2 mg PO Q4H PRN PRN PRN Reason: LOOSE STOOLS Lorazepam (Ativan) 2 mg PO Q2H PRN PRN; Protocol PRN Reason: CIWA score > 8 but <15 Last Admin: 05/02/20 08:48 Dose: 2 mg Documented by: Lorazepam (Ativan) 2 mg PO UD PRN; Protocol PRN Reason: CIWA score >/=15. Lorazepam (Ativan) 2 mg IV Q2H PRN PRN; Protocol PRN Reason: CIWA score > 8 but <15 Last Admin: 05/02/20 04:00 Dose: 2 mg Documented by: Lorazepam (Ativan) 2 mg IV UD PRN; Protocol PRN Reason: CIWA score >/=15. Metoprolol Succinate (Toprol Xl (Beta Fred)) 100 mg PO DAILY [facility] Last Admin: 05/02/20 08:43 Dose: 100 mg Documented by: Multivitamins/Minerals (Multivitamin With [facility]erals (B[facility])) [facility] Last Admin: 05/02/20 08:43 Dose: 1 tablet Documented by: Ondansetron HCl (Zofran Odt) 8 mg PO Q8H PRN PRN PRN Reason: NAUSEA Pantoprazole Sodium (Protonix) 20 mg PO DAILY [facility] Last Admin: 05/02/20 08:43 Dose: 20 mg Documented by: Phenobarbital (Phenobarbital) 97.2 mg PO Q4H [facility]; Taper Stop: 05/06/20 01:59 Last Admin: 05/02/20 06:22 Dose: 97.2 mg Documented by: Sodium Chloride () 10 - 40 ml IV UD PRN PRN Reason: SALINE FLUSH Last Admin: 05/02/20 04:00 Dose: 10 ml Documented by: Thiamine [facility] ([facility]itamin B1) [facility] Stop: 05/04/20 08:01 Last Admin: 05/02/20 08:43 Dose: 200 mg Documented by: Trazodone HCl (Desyrel) 100 mg PO QHS PRN PRN Reason: INSOMNIA Last Admin: 05/01/20 22:10 Dose: 100 mg Documented by: Medical Necessity - Tobacco Use Smoking Status: Never smoker Assessment/Plan All Active Problems (Last Reviewed 05/01/20 @ 15:[address] Laine Orona, DO) Desire for detoxification (Acute) Alcohol intoxication (Acute) Atrial fibrillation and flutter (Resolved) Atrial fibrillation with rapid ventricular response (Resolved) Atrial flutter with rapid ventricular response (Resolved) Delirium tremens (Resolved) 1. Alcohol withdrawal/chronic alcohol abuse, history of DTs-medical stabilization per alcohol withdrawal protocol. Phenobarbital taper. CIWA. Alcohol level 366 on admission. Continue folic acid, multivitamin and thiamine. Patient well-known to [facility]. Discussed inpatient treatment, states he is agreeable. [facility] consult pending. 2. Peripheral neuropathy-suspect secondary to chronic alcohol use. Continue gabapentin regimen. 3. Paroxysmal atrial fibrillation/atrial flutter-history of RVR related to heavy alcohol use. Echo at [facility] 11/26/2019 demonstrated EF 65%. During recent admission, amiodarone and Xarelto discontinued given heavy alcohol use. Metoprolol reduced to 100 mg daily. Outpatient follow-up with Dr. Burt. 4. Hypertension-continue metoprolol. 5. GERD-continue PPI. DVT prophylaxis- Lovenox sc This patient was seen by ISAIAS Kwok under the supervision of Dr. Sims.
[2020-05-02] MEDS: Ibuprofen 600 MG Tablet PO (10:07)
[2020-05-02] MEDS: Enoxaparin 40 MG/0.4 ML Syringe SC (10:11)
[2020-05-02] MEDS: hydrALAZINE 20 MG/ML Vial 5 MG IV (11:13)
--- NOTE | 2020-05-02 11:18 | NURSING ---
pt declined nursing calling family with update
[2020-05-02] MEDS: Lactated Ringers 1,000 ML 50 ML IV (13:26)
[2020-05-03] VITALS (9 sets, daily range): BP systolic 142–196; BP diastolic 99–145; PULSE 80–99; RESP 16–18; TEMP 36.3–37; O2SAT 93–98
[2020-05-03] MEDS: Phenobarbital 32.4 MG Tablet 64.8 MG PO ×6 (01:49→22:00)
[2020-05-03 07:24] LABS: Hematocrit 39.6 % (40-54); Hemoglobin 13.5 g/dL (13.0-16.5); Mean Corp Hgb Conc 34.1 g/dL (32-36); Mean Corpuscular Hgb 33.3 pg (27.0-32.0); Mean Corpuscular Volume 97.5 fL (80-94); Mean Platelet Vol. 8.8 fl (6.2-12.0); Platelet Count 225 K/mm3 (150-450); RBC Distribution Width CV 13.1 % (11.6-14.6); Red Blood Count 4.06 M/mm3 (4.6-6.2)
[2020-05-03 07:26] LABS: Anion Gap 8 (5-15); BUN 8 mg/dL (7-18); BUN/Creat Ratio 9.8 RATIO (10-20); Calcium,Total 8.7 mg/dL (8.5-10.1); Chloride 100 mmol/L (98-107); Creatinine, Serum 0.82 mg/dL (0.70-1.30); EST Glomerular Filtration Rate 103 mL/min (>60); Est Glom Filt Rate - Afr Amer 125 mL/min (>60); Estimated Creatinine Clearance 110.97 ml/min; Glucose 142 mg/dL (74-106); Potassium 3.5 mmol/L (3.5-5.1); Sodium Level 137 mmol/L (136-145)
[2020-05-03 07:28] LABS: Scan Indicated on CBC? Y/N NO
[2020-05-03] MEDS: Thiamine Hydrochloride 100 MG Tablet 200 MG PO (07:50)
[2020-05-03] MEDS: Folic Acid 1 MG Tablet PO (07:50)
[2020-05-03] MEDS: Enoxaparin 40 MG/0.4 ML Syringe SC (07:50)
[2020-05-03] MEDS: Multivitamins,Ther W-Minerals Tablet 1 TABLET PO (07:50)
[2020-05-03] MEDS: Metoprolol(XL)Succ 100 MG Tablet PO (07:50)
[2020-05-03] MEDS: Pantoprazole Sodium 20 MG Tablet PO (07:51)
--- NOTE | 2020-05-03 10:32 | PN_ITS ---
Patient Problems: Active and Suspected Problems (Last Reviewed 05/01/20 @ 15:[address] Laine Orona DO) Desire for detoxification (Acute) Subjective: Patient seen and examined. Denies significant withdrawal symptoms. Upper extremity tremors improved. Discussed residential treatment with patient and he states he talked with [facility] about continuing outpatient treatment. Counseled patient that this has not worked for him in the past and strongly recommended residential treatment. - Physical Exam Vitals/I&O's: Vital Signs Temp Pulse Resp BP Pulse Ox 97.4 F L 99 16 154/112 H 97 05/03/20 07:56 05/03/20 07:56 05/03/20 07:56 05/03/20 07:56 05/03/20 07:56 Oxygen Delivery Method Room Air Weight: 228 lb Body Mass Index (BMI) 30.0 Finger Stick Blood Glucose 105 Intake and Output for Last 24 Hours 05/01/20 05/02/20 05/03/20 23:59 23:59 23:59 Intake Total 1020 / 1020 2503.33 / 3123.33 1658.33 / 1658.33 Output Total 700 / 700 Balance 1020 / 1020 2503.33 / 3123.33 958.33 / 958.33 General: Alert, Oriented x3, Cooperative HEENT: Atraumatic, PERRLA, EOMI, Normocephalic Neck: Supple, No JVD, Negative Carotid Bruits Lungs: Clear to auscultation, Normal air movement Cardiovascular: Regular rate, No murmurs Abdomen: Bowel Sounds Present, Soft, Non Tender Extremities: No edema, Capillary Refill Less than 3 Seconds Skin: No rashes, No breakdown Musculoskeletal: No Tenderness to Palpation of Joints or Extremities Neurological: Cranial nerves II-XII grossly intact, Neuro grossly intact Psych/Mental Status: Normal Affect, Appropriate Laboratory Results 05/03/20 06:50: WBC 5.0, RBC 4.06 L, Hgb 13.5, Hct 39.6 L, MCV 97.5 H D, MCH 33.3 H, MCHC 34.1 D, RDW Std Deviation 47.0 H, RDW Coeff of Kaylen 13.1, Plt Count 225, MPV 8.8 05/03/20 06:50: Sodium 137, Potassium 3.5, Chloride 100, Carbon Dioxide 29.0, Anion Gap 8, BUN 8, Creatinine 0.82, Estim Creat Clear Calc 110.97, Est GFR (MDRD) Af Amer 125, Est GFR (MDRD) Non-Af 103, BUN/Creatinine Ratio 9.8 L, Glucose 142 H, Calcium 8.7 Current Medications Acetaminophen (Tylenol) 650 mg PO Q6H PRN PRN PRN Reason: Pain Score 1-1010 Al Hydroxide/Mg Hydroxide (Mylanta Ii) 30 ml PO Q6H PRN PRN PRN Reason: Gastric Burning Albuterol Sulfate (Ventolin Aerosols) 2.5 mg INHALATION Q2H PRN PRN PRN Reason: Shortness of Breath/Wheezing Dextrose (D50w Syringe) 0 gm IV X1 PRN; Protocol PRN Reason: Hypoglycemia Dicyclomine HCl (Bentyl) 20 mg PO Q6H PRN PRN PRN Reason: abdominal discomfort Enoxaparin Sodium (Lovenox) 40 mg SC DAILY [facility] Last Admin: 05/03/20 07:50 Dose: 40 mg Documented by: Folic Acid (Folic Acid) 1 mg PO DAILY@0800 [facility] Stop: 05/04/20 08:01 Last Admin: 05/03/20 07:50 Dose: 1 mg Documented by: Gabapentin (Neurontin) 300 mg PO Q8H PRN PRN PRN Reason: moderate to severe anxiety Last Admin: 05/02/20 19:55 Dose: 300 mg Documented by: Glucagon () 1 mg IM .X1 PRN PRN Reason: Hypoglycemia Hydralazine HCl (Apresoline Iv) 5 mg IV Q6H PRN PRN PRN Reason: BLOOD PRESSURE Last Admin: 05/02/20 11:13 Dose: 5 mg Documented by: Hydroxyzine Pamoate (Vistaril Pamoate Capsule) 50 mg PO Q4H PRN PRN PRN Reason: mild anxiety Ibuprofen (Motrin) 600 mg PO Q8H PRN PRN PRN Reason: Pain Score 1-1010 Last Admin: 05/02/20 10:07 Dose: 600 mg Documented by: Loperamide HCl (Imodium) 2 mg PO Q4H PRN PRN PRN Reason: LOOSE STOOLS Lorazepam (Ativan) 2 mg PO Q2H PRN PRN; Protocol PRN Reason: CIWA score > 8 but <15 Last Admin: 05/02/20 19:55 Dose: 2 mg Documented by: Lorazepam (Ativan) 2 mg PO UD PRN; Protocol PRN Reason: CIWA score >/=15. Lorazepam (Ativan) 2 mg IV Q2H PRN PRN; Protocol PRN Reason: CIWA score > 8 but <15 Last Admin: 05/02/20 04:00 Dose: 2 mg Documented by: Lorazepam (Ativan) 2 mg IV UD PRN; Protocol PRN Reason: CIWA score >/=15. Metoprolol Succinate (Toprol Xl (Beta Fred)) 100 mg PO DAILY [facility] Last Admin: 05/03/20 07:50 Dose: 100 mg Documented by: Multivitamins/Minerals ([facility]itamin With [facility] (Bkc)) [facility] Last Admin: 05/03/20 07:50 Dose: 1 tablet Documented by: Ondansetron HCl (Zofran Odt) 8 mg PO Q8H PRN PRN PRN Reason: NAUSEA Pantoprazole Sodium (Protonix) 20 mg PO DAILY [facility] Last Admin: 05/03/20 07:51 Dose: 20 mg Documented by: Phenobarbital (Phenobarbital) 64.8 mg PO Q4H [facility]; Taper Stop: 05/06/20 01:59 Last Admin: 05/03/20 10:26 Dose: 64.8 mg Documented by: Sodium Chloride () 10 - 40 ml IV UD PRN PRN Reason: SALINE FLUSH Last Admin: 05/02/20 04:00 Dose: 10 ml Documented by: Thiamine HCl (Vitamin B1) [facility] Stop: 05/04/20 08:01 Last Admin: 05/03/20 07:50 Dose: 200 mg Documented by: Trazodone HCl (Desyrel) 100 mg PO QHS PRN PRN Reason: INSOMNIA Last Admin: 05/01/20 22:10 Dose: 100 mg Documented by: Medical Necessity - Tobacco Use Smoking Status: Never smoker Assessment/Plan All Active Problems (Last Reviewed 05/01/20 @ 15:[address] Laine Orona DO) Desire for detoxification (Acute) Alcohol intoxication (Acute) Atrial fibrillation and flutter (Resolved) Atrial fibrillation with rapid ventricular response (Resolved) Atrial flutter with rapid ventricular response (Resolved) Delirium tremens (Resolved) 1. Alcohol withdrawal/chronic alcohol abuse, history of DTs-medical stabilization per alcohol withdrawal protocol. Phenobarbital taper. CIWA. Alcohol level 366 on admission. Continue folic acid, multivitamin and thiamine. Patient well-known to [facility]. Discussed residential treatment. [facility] consulted. 2. Peripheral neuropathy-suspect secondary to chronic alcohol use. Continue gabapentin regimen. 3. Paroxysmal atrial fibrillation/atrial flutter-history of RVR related to heavy alcohol use. [facility] demonstrated EF 65%. During recent admission, amiodarone and Xarelto discontinued given heavy alcohol use. Metoprolol reduced to 100 mg daily. Outpatient follow-up with Dr. Burt. 4. Hypertension-continue metoprolol. 5. GERD-continue PPI. DVT prophylaxis- Lovenox sc This patient was seen by ISAIAS Kwok under the supervision of Dr. Sims.
--- NOTE | 2020-05-03 12:10 | NURSING ---
pt declined nursing call family with update
[2020-05-03] MEDS: LORazepam 1 MG Tablet 2 MG PO ×2 (14:06→22:05)
[2020-05-03] MEDS: hydrALAZINE 20 MG/ML Vial 5 MG IV (14:06)
[2020-05-03] MEDS: 0.9% Saline Lock 10 ML Syringe IV (14:07)
[2020-05-03] MEDS: Gabapentin 300 MG Capsule PO (20:57)
[2020-05-03] MEDS: hydrOXYzine PAM 25 MG Capsule 50 MG PO (21:05)
[2020-05-03] MEDS: Ibuprofen 600 MG Tablet PO (22:05)
[2020-05-04] MEDS: Phenobarbital 32.4 MG Tablet 64.8 MG PO ×2 (01:59→08:47)
[2020-05-04 02:00] VITALS: BP 131/94; PULSE 91; RESP 18; TEMP 36.5; O2SAT 97
--- NOTE | 2020-05-04 06:55 | NURSING ---
Pt was drenched in sweat last night. He says this happens often at home. His temp was wnl., room was warm and thermostat turned down, still a lot of sweating for the temp of the room.
[2020-05-04 08:00] VITALS: BP 133/84; PULSE 101; RESP 16; TEMP 36.8; O2SAT 97
[2020-05-04 08:46] VITALS: O2SAT 96
[2020-05-04] MEDS: Multivitamins,Ther W-Minerals Tablet 1 TABLET PO (08:47)
[2020-05-04 08:48] VITALS: BP 134/84; PULSE 101
[2020-05-04] MEDS: Pantoprazole Sodium 20 MG Tablet PO (08:48)
[2020-05-04] MEDS: Thiamine Hydrochloride 100 MG Tablet 200 MG PO (08:48)
[2020-05-04] MEDS: Folic Acid 1 MG Tablet PO (08:48)
[2020-05-04] MEDS: Metoprolol(XL)Succ 100 MG Tablet PO (08:48)
[2020-05-04] MEDS: Enoxaparin 40 MG/0.4 ML Syringe SC (08:49)
--- NOTE | 2020-05-04 10:23 | DCINST_ITS ---
- Discharge Diagnoses Current Active Problems: Current Active and Chronic Problems (Last Reviewed 05/01/20 @ 15:[address] Laine Orona DO) Desire for detoxification (Acute) You will use the following diet at home:: No restrictions Discharge Activity: Return to Normal Activity Call your doctor if you observe: Shortness of breath, Dizziness, Fainting spells, Chest pain Allergies/Adverse Reactions: Allergies No Known Allergies Allergy (Verified 05/01/20 13:08) Medications to take at Discharge Folic Acid 1 mg PO DAILY 01/13/20 Multivitamin [Tab-A-Rm] 1 ea PO DAILY 01/13/20 Thiamine HCl [Vitamin B-1] 100 mg PO DAILY 01/13/20 Gabapentin [Neurontin] 600 mg PO TIDCM 04/19/20 Omeprazole 20 mg PO DAILY 04/19/20 Metoprolol(XL)Succ [Toprol Xl (Beta Fred)] 100 mg PO DAILY #30 tab 04/22/20 Primary Care Physician: Moriah Fernandez MD [STAFF PHYSICIAN] - Please follow up with your Primary Care Physician in: 1 Week Test Results: Test results from this visit will be discussed in further detail at your follow- up appointment, if applicable. Please Follow Up With: EIGHTY,ONE When: As scheduled on Wednesday Proposed Discharge Date: 05/04/20
--- NOTE | 2020-05-04 10:24 | DS.PCM_ITS ---
Discharge Date and Diagnosis Date of Admission: 05/01/20 Date of Discharge: 05/04/20 - Primary Discharge Diagnosis Acute Problems: Active Problems (Last Reviewed 05/01/20 @ 15:[address] Laine Orona DO) 1. Alcohol withdrawal/chronic alcohol abuse, history of DTs 2. Peripheral neuropathy 3. Paroxysmal atrial fibrillation/atrial flutter 4. Hypertension 5. GERD - Secondary Discharge Diagnosis Chronic Problems: Chronic Problems Atrial flutter (Chronic) Wide-complex tachycardia (Chronic) Legally blind in left eye, as defined in [place] (Chronic) Premature atrial contraction (Chronic) Essential hypertension (Chronic) Paroxysmal atrial fibrillation (Chronic) DCCV with [facility] on 07/11/2019; Alcohol abuse (Chronic) Hospital Course and Treatment Operations: None Procedures: None Summary of Care Provided: The patient is a 60 year old M admitted 05/01/2020 due to ETOH detox. 1. Alcohol withdrawal/chronic alcohol abuse, history of DTs-medical stabilization per alcohol withdrawal protocol. Phenobarbital taper. CIWA. Alcohol level 366 on admission. Continue folic acid, multivitamin and thiamine. Patient well-known to [facility]. Strongly recommended residential treatment, patient declined. He has [facility] consulted. Has appointment at [facility] Wednesday. Patient has frequent and recurrent relapses and recommend continued outpatient discussion regarding residential treatment. 2. Peripheral neuropathy-suspect secondary to chronic alcohol use. Continue gabapentin regimen. 3. Paroxysmal atrial fibrillation/atrial flutter-history of RVR related to heavy alcohol use. Echo at [facility] 11/26/2019 demonstrated EF 65%. During recent admission, amiodarone and Xarelto discontinued given heavy alcohol use. Metoprolol reduced to 100 mg daily. Outpatient follow-up with Dr. Burt. 4. Hypertension-continue metoprolol. 5. GERD-continue PPI. General: Alert, Oriented x3, Cooperative HEENT: Atraumatic, PERRLA, EOMI, Normocephalic Neck: Supple, No JVD, Negative Carotid Bruits Lungs: Clear to auscultation, Normal air movement Cardiovascular: Regular rate, No murmurs Abdomen: Bowel Sounds Present, Soft, Non Tender Extremities: No edema, Capillary Refill Less than 3 Seconds Skin: No rashes, No breakdown Musculoskeletal: No Tenderness to Palpation of Joints or Extremities Neurological: Cranial nerves II-XII grossly intact, Neuro grossly intact Psych/Mental Status: Normal Affect, Appropriate Patient seen and examined prior to discharge. Physical assessment as noted above. Patient is stable for discharge with follow up recommendations as noted above. This patient was seen by ISAIAS Kwok under the supervision of Dr. Sims. - Physical Exam Vitals/I&O's: Vital Signs Temp Pulse Resp BP Pulse Ox 98.3 F 101 H 16 134/84 H 96 05/04/20 08:00 05/04/20 08:48 05/04/20 08:00 05/04/20 08:48 05/04/20 08:46 Oxygen Delivery Method Room Air Weight: 228 lb Body Mass Index (BMI) 30.0 Finger Stick Blood Glucose 105 Intake and Output for Last 24 Hours 05/02/20 05/03/20 05/04/20 23:59 23:59 23:59 Intake Total 2503.33 / 3123.33 3008.33 / 3408.33 400 / 400 Output Total 3350 / 4175 825 / 825 Balance 2503.33 / 3123.33 -341.67 / -766.67 -425 / -425 Current Medications Acetaminophen (Tylenol) 650 mg PO Q6H PRN PRN PRN Reason: Pain Score 1-10/10 Al Hydroxide/Mg Hydroxide (Mylanta Ii) 30 ml PO Q6H PRN PRN PRN Reason: Gastric Burning Albuterol Sulfate (Ventolin Aerosols) 2.5 mg INHALATION Q2H PRN PRN PRN Reason: Shortness of Breath/Wheezing Dextrose (D50w Syringe) 0 gm IV X1 PRN; Protocol PRN Reason: Hypoglycemia Dicyclomine HCl (Bentyl) 20 mg PO Q6H PRN PRN PRN Reason: abdominal discomfort Enoxaparin Sodium (Lovenox) 40 mg SC DAILY [facility] Last Admin: 05/04/20 08:49 Dose: 40 mg Documented by: Gabapentin (Neurontin) 300 mg PO Q8H PRN PRN PRN Reason: moderate to severe anxiety Last Admin: 05/03/20 20:57 Dose: 300 mg Documented by: Glucagon () 1 mg IM .X1 PRN PRN Reason: Hypoglycemia Hydralazine HCl (Apresoline Iv) 5 mg IV Q6H PRN PRN PRN Reason: BLOOD PRESSURE Last Admin: 05/03/20 14:06 Dose: 5 mg Documented by: Hydroxyzine Pamoate (Vistaril Pamoate Capsule) 50 mg PO Q4H PRN PRN PRN Reason: mild anxiety Last Admin: 05/03/20 21:05 Dose: 50 mg Documented by: Ibuprofen (Motrin) 600 mg PO Q8H PRN PRN PRN Reason: Pain Score 1-10/10 Last Admin: 05/03/20 22:05 Dose: 600 mg Documented by: Loperamide HCl (Imodium) 2 mg PO Q4H PRN PRN PRN Reason: LOOSE STOOLS Lorazepam (Ativan) 2 mg PO Q2H PRN PRN; Protocol PRN Reason: CIWA score > 8 but <15 Last Admin: 05/03/20 22:05 Dose: 2 mg Documented by: Lorazepam (Ativan) 2 mg PO UD PRN; Protocol PRN Reason: CIWA score >/=15. Lorazepam (Ativan) 2 mg IV Q2H PRN PRN; Protocol PRN Reason: CIWA score > 8 but <15 Last Admin: 05/02/20 04:00 Dose: 2 mg Documented by: Lorazepam (Ativan) 2 mg IV UD PRN; Protocol PRN Reason: CIWA score >/=15. Metoprolol Succinate (Toprol Xl (Beta Fred)) 100 mg PO DAILY [facility] Last Admin: 05/04/20 08:48 Dose: 100 mg Documented by: Multivitamins/Minerals ([facility]ivitamin With Minerals (Bkc)) [facility] Last Admin: 05/04/20 08:47 Dose: 1 tablet Documented by: Ondansetron HCl (Zofran Odt) 8 mg PO Q8H PRN PRN PRN Reason: NAUSEA Pantoprazole Sodium (Protonix) 20 mg PO DAILY [facility] Last Admin: 05/04/20 08:48 Dose: 20 mg Documented by: Phenobarbital (Phenobarbital) 64.8 mg PO Q6H [facility]; Taper Stop: 05/06/20 01:59 Last Admin: 05/04/20 08:47 Dose: 64.8 mg Documented by: Sodium Chloride () 10 - 40 ml IV UD PRN PRN Reason: SALINE FLUSH Last Admin: 05/03/20 14:07 Dose: 10 ml Documented by: Trazodone HCl (Desyrel) 100 mg PO QHS PRN PRN Reason: INSOMNIA Last Admin: 05/01/20 22:10 Dose: 100 mg Documented by: Discharge Diet: No Restrictions Discharge Activity: Return to Normal Activity Call your doctor if you observe: Shortness of breath, Dizziness, Fainting spells, Chest pain Home Medications: Medications to take at Discharge Folic Acid 1 mg PO DAILY 01/13/20 Multivitamin [Tab-A-Rm] 1 ea PO DAILY 01/13/20 Thiamine HCl [Vitamin B-1] 100 mg PO DAILY 01/13/20 Gabapentin [Neurontin] 600 mg PO TIDCM 04/19/20 Omeprazole 20 mg PO DAILY 04/19/20 Metoprolol(XL)Succ [Toprol Xl (Beta Fred)] 100 mg PO DAILY #30 tab 04/22/20 Primary Care Physician: Moriah Fernandez MD [STAFF PHYSICIAN] - Please follow up with your Primary Care Physician in: 1 Week Please Follow Up With: EIGHTY,ONE When: As scheduled on Wednesday Disposition: Home Minutes spent on discharge:: 35 Patient Condition:: Stable Medical Necessity - Tobacco Use Smoking Status: Never smoker Meaningful Use Info Meaningful Use Diagnoses (Choose all that apply): None applicable
[2020-05-04 12:33] VITALS: BP 133/84; PULSE 93; RESP 18; TEMP 36.7; O2SAT 97
== END 2020-05-04 12:31 | disposition home or self-care (01) | DRG 775 ==
LOC: ED 15:01 → MS3 15:40
PROVIDERS: Nurse Practitioner Family; Admitting Provider Internal Medicine; Emergency Provider Emergency Medicine; Visit Provider Family Medicine
DX: F10.229 Alcohol dependence with intoxication, unspecified (principal); Y90.8 Blood alcohol level of 240 mg/100 ml or more; F10.239 Alcohol dependence with withdrawal, unspecified; I48.0 Paroxysmal atrial fibrillation; I48.92 Unspecified atrial flutter; I10 Essential (primary) hypertension; I49.1 Atrial premature depolarization; G62.9 Polyneuropathy, unspecified; G47.33 Obstructive sleep apnea (adult) (pediatric); H54.62 Unqualified visual loss, left eye, normal vision right eye; K21.9 Gastro-esophageal reflux disease without esophagitis; F32.9 Major depressive disorder, single episode, unspecified; F41.9 Anxiety disorder, unspecified; Z79.01 Long term (current) use of anticoagulants; Z79.899 Other long term (current) drug therapy; Z86.73 Personal history of transient ischemic attack (TIA), and cerebral infarction without residual deficits
CPT/HCPCS: 36415; 80048; 80053; 80307; 80320; 83735; 84100; 85025; 85027; 85610; 93005; 99251; 99285; J7120; A4216; G0463; G0480